=== PATIENT | female | born 1960 | race Caucasian/White ===

== ENCOUNTER → 2017-11-30 | Outpatient (CLI) | payer OTHER ==
[~2017-11-30] MED LIST: AMLO10TA4 PO; CITA40TA12 PO; GLIM4TAB PO; LYR50 PO; METF1000 PO; OMEG-112 PO; SITA1TAB27 PO; ULORIC PO; VYT/1020 PO
[2017-11-30 12:29] LABS: HEMATOCRIT 43.7 % (37-47); HEMOGLOBIN 14.9 g/dL (12.0-16.0); MEAN CELL VOLUME 105.6 fL (80-100); MEAN CORPUSCULAR HGB CONC 34.1 g/dl (32-36); MEAN PLATELET VOLUME 9.8 fL (7.4-10.4); PLATELET COUNT 298 K/uL (130-400); RED CELL DISTRIBUTION WIDTH CV 13.1 % (11.5-14.5); RED CELL DISTRIBUTION WIDTH SD 50.7 fL (36.4-46.3); WHITE BLOOD COUNT 5.87 K/uL (4.8-10.8)
[2017-11-30 13:07] LABS: BLOOD UREA NITROGEN 7 mg/dl (7-18); CALCIUM 8.7 mg/dl (8.5-10.1); CARBON DIOXIDE 27 mmol/L (21-32); CREATININE 1.03 mg/dl (0.60-1.20); GLUCOSE 173 mg/dl (70-99); POTASSIUM 4.4 mmol/L (3.5-5.1); SODIUM 134 mmol/L (136-145)
[2017-11-30 13:22] LABS: CHOLESTEROL 211 mg/dl (0-200)
== END | disposition home or self-care (01) ==
LOC: C.LABPBG 10:38
PROVIDERS: ATTEND Physician Assistant
DX: E11.9 Type 2 diabetes mellitus without complications (principal); M10.9 Gout, unspecified; K21.9 Gastro-esophageal reflux disease without esophagitis

== ENCOUNTER → 2018-06-19 | Outpatient (CLI) | payer OTHER ==
[2018-06-19 13:00] LABS: HEMOGLOBIN A1C 6.7 % (4.5-5.6)
[2018-06-19 13:14] LABS: ALBUMIN 3.1 gm/dl (3.4-5.0); BLOOD UREA NITROGEN 16 mg/dl (7-18); CALCIUM 7.2 mg/dl (8.5-10.1); CARBON DIOXIDE 20 mmol/L (21-32); CREATININE 1.07 mg/dl (0.60-1.20); GLUCOSE 170 mg/dl (70-99); POTASSIUM 3.9 mmol/L (3.5-5.1); SODIUM 132 mmol/L (136-145); TOTAL PROTEIN 6.9 gm/dl (6.4-8.2)
[2018-06-19 13:15] LABS: ALKALINE PHOSPHATASE 127 U/L (45-117); AST/SGOT 152 U/L (15-37); CHOLESTEROL 224 mg/dl (0-200)
[2018-06-19 13:22] LABS: ALT/SGPT 91 U/L (12-78); URIC ACID 8.5 mg/dl (2.6-7.2)
== END | disposition home or self-care (01) ==
LOC: C.LABPBG 09:04
PROVIDERS: ATTEND Family Medicine
DX: E78.5 Hyperlipidemia, unspecified (principal); I10 Essential (primary) hypertension; F32.9 Major depressive disorder, single episode, unspecified; E11.9 Type 2 diabetes mellitus without complications; M10.9 Gout, unspecified

== ENCOUNTER 2021-01-04 11:49 | Inpatient (IN) ==
[2021-01-04] MEDS ORDERED: SODIUM CHLORIDE 0.9% 500 ML IV SCH (12:15)
--- NOTE | 2021-01-04 12:46 | Emergency Department Note ---
Impression & Plan Weakness, Hypotension, BUTCH (acute kidney injury), Hypomagnesemia, Hypoglycemia, Right rib fracture, Fall ED Provider Note NAME: HUNG SCANLON AGE: 60 SEX: F : 1960 ARRIVES VIA: Walk-In INFORMANT: [Patient] ED PROVIDER(S): [Asim Dee MD] CHIEF COMPLAINT: Dizziness and weakness. HISTORY OF PRESENT ILLNESS: The patient is a 60-year-old female presents to the ED with 2 to 3 days of dizziness and weakness. The patient states that 2 days ago, she could not get off of her recliner chair because of weakness. When she stood, she was very dizzy and actually fell, no loss of consciousness but she injured her right flank and thoracic back on a set of dog stairs. She has pain in this area since falling and the pain worsens with movement. Pain is moderate in severity. Patient states that she noted some shortness of breath and some cough and some occasional wheeze. She states that she has pain in the chest where she struck her back/ribs with coughing. Patient is concerned that her chemistries are off as she has felt similar with electrolyte imbalance in the past. She states that she is drinking water but her urine seemed orange. No urinary burning. No abdominal pain. There has been no exertional chest pain. Of note, the patient is not on blood thinners. No known Covid exposures. REVIEW OF SYSTEMS: See HPI for pertinent positives and negatives. A total of ten systems were reviewed and were otherwise negative. PMHx/PSHx: See Below SOCIAL HISTORY: See Below. PHYSICAL EXAM: GENERAL: Patient is in no acute distress. HEENT: No acute trauma, normocephalic atraumatic, mucous membranes moist, no nasal congestion, no scleral icterus. NECK: No stridor, no adenopathy, no meningismus, trachea is midline. LUNGS: Clear to auscultation bilaterally, no wheeze, no rhonchi, breath sounds equal. HEART: Without murmurs gallops or rubs, regular rate and rhythm. ABDOMEN: Soft, nontender, bowel sounds positive, no hernias, no peritonitis. EXTREMITIES: No cyanosis, mild bilateral pedal edema, full range of motion of all the joints without pain or difficulty, no signs for acute trauma. NEUROLOGIC: Oriented x 3, no acute motor or sensory deficits, no focal weakness. SKIN: No rash, no jaundice, no diaphoresis. DIFFERENTIAL DIAGNOSIS: Infection, dehydration, metabolic abnormality, hypo/hyperglycemia, COVID-19, electrolyte disturbance, anemia, hypoxia, cardiac sources, intracerebral event, toxicologic issues, stroke, TIA, as well as other pathologies. EMERGENCY DEPARTMENT COURSE/PROCEDURES: ECG: Indication was weakness. The ECG shows a normal sinus rhythm with a rate of 98. There is some baseline artifact seen. There is no ST elevation, no PVCs. The QTc is 482. Continuous Cardiac Monitoring: An order was placed for continuous cardiac monitoring. The monitor shows a rate of 101 with sinus tachycardia. Critical Care Note: I have personally spent 43 minutes of critical care time in the direct management of this patient. This includes bedside care, interpretation of diagnostic studies, and testing, discussion with consultants, patient, and family members, and other required patient management activities. This 43 minutes is in excess of all separately billable procedures. MEDICAL DECISION MAKING: There is a very mild leukocytosis which could be consistent with infection. There is no anemia. There is a normal platelet count. Potassium mildly low at 3.3, magnesium quite low at 1.2. Glucose was low in the 50s, a repeat BSG showed a value of 47. There was evidence for acute kidney injury with a creatinine of 3.73. No concerning liver enzyme elevation. The patient appeared to be in a euthyroid state. ECG showed a sinus rhythm, no acute ischemia. Cardiac enzyme testing x1 is not consistent with acute cardiac injury. Lactic acid level is not elevated making sepsis less likely. Covid testing is negative. Chest film does not show pneumonia or CHF. Chest and abdominal CT scans were performed. She has 3 rib fractures from her fall, no pneumothorax or pulmonary contusion. No abdominal traumatic injury found by CT scan. Urinalysis result is still pending. When the patient's blood sugar dropped, she was given oral juice as well as a meal. She did receive IV saline, 1.5 L thus far to help with the acute kidney injury and dehydration. She was given IV magnesium. Patient is borderline hypotensive. She presents with weakness. She did fall a few days ago from this weakness. She has suffered rib fractures. She is dehydrated, she has acute kidney injury, she is hypomagnesemic and hypoglycemic. She requires a hospital stay. I did speak with case management, the on-call hospitalist was consulted. The patient is aware of all her findings. Past Med/Surg History Medical History Acid reflux Alcoholic hepatitis Alcoholism ERIC positive Anxiety B12 deficiency C. difficile diarrhea COPD (chronic obstructive pulmonary disease) Depression Elevated ferritin Fatty liver Gout Hirsutism HLD (hyperlipidemia) -Pt reports she is on a statin, unable to confirm HTN (hypertension) Hold home amlodipine Start 25mg of metoprolol bid 5mg of Lopressor IV PRN Non-sustained ventricular tachycardia Peripheral neuropathy Tobacco use Type 2 diabetes mellitus Vitamin D deficiency Surgical History (Updated 06/26/19 @ 15:38 by Nel Pablo PA-C) History of ankle surgery History of blepharoplasty UPPER LID WITH EXCESSIVE SKIN ONSET: [id number] DESCRIPTION: B/l eyes History of laparoscopy History of umbilical hernia repair Family History (Updated 04/24/19 @ 08:31 by Jamal Byrnes) Mother , of myocardial infarction and complications of DM II Diabetes Myocardial infarction Father , motor vehicle accident MVA (motor vehicle accident) @ AGE 50 Grandmother (Maternal) Alzheimer disease Brother Diabetes Aunt Breast cancer maternal Uncle Myocardial infarction History of throat cancer Other No significant family history Denies family history of Colon cancer Ovarian cancer Prostate cancer Social History Smoking Status: Current every day smoker packs per day: 1; Hx Alcohol Use: Yes (last drink was monday morning) Alcohol type: hard liquor Alcohol Intake Frequency Comment: 2 large drinks per day Hx Substance Use: No Preferred Language: Occitan Communication Ability: Effective Visual Impairment: No Limitations Hearing Ability: Normal Milieu Therapist Required: No Beliefs That Will Affect Care: None marital status: Single Current Living Situation: Alone Current Living Situation Comment: with two dogs current occupational status: employed 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[employer]; 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 Feels Safe at Home: Yes Dental Care, Regularly: No Physical Activity Frequency: Does not Exercise Seatbelt Use: always Assistive Devices: Glasses Allergies Allergies Allergy/AdvReac Type Severity Reaction Status Date / Time No Known Drug Allergies Allergy Verified 01/04/21 14:13 Home Meds Home Medications Medication Instructions Recorded Confirmed metformin 1 tab PO BID 07/01/18 01/04/21 albuterol sulfate 2.5 mg INHALATION Q4H PRN ml 10/21/19 01/04/21 albuterol sulfate 90 mcg/actuation 1 - 2 puffs INHALATION DAILY PRN 10/21/19 01/04/21 aerosol inhaler gm capsaicin 0.025 % topical cream 1 appln TOPICAL DAILY gm 10/21/19 01/04/21 cholecalciferol (vitamin D3) 4,000 unit PO QAM 01/04/21 01/04/21 lisinopril 20 mg PO QAM 01/04/21 01/04/21 sertraline 100 mg PO QAM 01/04/21 01/04/21 Previous Rx's Medication Instructions Recorded gabapentin 300 mg capsule 900 mg PO HS #270 cap 06/01/20 magnesium oxide 400 mg PO BID #180 cap 08/28/20 amlodipine 5 mg tablet 5 mg PO QAM #90 tab 09/21/20 potassium chloride 20 mEq 20 meq PO TID 21 Days #63 tab 10/01/20 tablet,extended release(part/cryst) glimepiride 2 mg tablet 4 mg PO HS #180 tab 10/02/20 colchicine 0.6 mg capsule See Rx Instructions PO DAILY PRN 10/09/20 #3 cap Results & Data (ED) Vital Signs Vital Signs - 24 hr 01/04/21 11:51 01/04/21 12:52 01/04/21 14:11 Temperature 36.8 C Temperature Source Temporal Artery Scan Pulse Rate 85 Pulse Rate [Left Apical] 97 H 97 H Pulse Rhythm [Left Apical] Regular Regular Pulse Strength [Left Apical] Normal Normal Respiratory Rate 18 22 18 Respiratory Effort / Characteristics Non-Labored Spontaneous Non-Labored Spontaneous Non-Labored Spontaneous Respiratory Depth Normal Normal Normal Respiratory Pattern Regular Regular Blood Pressure 102/58 L Blood Pressure [Right Arm] 101/64 107/75 Blood Pressure Mean 72 Blood Pressure Mean [Right Arm] 76 85 Blood Pressure Position [Right Arm] Lying Lying Pulse Oximetry 99 98 95 Oxygen Delivery Method Room Air Room Air Room Air Sepsis Recent Fever Within 48 Hours No Sepsis New/Unexplained Change in Mental Status N/A Sepsis Action Taken by Nursing No Action Required 01/04/21 14:16 01/04/21 15:00 01/04/21 15:43 Temperature Temperature Source Pulse Rate 95 H Pulse Rate [Left Apical] 101 H 106 H Pulse Rhythm [Left Apical] Regular Regular Pulse Strength [Left Apical] Normal Normal Respiratory Rate 22 22 Respiratory Effort / Characteristics Non-Labored Non-Labored Spontaneous Respiratory Depth Normal Normal Respiratory Pattern Regular Regular Blood Pressure Blood Pressure [Right Arm] 91/61 L 112/64 Blood Pressure Mean Blood Pressure Mean [Right Arm] 71 80 Blood Pressure Position [Right Arm] Lying Lying Pulse Oximetry 95 98 99 Oxygen Delivery Method Room Air Room Air Room Air Sepsis Recent Fever Within 48 Hours Sepsis New/Unexplained Change in Mental Status Sepsis Action Taken by Nursing 01/04/21 16:04 Temperature Temperature Source Pulse Rate Pulse Rate [Left Apical] 96 H Pulse Rhythm [Left Apical] Regular Pulse Strength [Left Apical] Normal Respiratory Rate 18 Respiratory Effort / Characteristics Non-Labored Spontaneous Respiratory Depth Normal Respiratory Pattern Regular Blood Pressure Blood Pressure [Right Arm] 113/68 Blood Pressure Mean Blood Pressure Mean [Right Arm] 83 Blood Pressure Position [Right Arm] Lying Pulse Oximetry 98 Oxygen Delivery Method Room Air Sepsis Recent Fever Within 48 Hours Sepsis New/Unexplained Change in Mental Status Sepsis Action Taken by Intermediate Medications Current Medication List: was personally reviewed by me Laboratory Data Attestation: I reviewed the patient's lab results. Result diagrams: 01/04/21 13:41 01/04/21 13:41 Lab Results 01/04/21 01/04/21 01/04/21 Range/Units 13:02 13:02 13:41 WBC 10.90 H (4.8-10.8) K/uL RBC 3.48 L (4.2-5.4) M/uL Hgb 12.1 (12.0-16.0) g/dL Hct 37.0 (37-47) % MCV 106.3 H (80-100) fL MCH 34.8 H (25-34) pg MCHC 32.7 (32-36) g/dL RDW Std Deviation 59.5 H (36.4-46.3) fL RDW Coeff of Eduardo 15.4 H (11.5-14.5) % Plt Count 203 (130-400) K/uL MPV 9.8 (7.4-10.4) fL Immature Gran % (Auto) 0.5 % Neut % (Auto) 70.6 % Lymph % (Auto) 21.7 % [place] % (Auto) 6.5 % Eos % (Auto) 0.6 % Baso % (Auto) 0.1 % Neut # (Auto) 7.70 H (1.4-6.5) K/uL Lymph # (Auto) 2.37 (1.2-3.4) K/uL [place] # (Auto) 0.71 H (0.11-0.59) K/uL Eos # (Auto) 0.06 (0-0.5) K/uL Baso # (Auto) 0.01 (0-0.2) K/uL Immature Gran # (Auto) 0.05 H (0.00-0.02) K/uL Sodium (136-145) mmol/L Potassium (3.5-5.1) mmol/L Chloride (98-107) mmol/L Carbon Dioxide (21-32) mmol/L Anion Gap (3-11) BUN (7-18) mg/dl Creatinine (0.6-1.2) mg/dl Est Cr Clr Drug Dosing ml/min Est GFR ( Amer) Est GFR (Non-Af Amer) BUN/Creatinine Ratio (10-20) Glucose (70-99) mg/dl POC Glucose (70-99) mg/dl Lactate (0.4-2.0) mmol/L Calcium (8.5-10.1) mg/dl Magnesium (1.8-2.4) mg/dl Total Bilirubin (0.2-1) mg/dl AST (15-37) U/L ALT (12-78) U/L Alkaline Phosphatase (45-117) U/L Troponin I (0-0.045) ng/ml Total Protein (6.4-8.2) gm/dl Albumin (3.4-5.0) gm/dl Globulin (2.5-4.0) gm/dl Albumin/Globulin Ratio (0.9-2) TSH (0.300-4.500) uIu/ml COVID-19 Eval Order Covid19 [facility]Now [facility] SARS-CoV-2, RNA, NAAT NEGATIVE (NEGATIVE) 01/04/21 01/04/21 01/04/21 Range/Units 13:41 13:41 15:06 WBC (4.8-10.8) K/uL RBC (4.2-5.4) M/uL Hgb (12.0-16.0) g/dL Hct (37-47) % MCV (80-100) fL MCH (25-34) pg MCHC (32-36) g/dL RDW Std Deviation (36.4-46.3) fL RDW Coeff of Eduardo (11.5-14.5) % Plt Count (130-400) K/uL MPV (7.4-10.4) fL Immature Gran % (Auto) % Neut % (Auto) % Lymph % (Auto) % [place] % (Auto) % Eos % (Auto) % Baso % (Auto) % Neut # (Auto) (1.4-6.5) K/uL Lymph # (Auto) (1.2-3.4) K/uL [place] # (Auto) (0.11-0.59) K/uL Eos # (Auto) (0-0.5) K/uL Baso # (Auto) (0-0.2) K/uL Immature Gran # (Auto) (0.00-0.02) K/uL Sodium 140 (136-145) mmol/L Potassium 3.3 L (3.5-5.1) mmol/L Chloride 105 (98-107) mmol/L Carbon Dioxide 23 (21-32) mmol/L Anion Gap 12.0 H (3-11) BUN 50 H (7-18) mg/dl Creatinine 3.73 H (0.6-1.2) mg/dl Est Cr Clr Drug Dosing 20.8 ml/min Est GFR ( Amer) 14.5 Est GFR (Non-Af Amer) 12.5 BUN/Creatinine Ratio 13.4 (10-20) Glucose 55 L (70-99) mg/dl POC Glucose 41 L* (70-99) mg/dl Lactate 1.2 (0.4-2.0) mmol/L Calcium 7.8 L (8.5-10.1) mg/dl Magnesium 1.2 L (1.8-2.4) mg/dl Total Bilirubin 0.7 (0.2-1) mg/dl AST 33 (15-37) U/L ALT 27 (12-78) U/L Alkaline Phosphatase 113 (45-117) U/L Troponin I < 0.015 (0-0.045) ng/ml Total Protein 7.7 (6.4-8.2) gm/dl Albumin 3.0 L (3.4-5.0) gm/dl Globulin 4.7 H (2.5-4.0) gm/dl Albumin/Globulin Ratio 0.6 L (0.9-2) TSH 0.682 (0.300-4.500) uIu/ml COVID-19 Eval Order SARS-CoV-2, RNA, NAAT (NEGATIVE) 01/04/21 01/04/21 01/04/21 Range/Units 15:31 16:01 16:23 WBC (4.8-10.8) K/uL RBC (4.2-5.4) M/uL Hgb (12.0-16.0) g/dL Hct (37-47) % MCV (80-100) fL MCH (25-34) pg MCHC (32-36) g/dL RDW Std Deviation (36.4-46.3) fL RDW Coeff of Eduardo (11.5-14.5) % Plt Count (130-400) K/uL MPV (7.4-10.4) fL Immature Gran % (Auto) % Neut % (Auto) % Lymph % (Auto) % [place] % (Auto) % Eos % (Auto) % Baso % (Auto) % Neut # (Auto) (1.4-6.5) K/uL Lymph # (Auto) (1.2-3.4) K/uL [place] # (Auto) (0.11-0.59) K/uL Eos # (Auto) (0-0.5) K/uL Baso # (Auto) (0-0.2) K/uL Immature Gran # (Auto) (0.00-0.02) K/uL Sodium (136-145) mmol/L Potassium (3.5-5.1) mmol/L Chloride (98-107) mmol/L Carbon Dioxide (21-32) mmol/L Anion Gap (3-11) BUN (7-18) mg/dl Creatinine (0.6-1.2) mg/dl Est Cr Clr Drug Dosing ml/min Est GFR ( Amer) Est GFR (Non-Af Amer) BUN/Creatinine Ratio (10-20) Glucose (70-99) mg/dl POC Glucose 47 L* 52 L* 84 (70-99) mg/dl Lactate (0.4-2.0) mmol/L Calcium (8.5-10.1) mg/dl Magnesium (1.8-2.4) mg/dl Total Bilirubin (0.2-1) mg/dl AST (15-37) U/L ALT (12-78) U/L Alkaline Phosphatase (45-117) U/L Troponin I (0-0.045) ng/ml Total Protein (6.4-8.2) gm/dl Albumin (3.4-5.0) gm/dl Globulin (2.5-4.0) gm/dl Albumin/Globulin Ratio (0.9-2) TSH (0.300-4.500) uIu/ml COVID-19 Eval Order SARS-CoV-2, RNA, NAAT (NEGATIVE) Administered Medications Discontinued Medications Sodium Chloride (Nss) 500 mls @ 999 mls/hr IV .Q31M GRAYSON Stop: 01/04/21 12:45 Last Infusion: 01/04/21 15:15 Dose: 0 mls/hr Documented by: [id number] Admin: 01/04/21 14:11 Dose: 999 mls/hr Documented by: [id number] Sodium Chloride (Nss 1000ml) 500 mls @ 999 mls/hr IV .Q31M ONE Stop: 01/04/21 15:03 Last Infusion: 01/04/21 16:19 Dose: 0 mls/hr Documented by: [id number] Admin: 01/04/21 15:09 Dose: 999 mls/hr Documented by: [id number] Magnesium Sulfate/Dextrose (Magnesium Sulfate / D5w) 1 gm in 100 mls @ 100 mls/hr IV Q1H GRAYSON Stop: 01/04/21 16:33 Last Admin: 01/04/21 15:40 Dose: 100 mls/hr Documented by: [id number] Infusion: 01/04/21 15:40 Dose: 100 mls/hr Documented by: [id number] Admin: 01/04/21 15:09 Dose: 100 mls/hr Documented by: [id number] Imaging Data Radiologist's Impression: XR chest 1V portable CLINICAL HISTORY: weakness TRAUMA COMPARISON STUDY: 07/01/2018 FINDINGS: Heart is mildly enlarged. There is no failure. There is no focal pulmonary consolidation. There are no pleural effusions. There is a 5 mm opacity at the left lung base, possibly atelectatic. This can be evaluated with the patient's chest CT which is pending IMPRESSION: 1. Mild cardiomegaly 2. No evidence of pneumothorax 3. No evidence of focal pulmonary consolidation 4. 5 mm nodular the left lung base versus focal atelectasis CT SCAN OF THE CHEST, ABDOMEN, AND PELVIS WITHOUT IV CONTRAST CLINICAL HISTORY: Trauma. Right-sided chest injury. COMPARISON STUDY: Chest x-ray dated 01/04/2021. MRCP dated 07/07/2018. TECHNIQUE: Unenhanced CT scan of the chest, abdomen, and pelvis was performed from the thoracic inlet to the proximal femora. Images are reviewed in the axial, sagittal, and coronal planes. IV contrast was not administered due to poor renal function. Note that the examination is suboptimal without IV contrast. A dose lowering technique was utilized adhering to the principles of ALARA. CT DOSE: 2442.75 mGy.cm FINDINGS: CHEST: Thyroid: Imaged portions of the thyroid gland are normal in size and attenuation. Thoracic aorta: There is mild atherosclerotic calcification of the thoracic aorta, which is normal in caliber and demonstrates bovine variant arch anatomy. Heart: The heart is top normal in size and without pericardial effusion. The coronary arteries are densely calcified. Lungs and pleural spaces: There is no airspace consolidation or pleural effusion. No pneumothorax is identified. Dependent atelectasis is seen at the lung bases. The trachea and central airways are clear. Mediastinum: There is no mediastinal hematoma or lymphadenopathy. Angelina: Not well assessed without IV contrast. Axillae: There is no axillary lymphadenopathy. Bony thorax: The skeletal structures are osteopenic. There is a minimally displaced right posterior 11th rib fracture. There are nondisplaced right anterior 5th and 6th rib fractures. The remainder of the bony thorax appears intact. No lytic or blastic lesions are identified. ABDOMEN AND PELVIS: Liver: The unenhanced liver is enlarged, measuring 23.8 cm in length. The liver demonstrates diffusely diminished attenuation consistent with hepatic steatosis. There is no intra- or extrahepatic biliary ductal dilatation. Gallbladder: Unremarkable. Spleen: Normal in size and attenuation. Pancreas: Unremarkable. Adrenal glands: Unremarkable. Kidneys: The unenhanced kidneys demonstrate cortical atrophy and are without hydronephrosis. No renal calculi are identified. There is no evidence of contour deforming mass lesion. Abdominal vasculature: The abdominal aorta is normal in course and caliber noting moderate atherosclerotic calcification. Stomach and bowel: A small hiatal hernia is noted. There is no bowel obstruction. The appendix is well-visualized and normal. Peritoneum: There is no intraperitoneal free air or abdominal ascites. There is evidence of previous ventral hernia repair. Lymphadenopathy: None. Pelvic viscera: The bladder, uterus, and adnexa are normal as visualized. Skeletal structures: The skeletal structures are osteopenic. The lumbosacral spine, bony pelvis, and proximal femora appear intact. There is mild to moderate lumbosacral spondylosis. Degenerative change is also seen in the hips. No lytic or blastic lesions are seen. IMPRESSION: 1. Right-sided rib fractures as above. 2. There is no airspace consolidation, pleural effusion, or pneumothorax. 3. There is no evidence of solid organ injury in the abdomen or pelvis on this unenhanced examination. 4. Hepatomegaly and hepatic steatosis. 5. Additional findings as above. Discharge Plan Visit Data Chief Complaint: Swelling/Edema to Extremity Stated Complaint: SOB FEET SWELLING CANT STAND UP BY SELF ED Provider: Asim Dee Discharge Problem: Weakness, Hypotension, BUTCH (acute kidney injury), Hypomagnesemia, Hypoglycemia, Right rib fracture, Fall Patient Disposition: Admitted As Inpatient Condition: Fair Forms Stand Alone Forms: [facility] Prescriptions Prescriptions: No Action magnesium oxide 400 mg magnesium capsule 400 mg PO BID Qty: 180 RF: 1 amlodipine 5 mg tablet 5 mg PO QAM Qty: 90 RF: 1 potassium chloride 20 mEq tablet,ER particles/crystals 20 meq PO TID 21 Days Qty: 63 RF: 0 glimepiride 2 mg tablet 4 mg PO HS Qty: 180 RF: 1 colchicine 0.6 mg capsule See Rx Instructions PO DAILY PRN (Reason: Gout) Qty: 3 RF: 1 gabapentin 300 mg capsule 900 mg PO HS Qty: 270 RF: 1 albuterol sulfate 2.5 mg /3 mL (0.083 %) solution for nebulization 2.5 mg inhalation Q4H PRN (Reason: mild COPD) RF: 0 albuterol sulfate 90 mcg/actuation HFA aerosol inhaler 1 - 2 puffs inhalation DAILY PRN (Reason: Shortness Of Breath) RF: 0 capsaicin 0.025 % cream 1 appln topical DAILY RF: 0 metformin 500 mg tablet extended release 24 hr 1 tab PO BID RF: 0 lisinopril 20 mg tablet 20 mg PO QAM RF: 0 sertraline 100 mg tablet 100 mg PO QAM RF: 0 cholecalciferol (vitamin D3) 100 mcg (4,000 unit) tablet 4,000 unit PO QAM RF: 0 Referrals Referrals: Gay Sanchez DO [Primary Care Provider] - Discharge Problem: Hypotension Qualifiers: Hypotension type: unspecified hypotension type Qualified Code(s): I95.9 - Hypotension, unspecified Right rib fracture Qualifiers: Encounter type: initial encounter Rib fracture type: multiple ribs Fracture type: closed Qualified Code(s): S22.41XA - Multiple fractures of ribs, right side, initial encounter for closed fracture Fall Qualifiers: Encounter type: initial encounter Qualified Code(s): W19.XXXA - Unspecified fall, initial encounter
--- NOTE | 2021-01-04 12:48 | XRay Report ---
XR chest 1V portable CLINICAL HISTORY: weakness TRAUMA COMPARISON STUDY: 07/01/2018 FINDINGS: Heart is mildly enlarged. There is no failure. There is no focal pulmonary consolidation. T here are no pleural effusions. There is a 5 mm opacity at the left lung base, possibly atelectatic. T his can be evaluated with the patient's chest CT which is pending IMPRESSION: 1. Mild cardiomegaly 2. No evidence of pneumothorax 3. No evidence of focal pulmonary consolidation 4. 5 mm nodular the left lung base versus focal atelectasis ACT 112: Negative or not required by law. Electronically signed by: Aram Crowley M.D. 01/04/2021 12:47 PM
--- NOTE | 2021-01-04 13:28 | Electrocardiogram Report ---
Test Reason : Blood Pressure : / mmHG Vent. Rate : 098 BPM Atrial Rate : 098 BPM P-R Int : 128 ms QRS Dur : 090 ms QT Int : 360 ms P-R-T Axes : 066 024 048 degrees QTc Int : 460 ms Poor data quality, interpretation may be adversely affected Normal sinus rhythm Borderline Nonspecific ST and T wave abnormality Inferior leads Borderline ECG When compared with ECG of 20-AUG-2018 22:00, Premature ventricular complexes are no longer Present Nonspecific T wave abnormality, improved in Lateral leads Confirmed by Sergio Rubi ([id number]) on 01/04/2021 1:28:14 PM Referred By: Confirmed By:Sergio Rubi
[2021-01-04 13:54] LABS: Basophils # (auto) 0.01 K/uL (0-0.2); Basophils % (auto) 0.1 %; Eosinophils # (auto) 0.06 K/uL (0-0.5); Eosinophils % (auto) 0.6 %; Hemoglobin 12.1 g/dL (12.0-16.0); Immature Granulocytes # (auto) 0.05 K/uL (0.00-0.02); Immature Granulocytes % (auto) 0.5 %; Lymphocytes # (auto) 2.37 K/uL (1.2-3.4); Lymphocytes % (auto) 21.7 %; Mean Corpuscular Hemoglobin 34.8 pg (25-34); Mean Corpuscular Hgb Conc 32.7 g/dL (32-36); Mean Corpuscular Volume 106.3 fL (80-100); Mean Platelet Volume 9.8 fL (7.4-10.4); Monocytes # (auto) 0.71 K/uL (0.11-0.59); Monocytes % (auto) 6.5 %; Neutrophils % (auto) 70.6 %; Platelet Count 203 K/uL (130-400); RDW Coefficient of Variation 15.4 % (11.5-14.5); RDW Standard Deviation 59.5 fL (36.4-46.3); Red Blood Count 3.48 M/uL (4.2-5.4)
[2021-01-04 14:25] LABS: Alanine Aminotransferase 27 U/L (12-78); Albumin Globulin Ratio 0.6 (0.9-2); Alkaline Phosphatase 113 U/L (45-117); Aspartate Aminotransferase 33 U/L (15-37); BUN Creatinine Ratio 13.4 (10-20); Bilirubin,Total 0.7 mg/dl (0.2-1); Blood Urea Nitrogen 50 mg/dl (7-18); Calcium 7.8 mg/dl (8.5-10.1); Carbon Dioxide 23 mmol/L (21-32); Chloride 105 mmol/L (98-107); Creatinine Clr Calc Pharmacy 20.8 ml/min; Est GFR (African American) 14.5; Est GFR (Non-African American) 12.5; Globulin 4.7 gm/dl (2.5-4.0); Glucose 55 mg/dl (70-99); Magnesium 1.2 mg/dl (1.8-2.4); Potassium 3.3 mmol/L (3.5-5.1); Sodium 140 mmol/L (136-145); Thyroid Stimulating Hormone 0.682 uIu/ml (0.300-4.500); Total Protein 7.7 gm/dl (6.4-8.2); Troponin I < 0.015 ng/ml (0-0.045)
[2021-01-04] MEDS ORDERED: SODIUM CHLORIDE 0.9% 1000ML 500 ML IV ONE ×2 (14:33→15:23)
[2021-01-04] MEDS: MAGNESIUM SULFATE / D5W 1 GM/100 ML BAG IV SCH ×2 (15:09→15:40)
--- NOTE | 2021-01-04 15:13 | CT Scan Report ---
CT SCAN OF THE CHEST, ABDOMEN, AND PELVIS WITHOUT IV CONTRAST CLINICAL HISTORY: Trauma. Right-sided chest injury. COMPARISON STUDY: Chest x-ray dated 01/04/2021. MRCP dated 07/07/2018. TECHNIQUE: Unenhanced CT scan of the chest, abdomen, and pelvis was performed from the thoracic inlet to the proximal femora. Images are reviewed in the axial, sagittal, and coronal planes. IV contrast was not administered due to poor renal function. Note that the examination is suboptimal without IV c ontrast. A dose lowering technique was utilized adhering to the principles of ALARA. CT DOSE: 2442.75 mGy.cm FINDINGS: CHEST: Thyroid: Imaged portions of the thyroid gland are normal in size and attenuation. Thoracic aorta: There is mild atherosclerotic calcification of the thoracic aorta, which is normal in caliber and demonstrates bovine variant arch anatomy. Heart: The heart is top normal in size and without pericardial effusion. The coronary arteries are de nsely calcified. Lungs and pleural spaces: There is no airspace consolidation or pleural effusion. No pneumothorax is identified. Dependent atelectasis is seen at the lung bases. The trachea and central airways are reji r. Mediastinum: There is no mediastinal hematoma or lymphadenopathy. Angelina: Not well assessed without IV contrast. Axillae: There is no axillary lymphadenopathy. Bony thorax: The skeletal structures are osteopenic. There is a minimally displaced right posterior 1 1th rib fracture. There are nondisplaced right anterior 5th and 6th rib fractures. The remainder of t he bony thorax appears intact. No lytic or blastic lesions are identified. ABDOMEN AND PELVIS: Liver: The unenhanced liver is enlarged, measuring 23.8 cm in length. The liver demonstrates diffusel y diminished attenuation consistent with hepatic steatosis. There is no intra- or extrahepatic biliar y ductal dilatation. Gallbladder: Unremarkable. Spleen: Normal in size and attenuation. Pancreas: Unremarkable. Adrenal glands: Unremarkable. Kidneys: The unenhanced kidneys demonstrate cortical atrophy and are without hydronephrosis. No renal calculi are identified. There is no evidence of contour deforming mass lesion. Abdominal vasculature: The abdominal aorta is normal in course and caliber noting moderate atheroscle rotic calcification. Stomach and bowel: A small hiatal hernia is noted. There is no bowel obstruction. The appendix is we ll-visualized and normal. Peritoneum: There is no intraperitoneal free air or abdominal ascites. There is evidence of previous ventral hernia repair. Lymphadenopathy: None. Pelvic viscera: The bladder, uterus, and adnexa are normal as visualized. Skeletal structures: The skeletal structures are osteopenic. The lumbosacral spine, bony pelvis, and proximal femora appear intact. There is mild to moderate lumbosacral spondylosis. Degenerative change is also seen in the hips. No lytic or blastic lesions are seen. IMPRESSION: 1. Right-sided rib fractures as above. 2. There is no airspace consolidation, pleural effusion, or pneumothorax. 3. There is no evidence of solid organ injury in the abdomen or pelvis on this unenhanced examination . 4. Hepatomegaly and hepatic steatosis. 5. Additional findings as above. ACT 112: Negative or not required by law. Electronically signed by: Asim Bertrand M.D. 01/04/2021 3:12 PM
--- NOTE | 2021-01-04 15:59 | History & Physical Report ---
Date of Service January 04, 2021 Assessment & Plan (1) BUTCH (acute kidney injury): Presented with creatinine up to 3.7, elevated BUN to 50, likely secondary to dehydration and poor p.o. intake in the setting of taking continued lisinopril, metformin. She is a heavy alcohol abuser which is also likely contributing Fortunately, potassium levels actually slightly low and there is no acidosis. She does have low blood pressure and seems volume down despite her mild lower extremity edema. -Admit to medical floor with telemetry -Start normal saline at 100 mL's per hour -Follow serial BMP -Follow urine output-she has not been able to give a urine sample yet but when she does, would check FeNa There is no evidence of obstruction on CT abdomen/pelvis -Consult nephrology-there is been question in the past of if she had a Gitleman syndrome but her appointments with nephrology have been canceled for some reason -Hold home lisinopril, Metformin, glimepiride, potassium chloride, and gabapentin (2) Weakness: With fall and unsteadiness possibly due to acute kidney injury, hypomagnesemia, hypotension, and hypoglycemia Treat all metabolic disturbances -PT/OT consults will be needed (3) Hypotension: As noted above Improved now with IV fluids Hold home amlodipine, lisinopril Continue IV fluids (4) Hypomagnesemia: Magnesium is 1.2 upon admission, it has been low in the past and there is suspected renal magnesium wasting She does have 1 loose bowel movement per day but this does not seem enough to cause significant hypomagnesemia Consult nephrology -Continue home magnesium oxide -She was given 1 g of IV magnesium sulfate in the ER, but will order 2 more grams to be given Follow magnesium levels in the morning (5) Hypoglycemia: Persistent hypoglycemia upon admission Likely secondary to glimepiride use in the setting of acute kidney injury Continue to allow her to replace glucose orally, but will also start D5 normal saline after given first dose of thiamine and her banana bag Follow Accu-Cheks before meals and at bedtime as well as at 2 in the morning- discussed with nurse on the floor (6) Right rib fracture: Fifth and sixth anterior ribs nondisplaced, 11th posterior rib mildly displaced-no evidence of pneumothorax With bruising on the right trunk secondary to such Start lidocaine patch, Tylenol as needed Incentive spirometry every hour while awake (7) Fall: As above, likely secondary to hypotension, hypoglycemia, weakness from acute kidney injury PT/OT consults (8) Alcoholism: Has been an alcoholic for 40 years as per patient and her sister confirms this at the bedside She has attended alcohol rehab in the past Currently, she only admits to one large glass of michelle per day, but her sister disputes this outside of the room stating that patient drinks way more than this on a daily basis. Watch for alcohol withdrawal with AWSS Ativan as needed Give banana bag x1 now Start thiamine 100 mg IV every morning and folic acid 1 mg IV daily (9) Leg swelling: Ongoing for 4-5 months but worse in the last week likely due to acute kidney injury Could be secondary to dependent edema from central obesity or venous reflux as well No calf tenderness or suspicion for DVT -Check echocardiogram as could have alcoholic cardiomyopathy (10) Type 2 diabetes mellitus: With hyperglycemia here as above Holding home metformin and glimepiride Accu-Cheks and NovoLog supplemental insulin as needed Check hemoglobin A1c (11) Peripheral neuropathy: Holding home gabapentin due to weakness, renal failure (12) Tobacco use: Smokes 1 pack/day-declines nicotine patch Encourage cessation-she is considering this (13) Depression: Continue home sertraline (14) B12 deficiency: MCV is elevated which is likely due to liver disease and alcohol use Check B12 in the morning (15) Acid reflux: Not currently on medications for this and no current complaints (16) COPD (chronic obstructive pulmonary disease): With mild expiratory wheezes on examination Albuterol as needed Encourage smoking cessation (17) HLD (hyperlipidemia): Not currently on medication for this (18) HTN (hypertension): With hypotension as above Holding home amlodipine and lisinopril (19) Fatty liver: Secondary to alcohol Encouraged alcohol cessation, weight loss (20) Vitamin D deficiency: Continue home vitamin D supplementation (21) Hypokalemia: Has chronic hypokalemia and is on potassium chloride 3 times daily at home Potassium here mildly low at 3.3 but with acute kidney injury-we will use caution with potassium replacement Replace with 20 mEq potassium chloride p.o. x1 now, follow daily BMP, magnesium levels Hold home 3 times daily replacement for now (22) DVT prophylaxis: Heparin SQ, PHUONG witt Disposition-admit to medical floor with telemetry Full code Patient designates her sister and brother as her decision makers. She reports that she would not want long-term life support if "I were a vegetable." History of Present Illness Chief Complaint: Fall, rib pain, weakness Primary Care Provider: Gay Sanchez DO This patient is a 60-year-old female with a history of alcohol dependence, DM 2, COPD and current smoker, depression, neuropathy, hypokalemia, hypomagnesemia who presents to the ER with 2 to 3 days of persistent lightheadedness and generalized weakness. A few days ago, she had great difficulty getting off of her recliner chair and then stood and had dizziness and fell, landed on her right side on some steps and has had pain in the right flank area ever since. Since then, she has not really been drinking or eating much and has had worsening weakness. She reports her urine output has gone down significantly in her urine appeared orange in color. She thinks overall she started feeling poorly at least a week ago. She is continue to take all of her usual medications at home. She is also noted worsening swelling in the legs in the last week but overall legs have been swollen and red since July 2020. She denies any fevers or chills, no chest pain or shortness of breath. She has had some headaches last couple of weeks. She denies any nausea or vomiting. She has had 1 loose stool daily for the last week. She reports that she has cut way down on her alcohol intake but cannot give me an exact a.m. when she last drank. She thinks it was "sometime last week," however her sister spoke to the nurse outside the room and said that her sister drinks excessively on a daily basis. The patient admits to drinking a large glass full of michelle on a daily basis that is mixed with soda. The patient denies any withdrawal symptoms except from a hospitalization a couple of years ago. In the ER, she was found to have an acute kidney injury with creatinine of 3.7 and was hypotensive, hypoglycemic, hypokalemic, and hypomagnesemic. Troponin was negative. She was given juice to drink and her blood sugar finally came up to 84. She was also given IV fluids and her blood pressure improved. She was given IV magnesium. A CT of the chest/abdomen/pelvis revealed right sided anterior fifth and sixth rib fractures as well as a minimally displaced right posterior 11th rib fracture, hepatomegaly and hepatic steatosis, but was otherwise negative for acute issues. A Covid-19 test was negative She will be admitted for acute kidney injury and multiple metabolic and electrolyte disturbances, as well as falls, lightheadedness, and hypotension. Allergies Allergy/AdvReac Type Severity Reaction Status Date / Time No Known Drug Allergies Allergy Verified 01/04/21 14:13 Home Medications Medication Instructions Recorded Confirmed Type metformin 1 tab PO BID 07/01/18 01/04/21 History albuterol sulfate 2.5 mg INHALATION Q4H PRN ml 10/21/19 01/04/21 History albuterol sulfate 90 mcg/actuation 1 - 2 puffs INHALATION DAILY PRN 10/21/19 01/04/21 History aerosol inhaler gm capsaicin 0.025 % topical cream 1 appln TOPICAL DAILY gm 10/21/19 01/04/21 History gabapentin 300 mg capsule 900 mg PO HS #270 cap 06/01/20 01/04/21 Rx magnesium oxide 400 mg PO BID #180 cap 08/28/20 01/04/21 Rx amlodipine 5 mg tablet 5 mg PO QAM #90 tab 09/21/20 01/04/21 Rx potassium chloride 20 mEq 20 meq PO TID 21 Days #63 tab 10/01/20 01/04/21 Rx tablet,extended release(part/cryst) glimepiride 2 mg tablet 4 mg PO HS #180 tab 10/02/20 01/04/21 Rx colchicine 0.6 mg capsule See Rx Instructions PO DAILY PRN 10/09/20 01/04/21 Rx #3 cap cholecalciferol (vitamin D3) 4,000 unit PO QAM 01/04/21 01/04/21 History lisinopril 20 mg PO QAM 01/04/21 01/04/21 History sertraline 100 mg PO QAM 01/04/21 01/04/21 History Past Med/Surg History Medical History Acid reflux Alcoholic hepatitis Alcoholism ERIC positive Anxiety B12 deficiency C. difficile diarrhea COPD (chronic obstructive pulmonary disease) Depression Elevated ferritin Fatty liver Gout Hirsutism HLD (hyperlipidemia) -Pt reports she is on a statin, unable to confirm HTN (hypertension) Hold home amlodipine Start 25mg of metoprolol bid 5mg of Lopressor IV PRN Non-sustained ventricular tachycardia Peripheral neuropathy Tobacco use Type 2 diabetes mellitus Vitamin D deficiency Surgical History History of ankle surgery History of blepharoplasty UPPER LID WITH EXCESSIVE SKIN ONSET: [id number] DESCRIPTION: B/l eyes History of bunionectomy History of laparoscopy History of umbilical hernia repair Family History Mother , of myocardial infarction and complications of DM II Diabetes Myocardial infarction Father , motor vehicle accident MVA (motor vehicle accident) @ AGE 50 Grandmother (Maternal) Alzheimer disease Brother Diabetes Aunt Breast cancer maternal Uncle Myocardial infarction History of throat cancer Other No significant family history Denies family history of Colon cancer Ovarian cancer Prostate cancer Social History Smoking Status: Current every day smoker packs per day: 1; Hx Alcohol Use: Yes (last drink was monday morning) Alcohol type: hard liquor Alcohol Intake Frequency Comment: 2 large drinks per day Hx Substance Use: No Preferred Language: Setswana Communication Ability: Effective Visual Impairment: No Limitations Hearing Ability: Normal Warehouse Man Required: No Beliefs That Will Affect Care: None marital status: Single Current Living Situation: Alone Current Living Situation Comment: with two dogs current occupational status: employed 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[employer]; 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 Feels Safe at Home: Yes Dental Care, Regularly: No Physical Activity Frequency: Does not Exercise Seatbelt Use: always Assistive Devices: Glasses Review of Systems Review of Systems: All systems reviewed & are unremarkable except as noted in HPI & below Leg swelling Right sided rib pain Toenails thickened and long-requesting podiatry consultation Physical Exam Constitutional: WD/WN, vitals as above Eyes: PERRL, conjunctivae normal, anicteric sclerae ENMT: external ear and nose normal, oropharynx normal Neck: trachea midline, no thyromegaly Respiratory: normal respiratory effort; no labored breathing Auscultation: + wheezes (Faint expiratory wheezes bilaterally); no rales and no rhonchi Cardiovascular: Rate/Rhythm: regular rate and regular rhythm Heart Sounds: no murmur Extremities: + edema (1+ nonpitting edema feet and distal legs bilat) Chest (Breasts): Chest: normal inspection of chest Gastrointestinal (Abdomen): normal bowel sounds, soft, nontender, no hepatosplenomegaly Musculoskeletal: Extremities: no cyanosis and no clubbing Skin: + erythema (mild chronic venous stasis and a few small scratches legs bilat) Neurologic: moves all extremities and awake; no focal motor deficits Psychiatric: A+Ox3, euthymic affect Results & Data Results & Data ([facility]) Vital Signs (Past 12 Hours) Vital Signs Temp Pulse Pulse Resp BP BP Pulse Ox 01/04/21 15:43 106 H 22 112/64 99 01/04/21 15:00 101 H 22 91/61 L 98 01/04/21 14:16 95 H 95 01/04/21 14:11 97 H 18 107/75 95 01/04/21 12:52 97 H 22 101/64 98 01/04/21 11:51 36.8 C 85 18 102/58 L 99 Laboratory Results 01/04/21 01/04/21 01/04/21 Range/Units 16:01 15:31 15:06 WBC (4.8-10.8) K/uL RBC (4.2-5.4) M/uL Hgb (12.0-16.0) g/dL Hct (37-47) % MCV (80-100) fL MCH (25-34) pg MCHC (32-36) g/dL RDW Std Deviation (36.4-46.3) fL RDW Coeff of Eduardo (11.5-14.5) % Plt Count (130-400) K/uL MPV (7.4-10.4) fL Immature Gran % (Auto) % Neut % (Auto) % Lymph % (Auto) % [place] % (Auto) % Eos % (Auto) % Baso % (Auto) % Neut # (Auto) (1.4-6.5) K/uL Lymph # (Auto) (1.2-3.4) K/uL [place] # (Auto) (0.11-0.59) K/uL Eos # (Auto) (0-0.5) K/uL Baso # (Auto) (0-0.2) K/uL Immature Gran # (Auto) (0.00-0.02) K/uL Sodium (136-145) mmol/L Potassium (3.5-5.1) mmol/L Chloride (98-107) mmol/L Carbon Dioxide (21-32) mmol/L Anion Gap (3-11) BUN (7-18) mg/dl Creatinine (0.6-1.2) mg/dl Est Cr Clr Drug Dosing ml/min Est GFR ( Amer) Est GFR (Non-Af Amer) BUN/Creatinine Ratio (10-20) Glucose (70-99) mg/dl POC Glucose 52 L* 47 L* 41 L* (70-99) mg/dl Lactate (0.4-2.0) mmol/L Calcium (8.5-10.1) mg/dl Magnesium (1.8-2.4) mg/dl Total Bilirubin (0.2-1) mg/dl AST (15-37) U/L ALT (12-78) U/L Alkaline Phosphatase (45-117) U/L Troponin I (0-0.045) ng/ml Total Protein (6.4-8.2) gm/dl Albumin (3.4-5.0) gm/dl Globulin (2.5-4.0) gm/dl Albumin/Globulin Ratio (0.9-2) TSH (0.300-4.500) uIu/ml COVID-19 Eval Order SARS-CoV-2, RNA, NAAT (NEGATIVE) 01/04/21 01/04/21 01/04/21 Range/Units 13:41 13:41 13:41 WBC 10.90 H (4.8-10.8) K/uL RBC 3.48 L (4.2-5.4) M/uL Hgb 12.1 (12.0-16.0) g/dL Hct 37.0 (37-47) % MCV 106.3 H (80-100) fL MCH 34.8 H (25-34) pg MCHC 32.7 (32-36) g/dL RDW Std Deviation 59.5 H (36.4-46.3) fL RDW Coeff of Eduardo 15.4 H (11.5-14.5) % Plt Count 203 (130-400) K/uL MPV 9.8 (7.4-10.4) fL Immature Gran % (Auto) 0.5 % Neut % (Auto) 70.6 % Lymph % (Auto) 21.7 % [place] % (Auto) 6.5 % Eos % (Auto) 0.6 % Baso % (Auto) 0.1 % Neut # (Auto) 7.70 H (1.4-6.5) K/uL Lymph # (Auto) 2.37 (1.2-3.4) K/uL [place] # (Auto) 0.71 H (0.11-0.59) K/uL Eos # (Auto) 0.06 (0-0.5) K/uL Baso # (Auto) 0.01 (0-0.2) K/uL Immature Gran # (Auto) 0.05 H (0.00-0.02) K/uL Sodium 140 (136-145) mmol/L Potassium 3.3 L (3.5-5.1) mmol/L Chloride 105 (98-107) mmol/L Carbon Dioxide 23 (21-32) mmol/L Anion Gap 12.0 H (3-11) BUN 50 H (7-18) mg/dl Creatinine 3.73 H (0.6-1.2) mg/dl Est Cr Clr Drug Dosing 20.8 ml/min Est GFR ( Amer) 14.5 Est GFR (Non-Af Amer) 12.5 BUN/Creatinine Ratio 13.4 (10-20) Glucose 55 L (70-99) mg/dl POC Glucose (70-99) mg/dl Lactate 1.2 (0.4-2.0) mmol/L Calcium 7.8 L (8.5-10.1) mg/dl Magnesium 1.2 L (1.8-2.4) mg/dl Total Bilirubin 0.7 (0.2-1) mg/dl AST 33 (15-37) U/L ALT 27 (12-78) U/L Alkaline Phosphatase 113 (45-117) U/L Troponin I < 0.015 (0-0.045) ng/ml Total Protein 7.7 (6.4-8.2) gm/dl Albumin 3.0 L (3.4-5.0) gm/dl Globulin 4.7 H (2.5-4.0) gm/dl Albumin/Globulin Ratio 0.6 L (0.9-2) TSH 0.682 (0.300-4.500) uIu/ml COVID-19 Eval Order SARS-CoV-2, RNA, NAAT (NEGATIVE) 01/04/21 01/04/21 Range/Units 13:02 13:02 WBC (4.8-10.8) K/uL RBC (4.2-5.4) M/uL Hgb (12.0-16.0) g/dL Hct (37-47) % MCV (80-100) fL MCH (25-34) pg MCHC (32-36) g/dL RDW Std Deviation (36.4-46.3) fL RDW Coeff of Eduardo (11.5-14.5) % Plt Count (130-400) K/uL MPV (7.4-10.4) fL Immature Gran % (Auto) % Neut % (Auto) % Lymph % (Auto) % [place] % (Auto) % Eos % (Auto) % Baso % (Auto) % Neut # (Auto) (1.4-6.5) K/uL Lymph # (Auto) (1.2-3.4) K/uL [place] # (Auto) (0.11-0.59) K/uL Eos # (Auto) (0-0.5) K/uL Baso # (Auto) (0-0.2) K/uL Immature Gran # (Auto) (0.00-0.02) K/uL Sodium (136-145) mmol/L Potassium (3.5-5.1) mmol/L Chloride (98-107) mmol/L Carbon Dioxide (21-32) mmol/L Anion Gap (3-11) BUN (7-18) mg/dl Creatinine (0.6-1.2) mg/dl Est Cr Clr Drug Dosing ml/min Est GFR ( Amer) Est GFR (Non-Af Amer) BUN/Creatinine Ratio (10-20) Glucose (70-99) mg/dl POC Glucose (70-99) mg/dl Lactate (0.4-2.0) mmol/L Calcium (8.5-10.1) mg/dl Magnesium (1.8-2.4) mg/dl Total Bilirubin (0.2-1) mg/dl AST (15-37) U/L ALT (12-78) U/L Alkaline Phosphatase (45-117) U/L Troponin I (0-0.045) ng/ml Total Protein (6.4-8.2) gm/dl Albumin (3.4-5.0) gm/dl Globulin (2.5-4.0) gm/dl Albumin/Globulin Ratio (0.9-2) TSH (0.300-4.500) uIu/ml COVID-19 Eval Order Covid19 [facility] SARS-CoV-2, RNA, NAAT NEGATIVE (NEGATIVE) Diagnostic Findings CT SCAN OF THE CHEST, ABDOMEN, AND PELVIS WITHOUT IV CONTRAST CLINICAL HISTORY: Trauma. Right-sided chest injury. COMPARISON STUDY: Chest x-ray dated 01/04/2021. MRCP dated 07/07/2018. TECHNIQUE: Unenhanced CT scan of the chest, abdomen, and pelvis was performed from the thoracic inlet to the proximal femora. Images are reviewed in the axial, sagittal, and coronal planes. IV contrast was not administered due to poor renal function. Note that the examination is suboptimal without IV contrast. A dose lowering technique was utilized adhering to the principles of ALARA. CT DOSE: 2442.75 mGy.cm FINDINGS: CHEST: Thyroid: Imaged portions of the thyroid gland are normal in size and attenuation. Thoracic aorta: There is mild atherosclerotic calcification of the thoracic aorta, which is normal in caliber and demonstrates bovine variant arch anatomy. Heart: The heart is top normal in size and without pericardial effusion. The coronary arteries are densely calcified. Lungs and pleural spaces: There is no airspace consolidation or pleural effusion. No pneumothorax is identified. Dependent atelectasis is seen at the lung bases. The trachea and central airways are clear. Mediastinum: There is no mediastinal hematoma or lymphadenopathy. Angelina: Not well assessed without IV contrast. Axillae: There is no axillary lymphadenopathy. Bony thorax: The skeletal structures are osteopenic. There is a minimally displaced right posterior 11th rib fracture. There are nondisplaced right anterior 5th and 6th rib fractures. The remainder of the bony thorax appears intact. No lytic or blastic lesions are identified. ABDOMEN AND PELVIS: Liver: The unenhanced liver is enlarged, measuring 23.8 cm in length. The liver demonstrates diffusely diminished attenuation consistent with hepatic steatosis. There is no intra- or extrahepatic biliary ductal dilatation. Gallbladder: Unremarkable. Spleen: Normal in size and attenuation. Pancreas: Unremarkable. Adrenal glands: Unremarkable. Kidneys: The unenhanced kidneys demonstrate cortical atrophy and are without hydronephrosis. No renal calculi are identified. There is no evidence of contour deforming mass lesion. Abdominal vasculature: The abdominal aorta is normal in course and caliber noting moderate atherosclerotic calcification. Stomach and bowel: A small hiatal hernia is noted. There is no bowel obstruction. The appendix is well-visualized and normal. Peritoneum: There is no intraperitoneal free air or abdominal ascites. There is evidence of previous ventral hernia repair. Lymphadenopathy: None. Pelvic viscera: The bladder, uterus, and adnexa are normal as visualized. Skeletal structures: The skeletal structures are osteopenic. The lumbosacral spine, bony pelvis, and proximal femora appear intact. There is mild to moderate lumbosacral spondylosis. Degenerative change is also seen in the hips. No lytic or blastic lesions are seen. IMPRESSION: 1. Right-sided rib fractures as above. 2. There is no airspace consolidation, pleural effusion, or pneumothorax. 3. There is no evidence of solid organ injury in the abdomen or pelvis on this unenhanced examination. 4. Hepatomegaly and hepatic steatosis. 5. Additional findings as above. ECG Additional Comments: ECG on 01/04/2021 at 1245 with normal sinus rhythm, rate 98, nonspecific ST and T wave abnormality inferior leads Code Status & VTE Plan Code Status Full code VTE Prophylaxis Plan VTE Prophylaxis will be ordered: Yes PG Care Time/CCT Total # of Minutes Spent Total Time Spent with Patient: Total time spent is greater than 50% in coordination of care (as documented) at patient's floor/unit and/or counseling patient: Coding Level of Care Code 55588 Initial Inpt Care Lvl 3 Diagnoses BUTCH (acute kidney injury) N17.9 Weakness R53.1 Hypotension I95.9 Hypotension type: unspecified hypotension type Hypomagnesemia E83.42 Hypoglycemia E16.2 Right rib fracture S22.41XA Encounter type: initial encounter Fracture type: closed Rib fracture type: multiple ribs Fall W19.XXXA Encounter type: initial encounter Alcoholism F10.20 Leg swelling M79.89 Type 2 diabetes mellitus E11.9 Peripheral neuropathy G62.9 Tobacco use Z72.0 Depression F32.9 B12 deficiency E53.8 Acid reflux K21.9 COPD (chronic obstructive pulmonary disease) J44.9 HLD (hyperlipidemia) E78.5 HTN (hypertension) I10 Fatty liver K76.0 Vitamin D deficiency E55.9 Hypokalemia E87.6 DVT prophylaxis Z29.9 (1) Right rib fracture Encounter type: initial encounter Fracture type: closed Rib fracture type: multiple ribs Qualified Code(s): S22.41XA - Multiple fractures of ribs, right side, initial encounter for closed fracture (2) Fall Encounter type: initial encounter Qualified Code(s): W19.XXXA - Unspecified fall, initial encounter (3) Hypotension Hypotension type: unspecified hypotension type Qualified Code(s): I95.9 - Hypotension, unspecified
[2021-01-04] MEDS ORDERED: POTASSIUM CHLORIDE CRTAB 20 MEQ TABCR PO STA (17:11)
[2021-01-04] MEDS ORDERED: MULTI-VITAMIN INFUSION 10 ML, THIAMINE HCL 100 MG, FOLIC ACID 1 MG in SODIUM CHLORIDE 0... IV ONE (17:11)
[2021-01-04] MEDS ORDERED: MAGNESIUM SULFATE / D5W 1 GM/100 ML BAG IV STA (17:11)
[2021-01-04] MEDS ORDERED: SODIUM CHLORIDE 0.9% 1000ML 1,000 ML IV SCH (17:11)
[2021-01-04] MEDS ORDERED: LIDOCAINE 5% 1 PATCH TD SCH (18:31)
[2021-01-04] MEDS ORDERED: GLUCOSE 10 TABS/TUBE PO PRN (18:31)
[2021-01-04] MEDS ORDERED: GLUCAGON FOR INJ 1 MG VIAL SQ PRN (18:31)
[2021-01-04] MEDS ORDERED: LORazepam 1 MG TAB PO PRN (18:31)
[2021-01-04] MEDS ORDERED: ALBUTEROL 0.083% NEBU SOLN 3 ML VIAL INH PRN (18:31)
[2021-01-04] MEDS ORDERED: CARBOHYDRATES FOR HYPOGLYCEMIA PO PRN (18:31)
[2021-01-04] MEDS: LIDOCAINE 5% 1 PATCH TD SCH (19:19)
[2021-01-04] MEDS ORDERED: MICONAZOLE NITRATE POWDER 43 GM EXT PRN (19:35)
[2021-01-04] MEDS: MAGNESIUM OXIDE 400 MG TAB PO SCH (20:18)
[2021-01-04] MEDS: THIAMINE HCL 100 MG in SYRINGE 9 ML IV SCH (20:18)
[2021-01-04] MEDS: HEPARIN SOD 5,000 UNIT/0.5 ML VIAL SQ SCH (20:18)
[2021-01-04] MEDS: FOLIC ACID 1 MG in SYRINGE 9.8 ML IV SCH (20:18)
[2021-01-04] MEDS: INSULIN ASPART 100 UNITS/ML 3 ML PEN SC SCH (21:10)
[2021-01-04] MEDS: GLUCOSE 40% GEL 15 GM TUBE PO PRN ×2 (21:16→21:46)
[2021-01-04] MEDS: D5W AND NSS 1,000 ML IV SCH (21:48)
[2021-01-04] MEDS: DEXTROSE 50% 50 ML SYRINGE IV PRN (22:14)
[2021-01-05] MEDS: DEXTROSE 50% 50 ML SYRINGE IV PRN ×2 (01:37→05:01)
[2021-01-05 02:14] LABS: Appearance Urine Cloudy (Clear); Bacteria Urine Automated 4+ (Negative); Bilirubin Urine Negative (Negative); Blood Urine Negative (Negative); Color Urine Yellow; Glucose Urine UA Negative (Negative); Ketones Urine Negative (Negative); Leukocyte Esterase Urine 2+ (Negative); Nitrite Urine Negative (Negative); Protein Urine Negative (Negative); Specific Gravity Urine 1.011 (1.000-1.030); Urobilinogen Urine Negative (Negative); WBC Urine Automated >30 /hpf (0-5); pH Urine 5.5 (4.5-7.5)
[2021-01-05 02:42] LABS: RBC Urine Automated 0-4 /hpf (0-4)
[2021-01-05 03:51] LABS: Creatinine Urine Random 52.3 mg/dl
[2021-01-05] MEDS ORDERED: DEXTROSE 50% 50 ML SYRINGE IV ONE (05:09)
[2021-01-05] MEDS: ACETAMINOPHEN 325 MG TAB PO PRN (05:27)
[2021-01-05 07:05] LABS: Basophils # (auto) 0.01 K/uL (0-0.2); Basophils % (auto) 0.2 %; Eosinophils # (auto) 0.11 K/uL (0-0.5); Eosinophils % (auto) 1.7 %; Hematocrit (blood only) 33.7 % (37-47); Hemoglobin 11.1 g/dL (12.0-16.0); Immature Granulocytes # (auto) 0.02 K/uL (0.00-0.02); Immature Granulocytes % (auto) 0.3 %; Lymphocytes % (auto) 25.4 %; Mean Corpuscular Hemoglobin 34.9 pg (25-34); Mean Corpuscular Hgb Conc 32.9 g/dL (32-36); Mean Platelet Volume 9.6 fL (7.4-10.4); Monocytes # (auto) 0.54 K/uL (0.11-0.59); Monocytes % (auto) 8.6 %; Neutrophils # (auto) 4.01 K/uL (1.4-6.5); Neutrophils % (auto) 63.8 %; Platelet Count 175 K/uL (130-400); RDW Coefficient of Variation 15.2 % (11.5-14.5); RDW Standard Deviation 59.2 fL (36.4-46.3); Red Blood Count 3.18 M/uL (4.2-5.4); White Blood Count 6.29 K/uL (4.8-10.8)
[2021-01-05] MEDS: D5W AND NSS 1,000 ML IV SCH ×3 (07:37→22:01)
[2021-01-05 07:59] LABS: Estimated Average Glucose 140 mg/dl; Hemoglobin A1C 6.5 % (4.5-5.6)
[2021-01-05 08:03] LABS: BUN Creatinine Ratio 19.6 (10-20); Calcium 7.1 mg/dl (8.5-10.1); Creatinine Clr Calc Pharmacy 43.7 ml/min; Est GFR (African American) 35.6; Est GFR (Non-African American) 30.7; Magnesium 1.9 mg/dl (1.8-2.4); Phosphorus 3.3 mg/dl (2.5-4.9); Potassium 3.5 mmol/L (3.5-5.1)
[2021-01-05 08:42] LABS: Folate (Folic Acid) > 20.00 ng/ml (>5.38); Vitamin B12 613 pg/ml (193-986)
--- NOTE | 2021-01-05 08:45 | Hospitalist Progress Note ---
Date of Service January 05, 2021 Assessment & Plan (1) BUTCH (acute kidney injury): Presented with creatinine up to 3.7, elevated BUN to 50, likely secondary to dehydration and poor p.o. intake in the setting of taking continued lisinopril, metformin. pt complains of weakness and lives alone so was not taking po well or eating with exception of alcohol -Follow urine output-she has not been able to give a urine sample yet but when she does, There is no evidence of bowel or urinary obstruction on CT abdomen/pelvis -Consult nephrology-there is been question in the past of if she had a Gitleman syndrome (Gitelman syndrome is a kidney disorder that causes an imbalance of charged atoms (ions) in the body, including ions of potassium, magnesium, and calcium) -Hold home lisinopril, Metformin, glimepiride, potassium chloride, and gabapentin (2) Weakness: With fall and unsteadiness possibly due to acute kidney injury, hypomagnesemia, hypotension, and hypoglycemia replete electrolytes -PT/OT consults will be needed (3) Hypotension: As noted above Improved now with IV fluids Hold home antihypertensive medications, amlodipine, lisinopril Continue IV fluids (4) Hypomagnesemia: Magnesium is 1.2 upon admission, it has been low in the past and there is suspected renal magnesium wasting She does have 1 loose bowel movement per day but takes po magnesium, this does not seem enough to cause electrolyte disturbances alone -Continue home magnesium oxide -She was given 3 g of IV magnesium sulfate on admission magnesium normal but low normal 1.9 (5) Hypoglycemia: Persistent hypoglycemia upon admission Likely secondary to glimepiride use in the setting of acute kidney injury Continue to allow her to replace glucose orally (6) Right rib fracture: Fifth and sixth anterior ribs nondisplaced, 11th posterior rib mildly displaced-no evidence of pneumothorax With bruising on the right trunk secondary to such Start lidocaine patch, Tylenol as needed Incentive spirometry every hour while awake (7) Fall: As above, likely secondary to hypotension, hypoglycemia, weakness from acute kidney injury PT/OT consults (8) Alcoholism: Has been an alcoholic for 40 years as per patient and her sister confirms this at the bedside She has attended alcohol rehab in the past Currently, she only admits to one large glass of michelle per day, but her sister disputes this outside of the room stating that patient drinks way more than this on a daily basis. Watch for alcohol withdrawal with AWSS Ativan as needed Give banana bag x1 now Start thiamine 100 mg IV every morning and folic acid 1 mg IV daily (9) Leg swelling: Ongoing for 4-5 months but worse in the last week likely due to acute kidney injury Could be secondary to dependent edema from central obesity (bmi 40)or venous reflux as well No calf tenderness or suspicion for DVT echocardiogram with normal systolic function, maybe elevated right heart pressures from obesity hypoventilation? (10) Type 2 diabetes mellitus: With hyperglycemia here as above Holding home metformin and glimepiride Accu-Cheks and NovoLog supplemental insulin as needed Check hemoglobin A1c (11) Peripheral neuropathy: Holding home gabapentin due to weakness, renal failure (12) Tobacco use: Smokes 1 pack/day-declines nicotine patch Encourage cessation-she is considering this (13) Depression: Continue home sertraline (14) B12 deficiency: MCV is elevated which is likely due to liver disease and alcohol use b12 deficiency ruled out (15) Acid reflux: Not currently on medications for this and no current complaints (16) COPD (chronic obstructive pulmonary disease): With mild expiratory wheezes on examination Albuterol as needed Encourage smoking cessation (17) HLD (hyperlipidemia): Not currently on medication for this (18) Fatty liver: Secondary to alcohol Encouraged alcohol cessation, weight loss (19) Vitamin D deficiency: Continue home vitamin D supplementation (20) Hypokalemia: Has chronic hypokalemia and is on potassium chloride 3 times daily at home Potassium here mildly low at 3.3 but with acute kidney injury-we will use caution with potassium (21) DVT prophylaxis: Heparin SQ, PHUONG hose Disposition-admit to medical floor with telemetry Full code Patient designates her sister and brother as her decision makers. She reports that she would not want long-term life support if "I were a vegetable." (22) Abnormal urinalysis: Admission and Anticipated Discharge Date Admission Date: January 04, 2021 Subjective pt did have some minor rib pain with movement but mostly was c/o buttock pain from laying in bed and also being unable to ambulate much at home spending much of her time in a recliner. She has been having increased wick and some pa lpitations with exertion also. currently at rest only c/o buttock pain Review of Systems Review of Systems: Mild distress and fatigue no headache, blurry or double vision no speech or swallowing issues no chest pain, or pressure exertional shortness of breath, cough or wheezes no abdominal pain, nausea or vomiting, diarrhea or constipation no dysuria, hematuria or frequency no focal joint pain or swelling c/o buttock pain but no back pain, CVA tenderness or radicular pain has marked intertrigo and onchomycosis no focal signs of weakness or numbness or altered sensation no complaints of anxiety or depression. Physical Exam Physical Exam: The patient appeared well nourished and normally developed. she is morbidly obese with BMI of 40 Vital signs as documented. Head exam is normocephalic atraumatic no scleral icterus Neck is without JVD, thyromegaly, or carotid bruits. Lungs are clear to auscultation, no focal loss of breath sounds chest wall tenderness cw rib fractures Cardiac exam, Rhythm is regular.. No murmurs, rubs or gallops. Abdominal exam reveals normal bowel sounds, soft non tender, no masses Intertrigo in body folds including buttock fold maybe source of pain Extremities are 1+ edematous and both pedal pulses are present Neurologic exam is alert and oriented, no focal loss of strength or sensation Skin is with intertrigo Psychologically is without concerns for anxiety or depression, on guard for alcohol withdrawal Results & Data Results & Data ([facility]) Vital Signs (Past 12 Hours) Vital Signs Temp Pulse Pulse Resp BP BP Pulse Ox 01/05/21 07:57 98.8 F 93 H 20 92/50 L 92 01/05/21 04:00 98.4 F 105 H 18 136/71 92 01/05/21 00:54 101 H 01/04/21 23:00 98.8 F 98 H 18 99/61 L 95 PG Care Time/CCT Total # of Minutes Spent Total Time Spent with Patient: Total time spent is greater than 50% in coordination of care (as documented) at patient's floor/unit and/or counseling patient: Coding Level of Care Code 17619 Subseq Hosp Care Lvl 3 Diagnoses BUTCH (acute kidney injury) N17.9 Weakness R53.1 Hypotension I95.9 Hypotension type: unspecified hypotension type Hypomagnesemia E83.42 Hypoglycemia E16.2 Right rib fracture S22.41XA Encounter type: initial encounter Fracture type: closed Rib fracture type: multiple ribs Fall W19.XXXA Encounter type: initial encounter Alcoholism F10.20 Leg swelling M79.89 Type 2 diabetes mellitus E11.9 Peripheral neuropathy G62.9 Tobacco use Z72.0 Depression F32.9 B12 deficiency E53.8 Acid reflux K21.9 COPD (chronic obstructive pulmonary disease) J44.9 HLD (hyperlipidemia) E78.5 Fatty liver K76.0 Vitamin D deficiency E55.9 Hypokalemia E87.6 DVT prophylaxis Z29.9 Abnormal urinalysis R82.90 (1) Right rib fracture Encounter type: initial encounter Fracture type: closed Rib fracture type: multiple ribs Qualified Code(s): S22.41XA - Multiple fractures of ribs, right side, initial encounter for closed fracture (2) Hypotension Hypotension type: unspecified hypotension type Qualified Code(s): I95.9 - Hypotension, unspecified (3) Fall Encounter type: initial encounter Qualified Code(s): W19.XXXA - Unspecified fall, initial encounter
[2021-01-05] MEDS: CHOLECALCIFEROL 1,000 UNITS 25 MCG TAB PO SCH (08:55)
[2021-01-05] MEDS: MAGNESIUM OXIDE 400 MG TAB PO SCH ×2 (08:55→20:53)
[2021-01-05] MEDS: SERTRALINE HCL 100 MG TABLET PO SCH (08:55)
[2021-01-05] MEDS: THIAMINE HCL 100 MG in SYRINGE 9 ML IV SCH (08:56)
[2021-01-05] MEDS: FOLIC ACID 1 MG in SYRINGE 9.8 ML IV SCH (08:56)
[2021-01-05] MEDS ORDERED: CAPSAICIN CR 0.075% 60 GM TUBE EXT PRN (09:00)
[2021-01-05] MEDS: INSULIN ASPART 100 UNITS/ML 3 ML PEN SC SCH ×4 (09:20→20:54)
[2021-01-05] MEDS: HEPARIN SOD 5,000 UNIT/0.5 ML VIAL SQ SCH ×2 (09:22→20:52)
--- NOTE | 2021-01-05 12:21 | XCELERA ---
[id number]}___[id number]
--- NOTE | 2021-01-05 12:56 | Nephrology Consultation ---
Date of Consultation January 05, 2021 Assessment & Plan (1) BUTCH (acute kidney injury): Nonoliguric. Clinically consistent with dehydration. Improving with IV saline. Will continue saline at 125 mL/hr. Document I's and O's. Repeat metabolic profile this afternoon. Medications are currently appropriately dosed for kidney function. Lisinopril has been held. (2) Hypotension: Antihypertensives held. Blood pressure improving. IV saline being pr ovided. (3) Hypomagnesemia: Improved with replacement. We will repeat this afternoon. (4) Hypoglycemia: Glimepiride held. IV dextrose infusing. Blood sugar improving. (5) Alcoholism: Has been an alcoholic for 40 years as per patient and her sister confirms this at the bedside She has attended alcohol rehab in the past Currently, she only admits to one large glass of michelle per day, but her sister disputes this outside of the room stating that patient drinks way more than this on a daily basis. Watch for alcohol withdrawal with AWSS Ativan as needed Give banana bag x1 now Start thiamine 100 mg IV every morning and folic acid 1 mg IV daily (6) Hypokalemia: Repeat this afternoon. Appropriate magnesium potassium supplementation being provided. Will monitor. Difficult to assess for underlying general apathy in setting of BUTCH. Clinical presentation difficult to interpret. Patient was not significantly alkalotic at this time. Presentation would suggest possible diuretic use. But the patient denies this. History of Present Illness Reason for Consultation: BUTCH, electrolyte abnormalities Requesting Physician: Jorje Parra MD Attending Physician: Jorje Parra MD History of Present Illness Mrs. Evelin Arthur is a 60-year-old female with diabetes mellitus, hypertension, gout, and a history of alcohol abuse. She suffered an episode of acute alcoholic hepatitis in September 2020 for which she was admitted to [facility]. Evelin notes that she has significantly cut back on her alcohol consumption since this time. She drinks socially. Her last drink was 1 week ago. Diabetes has been treated with glimepiride and metformin. A1c significantly improved from 11.5% to 6.5%. Hypertension diagnosed 10 years ago. BP has been well controlled with lisinopril and amlodipine. Amlodipine was recently weaned from 10 mg daily to 5 mg daily to lower extremity edema. Lisinopril 20 mg daily as an added. She has been tolerating this combination well. No recent gout flares. Recent medical history includes hypokalemia and hypomagnesemia for which Evelin was scheduled for nephrology consultation in the past. Unfortunately, she missed her scheduled clinic visits. She relates that her was concern for underlying channelopathy. There is no family history in this regard. Electrolyte replacement has been provided with potassium chloride 20 mEq TID and magnesium oxide 400 mg BID. Evelin presented to [facility] yesterday after sustaining a fall with 3 rib injury at home. She states for the past 3 days she has been significantly lightheaded. She describes orthostatic presyncope. She denies any syncope. She denies any chest pain or palpitations. She does not have any shortness of breath. Her urine output had been decreased. The urine she was making was concentrated appeared orange in color. Oral intake has been decreased. Evelin states she has been spending the past 3 days sitting in a chair difficulty moving. Her appetite has been poor. Improvement has been noted already with IV fluids. On evaluation in emergency department she was found to have a elevated serum creatinine of 3.7 mg/dL. Baseline creatinine is normal. Is hypokalemic and hy pomagnesemic. Replacement has been provided. IV saline with dextrose is infusing at 125 mL/hr. Urine microscopy notable for hyaline casts and white blood cells. She denies any diuretic use. She states that she has been taking medications as prescribed at home. Allergies Allergy/AdvReac Type Severity Reaction Status Date / Time No Known Drug Allergies Allergy Verified 01/04/21 14:13 Home Medications Medication Instructions Recorded Confirmed Type metformin 1 tab PO BID 07/01/18 01/04/21 History albuterol sulfate 2.5 mg INHALATION Q4H PRN ml 10/21/19 01/04/21 History albuterol sulfate 90 mcg/actuation 1 - 2 puffs INHALATION DAILY PRN 10/21/19 01/04/21 History aerosol inhaler gm capsaicin 0.025 % topical cream 1 appln TOPICAL DAILY gm 10/21/19 01/04/21 History gabapentin 300 mg capsule 900 mg PO HS #270 cap 06/01/20 01/04/21 Rx magnesium oxide 400 mg PO BID #180 cap 08/28/20 01/04/21 Rx amlodipine 5 mg tablet 5 mg PO QAM #90 tab 09/21/20 01/04/21 Rx potassium chloride 20 mEq 20 meq PO TID 21 Days #63 tab 10/01/20 01/04/21 Rx tablet,extended release(part/cryst) glimepiride 2 mg tablet 4 mg PO HS #180 tab 10/02/20 01/04/21 Rx colchicine 0.6 mg capsule See Rx Instructions PO DAILY PRN 10/09/20 01/04/21 Rx #3 cap cholecalciferol (vitamin D3) 4,000 unit PO QAM 01/04/21 01/04/21 History lisinopril 20 mg PO QAM 01/04/21 01/04/21 History sertraline 100 mg PO QAM 01/04/21 01/04/21 History Patient History Medical History Acid reflux Alcoholic hepatitis Alcoholism ERIC positive Anxiety B12 deficiency C. difficile diarrhea COPD (chronic obstructive pulmonary disease) Depression Elevated ferritin Fatty liver Gout Hirsutism HLD (hyperlipidemia) -Pt reports she is on a statin, unable to confirm HTN (hypertension) Hold home amlodipine Start 25mg of metoprolol bid 5mg of Lopressor IV PRN Non-sustained ventricular tachycardia Peripheral neuropathy Tobacco use Type 2 diabetes mellitus Vitamin D deficiency Surgical History History of ankle surgery History of blepharoplasty UPPER LID WITH EXCESSIVE SKIN ONSET: [id number] DESCRIPTION: B/l eyes History of bunionectomy History of laparoscopy History of umbilical hernia repair Family History Mother , of myocardial infarction and complications of DM II Diabetes Myocardial infarction Father , motor vehicle accident MVA (motor vehicle accident) @ AGE 50 Grandmother (Maternal) Alzheimer disease Brother Diabetes Aunt Breast cancer maternal Uncle Myocardial infarction History of throat cancer Other No significant family history Denies family history of Colon cancer Ovarian cancer Prostate cancer Social History Smoking Status: Current every day smoker packs per day: 1; Cigarettes Per Day: 3/4 PPD; Hx Alcohol Use: Yes Alcohol type: hard liquor Alcohol Intake Frequency Comment: 2 large drinks per day Hx Substance Use: No Preferred Language: Turkmen Communication Ability: Effective Visual Impairment: No Limitations Hearing Ability: Normal Gluer And Wedger Required: No Beliefs That Will Affect Care: None marital status: Single Current Living Situation: Alone Current Living Situation Comment: with two dogs current occupational status: employed 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[employer]; 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 Other Information That Helps Us Care for You: No Feels Safe at Home: Yes Safety Concerns: Feels Safe At This Time Dental Care, Regularly: No Physical Activity Frequency: Does not Exercise Seatbelt Use: always Assistive Devices: Denture - Upper and Denture - Lower Assistive Devices Comment: states uses reading glasses - not here with patient Review of Systems Review of Systems: All systems reviewed & are unremarkable except as noted in HPI & below Constitutional: no weight loss, no weight gain and no problem reported Eyes: no problem reported Ear, Nose, Mouth, Throat: no problem reported Respiratory: no problem reported Cardiovascular: no problem reported Gastrointestinal: no problem reported Musculoskeletal: no problem reported Integumentary: no problem reported Neurologic: no problem reported Psychiatric: no problem reported Endocrine: no problem reported Hematologic / Lymphatic: no problem reported Physical Exam Constitutional: well developed; no acute distress Eyes: no scleral abnormality and no corneal abnormality ENMT: Mouth: no oral mucosal abnormality and oral mucous membranes not dry Neck: normal visual inspection and trachea midline Respiratory: normal respiratory effort Auscultation: lungs clear to aus cultation bilaterally Cardiovascular: Rate/Rhythm: regular rate Heart Sounds: normal S1 and normal S2 Extremities: no edema Musculoskeletal: Extremities: no cyanosis and no clubbing Skin: normal turgor; no lesions Neurologic: Motor/Sensory: no tremor and no asterixis Psychiatric: Orientation: alert and oriented x 3 Results & Data ([facility]) Vital Signs (Past 12 Hours) Vital Signs Temp Pulse Pulse Resp BP BP Pulse Ox 01/05/21 11:38 36.8 C 107 H 20 121/76 93 01/05/21 07:57 37.1 C 93 H 20 92/50 L 92 01/05/21 04:00 36.9 C 105 H 18 136/71 92 01/05/21 00:54 101 H Laboratory Results Laboratory Results - last 24 hr 01/04/21 01/04/21 01/04/21 13:02 13:02 13:41 WBC 10.90 H RBC 3.48 L Hgb 12.1 Hct 37.0 MCV 106.3 H MCH 34.8 H MCHC 32.7 RDW Std Deviation 59.5 H RDW Coeff of Eduardo 15.4 H Plt Count 203 MPV 9.8 Immature Gran % (Auto) 0.5 Neut % (Auto) 70.6 Lymph % (Auto) 21.7 [place] % (Auto) 6.5 Eos % (Auto) 0.6 Baso % (Auto) 0.1 Neut # (Auto) 7.70 H Lymph # (Auto) 2.37 [place] # (Auto) 0.71 H Eos # (Auto) 0.06 Baso # (Auto) 0.01 Immature Gran # (Auto) 0.05 H Sodium Potassium Chloride Carbon Dioxide Anion Gap BUN Creatinine Est Cr Clr Drug Dosing Est GFR ( Amer) Est GFR (Non-Af Amer) BUN/Creatinine Ratio Glucose POC Glucose Estimat Average Glucose Hemoglobin A1c Lactate Calcium Phosphorus Magnesium Total Bilirubin AST ALT Alkaline Phosphatase Troponin I Total Protein Albumin Globulin Albumin/Globulin Ratio Vitamin B12 Folate TSH Urine Color Urine Appearance Urine pH Ur Specific [place] Urine Protein Urine Glucose (UA) Urine Ketones Urine Blood Urine Nitrite Urine Bilirubin Urine Urobilinogen Ur Leukocyte Esterase Urine WBC (Auto) Urine RBC (Auto) U Hyaline Cast (Auto) U Epithel Cells (Auto) Urine Bacteria (Auto) Urine Yeast Ur Random Creatinine Ur Random Sodium COVID-19 Eval Order Covid19 [facility]Now [facility] SARS-CoV-2, RNA, NAAT NEGATIVE 01/04/21 01/04/21 01/04/21 13:41 13:41 15:06 WBC RBC Hgb Hct MCV MCH MCHC RDW Std Deviation RDW Coeff of Eduardo Plt Count MPV Immature Gran % (Auto) Neut % (Auto) Lymph % (Auto) [place] % (Auto) Eos % (Auto) Baso % (Auto) Neut # (Auto) Lymph # (Auto) [place] # (Auto) Eos # (Auto) Baso # (Auto) Immature Gran # (Auto) Sodium 140 Potassium 3.3 L Chloride 105 Carbon Dioxide 23 Anion Gap 12.0 H BUN 50 H Creatinine 3.73 H Est Cr Clr Drug Dosing 20.8 Est GFR ( Amer) 14.5 Est GFR (Non-Af Amer) 12.5 BUN/Creatinine Ratio 13.4 Glucose 55 L POC Glucose 41 L* Estimat Average Glucose Hemoglobin A1c Lactate 1.2 Calcium 7.8 L Phosphorus Magnesium 1.2 L Total Bilirubin 0.7 AST 33 ALT 27 Alkaline Phosphatase 113 Troponin I < 0.015 Total Protein 7.7 Albumin 3.0 L Globulin 4.7 H Albumin/Globulin Ratio 0.6 L Vitamin B12 Folate TSH 0.682 Urine Color Urine Appearance Urine pH Ur Specific [place] Urine Protein Urine Glucose (UA) Urine Ketones Urine Blood Urine Nitrite Urine Bilirubin Urine Urobilinogen Ur Leukocyte Esterase Urine WBC (Auto) Urine RBC (Auto) U Hyaline Cast (Auto) U Epithel Cells (Auto) Urine Bacteria (Auto) Urine Yeast Ur Random Creatinine Ur Random Sodium COVID-19 Eval Order SARS-CoV-2, RNA, NAAT 01/04/21 01/04/21 01/04/21 15:31 16:01 16:23 WBC RBC Hgb Hct MCV MCH MCHC RDW Std Deviation RDW Coeff of Eduardo Plt Count MPV Immature Gran % (Auto) Neut % (Auto) Lymph % (Auto) [place] % (Auto) Eos % (Auto) Baso % (Auto) Neut # (Auto) Lymph # (Auto) [place] # (Auto) Eos # (Auto) Baso # (Auto) Immature Gran # (Auto) Sodium Potassium Chloride Carbon Dioxide Anion Gap BUN Creatinine Est Cr Clr Drug Dosing Est GFR ( Amer) Est GFR (Non-Af Amer) BUN/Creatinine Ratio Glucose POC Glucose 47 L* 52 L* 84 Estimat Average Glucose Hemoglobin A1c Lactate Calcium Phosphorus Magnesium Total Bilirubin AST ALT Alkaline Phosphatase Troponin I Total Protein Albumin Globulin Albumin/Globulin Ratio Vitamin B12 Folate TSH Urine Color Urine Appearance Urine pH Ur Specific [place] Urine Protein Urine Glucose (UA) Urine Ketones Urine Blood Urine Nitrite Urine Bilirubin Urine Urobilinogen Ur Leukocyte Esterase Urine WBC (Auto) Urine RBC (Auto) U Hyaline Cast (Auto) U Epithel Cells (Auto) Urine Bacteria (Auto) Urine Yeast Ur Random Creatinine Ur Random Sodium COVID-19 Eval Order SARS-CoV-2, RNA, NAAT 01/04/21 01/04/21 01/04/21 18:51 18:53 20:50 WBC RBC Hgb Hct MCV MCH MCHC RDW Std Deviation RDW Coeff of Eduardo Plt Count MPV Immature Gran % (Auto) Neut % (Auto) Lymph % (Auto) [place] % (Auto) Eos % (Auto) Baso % (Auto) Neut # (Auto) Lymph # (Auto) [place] # (Auto) Eos # (Auto) Baso # (Auto) Immature Gran # (Auto) Sodium Potassium Chloride Carbon Dioxide Anion Gap BUN Creatinine Est Cr Clr Drug Dosing Est GFR ( Amer) Est GFR (Non-Af Amer) BUN/Creatinine Ratio Glucose POC Glucose 64 L* 71 57 L* Estimat Average Glucose Hemoglobin A1c Lactate Calcium Phosphorus Magnesium Total Bilirubin AST ALT Alkaline Phosphatase Troponin I Total Protein Albumin Globulin Albumin/Globulin Ratio Vitamin B12 Folate TSH Urine Color Urine Appearance Urine pH Ur Specific [place] Urine Protein Urine Glucose (UA) Urine Ketones Urine Blood Urine Nitrite Urine Bilirubin Urine Urobilinogen Ur Leukocyte Esterase Urine WBC (Auto) Urine RBC (Auto) U Hyaline Cast (Auto) U Epithel Cells (Auto) Urine Bacteria (Auto) Urine Yeast Ur Random Creatinine Ur Random Sodium COVID-19 Eval Order SARS-CoV-2, RNA, NAAT 01/04/21 01/04/21 01/04/21 20:51 21:14 21:16 WBC RBC Hgb Hct MCV MCH MCHC RDW Std Deviation RDW Coeff of Eduardo Plt Count MPV Immature Gran % (Auto) Neut % (Auto) Lymph % (Auto) [place] % (Auto) Eos % (Auto) Baso % (Auto) Neut # (Auto) Lymph # (Auto) [place] # (Auto) Eos # (Auto) Baso # (Auto) Immature Gran # (Auto) Sodium Potassium Chloride Carbon Dioxide Anion Gap BUN Creatinine Est Cr Clr Drug Dosing Est GFR ( Amer) Est GFR (Non-Af Amer) BUN/Creatinine Ratio Glucose POC Glucose 61 L* 50 L* 53 L* Estimat Average Glucose Hemoglobin A1c Lactate Calcium Phosphorus Magnesium Total Bilirubin AST ALT Alkaline Phosphatase Troponin I Total Protein Albumin Globulin Albumin/Globulin Ratio Vitamin B12 Folate TSH Urine Color Urine Appearance Urine pH Ur Specific [place] Urine Protein Urine Glucose (UA) Urine Ketones Urine Blood Urine Nitrite Urine Bilirubin Urine Urobilinogen Ur Leukocyte Esterase Urine WBC (Auto) Urine RBC (Auto) U Hyaline Cast (Auto) U Epithel Cells (Auto) Urine Bacteria (Auto) Urine Yeast Ur Random Creatinine Ur Random Sodium COVID-19 Eval Order SARS-CoV-2, RNA, NAAT 01/04/21 01/04/21 01/04/21 21:41 22:08 22:10 WBC RBC Hgb Hct MCV MCH MCHC RDW Std Deviation RDW Coeff of Eduardo Plt Count MPV Immature Gran % (Auto) Neut % (Auto) Lymph % (Auto) [place] % (Auto) Eos % (Auto) Baso % (Auto) Neut # (Auto) Lymph # (Auto) [place] # (Auto) Eos # (Auto) Baso # (Auto) Immature Gran # (Auto) Sodium Potassium Chloride Carbon Dioxide Anion Gap BUN Creatinine Est Cr Clr Drug Dosing Est GFR ( Amer) Est GFR (Non-Af Amer) BUN/Creatinine Ratio Glucose POC Glucose 61 L* 65 L* 69 L* Estimat Average Glucose Hemoglobin A1c Lactate Calcium Phosphorus Magnesium Total Bilirubin AST ALT Alkaline Phosphatase Troponin I Total Protein Albumin Globulin Albumin/Globulin Ratio Vitamin B12 Folate TSH Urine Color Urine Appearance Urine pH Ur Specific [place] Urine Protein Urine Glucose (UA) Urine Ketones Urine Blood Urine Nitrite Urine Bilirubin Urine Urobilinogen Ur Leukocyte Esterase Urine WBC (Auto) Urine RBC (Auto) U Hyaline Cast (Auto) U Epithel Cells (Auto) Urine Bacteria (Auto) Urine Yeast Ur Random Creatinine Ur Random Sodium COVID-19 Eval Order SARS-CoV-2, RNA, NAAT 01/04/21 01/05/21 01/05/21 22:34 01:35 01:36 WBC RBC Hgb Hct MCV MCH MCHC RDW Std Deviation RDW Coeff of Eduardo Plt Count MPV Immature Gran % (Auto) Neut % (Auto) Lymph % (Auto) [place] % (Auto) Eos % (Auto) Baso % (Auto) Neut # (Auto) Lymph # (Auto) [place] # (Auto) Eos # (Auto) Baso # (Auto) Immature Gran # (Auto) Sodium Potassium Chloride Carbon Dioxide Anion Gap BUN Creatinine Est Cr Clr Drug Dosing Est GFR ( Amer) Est GFR (Non-Af Amer) BUN/Creatinine Ratio Glucose POC Glucose 116 H 53 L* 56 L* Estimat Average Glucose Hemoglobin A1c Lactate Calcium Phosphorus Magnesium Total Bilirubin AST ALT Alkaline Phosphatase Troponin I Total Protein Albumin Globulin Albumin/Globulin Ratio Vitamin B12 Folate TSH Urine Color Urine Appearance Urine pH Ur Specific [place] Urine Protein Urine Glucose (UA) Urine Ketones Urine Blood Urine Nitrite Urine Bilirubin Urine Urobilinogen Ur Leukocyte Esterase Urine WBC (Auto) Urine RBC (Auto) U Hyaline Cast (Auto) U Epithel Cells (Auto) Urine Bacteria (Auto) Urine Yeast Ur Random Creatinine Ur Random Sodium COVID-19 Eval Order SARS-CoV-2, RNA, NAAT 01/05/21 01/05/21 01/05/21 01:40 01:40 01:54 WBC RBC Hgb Hct MCV MCH MCHC RDW Std Deviation RDW Coeff of Eduardo Plt Count MPV Immature Gran % (Auto) Neut % (Auto) Lymph % (Auto) [place] % (Auto) Eos % (Auto) Baso % (Auto) Neut # (Auto) Lymph # (Auto) [place] # (Auto) Eos # (Auto) Baso # (Auto) Immature Gran # (Auto) Sodium Potassium Chloride Carbon Dioxide Anion Gap BUN Creatinine Est Cr Clr Drug Dosing Est GFR ( Amer) Est GFR (Non-Af Amer) BUN/Creatinine Ratio Glucose POC Glucose 72 Estimat Average Glucose Hemoglobin A1c Lactate Calcium Phosphorus Magnesium Total Bilirubin AST ALT Alkaline Phosphatase Troponin I Total Protein Albumin Globulin Albumin/Globulin Ratio Vitamin B12 Folate TSH Urine Color Yellow Urine Appearance Cloudy A Urine pH 5.5 Ur Specific [place] 1.011 Urine Protein Negative Urine Glucose (UA) Negative Urine Ketones Negative Urine Blood Negative Urine Nitrite Negative Urine Bilirubin Negative Urine Urobilinogen Negative Ur Leukocyte Esterase 2+ H Urine WBC (Auto) >30 H Urine RBC (Auto) 0-4 U Hyaline Cast (Auto) 1-5 U Epithel Cells (Auto) 10-20 H Urine Bacteria (Auto) 4+ H Urine Yeast Not Reportable Ur Random Creatinine 52.3 Ur Random Sodium 83 COVID-19 Eval Order SARS-CoV-2, RNA, NAAT 01/05/21 01/05/21 01/05/21 04:49 04:51 05:21 WBC RBC Hgb Hct MCV MCH MCHC RDW Std Deviation RDW Coeff of Eduardo Plt Count MPV Immature Gran % (Auto) Neut % (Auto) Lymph % (Auto) [place] % (Auto) Eos % (Auto) Baso % (Auto) Neut # (Auto) Lymph # (Auto) [place] # (Auto) Eos # (Auto) Baso # (Auto) Immature Gran # (Auto) Sodium Potassium Chloride Carbon Dioxide Anion Gap BUN Creatinine Est Cr Clr Drug Dosing Est GFR ( Amer) Est GFR (Non-Af Amer) BUN/Creatinine Ratio Glucose POC Glucose 49 L* 46 L* 72 Estimat Average Glucose Hemoglobin A1c Lactate Calcium Phosphorus Magnesium Total Bilirubin AST ALT Alkaline Phosphatase Troponin I Total Protein Albumin Globulin Albumin/Globulin Ratio Vitamin B12 Folate TSH Urine Color Urine Appearance Urine pH Ur Specific [place] Urine Protein Urine Glucose (UA) Urine Ketones Urine Blood Urine Nitrite Urine Bilirubin Urine Urobilinogen Ur Leukocyte Esterase Urine WBC (Auto) Urine RBC (Auto) U Hyaline Cast (Auto) U Epithel Cells (Auto) Urine Bacteria (Auto) Urine Yeast Ur Random Creatinine Ur Random Sodium COVID-19 Eval Order SARS-CoV-2, RNA, NAAT 01/05/21 01/05/21 01/05/21 05:37 06:43 06:43 WBC 6.29 RBC 3.18 L Hgb 11.1 L Hct 33.7 L MCV 106.0 H MCH 34.9 H MCHC 32.9 RDW Std Deviation 59.2 H RDW Coeff of Eduardo 15.2 H Plt Count 175 MPV 9.6 Immature Gran % (Auto) 0.3 Neut % (Auto) 63.8 Lymph % (Auto) 25.4 [place] % (Auto) 8.6 Eos % (Auto) 1.7 Baso % (Auto) 0.2 Neut # (Auto) 4.01 Lymph # (Auto) 1.60 [place] # (Auto) 0.54 Eos # (Auto) 0.11 Baso # (Auto) 0.01 Immature Gran # (Auto) 0.02 Sodium 144 Potassium 3.5 Chloride 113 H Carbon Dioxide 22 Anion Gap 8.0 BUN 35 H Creatinine 1.78 H D Est Cr Clr Drug Dosing 43.7 Est GFR ( Amer) 35.6 Est GFR (Non-Af Amer) 30.7 BUN/Creatinine Ratio 19.6 Glucose 90 POC Glucose 103 H Estimat Average Glucose Hemoglobin A1c Lactate Calcium 7.1 L Phosphorus 3.3 Magnesium 1.9 Total Bilirubin AST ALT Alkaline Phosphatase Troponin I Total Protein Albumin Globulin Albumin/Globulin Ratio Vitamin B12 Folate TSH Urine Color Urine Appearance Urine pH Ur Specific [place] Urine Protein Urine Glucose (UA) Urine Ketones Urine Blood Urine Nitrite Urine Bilirubin Urine Urobilinogen Ur Leukocyte Esterase Urine WBC (Auto) Urine RBC (Auto) U Hyaline Cast (Auto) U Epithel Cells (Auto) Urine Bacteria (Auto) Urine Yeast Ur Random Creatinine Ur Random Sodium COVID-19 Eval Order SARS-CoV-2, RNA, NAAT 01/05/21 01/05/21 01/05/21 06:43 06:43 07:42 WBC RBC Hgb Hct MCV MCH MCHC RDW Std Deviation RDW Coeff of Eduardo Plt Count MPV Immature Gran % (Auto) Neut % (Auto) Lymph % (Auto) [place] % (Auto) Eos % (Auto) Baso % (Auto) Neut # (Auto) Lymph # (Auto) [place] # (Auto) Eos # (Auto) Baso # (Auto) Immature Gran # (Auto) Sodium Potassium Chloride Carbon Dioxide Anion Gap BUN Creatinine Est Cr Clr Drug Dosing Est GFR ( Amer) Est GFR (Non-Af Amer) BUN/Creatinine Ratio Glucose POC Glucose 87 Estimat Average Glucose 140 Hemoglobin A1c 6.5 H Lactate Calcium Phosphorus Magnesium Total Bilirubin AST ALT Alkaline Phosphatase Troponin I Total Protein Albumin Globulin Albumin/Globulin Ratio Vitamin B12 613 Folate > 20.00 TSH Urine Color Urine Appearance Urine pH Ur Specific [place] Urine Protein Urine Glucose (UA) Urine Ketones Urine Blood Urine Nitrite Urine Bilirubin Urine Urobilinogen Ur Leukocyte Esterase Urine WBC (Auto) Urine RBC (Auto) U Hyaline Cast (Auto) U Epithel Cells (Auto) Urine Bacteria (Auto) Urine Yeast Ur Random Creatinine Ur Random Sodium COVID-19 Eval Order SARS-CoV-2, RNA, NAAT 01/05/21 11:28 WBC RBC Hgb Hct MCV MCH MCHC RDW Std Deviation RDW Coeff of Eduardo Plt Count MPV Immature Gran % (Auto) Neut % (Auto) Lymph % (Auto) [place] % (Auto) Eos % (Auto) Baso % (Auto) Neut # (Auto) Lymph # (Auto) [place] # (Auto) Eos # (Auto) Baso # (Auto) Immature Gran # (Auto) Sodium Potassium Chloride Carbon Dioxide Anion Gap BUN Creatinine Est Cr Clr Drug Dosing Est GFR ( Amer) Est GFR (Non-Af Amer) BUN/Creatinine Ratio Glucose POC Glucose 72 Estimat Average Glucose Hemoglobin A1c Lactate Calcium Phosphorus Magnesium Total Bilirubin AST ALT Alkaline Phosphatase Troponin I Total Protein Albumin Globulin Albumin/Globulin Ratio Vitamin B12 Folate TSH Urine Color Urine Appearance Urine pH Ur Specific [place] Urine Protein Urine Glucose (UA) Urine Ketones Urine Blood Urine Nitrite Urine Bilirubin Urine Urobilinogen Ur Leukocyte Esterase Urine WBC (Auto) Urine RBC (Auto) U Hyaline Cast (Auto) U Epithel Cells (Auto) Urine Bacteria (Auto) Urine Yeast Ur Random Creatinine Ur Random Sodium COVID-19 Eval Order SARS-CoV-2, RNA, NAAT PG Care Time/CCT Total # of Minutes Spent Total Time Spent with Patient: Total time spent is greater than 50% in coordination of care (as documented) at patient's floor/unit and/or counseling patient: Coding Level of Care Code 47577 Inpt Consult Level 4 Diagnoses BUTCH (acute kidney injury) N17.9 Hypotension I95.9 Hypotension type: unspecified hypotension type Hypomagnesemia E83.42 Hypoglycemia E16.2 Alcoholism F10.20 Hypokalemia E87.6 (1) Hypotension Hypotension type: unspecified hypotension type Qualified Code(s): I95.9 - Hypotension, unspecified
[2021-01-05 15:54] LABS: Albumin Level 2.3 gm/dl (3.4-5.0); BUN Creatinine Ratio 20.6 (10-20); Calcium 7.5 mg/dl (8.5-10.1); Creatinine Clr Calc Pharmacy 58.5 ml/min; Est GFR (African American) 50.6; Est GFR (Non-African American) 43.6; Magnesium 1.7 mg/dl (1.8-2.4); Potassium 3.8 mmol/L (3.5-5.1)
[2021-01-05 15:55] LABS: Phosphorus 2.9 mg/dl (2.5-4.9)
--- NOTE | 2021-01-05 18:57 | Podiatry Consultation ---
Date of Consultation January 05, 2021 Assessment & Plan (1) Type 2 diabetes mellitus with diabetic polyneuropathy: Reviewed diet, medication, and exercise for blood glucose control. Present on Admission?: Yes (2) Neuropathic pain: Patient will utilize lidocaine / Prilocaine topical for strike through pain. Patient may benefit from increase in gabapentin dosage if this fails to reduce symptoms. Present on Admission?: Yes (3) Dermatophytosis of nail: Reviewed mycotic nail history with Patient. Discussed use of topical a ntifungal as well as oral Lamisil. She is encouraged to make appointment with outpatient dermatology or outpatient community plate stacker for Diabetic foot care. Unfortunately I do not provide these inpatient services. Thank you for allowing me to participate in the care of Evelin. I will continue to follow to determine if Emla cream is effective and will provide change in Neurontin dosage if needed. History of Present Illness Reason for Consultation: Foot Pain Requesting Physician: Dr. Soriano Attending Physician: Jorje Parra MD History of Present Illness Patient is a Type II Diabetic, 60-year-old female seen at bedside resting comfortably in no acute distress. Patient has a history of alcohol dependence, DM 2, COPD and current smoker, depression, neuropathy, hypokalemia, hypomagnesemia. She presented to the [facility] ED after 2 to 3 days of persistent lightheadedness and generalized weakness and was admitted to floor for observation 1 day earlier. Patient is complaining for bilateral lower extremity redness and swelling. She reports numbness, tingling, and burning in feet that is not relieved by current Gabapentin prescription 300mg PO tid. Allergies Allergy/AdvReac Type Severity Reaction Status Date / Time No Known Drug Allergies Allergy Verified 01/04/21 14:13 Home Medications Medication Instructions Recorded Confirmed Type metformin 1 tab PO BID 07/01/18 01/04/21 History albuterol sulfate 2.5 mg INHALATION Q4H PRN ml 10/21/19 01/04/21 History albuterol sulfate 90 mcg/actuation 1 - 2 puffs INHALATION DAILY PRN 10/21/19 01/04/21 History aerosol inhaler gm capsaicin 0.025 % topical cream 1 appln TOPICAL DAILY gm 10/21/19 01/04/21 History gabapentin 300 mg capsule 900 mg PO HS #270 cap 06/01/20 01/04/21 Rx magnesium oxide 400 mg PO BID #180 cap 08/28/20 01/04/21 Rx amlodipine 5 mg tablet 5 mg PO QAM #90 tab 09/21/20 01/04/21 Rx potassium chloride 20 mEq 20 meq PO TID 21 Days #63 tab 10/01/20 01/04/21 Rx tablet,extended release(part/cryst) glimepiride 2 mg tablet 4 mg PO HS #180 tab 10/02/20 01/04/21 Rx colchicine 0.6 mg capsule See Rx Instructions PO DAILY PRN 10/09/20 01/04/21 Rx #3 cap cholecalciferol (vitamin D3) 4,000 unit PO QAM 01/04/21 01/04/21 History lisinopril 20 mg PO QAM 01/04/21 01/04/21 History sertraline 100 mg PO QAM 01/04/21 01/04/21 History Patient History Medical History Acid reflux Alcoholic hepatitis Alcoholism ERIC positive Anxiety B12 deficiency C. difficile diarrhea COPD (chronic obstructive pulmonary disease) Depression Elevated ferritin Fatty liver Gout Hirsutism HLD (hyperlipidemia) -Pt reports she is on a statin, unable to confirm HTN (hypertension) Hold home amlodipine Start 25mg of metoprolol bid 5mg of Lopressor IV PRN Non-sustained ventricular tachycardia Peripheral neuropathy Tobacco use Type 2 diabetes mellitus Vitamin D deficiency Surgical History History of ankle surgery History of blepharoplasty UPPER LID WITH EXCESSIVE SKIN ONSET: [id number] DESCRIPTION: B/l eyes History of bunionectomy History of laparoscopy History of umbilical hernia repair Family History Mother , of myocardial infarction and complications of DM II Diabetes Myocardial infarction Father , motor vehicle accident MVA (motor vehicle accident) @ AGE 50 Grandmother (Maternal) Alzheimer disease Brother Diabetes Aunt Breast cancer maternal Uncle Myocardial infarction History of throat cancer Other No significant family history Denies family history of Colon cancer Ovarian cancer Prostate cancer Social History Smoking Status: Current every day smoker packs per day: 1; Cigarettes Per Day: 3/4 PPD; Hx Alcohol Use: Yes Alcohol type: hard liquor Alcohol Intake Frequency Comment: 2 large drinks per day Hx Substance Use: No Preferred Language: Greenlandic Communication Ability: Effective Visual Impairment: No Limitations Hearing Ability: Normal Drafter Apprentice Required: No Beliefs That Will Affect Care: None marital status: Single Current Living Situation: Alone Current Living Situation Comment: with two dogs current occupational status: employed 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[employer]; 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 Other Information That Helps Us Care for You: No Feels Safe at Home: Yes Safety Concerns: Feels Safe At This Time Dental Care, Regularly: No Physical Activity Frequency: Does not Exercise Seatbelt Use: always Assistive Devices: None Assistive Devices Comment: states uses reading glasses - not here with patient Review of Systems Review of Systems: All systems reviewed & are unremarkable except as noted in HPI & below Constitutional: as per Subjective / HPI Eyes: as per Subjective / HPI Ear, Nose, Mouth, Throat: as per Subjective / HPI Respiratory: as per Subjective / HPI Cardiovascular: as per Subjective / HPI Gastrointestinal: as per Subjective / HPI Musculoskeletal: as per Subjective / HPI Integumentary: as per Subjective / HPI Neurologic: as per Subjective / HPI Psychiatric: as per Subjective / HPI Endocrine: as per Subjective / HPI Allergy / Immunological: as per Subjective / HPI Physical Exam Physical Exam: Musculoskeletal: Manual muscle test elicits 5 out of 5. Digital contractures 2 through 5 adductovarus fifth toes. No pain on palpation Positive Silfverskiold test bilateral. Vascular: Dorsalis pedis and posterior tibial pulses decreased bilateral. Capillary refill time within normal limits. Absence leg and pedal hair. Bilateral edema. Proximal distal cooling within normal limits. Neurologic: Vibratory sensation absent bilateral to lower extremities. Denair Diana 5.07 monofilament elicits 0 out of 10. Integument: Atrophic changes noted legs and feet secondary diabetes. Skin is thin, shiny, dry, flaky. Nails are discolored, thickened, elongated, dystrophic, hypertrophic. Constitutional: well developed and well nourished Eyes: PERRL, conjunctivae normal, anicteric sclerae ENMT: external ear and nose normal, oropharynx normal Neck: trachea midline, no thyromegaly Respiratory: normal respiratory effort Cardiovascular: Rate/Rhythm: regular rate and regular rhythm Chest (Breasts): Chest: normal inspection of chest Gastrointestinal (Abdomen): normal bowel sounds, soft, nontender, no hepatosplenomegaly Musculoskeletal: Head/Neck/Chest: + head abnormal to inspection, normocephalic and head atraumatic Skin: no rashes, warm and dry Neurologic: normal touch/pain/proprioception Psychiatric: Orientation: alert, oriented x 3 and cooperative Lymphatic: + lymphedema Results & Data ([facility]) Vital Signs (Past 12 Hours) Vital Signs Temp Pulse Pulse Resp BP BP Pulse Ox 01/05/21 15:32 37.1 C 90 20 131/65 96 01/05/21 13:37 94 H 01/05/21 11:38 36.8 C 107 H 20 121/76 93 01/05/21 07:57 37.1 C 93 H 20 92/50 L 92
[2021-01-05] MEDS: NYSTATIN/TRIAMCIN CR 15 GM TUBE EXT SCH (20:50)
[2021-01-05] MEDS: LIDOCAINE/PRILOCAINE 2.5% EA CRM EXT SCH (20:50)
[2021-01-05] MEDS: LIDOCAINE 5% 1 PATCH TD SCH (20:51)
[2021-01-05] MEDS ORDERED: NYSTATIN/TRIAMCIN OINT 15 GM TUBE EXT SCH (21:00)
[2021-01-06] MEDS: D5W AND NSS 1,000 ML IV SCH (05:51)
[2021-01-06] MEDS: NYSTATIN/TRIAMCIN CR 15 GM TUBE EXT SCH ×2 (07:43→21:02)
[2021-01-06] MEDS: FOLIC ACID 1 MG in SYRINGE 9.8 ML IV SCH (07:43)
[2021-01-06] MEDS: CHOLECALCIFEROL 1,000 UNITS 25 MCG TAB PO SCH (07:44)
[2021-01-06] MEDS: LIDOCAINE/PRILOCAINE 2.5% EA CRM EXT SCH (07:44)
[2021-01-06] MEDS: MAGNESIUM OXIDE 400 MG TAB PO SCH (07:44)
[2021-01-06] MEDS: HEPARIN SOD 5,000 UNIT/0.5 ML VIAL SQ SCH ×2 (07:44→21:03)
[2021-01-06] MEDS: SERTRALINE HCL 100 MG TABLET PO SCH (07:44)
[2021-01-06] MEDS: THIAMINE HCL 100 MG in SYRINGE 9 ML IV SCH (07:45)
[2021-01-06] MEDS: INSULIN ASPART 100 UNITS/ML 3 ML PEN SC SCH ×4 (08:12→21:01)
[2021-01-06 09:31] LABS: Albumin Level 2.6 gm/dl (3.4-5.0); BUN Creatinine Ratio 14.3 (10-20); Calcium 7.7 mg/dl (8.5-10.1); Creatinine Clr Calc Pharmacy 72.2 ml/min; Est GFR (African American) 64.3; Est GFR (Non-African American) 55.5; Magnesium 1.5 mg/dl (1.8-2.4); Phosphorus 2.8 mg/dl (2.5-4.9); Potassium 3.4 mmol/L (3.5-5.1)
--- NOTE | 2021-01-06 09:59 | Nephrology Progress Note ---
Date of Service January 06, 2021 Assessment & Plan (1) BUTCH (acute kidney injury): Nonoliguric. Clinically consistent with dehydration. Improved. Volume status acceptable. Will hold additional IVF. Document I's and O's. Repeat metabolic profile tomorrow AM. Medications are currently appropriately dosed for kidney function. Lisinopril has been held. (2) Hypotension: Antihypertensives held. Blood pressure slightly elevated but acceptable. Lisinopril will be restarted now. (3) Hypomagnesemia: Additional 3 gm Mg SO4 IV to be given today. PO Mg held due to loose stool. Recheck in the AM. (4) Hypokalemia: Additional 20 mEq IV KCl ordered. KCL 20 mEq PO BID then to be started. Recheck metabolic profile + Mg in the AM. Admission and Anticipated Discharge Date Admission Date: January 04, 2021 Subjective No acute events overnight. Evelin is very uncomfortable and frustrated by pain on her bottom. She told me that her rectum is excoriated from diarrhea at home. She denies any diarrhea since admission. Appetite is good. She states that sitting in a chair or laying supine are difficult due to skin breakdown. Review of Systems Review of Systems: All systems reviewed & are unremarkable except as noted in HPI & below Physical Exam Constitutional: well developed; no acute distress Eyes: no scleral abnormality and no corneal abnormality ENMT: Mouth: no oral mucosal abnormality and oral mucous membranes not dry Neck: normal visual inspection and trachea midline Respiratory: normal respiratory effort Auscultation: lungs clear to auscultation bilaterally Cardiovascular: Rate/Rhythm: regular rate Heart Sounds: normal S1 and normal S2 Extremities: no edema Musculoskeletal: Extremities: no cyanosis and no clubbing Skin: normal turgor; no lesions Neurologic: Motor/Sensory: no tremor and no asterixis Psychiatric: Orientation: alert and oriented x 3 Results & Data ([facility]) Vital Signs (Past 12 Hours) Vital Signs Temp Pulse Pulse Resp BP BP Pulse Ox 01/06/21 08:00 79 01/06/21 07:59 37.1 C 88 22 165/71 H 95 01/06/21 03:36 37 C 93 H 18 146/82 H 95 01/06/21 01:48 91 H 01/05/21 23:46 37.0 C 88 16 156/76 H 01/05/21 22:10 37.2 C 97 H 20 171/74 H 97 Laboratory Results Laboratory Results - last 24 hr 01/05/21 01/05/21 01/05/21 11:28 15:24 16:42 Sodium 145 Potassium 3.8 Chloride 115 H Carbon Dioxide 22 Anion Gap 7.0 BUN 27 H Creatinine 1.33 H D Est Cr Clr Drug Dosing 58.5 Est GFR ( Amer) 50.6 Est GFR (Non-Af Amer) 43.6 BUN/Creatinine Ratio 20.6 H Glucose 152 H POC Glucose 72 187 H Calcium 7.5 L Phosphorus 2.9 Magnesium 1.7 L Albumin 2.3 L 01/05/21 01/06/21 01/06/21 20:21 07:21 08:31 Sodium 144 Potassium 3.4 L Chloride 113 H Carbon Dioxide 24 Anion Gap 7.0 BUN 16 Creatinine 1.09 Est Cr Clr Drug Dosing 72.2 Est GFR ( Amer) 64.3 Est GFR (Non-Af Amer) 55.5 BUN/Creatinine Ratio 14.3 Glucose 208 H POC Glucose 181 H 179 H Calcium 7.7 L Phosphorus 2.8 Magnesium 1.5 L Albumin 2.6 L PG Care Time/CCT Total # of Minutes Spent Total Time Spent with Patient: Total time spent is greater than 50% in coordination of care (as documented) at patient's floor/unit and/or counseling patient: Coding Level of Care Code 15173 Subseq Hosp Care Lvl 3 Diagnoses BUTCH (acute kidney injury) N17.9 Hypotension I95.9 Hypotension type: unspecified hypotension type Hypomagnesemia E83.42 Hypokalemia E87.6 (1) Hypotension Hypotension type: unspecified hypotension type Qualified Code(s): I95.9 - Hypotension, unspecified
[2021-01-06] MEDS: MAGNESIUM SULFATE / D5W 1 GM/100 ML BAG IV SCH ×3 (10:05→14:03)
[2021-01-06] MEDS: POTASSIUM CHLORIDE / WTR 10 MEQ/100 ML PLCT IV SCH ×2 (10:05→11:04)
[2021-01-06] MEDS ORDERED: cefTRIAXone SODIUM 1,000 MG in DEXTROSE 5% 50 ML IV SCH (11:00)
[2021-01-06] MEDS: lisinopril 20 MG TAB PO SCH (11:11)
[2021-01-06] MEDS: cefTRIAXone SODIUM 2,000 MG in DEXTROSE 5% 50 ML IV SCH (11:11)
--- NOTE | 2021-01-06 17:58 | Hospitalist Progress Note ---
Date of Service January 06, 2021 Assessment & Plan (1) BUTCH (acute kidney injury): Presented with creatinine, likely secondary to dehydration and poor p.o. intake in the setting of taking continued lisinopril, metformin. pt complains of weakness and lives alone so was not taking po well or eating with exception of alcohol likely with metabolic encephalopathy present prior to admission causing decreased performance at home Ceftriaxone begun for treating urinary tract infection gram-negative bacilli There is no evidence of bowel or urinary obstruction on CT abdomen/pelvis -Consult nephrology-there is been question in the past of if she had a Gitleman syndrome (Gitelman syndrome is a kidney disorder that causes an imbalance of charged atoms (ions) in the body, including ions of potassium, magnesium, and calcium) -Hold home lisinopril, Metformin, glimepiride, potassium chloride, and gabapentin (2) Abnormal urinalysis: Patient has gram-negative's identified in her urine greater to 100,000 could have created metabolic encephalopathy which created weakness and difficulty moving about which led to her dehydration and acute kidney injury and eventually coming in the hospital (3) Weakness: With fall and unsteadiness possibly due to acute kidney injury, hypomagnesemia, hypotension, and hypoglycemia replete electrolytes -PT/OT consults will be needed (4) Hypomagnesemia: Magnesium is 1.2 upon admission, it has been low in the past and there is suspected renal magnesium wasting She does have 1 loose bowel movement per day but takes po magnesium, this does not seem enough to cause electrolyte disturbances alone -Continue home magnesium oxide -She was given 3 g of IV magnesium sulfate on admission magnesium normal but low normal 1.9 (5) Hypoglycemia: Persistent hypoglycemia upon admission Likely secondary to glimepiride use in the setting of acute kidney injury Continue to allow her to replace glucose orally (6) Right rib fracture: Fifth and sixth anterior ribs nondisplaced, 11th posterior rib mildly displaced-no evidence of pneumothorax With bruising on the right trunk secondary to such Pain controlled with lidocaine patch, Tylenol as needed Incentive spirometry every hour while awake (7) Alcoholism: Has been an alcoholic for 40 years as per patient and her sister confirms this at the bedside She has attended alcohol rehab in the past Currently, she only admits to one large glass of michelle per day, but her sister disputes this outside of the room stating that patient drinks way more than this on a daily basis. Watch for alcohol withdrawal with AWSS Ativan as needed Give banana bag x1 now Start thiamine 100 mg IV every morning and folic acid 1 mg IV daily (8) Leg swelling: Resolved echocardiogram with normal systolic function, maybe elevated right heart pressures from obesity hypoventilation? (9) Type 2 diabetes mellitus: With hyperglycemia here as above Holding home metformin and glimepiride Accu-Cheks and NovoLog supplemental insulin as needed hemoglobin A1c 6.5 (10) Peripheral neuropathy: Holding home gabapentin due to weakness, renal failure (11) Tobacco use: Smokes 1 pack/day-declines nicotine patch Encourage cessation-she is considering this (12) Depression: Continue home sertraline (13) COPD (chronic obstructive pulmonary disease): With mild expiratory wheezes on examination Albuterol as needed Encourage smoking cessation (14) Fatty liver: Secondary to alcohol Encouraged alcohol cessation, weight loss (15) Vitamin D deficiency: Continue home vitamin D supplementation (16) DVT prophylaxis: Heparin SQ, PHUONG hose Disposition-admit to medical floor with telemetry Full code Patient designates her sister and brother as her decision makers. She reports that she would not want long-term life support if "I were a vegetable." (17) B12 deficiency: MCV is elevated which is likely due to liver disease and alcohol use b12 deficiency ruled out Admission and Anticipated Discharge Date Admission Date: January 04, 2021 Subjective Patient seems to be in much better spirits today she had some discourse about not wanting to put cream on her intertrigo I convince her to do this spoke to her sister she does have a confirmed gram-negative urinary tract infection which could be the origin of her weakness and created some of the problems that have led her to come in the hospital. Review of Systems Review of Systems: Mild distress and fatigue no headache, blurry or double vision no speech or swallowing issues no chest pain, or pressure exertional shortness of breath, cough or wheezes no abdominal pain, nausea or vomiting, diarrhea or constipation no dysuria, hematuria or frequency no focal joint pain or swelling Continues with c/o buttock pain but no back pain, CVA tenderness or radicular pain has marked intertrigo and onchomycosis marked pain in her buttocks no focal signs of weakness or numbness or altered sensation no complaints of anxiety or depression. Physical Exam Physical Exam: The patient appeared well nourished and normally developed. she is morbidly obese with BMI of 40 Vital signs as documented. Head exam is normocephalic atraumatic no scleral icterus Neck is without JVD, thyromegaly, or carotid bruits. Lungs are clear to auscultation, no focal loss of breath sounds chest wall tenderness cw rib fractures Cardiac exam, Rhythm is regular.. No murmurs, rubs or gallops. Abdominal exam reveals normal bowel sounds, soft non tender, no masses Intertrigo in body folds including buttock fold maybe source of pain Extremities are 1+ edematous and both pedal pulses are present Neurologic exam is alert and oriented, no focal loss of strength or sensation Skin is with intertrigo I examined her buttocks on both cheeks there is beginnings of some stage II skin breakdown her body folds are worse on the left with possibly some concurrent cellulitis Psychologically is without concerns for anxiety or depression, on guard for alcohol withdrawal Results & Data Results & Data ([facility]) Vital Signs (Past 12 Hours) Vital Signs Temp Pulse Pulse Resp BP BP Pulse Ox 01/06/21 17:30 86 01/06/21 15:25 97.5 F L 61 22 177/81 H 91 01/06/21 11:51 98.1 F 105 H 22 175/81 H 168/84 H 95 01/06/21 08:00 79 01/06/21 07:59 98.8 F 88 22 165/71 H 95 PG Care Time/CCT Total # of Minutes Spent Total Time Spent with Patient: Total time spent is greater than 50% in coordination of care (as documented) at patient's floor/unit and/or counseling patient: Coding Level of Care Code 53489 Subseq Hosp Care Lvl 3 Diagnoses BUTCH (acute kidney injury) N17.9 Abnormal urinalysis R82.90 Weakness R53.1 Hypomagnesemia E83.42 Hypoglycemia E16.2 Right rib fracture S22.41XA Encounter type: initial encounter Fracture type: closed Rib fracture type: multiple ribs Alcoholism F10.20 Leg swelling M79.89 Type 2 diabetes mellitus E11.9 Peripheral neuropathy G62.9 Tobacco use Z72.0 Depression F32.9 COPD (chronic obstructive pulmonary disease) J44.9 Fatty liver K76.0 Vitamin D deficiency E55.9 DVT prophylaxis Z29.9 B12 deficiency E53.8 (1) Right rib fracture Encounter type: initial encounter Fracture type: closed Rib fracture type: multiple ribs Qualified Code(s): S22.41XA - Multiple fractures of ribs, right side, initial encounter for closed fracture
[2021-01-06] MEDS: LIDOCAINE 5% 1 PATCH TD SCH (21:00)
[2021-01-06] MEDS: POTASSIUM CHLORIDE CRTAB 20 MEQ TABCR PO SCH (21:03)
--- NOTE | 2021-01-07 07:22 | Hospitalist Progress Note ---
Date of Service January 07, 2021 Assessment & Plan (1) BUTCH (acute kidney injury): Presented with creatinine, likely secondary to dehydration and poor p.o. intake in the setting of taking continued lisinopril, metformin. pt complains of weakness and lives alone so was not taking po well or eating with exception of alcohol likely with metabolic encephalopathy present prior to admission causing decreased performance at home Ceftriaxone begun for treating urinary tract infection gram-negative bacilli There is no evidence of bowel or urinary obstruction on CT abdomen/pelvis -Consult nephrology-there is been question in the past of if she had a Gitleman syndrome (Gitelman syndrome is a kidney disorder that causes an imbalance of charged atoms (ions) in the body, including ions of potassium, magnesium, and calcium) restarted lisinopril and amlodipine, , Metformin, glimepiride, potassium chloride, and gabapentin (2) Abnormal urinalysis: Patient has klebsiella uti poa could have created metabolic encephalopathy which created weakness and difficulty moving about which led to her dehydration and acute kidney injury and eventually coming in the hospital (3) Weakness: With fall and unsteadiness possibly due to acute kidney injury, hypomagnesemia, hypotension, and hypoglycemia replete electrolytes -PT/OT consults will be needed (4) Hypomagnesemia: Magnesium is 1.2 upon admission, it has been low in the past and there is suspected renal magnesium wasting She does have 1 loose bowel movement per day but takes po magnesium, this does not seem enough to cause electrolyte disturbances alone -Continue home magnesium oxide -She was given 3 g of IV magnesium sulfate on admission magnesium normal but low normal 1.9 (5) Hypoglycemia: Persistent hypoglycemia upon admission Likely secondary to glimepiride use in the setting of acute kidney injury Continue to allow her to replace glucose orally (6) Right rib fracture: Fifth and sixth anterior ribs nondisplaced, 11th posterior rib mildly displaced-no evidence of pneumothorax With bruising on the right trunk secondary to such Pain controlled with lidocaine patch, Tylenol as needed Incentive spirometry every hour while awake (7) Alcoholism: Has been an alcoholic for 40 years as per patient and her sister confirms this at the bedside She has attended alcohol rehab in the past pt has not exhibited any signs of withdrawal and will have awss score removed Start thiamine 100 mg IV every morning and folic acid 1 mg IV daily (8) Leg swelling: Resolved echocardiogram with normal systolic function, maybe elevated right heart pressures from obesity hypoventilation? (9) Type 2 diabetes mellitus: With hyperglycemia here as above Holding home metformin and glimepiride Accu-Cheks and NovoLog supplemental insulin as needed hemoglobin A1c 6.5 (10) Peripheral neuropathy: restarted neurontin (11) Tobacco use: Smokes 1 pack/day-declines nicotine patch Encourage cessation-she is considering this (12) Depression: Continue home sertraline (13) COPD (chronic obstructive pulmonary disease): With mild expiratory wheezes on examination Albuterol as needed Encourage smoking cessation (14) Fatty liver: Secondary to alcohol Encouraged alcohol cessation, weight loss (15) Vitamin D deficiency: Continue home vitamin D supplementation (16) DVT prophylaxis: Heparin SQ, PHUONG hose Disposition-admit to medical floor with telemetry Full code Patient designates her sister and brother as her decision makers. She reports that she would not want long-term life support if "I were a vegetable." (17) B12 deficiency: MCV is elevated which is likely due to liver disease and alcohol use b12 deficiency ruled out Admission and Anticipated Discharge Date Admission Date: January 04, 2021 Subjective Patient seems to be in much better spirits again today she does have a confirmed klebsiella urinary tract infection which could be the origin of her weakness and created some of the problems that have led her to come in the hospital. her skin is irritated and there maybe a secondary infection Review of Systems Review of Systems: Mild distress and fatigue no headache, blurry or double vision no speech or swallowing issues no chest pain, or pressure exertional shortness of breath, cough or wheezes no abdominal pain, nausea or vomiting, diarrhea or constipation no dysuria, hematuria or frequency no focal joint pain or swelling Continues with c/o buttock pain but no back pain, CVA tenderness or radicular pain has marked intertrigo and onchomycosis marked pain in her buttocks no focal signs of weakness or numbness or altered sensation no complaints of anxiety or depression. Physical Exam Physical Exam: The patient appeared well nourished and normally developed. she is morbidly obese with BMI of 40 Vital signs as documented. Head exam is normocephalic atraumatic no scleral icterus Neck is without JVD, thyromegaly, or carotid bruits. Lungs are clear to auscultation, no focal loss of breath sounds chest wall tenderness cw rib fractures Cardiac exam, Rhythm is regular.. No murmurs, rubs or gallops. Abdominal exam reveals normal bowel sounds, soft non tender, no masses Intertrigo in body folds including buttock fold maybe source of pain Extremities are 1+ edematous and both pedal pulses are present Neurologic exam is alert and oriented, no focal loss of strength or sensation Skin is with intertrigo I examined her buttocks on both cheeks there is beginnings of some stage II skin breakdown her body folds are worse on the left with possibly some concurrent cellulitis Psychologically is without concerns for anxiety or depression, on guard for alcohol withdrawal Results & Data Results & Data ([facility]) Vital Signs (Past 12 Hours) Vital Signs Temp Pulse Pulse Resp BP BP Pulse Ox 01/07/21 07:20 98.8 F 86 16 168/84 H 97 01/07/21 07:07 78 01/07/21 03:35 97.9 F 89 18 133/75 94 01/07/21 03:04 89 01/06/21 23:14 98.4 F 95 H 18 128/68 97 PG Care Time/CCT Total # of Minutes Spent Total Time Spent with Patient: Total time spent is greater than 50% in coordination of care (as documented) at patient's floor/unit and/or counseling patient: Coding Level of Care Code 46710 Subseq Hosp Care Lvl 2 Diagnoses BUTCH (acute kidney injury) N17.9 Abnormal urinalysis R82.90 Weakness R53.1 Hypomagnesemia E83.42 Hypoglycemia E16.2 Right rib fracture S22.41XA Encounter type: initial encounter Fracture type: closed Rib fracture type: multiple ribs Alcoholism F10.20 Leg swelling M79.89 Type 2 diabetes mellitus E11.9 Peripheral neuropathy G62.9 Tobacco use Z72.0 Depression F32.9 COPD (chronic obstructive pulmonary disease) J44.9 Fatty liver K76.0 Vitamin D deficiency E55.9 DVT prophylaxis Z29.9 B12 deficiency E53.8 (1) Right rib fracture Encounter type: initial encounter Fracture type: closed Rib fracture type: multiple ribs Qualified Code(s): S22.41XA - Multiple fractures of ribs, right side, initial encounter for closed fracture
[2021-01-07 08:17] LABS: Albumin Level 2.8 gm/dl (3.4-5.0); Calcium 8.8 mg/dl (8.5-10.1); Est GFR (Non-African American) 64.7; Magnesium 1.6 mg/dl (1.8-2.4); Phosphorus 3.3 mg/dl (2.5-4.9); Potassium 3.8 mmol/L (3.5-5.1)
[2021-01-07] MEDS: THIAMINE HCL 100 MG in SYRINGE 9 ML IV SCH (08:34)
[2021-01-07] MEDS: LIDOCAINE/PRILOCAINE 2.5% EA CRM EXT SCH (08:35)
[2021-01-07] MEDS: POTASSIUM CHLORIDE CRTAB 20 MEQ TABCR PO SCH ×2 (08:35→20:25)
[2021-01-07] MEDS: FOLIC ACID 1 MG in SYRINGE 9.8 ML IV SCH (08:35)
[2021-01-07] MEDS: CHOLECALCIFEROL 1,000 UNITS 25 MCG TAB PO SCH (08:35)
[2021-01-07] MEDS: SERTRALINE HCL 100 MG TABLET PO SCH (08:36)
[2021-01-07] MEDS: NYSTATIN/TRIAMCIN CR 15 GM TUBE EXT SCH ×2 (08:36→20:27)
[2021-01-07] MEDS: lisinopril 20 MG TAB PO SCH (08:36)
[2021-01-07] MEDS: HEPARIN SOD 5,000 UNIT/0.5 ML VIAL SQ SCH ×2 (08:36→20:23)
[2021-01-07] MEDS: INSULIN ASPART 100 UNITS/ML 3 ML PEN SC SCH ×4 (08:38→20:27)
--- NOTE | 2021-01-07 09:41 | Nephrology Progress Note ---
Date of Service January 07, 2021 Assessment & Plan (1) BUTCH (acute kidney injury): Due to dehydration of unclear etiology (reported diarrhea at home prior to admission but unclear why). Volume status acceptable. Oral intake acceptable. Lisinopril was restarted yesterday. (2) Hypotension: Due to dehydration improved with IVF. BP now elevated and antihypertensives are being restarted. Lisinopril 20 mg daily restarted yesterday. Amlodipine to be restarted as needed. (3) Hypomagnesemia: Additional MgSO4 4 gm IV to be given today. PO Mg held due to loose stool. Recheck in the AM. Potential contributing causes including alcohol and medications (such as metformin) were reviewed with Evelin today. Importance of appropriate dietary intake discussed. Outpatient follow up to be arranged for continued monitoring post discharge. Once serum levels have been repleted, additional evaluation for potential renal wasting can be completed. Low degree of suspicion for underlying tubular defect based on history and review of the medical record dating back to 2013. Predominate concerns with these electrolytes seem to correspond more with ETOH intake and possible GI loss or poor PO intake/dehydration. (4) Hypokalemia: Improved. Remains on KCL 20 mEq PO BID. Close outpatient followup in the nephrology clinic to be arranged post discharge. Certainly, magnesium deficiency was contributing to hypokalemia. Admission and Anticipated Discharge Date Admission Date: January 04, 2021 Subjective No acute events overnight. Becka feels much better today. Pain controlled. No diarrhea. Appetite good. Review of Systems Review of Systems: All systems reviewed & are unremarkable except as noted in HPI & below Physical Exam Constitutional: well developed; no acute distress Eyes: no scleral abnormality and no corneal abnormality ENMT: Mouth: no oral mucosal abnormality and oral mucous membranes not dry Neck: normal visual inspection and trachea midline Respiratory: normal respiratory effort Auscultation: lungs clear to auscultation bilaterally Cardiovascular: Rate/Rhythm: regular rate Heart Sounds: normal S1 and normal S2 Extremities: no edema Musculoskeletal: Extremities: no cyanosis and no clubbing Skin: normal turgor; no lesions Neurologic: Motor/Sensory: no tremor and no asterixis Psychiatric: Orientation: alert and oriented x 3 Results & Data ([facility]) Vital Signs (Past 12 Hours) Vital Signs Temp Pulse Pulse Resp BP BP Pulse Ox 01/07/21 07:20 37.1 C 86 16 168/84 H 97 03/11/21 07:07 78 01/07/21 03:35 36.6 C 89 18 133/75 94 01/07/21 03:04 89 01/06/21 23:14 36.9 C 95 H 18 128/68 97 Laboratory Results Laboratory Results - last 24 hr 01/06/21 01/06/21 01/06/21 11:22 16:54 20:13 Sodium Potassium Chloride Carbon Dioxide Anion Gap BUN Creatinine Est Cr Clr Drug Dosing Est GFR ( Amer) Est GFR (Non-Af Amer) BUN/Creatinine Ratio Glucose POC Glucose 212 H 164 H 225 H Calcium Phosphorus Magnesium Albumin 01/07/21 01/07/21 07:18 07:29 Sodium 142 Potassium 3.8 Chloride 108 H Carbon Dioxide 27 Anion Gap 7.0 BUN 13 Creatinine 0.96 Est Cr Clr Drug Dosing 82.0 Est GFR ( Amer) 75.0 Est GFR (Non-Af Amer) 64.7 BUN/Creatinine Ratio 13.0 Glucose 162 H POC Glucose 161 H Calcium 8.8 Phosphorus 3.3 Magnesium 1.6 L Albumin 2.8 L PG Care Time/CCT Total # of Minutes Spent Total Time Spent with Patient: Total time spent is greater than 50% in coordination of care (as documented) at patient's floor/unit and/or counseling patient: Coding Level of Care Code 99885 Subseq Hosp Care Lvl 3 Diagnoses BUTCH (acute kidney injury) N17.9 Hypotension I95.9 Hypotension type: unspecified hypotension type Hypomagnesemia E83.42 Hypokalemia E87.6 (1) Hypotension Hypotension type: unspecified hypotension type Qualified Code(s): I95.9 - Hypotension, unspecified
[2021-01-07] MEDS: MAGNESIUM SULFATE / D5W 1 GM/100 ML BAG IV SCH ×4 (10:23→14:00)
[2021-01-07] MEDS: cefTRIAXone SODIUM 2,000 MG in DEXTROSE 5% 50 ML IV SCH (11:09)
[2021-01-07] MEDS ORDERED: lisinopril 10 MG TAB PO ONE (16:45)
[2021-01-07] MEDS ORDERED: hydrALAZINE HCL 20 MG/ML VIAL IV PRN (16:47)
[2021-01-07] MEDS ORDERED: amLODIPine BESYLATE 5 MG TAB PO ONE (16:47)
[2021-01-07] MEDS: LIDOCAINE 5% 1 PATCH TD SCH (20:26)
[2021-01-08] MEDS: POTASSIUM CHLORIDE CRTAB 20 MEQ TABCR PO SCH (08:02)
[2021-01-08] MEDS: lisinopril 20 MG TAB PO SCH (08:03)
[2021-01-08] MEDS: CHOLECALCIFEROL 1,000 UNITS 25 MCG TAB PO SCH (08:03)
[2021-01-08] MEDS: SERTRALINE HCL 100 MG TABLET PO SCH (08:04)
[2021-01-08] MEDS: THIAMINE HCL 100 MG in SYRINGE 9 ML IV SCH (08:05)
[2021-01-08] MEDS: FOLIC ACID 1 MG in SYRINGE 9.8 ML IV SCH (08:05)
[2021-01-08] MEDS: INSULIN ASPART 100 UNITS/ML 3 ML PEN SC SCH ×2 (08:05→12:38)
[2021-01-08] MEDS: HEPARIN SOD 5,000 UNIT/0.5 ML VIAL SQ SCH (08:07)
[2021-01-08] MEDS ORDERED: amLODIPine BESYLATE 5 MG TAB PO SCH (09:00)
[2021-01-08 09:10] LABS: Albumin Level 2.9 gm/dl (3.4-5.0); Calcium 9.4 mg/dl (8.5-10.1); Creatinine Clr Calc Pharmacy 74.7 ml/min; Est GFR (African American) 67.3; Est GFR (Non-African American) 58.1; Magnesium 1.8 mg/dl (1.8-2.4)
--- NOTE | 2021-01-08 10:41 | Nephrology Progress Note ---
Date of Service January 08, 2021 Assessment & Plan (1) BUTCH (acute kidney injury): Prerenal due to dehydration. Resolved. Adequate oral intake. No GI concerns at this time. (2) Hypomagnesemia: Improvement with replacement. Restart oral therapy today. Will try Magnesium chloride 65 mg twice daily. Will obtain urine FeMg today. Outpatient follow up to be arranged for additional evaluation. (3) Hypokalemia: Continue KCL 20 mEq PO BID. Close outpatient followup in the nephrology clinic to be arranged post discharge. Certainly, magnesium deficiency was contributing to hypokalemia. (4) Hypertension: Home Rx amlodipine and lisinopril restarted. Volume status acceptable. Admission and Anticipated Discharge Date Admission Date: January 04, 2021 Subjective No acute events overnight. No complaints this AM. Overall, Evelin is doing well. She was reluctant to restart oral Mg replacement due to loose stool. Agreeable to try MgCl Review of Systems Review of Systems: All systems reviewed & are unremarkable except as noted in HPI & below Physical Exam Constitutional: well developed; no acute distress Eyes: no scleral abnormality and no corneal abnormality ENMT: Mouth: no oral mucosal abnormality and oral mucous membranes not dry Neck: normal visual inspection and trachea midline Respiratory: normal respiratory effort Auscultation: lungs clear to auscultation bilaterally Cardiovascular: Rate/Rhythm: regular rate Heart Sounds: normal S1 and normal S2 Extremities: no edema Musculoskeletal: Extremities: no cyanosis and no clubbing Skin: normal turgor; no lesions Neurologic: Motor/Sensory: no tremor and no asterixis Psychiatric: Orientation: alert and oriented x 3 Results & Data ([place]) Vital Signs (Past 12 Hours) Vital Signs Temp Pulse Pulse Resp BP Pulse Ox 01/08/21 07:06 36.6 C 96 H 16 165/85 H 94 01/08/21 06:58 80 01/08/21 03:31 36.7 C 95 H 18 134/84 97 01/08/21 02:12 94 H 01/07/21 23:33 36.9 C 88 18 130/83 96 Laboratory Results Laboratory Results - last 24 hr 01/07/21 01/07/21 01/07/21 11:51 16:28 20:01 Sodium Potassium Chloride Carbon Dioxide Anion Gap BUN Creatinine Est Cr Clr Drug Dosing Est GFR ( Amer) Est GFR (Non-Af Amer) BUN/Creatinine Ratio Glucose POC Glucose 220 H 164 H 231 H Calcium Phosphorus Magnesium Albumin 01/08/21 01/08/21 07:29 08:22 Sodium 139 Potassium 4.0 Chloride 104 Carbon Dioxide 26 Anion Gap 9.0 BUN 12 Creatinine 1.05 Est Cr Clr Drug Dosing 74.7 Est GFR ( Amer) 67.3 Est GFR (Non-Af Amer) 58.1 BUN/Creatinine Ratio 11.0 Glucose 213 H POC Glucose 191 H Calcium 9.4 Phosphorus 4.0 Magnesium 1.8 Albumin 2.9 L PG Care Time/CCT Total # of Minutes Spent Total Time Spent with Patient: Total time spent is greater than 50% in coordination of care (as documented) at patient's floor/unit and/or counseling patient: Coding Level of Care Code 55363 Subseq Hosp Care Lvl 3 Diagnoses BUTCH (acute kidney injury) N17.9 Hypomagnesemia E83.42 Hypokalemia E87.6 Hypertension I10
[2021-01-08] MEDS ORDERED: MAGNESIUM CHLORIDE 64MG DELAYED REL TAB PO SCH (10:45)
[2021-01-08] MEDS: cefTRIAXone SODIUM 2,000 MG in DEXTROSE 5% 50 ML IV SCH (10:56)
[2021-01-08] MEDS: LIDOCAINE/PRILOCAINE 2.5% EA CRM EXT SCH (10:57)
[2021-01-08] MEDS: NYSTATIN/TRIAMCIN CR 15 GM TUBE EXT SCH (10:57)
[2021-01-08 11:31] LABS: Creatinine Urine Random 69.4 mg/dl
[2021-01-08] MEDS: ACETAMINOPHEN 325 MG TAB PO PRN (12:40)
--- NOTE | 2021-01-15 12:22 | Discharge Summary ---
Date of Service January 08, 2021 Admission HPI Per Admitting Provider This patient is a 60-year-old female with a history of alcohol dependence, DM 2, COPD and current smoker, depression, neuropathy, hypokalemia, hypomagnesemia who presents to the ER with 2 to 3 days of persistent lightheadedness and generalized weakness. A few days ago, she had great difficulty getting off of her recliner chair and then stood and had dizziness and fell, landed on her right side on some steps and has had pain in the right flank area ever since. Since then, she has not really been drinking or eating much and has had worsening weakness. She reports her urine output has gone down significantly in her urine appeared orange in color. She thinks overall she started feeling poorly at least a week ago. She is continue to take all of her usual medications at home. She is also noted worsening swelling in the legs in the last week but overall legs have been swollen and red since July 2020. She denies any fevers or chills, no chest pain or shortness of breath. She has had some headaches last couple of weeks. She denies any nausea or vomiting. She has had 1 loose stool daily for the last week. She reports that she has cut way down on her alcohol intake but cannot give me an exact a.m. when she last drank. She thinks it was "sometime last week," however her sister spoke to the nurse outside the room and said that her sister drinks excessively on a daily basis. The patient admits to drinking a large glass full of michelle on a daily basis that is mixed with soda. The patient denies any withdrawal symptoms except from a hospitalization a couple of years ago. In the ER, she was found to have an acute kidney injury with creatinine of 3.7 and was hypotensive, hypoglycemic, hypokalemic, and hypomagnesemic. Troponin was negative. She was given juice to drink and her blood sugar finally came up to 84. She was also given IV fluids and her blood pressure improved. She was given IV magnesium. A CT of the chest/abdomen/pelvis revealed right sided anterior fifth and sixth rib fractures as well as a minimally displaced right posterior 11th rib fracture, hepatomegaly and hepatic steatosis, but was otherwise negative for acute issues. A Covid-19 test was negative She will be admitted for acute kidney injury and multiple metabolic and electrolyte disturbances, as well as falls, lightheadedness, and hypotension. Principal Diagnosis metabolic encephalopathy form urinary tract infection skin irritation decubitus ulcer from decreased mobility mineral deficiencieshypomagnesemia acute kidney injury Discharge Exam Pt was een on day of discharge, no complaints of rib pain and some pain with skin irritation to buttock Discharge Data Allergies Allergy/AdvReac Type Severity Reaction Status Date / Time No Known Drug Allergies Allergy Verified 01/04/21 14:13 Consultations 01/04/21 15:34 ED Decision to Admit Stat 01/04/21 18:31 Consult Case Management - Discharge Planning Routine Consult Nephrology Routine 01/04/21 23:44 Consult Podiatry Routine Ordered Studies 01/04/21 14:34 CT abd pelvis wo con Stat CT chest diagnostic wo con Stat Hospital Course (1) BUTHC (acute kidney injury): Presented with elevated creatinine, likely secondary to dehydration and poor p.o. intake in the setting of taking continued lisinopril, metformin. pt complains of weakness and lives alone so was not taking po well or eating with exception of alcohol likely with metabolic encephalopathy present prior to admission causing decreased performance at home Ceftriaxone begun for treating urinary tract infection gram-negative bacilli There is no evidence of bowel or urinary obstruction on CT abdomen/pelvis -Consult nephrology-there is been question in the past of if she had a Gitleman syndrome (Gitelman syndrome is a kidney disorder that causes an imbalance of charged atoms (ions) in the body, including ions of potassium, magnesium, and calcium) restarted lisinopril and amlodipine, , Metformin, glimepiride, potassium chloride, and gabapentin (2) Abnormal urinalysis: Patient has klebsiella uti poa could have created metabolic encephalopathy which created weakness and difficulty moving about which led to her dehydration and acute kidney injury and eventually coming in the hospital (3) Weakness: With fall and unsteadiness possibly due to acute kidney injury, hypomagnesemia, hypotension, and hypoglycemia repleted electrolytes (4) Hypomagnesemia: Magnesium is 1.2 upon admission, it has been low in the past and there is suspected renal magnesium wasting She does have 1 loose bowel movement per day but takes po magnesium, this does not seem enough to cause electrolyte disturbances alone -Continue home magnesium oxide (5) Hypoglycemia: resolved and will resume home glucose control (6) Right rib fracture: Fifth and sixth anterior ribs nondisplaced, 11th posterior rib mildly displaced-no evidence of pneumothorax With bruising on the right trunk secondary to such Pain controlled with Tylenol as needed not painful on admission (7) Alcoholism: Has been an alcoholic for 40 years as per patient and her sister confirms this at the bedside She has attended alcohol rehab in the past pt has not exhibited any signs of withdrawal and will have awss score removed recommended MVI (8) Leg swelling: Resolved echocardiogram with normal systolic function, maybe elevated right heart pressures from obesity hypoventilation? (9) Type 2 diabetes mellitus: With hyperglycemia here as above resume home metformin and glimepiride Accu-Cheks and NovoLog supplemental insulin as needed hemoglobin A1c 6.5 (10) Peripheral neuropathy: restarted neurontin (11) Tobacco use: Smokes 1 pack/day-declines nicotine patch Encourage cessation-she is considering this (12) Depression: Continue home sertraline (13) COPD (chronic obstructive pulmonary disease): With mild expiratory wheezes on examination Albuterol as needed Encourage smoking cessation (14) Fatty liver: Secondary to alcohol Encouraged alcohol cessation, weight loss (15) Vitamin D deficiency: Continue home vitamin D supplementation (16) B12 deficiency: MCV is elevated which is likely due to liver disease and alcohol use b12 deficiency ruled out Total Time Total Time Spent Total Time Spent (In Minutes): greater than 30 minutes were required to complete this process Discharge Plan Discharge Items Patient Disposition: Home - Home Health Services Reason For Visit: BUTCH, HYPOMAGNESIMIA Discharge Diagnosis: weakness form urinary tract infection skin irritation from decreased mobility mineral deficiencies Condition on Discharge: Fair Activity: Per Instructions section Activity Comment: gradually increase activity Non-emergency contact: Primary Care Provider Call non-emergency contact if: you have any medication questions, your symptoms worsen and your temperature is above 101 Follow-up/Referrals: Gay Sanchez, [Primary Care Provider] - 01/13/21 2:40 pm (Your appointment is with the doctor's physician assistant district attorney, Nel Pablo. If you need to change this appointment, please call [phone].) Diet: Carb Consistent or DM2 Addtl Attending Provider Instructions: please wash irriated skin daily with a gentle soap and water, dry completely and apply a diaper rash or similar cream such as desitin or bordeaux paste. please sit on protective cushion to avoid pressure on buttocks complete all of your antibiotics Pending Studies at Discharge: No Stand-Alone Forms: My [facility], Smoking Cessation Medications and DC Order Prescriptions: New amoxicillin-pot clavulanate [Augmentin] 875-125 mg tablet 1 tab PO BID Qty: 14 RF: 0 Diaper Rash 13 % cream 1 applic topical TID Qty: 113 RF: 3 Continued magnesium oxide 400 mg magnesium capsule 400 mg PO BID Qty: 180 RF: 1 amlodipine 5 mg tablet 5 mg PO QAM Qty: 90 RF: 1 potassium chloride 20 mEq tablet,ER particles/crystals 20 meq PO TID 21 Days Qty: 63 RF: 0 albuterol sulfate 2.5 mg /3 mL (0.083 %) solution for nebulization 2.5 mg inhalation Q4H PRN (Reason: mild COPD) RF: 0 metformin 500 mg tablet extended release 24 hr 1 tab PO BID RF: 0 lisinopril 20 mg tablet 20 mg PO QAM RF: 0 sertraline 100 mg tablet 100 mg PO QAM RF: 0 cholecalciferol (vitamin D3) 100 mcg (4,000 unit) tablet 4,000 unit PO QAM RF: 0 Discontinued colchicine 0.6 mg capsule See Rx Instructions PO DAILY PRN (Reason: Gout) Qty: 3 RF: 1 gabapentin 300 mg capsule 900 mg PO HS Qty: 270 RF: 1 albuterol sulfate 90 mcg/actuation HFA aerosol inhaler 1 - 2 puffs inhalation DAILY PRN (Reason: Shortness Of Breath) RF: 0 capsaicin 0.025 % cream 1 appln topical DAILY RF: 0 No Action glimepiride 2 mg tablet 4 mg PO HS Qty: 180 RF: 1 Discharge Orders: Discharge Order (Routine); Ordered 01/08/21 Ordered By: Jorje Knight/Other Patient Handouts: High Blood Sugar (Hyperglycemia), Managing Type 2 Diabetes, Managing Diabetes: The A1C Test Admission Data Admit Date/Time: 01/04/21 17:15 Attending Provider: Jorje Parra Admit Provider: Kary Soriano Primary Care Provider: Gay Sanchez Other Providers: Kary Soriano ; Clayton Anaya ; Anastacio Griffin ; [facility] Other Interventions: Discharge Summary Assessment (RN) Last Done: 01/08/21 14:16 Coding Level of Care Code D/C Day Management >30 mins Diagnoses BUTCH (acute kidney injury) N17.9 Abnormal urinalysis R82.90 Weakness R53.1 Hypomagnesemia E83.42 Hypoglycemia E16.2 Right rib fracture S22.41XA Encounter type: initial encounter Fracture type: closed Rib fracture type: multiple ribs Alcoholism F10.20 Leg swelling M79.89 Type 2 diabetes mellitus E11.9 Peripheral neuropathy G62.9 Tobacco use Z72.0 Depression F32.9 COPD (chronic obstructive pulmonary disease) J44.9 Fatty liver K76.0 Vitamin D deficiency E55.9 B12 deficiency E53.8
== END 2021-01-08 14:57 | disposition home health service (06) | DRG 682 ==
LOC: ED 11:49 → 2N 17:15 → SUATTDRO 17:15 → 2N 18:30

== ENCOUNTER 2021-01-22 16:06 | Inpatient (IN) ==
[2021-01-22] MEDS ORDERED: MULTI-VITAMIN INFUSION 10 ML, THIAMINE HCL 100 MG, FOLIC ACID 1 MG in SODIUM CHLORIDE 0... IV ONE (16:52)
[2021-01-22] MEDS ORDERED: MAGNESIUM SULFATE / D5W 1 GM/100 ML BAG IV STA (16:54)
[2021-01-22 17:25] LABS: Basophils # (auto) 0.01 K/uL (0-0.2); Basophils % (auto) 0.1 %; Eosinophils # (auto) 0.08 K/uL (0-0.5); Eosinophils % (auto) 1.2 %; Hematocrit (blood only) 35.6 % (37-47); Hemoglobin 11.6 g/dL (12.0-16.0); Immature Granulocytes # (auto) 0.02 K/uL (0.00-0.02); Immature Granulocytes % (auto) 0.3 %; Lymphocytes # (auto) 1.63 K/uL (1.2-3.4); Lymphocytes % (auto) 24.2 %; Mean Corpuscular Hemoglobin 34.6 pg (25-34); Mean Corpuscular Hgb Conc 32.6 g/dL (32-36); Mean Corpuscular Volume 106.3 fL (80-100); Mean Platelet Volume 9.5 fL (7.4-10.4); Monocytes # (auto) 0.56 K/uL (0.11-0.59); Monocytes % (auto) 8.3 %; Neutrophils # (auto) 4.44 K/uL (1.4-6.5); Neutrophils % (auto) 65.9 %; Platelet Count 203 K/uL (130-400); RDW Coefficient of Variation 14.8 % (11.5-14.5); RDW Standard Deviation 58.1 fL (36.4-46.3); Red Blood Count 3.35 M/uL (4.2-5.4); White Blood Count 6.74 K/uL (4.8-10.8)
[2021-01-22 17:38] LABS: INR 1.1 (0.9-1.1); Partial Thromboplastin Time 25.9 Seconds (21.0-31.0); Prothrombin Time 10.8 Seconds (9.0-12.0)
[2021-01-22 17:45] LABS: Alanine Aminotransferase 50 U/L (12-78); Albumin Level 2.8 gm/dl (3.4-5.0); Aspartate Aminotransferase 49 U/L (15-37); BUN Creatinine Ratio 10.8 (10-20); Blood Urea Nitrogen 12 mg/dl (7-18); Calcium 7.5 mg/dl (8.5-10.1); Carbon Dioxide 26 mmol/L (21-32); Chloride 109 mmol/L (98-107); Creatinine Clr Calc Pharmacy 73.2 ml/min; Est GFR (African American) 64.3; Est GFR (Non-African American) 55.5; Glucose 212 mg/dl (70-99); Lipase 167 U/L (73-393); Potassium 4.5 mmol/L (3.5-5.1); Sodium 140 mmol/L (136-145)
[2021-01-22 17:59] LABS: Albumin Globulin Ratio 0.7 (0.9-2); Alkaline Phosphatase 141 U/L (45-117); Bilirubin,Total 1.2 mg/dl (0.2-1); Globulin 4.3 gm/dl (2.5-4.0); Phosphorus 4.8 mg/dl (2.5-4.9); Total Protein 7.1 gm/dl (6.4-8.2); Troponin I < 0.015 ng/ml (0-0.045)
[2021-01-22] MEDS ORDERED: MAGNESIUM SULFATE 50% 4 GM in SODIUM CHLORIDE 0.9% 500 ML IV SCH (18:45)
[2021-01-22 18:56] LABS: Influenza A virus by PCR Negative (Neg); Influenza B virus by PCR Negative (Neg); RSV by PCR Negative (Neg); SARS CoV2 RNA(COVID-19) InHosp NEGATIVE (Negative)
[2021-01-22] MEDS ORDERED: LOPERAMIDE HCL 2 MG CAP PO STA (19:12)
--- NOTE | 2021-01-22 19:25 | History & Physical Report ---
Date of Service January 22, 2021 Assessment & Plan (1) Hypomagnesemia: Moderate asymptomatic hypomagnesemia - Repleted already with 1 GM of MaSO4 and 1 Banana Bag (3GM Mag) - Continue repletion with 4GM in 500 of 0.9% NSS over 4 hours--- this should get her to a therapeutic level and allow for some drift if diarrhea continues. - QTC not prolonged, no ectopy, reflexes normal - Likely related to GI losses from diarrhea- stool electrolytes sent - will hold oral mag oxide as this may cause diarrhea, consider magnesium chloride orally if available (2) Hypocalcemia: Likely related to poor oral intake with her Alcohol use - iCA pending- replete with Calcium gluconate as needed for Ica ~1.12 (3) Alcoholism: Unable to quantify amount per patient, she has "cut back" - AWWS coverage while in house- Ativan per score >6 - Thiamine orally and folate - No evidence of Wernicke, normal mentation - She reports she has never had a withdrawal episode - Her LFT's are much improved from prior checks (4) Type 2 diabetes mellitus: On Metformin and Glimepiride at home - Sustained release Metformin may be aggravating her diarrhea - Will place on subq insulin with goal <180 until electrolytes repleted - Might be worth changing agents (5) B12 deficiency: Chronically elevated MCV and RDW - Folate and B12 level in the morning - ETOH related likely - Slightly anemic (6) COPD (chronic obstructive pulmonary disease): No acute needs, continue albuterol - daily use but symptoms controlled (7) HTN (hypertension): Controlled - Continue amlodipine 5 - Continue Lisinopril (8) Leg swelling: Chronic- multifactorial to include poor physical activity, poor nutrition as evidence with her ALKpo4 and her low albumin - Venous Doppler negative - Grade I diastolic dysfunction - no acute intervention- address the above (9) Diarrhea: Patient states 3-4 loose watery bowel movements per day, yellow in color per report - Does not appear infectious, no abdominal pain, normal WBC - Stool culture sent, Cdiff pending, stool Lyte sent - Once sent can administer 2mg loperamide and repeat as necessary - Multifactorial ? IBS component and complicated with nutrition and alcohol use - Nutritional consult to assist if able to add supplementation to decrease (10) Right foot pain: Right foot is swollen and tender around ankle and midfoot- bruising to her 2-4 toes. Toes are without pain - She denies trauma or injury - will get arterial Doppler to assess flow although peripheral pulses are present and foot is warm - does not appear as microangiopathic in nature - MRI if pain persists to evaluate further for fracture, can be done as outpatient (11) Elevated alkaline phosphatase level: Chronically elevated- ETOH and poor nutrition likely the cause, markedly improved over the past 2 years (12) Excoriation of buttock: Has improved since last admission, red with 4x3 cm area of top layer skin eroded, with good base - Continue with butt paste; continue to liberally apply to buttocks and perineum - clean pat dry and reapply to have constant barrier to loose stools and incontinence History of Present Illness Chief Complaint: right foot pain Primary Care Provider: Gay Sanchez, DO 60 YOF with history of alcohol dependance, COPD still smokes, DMII, neuropathy, chronic hypokalemia and hypomagnesemia, depression, chronic elevation of her alkphos, AST is improved, and hypoablumin. She was recently discharged last week following a complicated UTI klebsiella pneumoniae and proteus with an BUTCH. Patient went to her PCP today for follow up post discharge and for complaint of right foot swelling and pain. She was sent here for laboratory work, rad iological films, and venous duplex. It was noted that her magnesium was 0.9 she was given 1GM magnesium and 1 banana bag. She continues to have chronic diarrhea at home as well as excoriation stage II on her buttocks, which is improved. She otherwise feels much better since her discharge. She continues to drink alcohol and unable to quantify and declines that she had any trauma or fall causing her injury to her foot. She will be brought in for replacement of her mag as well as try to control her diarrhea. Her venous ultrasound of the right lower extremity is normal and her films of he r foot and ankle show no fracture. Allergies Allergy/AdvReac Type Severity Reaction Status Date / Time No Known Drug Allergies Allergy Verified 01/22/21 11:34 Home Medications Medication Instructions Recorded Confirmed Type albuterol sulfate 2.5 mg INHALATION Q4H PRN ml 10/21/19 01/22/21 History magnesium oxide 400 mg PO BID #180 cap 08/28/20 01/22/21 Rx amlodipine 5 mg tablet 5 mg PO QAM #90 tab 09/21/20 01/22/21 Rx potassium chloride 20 mEq 20 meq PO TID 21 Days #63 tab 10/01/20 01/22/21 Rx tablet,extended release(part/cryst) cholecalciferol (vitamin D3) 4,000 unit PO QAM 01/04/21 01/22/21 History lisinopril 20 mg PO QAM 01/04/21 01/22/21 History sertraline 100 mg PO QAM 01/04/21 01/22/21 History zinc oxide [Diaper Rash] 1 applic TOPICAL TID #113 g 01/08/21 01/22/21 Rx glimepiride 2 mg tablet 4 mg PO HS #180 tab 01/13/21 01/22/21 Rx metformin 500 mg tablet,extended 1,000 mg PO BID tab 01/22/21 01/22/21 History release 24 hr Past Med/Surg History Medical History Alcoholic hepatitis Alcoholism ERIC positive Anxiety B12 deficiency C. difficile diarrhea COPD (chronic obstructive pulmonary disease) Depression Elevated ferritin Fatty liver Gout Hirsutism HTN (hypertension) Hold home amlodipine Start 25mg of metoprolol bid 5mg of Lopressor IV PRN Non-sustained ventricular tachycardia Peripheral neuropathy Tobacco use Type 2 diabetes mellitus Vitamin D deficiency Surgical History History of ankle surgery History of blepharoplasty UPPER LID WITH EXCESSIVE SKIN ONSET: [id number] DESCRIPTION: B/l eyes History of bunionectomy History of laparoscopy History of umbilical hernia repair Family History Mother , of myocardial infarction and complications of DM II Diabetes Myocardial infarction Father , motor vehicle accident MVA (motor vehicle accident) @ AGE 50 Grandmother (Maternal) Alzheimer disease Brother Diabetes Aunt Breast cancer maternal Uncle Myocardial infarction History of throat cancer Other No significant family history Denies family history of Colon cancer Ovarian cancer Prostate cancer Social History Smoking Status: Current every day smoker packs per day: 1; Cigarettes Per Day: 3/4 PPD; Hx Alcohol Use: Yes Alcohol type: hard liquor Alcohol Intake Frequency Comment: 2 large drinks per day Hx Substance Use: No Preferred Language: Greek Communication Ability: Effective Visual Impairment: No Limitations Hearing Ability: Normal Investigations Director Required: No Beliefs That Will Affect Care: None marital status: Single Current Living Situation: Alone Current Living Situation Comment: with two dogs current occupational status: employed 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[employer]; 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 Feels Safe at Home: Yes Dental Care, Regularly: No Physical Activity Frequency: Does not Exercise Seatbelt Use: always Assistive Devices: None Review of Systems Review of Systems: REVIEW OF SYSTEMS: Constitutional: No fever, sweats or chills Eyes: No diplopia, no worsening or blurred vision ENT: normal hearing, no trouble swallowing Respiratory: No cough, sputum, dyspnea at rest or on exertion Cardiovascular: No chest pain, tightness or palpitations Abdomen: (+) diarrhea; No pain, nausea, vomiting, or constipation Musculoskeletal: as per HPI right foot and ankle Neurologic: No weakness, numbness/tingling, or balance problems Psychiatric: No anxiety or depression Skin: Excoriation to her buttocks and perineum Physical Exam Physical Exam: PHYSICAL EXAM: General: awake, alert, no apparent distress Head: Normocephalic, atraumatic ENT: PERRL, EOMI, no pharyngeal exudate, mucous membranes moist Neuro: AAO x 3, speech clear and appropriate, strength intact bilaterally 5/5, sensation intact and equal all extremities and dermatomes, no pronator drift Chest: equal rise and fall of the chest, no accessory muscle use, no heaves or thrills, Clear to auscultation, on room air, Cardiac: Regular rate and rhythm, telemetry reviewed, skin warm dry, cap refill <3 seconds, peripheral pulses +2 no JVD, no murmur, no edema GI: NABS x 4 quadrants, soft, nontender to palpation, no rebound, guarding or tenderness : Spontaneously voiding, no pain, no CVA tenderness, urine orange Extremities: Normal inspection, no peripheral edema or erythema, calfs nontender to palpation Psych: Normal mood and affect Skin: no rash or erythema Results & Data Results & Data ([facility]) Vital Signs (Past 12 Hours) Vital Signs Temp Pulse Resp BP Pulse Ox 01/22/21 18:00 101 H 21 120/98 97 01/22/21 17:30 101 H 24 167/140 H 97 01/22/21 17:15 98 01/22/21 16:09 36.5 C 123 H 22 136/74 96 Laboratory Results Abnormal lab results 01/22/21 01/22/21 Range/Units 17:16 17:16 RBC 3.35 L (4.2-5.4) M/uL Hgb 11.6 L (12.0-16.0) g/dL Hct 35.6 L (37-47) % MCV 106.3 H (80-100) fL MCH 34.6 H (25-34) pg RDW Std Deviation 58.1 H (36.4-46.3) fL RDW Coeff of Eduardo 14.8 H (11.5-14.5) % Chloride 109 H (98-107) mmol/L Glucose 212 H (70-99) mg/dl Calcium 7.5 L (8.5-10.1) mg/dl Magnesium 1.0 L (1.8-2.4) mg/dl Total Bilirubin 1.2 H (0.2-1) mg/dl AST 49 H (15-37) U/L Alkaline Phosphatase 141 H (45-117) U/L Albumin 2.8 L (3.4-5.0) gm/dl Globulin 4.3 H (2.5-4.0) gm/dl Albumin/Globulin Ratio 0.7 L (0.9-2) Diagnostic Findings US venous doppler LE RT HISTORY: 60 years-old Female M79.671 - Pain in right foot acute pain of the right lower extremity COMPARISON: None TECHNIQUE: Multiple real-time sonographic images of the right lower extremity deep venous structures were obtained assessing grayscale appearance, color and spectral flow FINDINGS: Normal flow, compressibility, phasicity and augmentation of the right lower extremity deep venous structures. IMPRESSION: No sonographic evidence of deep venous thrombosis. XR foot RT min 3V routine CLINICAL HISTORY: M79.671 - Pain in right foot COMPARISON: Intraoperative study performed March 2012 DISCUSSION: No acute fractures are visualized. There are postsurgical changes of a first metatarsal phalangeal joint arthrodesis. There is a cannulated screw traversing the joint as well as a dorsal metallic plate with screws. There is prominent dorsal soft tissue edema. There are large Achilles insertional and plantar calcaneal spurs. IMPRESSION: 1. No acute fractures 2. Postsurgical changes of a first metatarsal phalangeal joint arthrodesis 3. Dorsal soft tissue edema 3. Calcaneal spurring Medications Administered Magnesium Sulfate 4 gm/ Sodium (Chloride) 508 mls @ 125 mls/hr IV .Q4H4M GRAYSON Stop: 02/21/21 18:44 Last Admin: 01/22/21 19:39 Dose: 125 mls/hr Documented by: [id number] Petrolatum (Butt Paste (Zinc Oxide 16%) 171 Appln/57 Gm Jar) 1 appln EXT PRN GRAYSON Stop: 02/21/21 17:14 Last Admin: 01/22/21 19:39 Dose: 1 appln Documented by: [id number] Discontinued Medications Multivitamins 10 ml/ Thiamine HCl 100 mg/ Folic Acid 1 mg/Sodium Chloride 1,011.2 mls @ 1,011.2 mls/hr IV .Q1H ONE Stop: 01/22/21 17:51 Last Infusion: 01/22/21 19:40 Dose: 0 mls/hr Documented by: [id number] Admin: 01/22/21 18:33 Dose: 1,011.2 mls/hr Documented by: [id number] Magnesium Sulfate/Dextrose (Magnesium Sulfate / D5w) 1 gm in 100 mls @ 100 mls/hr IV NOW STA Stop: 01/22/21 17:53 Last Infusion: 01/22/21 18:34 Dose: 0 mls/hr Documented by: [id number] Admin: 01/22/21 17:31 Dose: 100 mls/hr Documented by: [id number] Loperamide HCl (Loperamide Hcl 2 Mg Cap) 2 mg PO NOW STA Stop: 01/22/21 19:13 Last Admin: 01/22/21 19:42 Dose: 2 mg Documented by: [id number] Home Medications albuterol sulfate 2.5 mg INHALATION Q4H PRN ml 10/21/19 [History Confirmed 01/22/21] magnesium oxide 400 mg PO BID #180 cap 08/28/20 [Rx Confirmed 01/22/21] amlodipine 5 mg tablet 5 mg PO QAM #90 tab 09/21/20 [Rx Confirmed 01/22/21] potassium chloride 20 mEq tablet,extended release(part/cryst) 20 meq PO TID 21 Days #63 tab 12/03/20 [Rx Confirmed 01/22/21] cholecalciferol (vitamin D3) 4,000 unit PO QAM 01/04/21 [History Confirmed 01/22/21] lisinopril 20 mg PO QAM 01/04/21 [History Confirmed 01/22/21] sertraline 100 mg PO QAM 01/04/21 [History Confirmed 01/22/21] zinc oxide [Diaper Rash] 1 applic TOPICAL TID #113 g 01/08/21 [Rx Confirmed 01/22/21] glimepiride 2 mg tablet 4 mg PO HS #180 tab 01/13/21 [Rx Confirmed 01/22/21] metformin 500 mg tablet,extended release 24 hr 1,000 mg PO BID tab 01/22/21 [History Confirmed 01/22/21] Active Medications Magnesium Sulfate 4 gm/ Sodium (Chloride) 508 mls @ 125 mls/hr IV .Q4H4M GRAYSON Stop: 02/21/21 18:44 Last Admin: 01/22/21 19:39 Dose: 125 mls/hr Documented by: Petrolatum (Butt Paste (Zinc Oxide 16%) 171 Appln/57 Gm Jar) 1 appln EXT PRN GRAYSON Stop: 02/21/21 17:14 Last Admin: 01/22/21 19:39 Dose: 1 appln Documented by: ECG Additional Comments: Sinus tachycardia Otherwise normal ECG QT/QTc 382/500 ms Code Status & VTE Plan Code Status CODE: FULL VTE: SCD's/LOVENOX 40 qd Supervising Physician Co-Signing Physician Notes Patient was seen and examined independently I discussed the case with Collin MIMS I reviewed pertinent past medical social family history and also the plan of care and agree with the plan of care. Review up to the hospital due to persistent diarrhea and found to be hypomagnesemic. She also has some bilateral pedal edema and some ecchymotic toes of the right foot which she denies trauma. During her last hospital stay she is being treated for decubitus ulceration which is improved since her discharge. Initial evaluation of her toes did not show any initial fractures. There is some concern that the patient is an alcohol abuser and subsequently she cannot recall injury to her toes. However given the concern for possible arterial insufficiency arterial ultrasound is ordered venous ultrasound was negative on presentation. 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: without jail 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 B12 deficiency E53.8 COPD (chronic obstructive pulmonary disease) J43.9 COPD type: emphysema Emphysema type: unspecified HTN (hypertension) I10 Hypertension type: essential hypertension Leg swelling M79.89 Diarrhea R19.7 Diarrhea type: unspecified type Right foot pain M79.671 Elevated alkaline phosphatase level R74.8 Excoriation of buttock S30.810S Encounter type: sequela (1) Excoriation of buttock Encounter type: sequela Qualified Code(s): S30.810S - Abrasion of lower back and pelvis, sequela (2) Type 2 diabetes mellitus Diabetes mellitus complication status: with other specified complication Diabetes mellitus jail insulin use: without jail use Qualified Code(s): E11.69 - Type 2 diabetes mellitus with other specified complication (3) Diarrhea Diarrhea type: unspecified type Qualified Code(s): R19.7 - Diarrhea, unspecified (4) COPD (chronic obstructive pulmonary disease) COPD type: emphysema Emphysema type: unspecified Qualified Code(s): J43.9 - Emphysema, unspecified (5) HTN (hypertension) Hypertension type: essential hypertension Qualified Code(s): I10 - Essential (primary) hypertension
[2021-01-22] MEDS: BUTT PASTE (ZINC OXIDE 16%) 171 APPLN/57 GM JAR EXT SCH (19:39)
[2021-01-22 19:44] LABS: Appearance Urine Clear (Clear); Blood Urine Negative (Negative); Color Urine Orange; Glucose Urine UA Negative (Negative); Ketones Urine Trace (Negative); Leukocyte Esterase Urine Negative (Negative); Nitrite Urine Negative (Negative); Protein Urine Negative (Negative); Specific Gravity Urine 1.022 (1.000-1.030); Urobilinogen Urine Negative (Negative)
[2021-01-22 19:45] LABS: Bilirubin Urine 1+ (Negative)
[2021-01-22] MEDS ORDERED: CALCIUM GLUCONATE 10% 2,000 MG in SODIUM CHLORIDE 0.9% 50 ML IV ONE (21:04)
[2021-01-22] MEDS ORDERED: ALBUTEROL 0.083% NEBU SOLN 3 ML VIAL INH PRN (22:04)
[2021-01-22] MEDS ORDERED: ZINC OXIDE 13% TOP SCH (22:04)
[2021-01-22] MEDS ORDERED: LORazepam 1 MG TAB PO PRN (22:04)
[2021-01-22] MEDS ORDERED: ONDANSETRON INJ 2 MG/ML 2 ML VIAL IV PRN (22:04)
[2021-01-22] MEDS ORDERED: PHARMACY GLYCEMIC MGMT CONSULT PRN (22:19)
[2021-01-22] MEDS ORDERED: INSULIN GLARGINE SOLOSTAR 100 UNITS/ML 3 ML PEN SC ONE (23:00)
--- NOTE | 2021-01-22 23:43 | Emergency Department Note ---
History of Present Illness General Chief complaint: Abnormal Labs/Diagnostic Testing Stated complaint: ABNORMAL LABS Time Seen by Provider: 01/22/21 16:46 History of Present Illness Maximum Pain Intensity: 10 This is a medically complicated 60-year-old female with history of alcohol depen dence, COPD, diabetes, and recent admission to this facility for Klebsiella UTI. The patient followed up with her primary care physician today for hospital follow-up as well as to evaluate bruising of her right foot. She has been feeling well since her discharge from the hospital. The patient had outpatient x-ray and ultrasound ordered, both of which were performed at this facility today, and both are negative for acute process. Outpatient labs were also performed, and the patient had a magnesium of 0.8. The patient does have a history of hypomagnesemia in the past and states that she is taking a magnesium supplement daily. The patient has had multiple bouts of diarrhea on a daily basis with an old, but not recent, history of C. difficile. The patient states that she does have some shakiness and tremors but no other complaints. She rates her current discomfort a 10/10. Secondarily she does have an irritated area on her buttocks that she has been applying Butt paste to with good improvement. Home Medications Medication Instructions Recorded Confirmed Type albuterol sulfate 2.5 mg INHALATION Q4H PRN ml 10/21/19 01/22/21 History magnesium oxide 400 mg PO BID #180 cap 08/28/20 01/22/21 Rx amlodipine 5 mg tablet 5 mg PO QAM #90 tab 09/21/20 01/22/21 Rx potassium chloride 20 mEq 20 meq PO TID 21 Days #63 tab 10/01/20 01/22/21 Rx tablet,extended release(part/cryst) cholecalciferol (vitamin D3) 4,000 unit PO QAM 01/04/21 01/22/21 History lisinopril 20 mg PO QAM 01/04/21 01/22/21 History sertraline 100 mg PO QAM 01/04/21 01/22/21 History zinc oxide [Diaper Rash] 1 applic TOPICAL TID #113 g 01/08/21 01/22/21 Rx glimepiride 2 mg tablet 4 mg PO HS #180 tab 01/13/21 01/22/21 Rx metformin 500 mg tablet,extended 1,000 mg PO BID tab 01/22/21 01/22/21 History release 24 hr Allergies Allergy/AdvReac Type Severity Reaction Status Date / Time No Known Drug Allergies Allergy Verified 01/22/21 11:34 Past Med/Surg History Medical History Alcoholic hepatitis Alcoholism ERIC positive Anxiety B12 deficiency C. difficile diarrhea COPD (chronic obstructive pulmonary disease) Depression Elevated ferritin Fatty liver Gout Hirsutism HTN (hypertension) Hold home amlodipine Start 25mg of metoprolol bid 5mg of Lopressor IV PRN Non-sustained ventricular tachycardia Peripheral neuropathy Tobacco use Type 2 diabetes mellitus Vitamin D deficiency Surgical History History of ankle surgery History of blepharoplasty UPPER LID WITH EXCESSIVE SKIN ONSET: [id number] DESCRIPTION: B/l eyes History of bunionectomy History of laparoscopy History of umbilical hernia repair Family History Mother , of myocardial infarction and complications of DM II Diabetes Myocardial infarction Father , motor vehicle accident MVA (motor vehicle accident) @ AGE 50 Grandmother (Maternal) Alzheimer disease Brother Diabetes Aunt Breast cancer maternal Uncle Myocardial infarction History of throat cancer Other No significant family history Denies family history of Colon cancer Ovarian cancer Prostate cancer Social History Smoking Status: Current every day smoker packs per day: 1; Cigarettes Per Day: 1/2 pack; Second Hand Exposure: No; Do You Dip or Chew Tobacco: No; Tobacco Cessation Education Requested by Patient: No Hx Alcohol Use: No Hx Substance Use: No Preferred Language: Chinese Communication Ability: Effective Visual Impairment: No Limitations Hearing Ability: Normal Director Of Clinical Education Required: No Beliefs That Will Affect Care: None marital status: Single Current Living Situation: Alone Current Living Situation Comment: with two dogs current occupational status: employed 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[email or web address]; 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 Other Information That Helps Us Care for You: No Feels Safe at Home: Yes Dental Care, Regularly: No Physical Activity Frequency: Does not Exercise Seatbelt Use: always Assistive Devices: None Review of Systems A total of 10 systems reviewed and were otherwise negative Physical Exam Vital Signs Vital Signs - 24 hr 01/22/21 16:09 01/22/21 17:15 01/22/21 17:30 Temperature 36.5 C Temperature Source Temporal Artery Scan Pulse Rate 123 H 101 H Pulse Rate [Bilateral Apical] Pulse Rate from SpO2 Sensor 101 H Pulse Rhythm Regular Pulse Strength Normal Respiratory Rate 22 24 Respiratory Effort / Characteristics Non-Labored Spontaneous Respiratory Depth Normal Respiratory Pattern Regular Blood Pressure 136/74 167/140 H Blood Pressure [Right Arm] Blood Pressure Mean 94 149 Blood Pressure Mean [Right Arm] Blood Pressure Position Sitting Pulse Oximetry 96 98 97 Oxygen Delivery Method Room Air Room Air Sepsis Recent Fever Within 48 Hours No Sepsis New/Unexplained Change in Mental Status No Sepsis Action Taken by Nursing No Action Required 01/22/21 18:00 01/22/21 18:30 01/22/21 19:01 Temperature Temperature Source Pulse Rate 101 H 101 H 99 H Pulse Rate [Bilateral Apical] Pulse Rate from SpO2 Sensor 101 H 101 H 100 H Pulse Rhythm Pulse Strength Respiratory Rate 21 15 21 Respiratory Effort / Characteristics Respiratory Depth Respiratory Pattern Blood Pressure 120/98 143/71 H 156/84 H Blood Pressure [Right Arm] Blood Pressure Mean 105 95 108 Blood Pressure Mean [Right Arm] Blood Pressure Position Pulse Oximetry 97 97 98 Oxygen Delivery Method Sepsis Recent Fever Within 48 Hours Sepsis New/Unexplained Change in Mental Status Sepsis Action Taken by Nursing 01/22/21 19:12 01/22/21 19:18 Temperature Temperature Source Pulse Rate 110 H Pulse Rate [Bilateral Apical] 102 H Pulse Rate from SpO2 Sensor 110 H Pulse Rhythm Pulse Strength Respiratory Rate 25 H 20 Respiratory Effort / Characteristics Respiratory Depth Respiratory Pattern Blood Pressure 124/67 Blood Pressure [Right Arm] 124/67 Blood Pressure Mean 86 Blood Pressure Mean [Right Arm] 86 Blood Pressure Position Pulse Oximetry 100 99 Oxygen Delivery Method Sepsis Recent Fever Within 48 Hours Sepsis New/Unexplained Change in Mental Status Sepsis Action Taken by Nursing VITALS: Vitals are noted on the nurse's note and reviewed by myself. Vital signs stable. GENERAL: White female who is awake and answering questions appropriate. She is no acute distress. HEAD: Normocephalic atraumatic. NECK: Supple without nuchal rigidity. No lymphadenopathy. No thyromegaly. Ce rvical spine is nontender. HEART: Regular rate and rhythm without murmurs gallops or rubs. LUNGS: Clear to auscultation bilaterally without wheezes, rales or rhonchi. No retractions or accessory muscle use. ABDOMEN: Positive normal bowel sounds x 4. Soft, nontender, without masses or organomegaly. No guarding or rebound tenderness. MUSCULOSKELETAL: No muscle atrophy, erythema, or edema noted. Full range of motion in all extremities. NEURO: Patient was alert and oriented to person place and time. CN II through XII grossly intact. GCS 15 Course Administered Medications Petrolatum (Butt Paste (Zinc Oxide 16%) 171 Appln/57 Gm Jar) 1 appln EXT PRN GRAYSON Stop: 02/21/21 17:14 Last Admin: 01/22/21 19:39 Dose: 1 appln Documented by: [id number] Discontinued Medications Multivitamins 10 ml/ Thiamine HCl 100 mg/ Folic Acid 1 mg/Sodium Chloride 1,011.2 mls @ 1,011.2 mls/hr IV .Q1H ONE Stop: 01/22/21 17:51 Last Infusion: 01/22/21 19:40 Dose: 0 mls/hr Documented by: [id number] Admin: 01/22/21 18:33 Dose: 1,011.2 mls/hr Documented by: [id number] Magnesium Sulfate/Dextrose (Magnesium Sulfate / D5w) 1 gm in 100 mls @ 100 mls/hr IV NOW STA Stop: 01/22/21 17:53 Last Infusion: 01/22/21 18:34 Dose: 0 mls/hr Documented by: [id number] Admin: 01/22/21 17:31 Dose: 100 mls/hr Documented by: [id number] Magnesium Sulfate 4 gm/ Sodium (Chloride) 508 mls @ 125 mls/hr IV .Q4H4M GRAYSON Stop: 02/21/21 18:44 Last Admin: 01/22/21 19:39 Dose: 125 mls/hr Documented by: [id number] Loperamide HCl (Loperamide Hcl 2 Mg Cap) 2 mg PO NOW STA Stop: 01/22/21 19:13 Last Admin: 01/22/21 19:42 Dose: 2 mg Documented by: [id number] Medical Decision Making Differential Diagnosis Differential includes acute coronary syndrome, myocardial infarction, CVA, TIA, anemia, infection, pneumonia, UTI, pyelonephritis, poor nutrition, dehydration, electrolyte disturbance,hypoglycemia. Laboratory Data Result diagrams: 01/22/21 17:16 01/22/21 17:16 Lab Results 01/22/21 01/22/21 01/22/21 Range/Units 17:16 17:16 17:16 WBC 6.74 (4.8-10.8) K/uL RBC 3.35 L (4.2-5.4) M/uL Hgb 11.6 L (12.0-16.0) g/dL Hct 35.6 L (37-47) % MCV 106.3 H (80-100) fL MCH 34.6 H (25-34) pg MCHC 32.6 (32-36) g/dL RDW Std Deviation 58.1 H (36.4-46.3) fL RDW Coeff of Eduardo 14.8 H (11.5-14.5) % Plt Count 203 (130-400) K/uL MPV 9.5 (7.4-10.4) fL Immature Gran % (Auto) 0.3 % Neut % (Auto) 65.9 % Lymph % (Auto) 24.2 % Hamilton % (Auto) 8.3 % Eos % (Auto) 1.2 % Baso % (Auto) 0.1 % Neut # (Auto) 4.44 (1.4-6.5) K/uL Lymph # (Auto) 1.63 (1.2-3.4) K/uL Hamilton # (Auto) 0.56 (0.11-0.59) K/uL Eos # (Auto) 0.08 (0-0.5) K/uL Baso # (Auto) 0.01 (0-0.2) K/uL Immature Gran # (Auto) 0.02 (0.00-0.02) K/uL PT 10.8 (9.0-12.0) Seconds INR 1.1 (0.9-1.1) APTT 25.9 (21.0-31.0) Seconds PTT Ratio 1.0 Sodium 140 (136-145) mmol/L Potassium 4.5 (3.5-5.1) mmol/L Chloride 109 H (98-107) mmol/L Carbon Dioxide 26 (21-32) mmol/L Anion Gap 5.0 (3-11) BUN 12 (7-18) mg/dl Creatinine 1.09 (0.6-1.2) mg/dl Est Cr Clr Drug Dosing 73.2 ml/min Est GFR ( Amer) 64.3 Est GFR (Non-Af Amer) 55.5 BUN/Creatinine Ratio 10.8 (10-20) Glucose 212 H (70-99) mg/dl Calcium 7.5 L (8.5-10.1) mg/dl Phosphorus 4.8 (2.5-4.9) mg/dl Magnesium 1.0 L (1.8-2.4) mg/dl Total Bilirubin 1.2 H (0.2-1) mg/dl AST 49 H (15-37) U/L ALT 50 (12-78) U/L Alkaline Phosphatase 141 H (45-117) U/L Troponin I < 0.015 (0-0.045) ng/ml Total Protein 7.1 (6.4-8.2) gm/dl Albumin 2.8 L (3.4-5.0) gm/dl Globulin 4.3 H (2.5-4.0) gm/dl Albumin/Globulin Ratio 0.7 L (0.9-2) Lipase 167 (73-393) U/L TSH 1.630 (0.300-4.500) uIu/ml Ethyl Alcohol mg/dL (0-3) mg/dl COVID-19 Eval Order SARS-CoV-2 (PCR) (Negative) Influenza Type A (PCR) (Neg) Influenza Type B (PCR) (Neg) RSV (RT-PCR) (Neg) 01/22/21 01/22/21 01/22/21 Range/Units 17:16 18:00 18:00 WBC (4.8-10.8) K/uL RBC (4.2-5.4) M/uL Hgb (12.0-16.0) g/dL Hct (37-47) % MCV (80-100) fL MCH (25-34) pg MCHC (32-36) g/dL RDW Std Deviation (36.4-46.3) fL RDW Coeff of Eduardo (11.5-14.5) % Plt Count (130-400) K/uL MPV (7.4-10.4) fL Immature Gran % (Auto) % Neut % (Auto) % Lymph % (Auto) % Hamilton % (Auto) % Eos % (Auto) % Baso % (Auto) % Neut # (Auto) (1.4-6.5) K/uL Lymph # (Auto) (1.2-3.4) K/uL Hamilton # (Auto) (0.11-0.59) K/uL Eos # (Auto) (0-0.5) K/uL Baso # (Auto) (0-0.2) K/uL Immature Gran # (Auto) (0.00-0.02) K/uL PT (9.0-12.0) Seconds INR (0.9-1.1) APTT (21.0-31.0) Seconds PTT Ratio Sodium (136-145) mmol/L Potassium (3.5-5.1) mmol/L Chloride (98-107) mmol/L Carbon Dioxide (21-32) mmol/L Anion Gap (3-11) BUN (7-18) mg/dl Creatinine (0.6-1.2) mg/dl Est Cr Clr Drug Dosing ml/min Est GFR ( Amer) Est GFR (Non-Af Amer) BUN/Creatinine Ratio (10-20) Glucose (70-99) mg/dl Calcium (8.5-10.1) mg/dl Phosphorus (2.5-4.9) mg/dl Magnesium (1.8-2.4) mg/dl Total Bilirubin (0.2-1) mg/dl AST (15-37) U/L ALT (12-78) U/L Alkaline Phosphatase (45-117) U/L Troponin I (0-0.045) ng/ml Total Protein (6.4-8.2) gm/dl Albumin (3.4-5.0) gm/dl Globulin (2.5-4.0) gm/dl Albumin/Globulin Ratio (0.9-2) Lipase (73-393) U/L TSH (0.300-4.500) uIu/ml Ethyl Alcohol mg/dL < 3.0 (0-3) mg/dl COVID-19 Eval Order CovFluRsv at [facility] SARS-CoV-2 (PCR) NEGATIVE (Negative) Influenza Type A (PCR) Negative (Neg) Influenza Type B (PCR) Negative (Neg) RSV (RT-PCR) Negative (Neg) MDM Narrative Physical exam and history were performed. Nursing notes, EMR, and Medication List were personally reviewed. Patient appears to have a very low outpatient magnesium of 0.8. This was confirmed upon patient arrival to the department. IV access was established and labs were obtained. She was given 1 g magnesium IV as well as a banana bag. I did order her zinc oxide for her buttocks wound as well as stool studies. The patient's blood work is as above and was reviewed. She does not have a significantly elevated white blood cell count. She is mildly anemic at 11.6. INR is 1.1. Glucose is 212. Calcium is low at 7.5, as is her magnesium on repeat at 1.0. Urine was without gross evidence for UTI. She was not able to provide stool sample here in the ER. Alcohol is 0. Covid is negative. On reevaluation the patient does not appear toxic, but she certainly does not seem well for discharge. I did discuss the case with my attending physician as well as the on-call hospitalist team. Please see the hospitalist team dictation for further patient course, plan, and disposition. The chart was completed utilizing [employer] Speech Voice Recognition Software. Grammatical errors, random word insertions, pronoun errors, and incomplete sentences are an occasional consequence of this system due to software limitations, ambient noise, and hardware issues. Any formal questions or concerns about the content, text, or information contained within the body of this dictation should be directly addressed to the provider for clarification. . Impression & Plan Hypomagnesemia, Excoriation of buttock, Hypoglycemia, Alcoholism, Type 2 diabetes mellitus Discharge Plan Visit Data Chief Complaint: Abnormal Labs/Diagnostic Testing Stated Complaint: ABNORMAL LABS ED Provider: Jorje Bobby ED Midlevel Provider: Prateek Pérez Discharge Problem: Hypomagnesemia, Excoriation of buttock, Hypoglycemia, Alcoholism, Type 2 diabetes mellitus Patient Disposition: Admitted As Inpatient Discharge Instructions Interventions: ED Discharge Assessment Last Done: 01/22/21 21:07
[2021-01-23] MEDS: FOLIC ACID 1 MG in SYRINGE 9.8 ML IV SCH ×2 (00:13→09:13)
[2021-01-23] MEDS: INSULIN ASPART 100 UNITS/ML 3 ML PEN SC SCH ×6 (00:24→21:28)
[2021-01-23] MEDS: POTASSIUM CHLORIDE CRTAB 20 MEQ TABCR PO SCH ×4 (00:25→20:51)
[2021-01-23] MEDS: THIAMINE HCL 100 MG TAB PO SCH ×2 (00:25→09:14)
[2021-01-23] MEDS ORDERED: MELATONIN 3 MG TAB PO PRN (00:51)
[2021-01-23 01:26] LABS: Cdiff Antigen Positive; Cdiff Toxin A+B Negative Cdiff Toxin (Negative)
--- NOTE | 2021-01-23 07:23 | Ultrasound Report ---
US ankle/brachial index comp CLINICAL HISTORY: ecchymoses and swelling of right foot no trauma COMPARISON STUDY: None. FINDINGS: Normal bilateral ankle brachial indices measure between 1.0, 1.1. IMPRESSION: Normal bilateral ankle brachial indices measuring between 1.0 and 1.1. ACT 112: Negative or not required by law. Electronically signed by: Josh Emmanuel M.D. 01/23/2021 7:21 AM
[2021-01-23 09:08] LABS: Basophils # (auto) 0.01 K/uL (0-0.2); Basophils % (auto) 0.2 %; Eosinophils % (auto) 1.9 %; Hematocrit (blood only) 33.3 % (37-47); Hemoglobin 10.7 g/dL (12.0-16.0); Immature Granulocytes # (auto) 0.02 K/uL (0.00-0.02); Immature Granulocytes % (auto) 0.4 %; Lymphocytes # (auto) 1.73 K/uL (1.2-3.4); Lymphocytes % (auto) 32.1 %; Mean Corpuscular Hemoglobin 34.3 pg (25-34); Mean Corpuscular Hgb Conc 32.1 g/dL (32-36); Mean Corpuscular Volume 106.7 fL (80-100); Mean Platelet Volume 9.6 fL (7.4-10.4); Monocytes % (auto) 9.3 %; Neutrophils # (auto) 3.03 K/uL (1.4-6.5); Neutrophils % (auto) 56.1 %; Platelet Count 196 K/uL (130-400); RDW Coefficient of Variation 14.7 % (11.5-14.5); RDW Standard Deviation 57.3 fL (36.4-46.3); Red Blood Count 3.12 M/uL (4.2-5.4); White Blood Count 5.39 K/uL (4.8-10.8)
[2021-01-23] MEDS: SERTRALINE HCL 100 MG TABLET PO SCH (09:13)
[2021-01-23] MEDS: INSULIN GLARGINE SOLOSTAR 100 UNITS/ML 3 ML PEN SC SCH ×2 (09:14→21:27)
[2021-01-23] MEDS: amLODIPine BESYLATE 5 MG TAB PO SCH (09:17)
[2021-01-23] MEDS: lisinopril 20 MG TAB PO SCH (09:17)
[2021-01-23 09:29] LABS: Estimated Average Glucose 166 mg/dl; Hemoglobin A1C 7.4 % (4.5-5.6)
[2021-01-23 10:03] LABS: Albumin Level 2.4 gm/dl (3.4-5.0); BUN Creatinine Ratio 10.9 (10-20); Bilirubin Direct 0.3 mg/dl (0-0.2); Bilirubin,Total 1.1 mg/dl (0.2-1); Calcium 8.1 mg/dl (8.5-10.1); Creatinine Clr Calc Pharmacy 87.8 ml/min; Est GFR (African American) 81.1; Magnesium 1.6 mg/dl (1.8-2.4); Potassium 3.8 mmol/L (3.5-5.1); Total Protein 6.4 gm/dl (6.4-8.2)
--- NOTE | 2021-01-23 12:45 | Hospitalist Progress Note ---
Date of Service January 23, 2021 Assessment & Plan (1) Diarrhea: Patient states 3-4 loose watery bowel movements per day, yellow in color per report. - C. diff negative for toxin; positive for gene on 01/22. - Likely alcohol-related. It is already resolving per the patient. - Follow stool culture, stool lytes - Loperamide PRN (2) Right foot pain: Right foot is swollen and tender around ankle and midfoot- bruising to her 2-4 toes. Toes are without pain. Venous Dopplers negative. ABIs normal. Foot x- rays on 01/22 were negative for fracture. - She denies trauma or injury, but I think this is almost certainly an injury. - Supportive care - Adeel wrap, ICE, Tylenol PRN (3) Hypomagnesemia: Moderate asymptomatic hypomagnesemia from her diarrhea. QTC not prolonged, no ectopy, reflexes normal. - Replete with IV as needed (4) Hypocalcemia: Likely related to poor oral intake with her alcohol use. - Will replete as well. (5) Alcoholism: Unable to quantify amount per patient, she reported she has "cut back" to the admitting provider. To me, she will also not quantify amount. - AWWS coverage while in house- Ativan per score >6 - Thiamine orally and folate - No evidence of Wernicke, normal mentation - She reports she has never had a withdrawal episode (6) Type 2 diabetes mellitus: On metformin and glimepiride at home. A1c is 7.4% this admission. - Sustained release Metformin may be aggravating her diarrhea - Will place on subq insulin with goal <180 until electrolytes repleted - Might be worth changing agents on discharge. (7) Leg swelling: Chronic- multifactorial to include poor physical activity, poor nutrition as evidence with her ALKpo4 and her low albumin. - Venous Doppler negative - Grade I diastolic dysfunction - no acute intervention- address the above (8) B12 deficiency: Chronically elevated MCV and RDW. Folate was > 20.00 this admission (though after supplementation). B12 was >600 this month. - ETOH related (9) COPD (chronic obstructive pulmonary disease): No acute needs, continue albuterol. - daily use but symptoms controlled (10) HTN (hypertension): Controlled. - Continue amlodipine 5 - Continue Lisinopril (11) Elevated alkaline phosphatase level: Chronically elevated- ETOH and poor nutrition likely the cause, markedly improved over the past 2 years (12) Excoriation of buttock: Has improved since last admission, red with 4x3 cm area of top layer skin eroded, with good base - Continue with butt paste; continue to liberally apply to buttocks and perineum - clean pat dry and reapply to have constant barrier to loose stools and incontinence Admission and Anticipated Discharge Date Admission Date: January 22, 2021 Subjective No major diarrhea since admission per the patient. Right ankle is still painful. Reports no fevers/chills, chest pain, shortness of breath, abdominal pain, nausea, or vomiting. Physical Exam Constitutional: WD/WN, vitals as above + disheveled Eyes: EOM intact bilaterally; no conjunctival abnormality ENMT: external ear and nose normal, oropharynx normal Neck: trachea midline, no thyromegaly normal visual inspection Respiratory: normal respiratory effort, lungs clear to auscultation no respiratory distress Cardiovascular: RRR, no murmur, no edema Gastrointestinal (Abdomen): Inspection/Auscultation: abdomen normal to inspection; abdomen not distended Musculoskeletal: no cyanosis or clubbing, extremities motor strength 5/5 Ankle: + ecchymosis (And edema. Diffusely tender to palpation.) Skin: no rashes, warm and dry Neurologic: moves all extremities and awake Psychiatric: Orientation: alert, oriented to person and cooperative Results & Data Results & Data ([facility]) Vital Signs (Past 12 Hours) Vital Signs Temp Pulse Pulse Resp BP BP Pulse Ox 01/23/21 11:55 36.9 C 96 H 18 130/84 97 01/23/21 08:06 37.2 C 108 H 20 131/79 95 01/23/21 07:00 98 H 01/23/21 03:36 37.3 C 105 H 18 128/76 95 01/23/21 02:27 104 H PG Care Time/CCT Total # of Minutes Spent Total Time Spent with Patient: Total time spent is greater than 50% in coordination of care (as documented) at patient's floor/unit and/or counseling patient: Coding Level of Care Code 21883 Subseq Hosp Care Lvl 2 Diagnoses Diarrhea R19.7 Diarrhea type: unspecified type Right foot pain M79.671 Hypomagnesemia E83.42 Hypocalcemia E83.51 Alcoholism F10.20 Type 2 diabetes mellitus E11.9 Leg swelling M79.89 B12 deficiency E53.8 COPD (chronic obstructive pulmonary disease) J43.9 COPD type: emphysema Emphysema type: unspecified HTN (hypertension) I10 Hypertension type: essential hypertension Elevated alkaline phosphatase level R74.8 Excoriation of buttock S30.810A (1) COPD (chronic obstructive pulmonary disease) COPD type: emphysema Emphysema type: unspecified Qualified Code(s): J43.9 - Emphysema, unspecified (2) HTN (hypertension) Hypertension type: essential hypertension Qualified Code(s): I10 - Essential (primary) hypertension (3) Diarrhea Diarrhea type: unspecified type Qualified Code(s): R19.7 - Diarrhea, un specified
--- NOTE | 2021-01-23 13:17 | Electrocardiogram Report ---
Test Reason : Blood Pressure : / mmHG Vent. Rate : 103 BPM Atrial Rate : 103 BPM P-R Int : 120 ms QRS Dur : 084 ms QT Int : 382 ms P-R-T Axes : 070 053 050 degrees QTc Int : 500 ms Sinus tachycardia Otherwise normal ECG When compared with ECG of 04-JAN-2021 12:45, No significant change was found Confirmed by Mak Sparks ([id number]) on 01/23/2021 1:17:21 PM Referred By: Gay Sanchez Confirmed By:Mak Sparks
[2021-01-23] MEDS ORDERED: CALCIUM GLUCONATE 10% 2,000 MG in SODIUM CHLORIDE 0.9% 50 ML IV ONE (13:30)
--- NOTE | 2021-01-23 13:57 | Pharmacy Report ---
Pharmacy Glycemic Short Note 2 - Date of Service January 23, 2021 - Glycemic Short BSG Results (Last 24 hours): 01/22/21 01/22/21 01/23/21 17:16 22:51 00:02 Glucose 212 H POC Glucose 215 H 179 H 01/23/21 01/23/21 01/23/21 03:31 07:52 08:46 Glucose 194 H POC Glucose 126 H 177 H 01/23/21 11:24 Glucose POC Glucose 158 H OUTPATIENT ANTIDIABETIC REGIMEN: * Metformin 1,000mg PO BIDM * Glimepiride 4mg PO PM * A1c = 6.5% on 01/05/21 ASSESSMENT: * 60yo T2DM female with adequate outpatient control per recent A1c. Concern for A1c to be artificially low secondary to anemia and liver dysfunction - best way to gauge glycemic control is with POC BSG. * Pt is maintained on oral antidiabetic agents as an outpatient * Oral agents are not recommended for inpatient use d/t drug interactions, changing PO intake, and difficulty titrating for acute hyper/hypoglycemia. ADA recommends re-initiating outpatient oral agents 1-2 days prior to discharge if/when appropriate if they were held on admission. * Will hold oral agents for admission and utilize SQ basal bolus insulin regimen which is the recommended regimen for inpatient glycemic control. * Will initiate weight based insulin dosing for insulin osiris patient and titrate based on BSG trends. PLAN FOR INPATIENT GLYCEMIC CONTROL: * Hold outpatient oral diabetes medications * Basal insulin * Lantus 10 units SQ BID * Bolus insulin * NovoLog per scale ACHS or Q6hrs while NPO * Goal Range: Low 110 mg/dL - High 140 mg/dL * Correction Factor: 20 mg/dL/unit * Nutritional / Prandial insulin per carb ratio of 1 unit per 7 grams CHO consumed PLAN FOR DISCHARGE: * TBD
[2021-01-23] MEDS: MAGNESIUM SULFATE / D5W 1 GM/100 ML BAG IV SCH ×3 (14:45→19:11)
[2021-01-23] MEDS ORDERED: MICONAZOLE NITRATE POWDER 43 GM EXT PRN (15:49)
[2021-01-23] MEDS: BUTT PASTE (ZINC OXIDE 16%) 171 APPLN/57 GM JAR EXT SCH (17:16)
[2021-01-23] MEDS ORDERED: LOPERAMIDE HCL 2 MG CAP PO PRN (20:23)
[2021-01-23] MEDS: NYSTATIN POWDER 15GM BTL EXT SCH (21:26)
[2021-01-24 06:48] LABS: Eosinophils # (auto) 0.12 K/uL (0-0.5); Eosinophils % (auto) 2.4 %; Hematocrit (blood only) 34.7 % (37-47); Hemoglobin 11.4 g/dL (12.0-16.0); Immature Granulocytes # (auto) 0.02 K/uL (0.00-0.02); Immature Granulocytes % (auto) 0.4 %; Lymphocytes % (auto) 37.9 %; Mean Corpuscular Hemoglobin 34.7 pg (25-34); Mean Corpuscular Hgb Conc 32.9 g/dL (32-36); Mean Corpuscular Volume 105.5 fL (80-100); Mean Platelet Volume 9.5 fL (7.4-10.4); Monocytes # (auto) 0.45 K/uL (0.11-0.59); Neutrophils # (auto) 2.52 K/uL (1.4-6.5); Neutrophils % (auto) 50.3 %; Platelet Count 242 K/uL (130-400); RDW Coefficient of Variation 14.6 % (11.5-14.5); RDW Standard Deviation 56.2 fL (36.4-46.3); Red Blood Count 3.29 M/uL (4.2-5.4); White Blood Count 5.01 K/uL (4.8-10.8)
[2021-01-24 07:23] LABS: Albumin Globulin Ratio 0.6 (0.9-2); Albumin Level 2.5 gm/dl (3.4-5.0); BUN Creatinine Ratio 10.5 (10-20); Bilirubin Direct 0.3 mg/dl (0-0.2); Bilirubin,Total 0.8 mg/dl (0.2-1); Calcium 8.5 mg/dl (8.5-10.1); Creatinine Clr Calc Pharmacy 92.9 ml/min; Est GFR (African American) 86.9; Globulin 4.4 gm/dl (2.5-4.0); Magnesium 1.9 mg/dl (1.8-2.4); Phosphorus 4.7 mg/dl (2.5-4.9); Potassium 4.7 mmol/L (3.5-5.1); Total Protein 6.9 gm/dl (6.4-8.2)
[2021-01-24] MEDS: FOLIC ACID 1 MG in SYRINGE 9.8 ML IV SCH (08:17)
[2021-01-24] MEDS: SERTRALINE HCL 100 MG TABLET PO SCH (08:17)
[2021-01-24] MEDS: THIAMINE HCL 100 MG TAB PO SCH (08:17)
[2021-01-24] MEDS: POTASSIUM CHLORIDE CRTAB 20 MEQ TABCR PO SCH ×2 (08:17→12:11)
[2021-01-24] MEDS: lisinopril 20 MG TAB PO SCH (08:17)
[2021-01-24] MEDS: amLODIPine BESYLATE 5 MG TAB PO SCH (08:17)
[2021-01-24] MEDS: INSULIN GLARGINE SOLOSTAR 100 UNITS/ML 3 ML PEN SC SCH (08:18)
[2021-01-24] MEDS: INSULIN ASPART 100 UNITS/ML 3 ML PEN SC SCH ×2 (08:18→12:11)
[2021-01-24] MEDS: NYSTATIN POWDER 15GM BTL EXT SCH (08:18)
[2021-01-24] MEDS ORDERED: MAGNESIUM SULFATE / D5W 1 GM/100 ML BAG IV ONE (09:30)
[2021-01-24] MEDS ORDERED: MAGNESIUM OXIDE 400 MG TAB PO SCH (09:30)
--- NOTE | 2021-01-31 23:56 | Discharge Summary ---
Date of Service January 24, 2021 Admission HPI Per Admitting Provider 60 YOF with history of alcohol dependance, COPD still smokes, DMII, neuropathy, chronic hypokalemia and hypomagnesemia, depression, chronic elevation of her alkphos, AST is improved, and hypoablumin. She was recently discharged last week following a complicated UTI klebsiella pneumoniae and proteus with an BUTCH. Patient went to her PCP today for follow up post discharge and for complaint of right foot swelling and pain. She was sent here for laboratory work, radiological films, and venous duplex. It was noted that her magnesium was 0.9 she was given 1GM magnesium and 1 banana bag. She continues to have chronic diarrhea at home as well as excoriation stage II on her buttocks, which is improved. She otherwise feels much better since her discharge. She continues to drink alcohol and unable to quantify and declines that she had any trauma or fall causing her injury to her foot. She will be brought in for replacement of her mag as well as try to control her diarrhea. Her venous ultrasound of the right lower extremity is normal and her films of her foot and ankle show no fracture. Principal Diagnosis diarrhea Discharge Exam Constitutional: WD/WN, vitals as above + disheveled Eyes: EOM intact bilaterally; no conjunctival abnormality ENMT: external ear and nose normal, oropharynx normal Neck: trachea midline, no thyromegaly normal visual inspection Respiratory: normal respiratory effort, lungs clear to auscultation no respiratory distress Cardiovascular: RRR, no murmur, no edema Gastrointestinal (Abdomen): Inspection/Auscultation: abdomen normal to inspection; abdomen not distended Musculoskeletal: no cyanosis or clubbing, extremities motor strength 5/5 Skin: no rashes, warm and dry Neurologic: moves all extremities and awake Psychiatric: Orientation: alert, oriented to person and cooperative Discharge Data Allergies Allergy/AdvReac Type Severity Reaction Status Date / Time No Known Drug Allergies Allergy Verified 01/22/21 11:34 Consultations 01/22/21 18:36 ED Decision to Admit Stat 01/22/21 22:04 Consult Nutrition Routine Ordered Studies 01/23/21 00:00 US ankle/brachial index comp Urgent Hospital Course (1) Diarrhea: Patient states 3-4 loose watery bowel movements per day, yellow in color per report. - C. diff negative for toxin; positive for gene on 01/22. - Likely alcohol-related. It is already resolving per the patient. - Follow stool culture, stool lytes - Loperamide PRN Had extensive discussion with GI doctor (official consult was cancelled as patient was discharged), strong suspicion patient is drinking. This would explain the hypomagnesemia. The magnesium supplements will also continue to feed her diarrhea. Patient reports though that she is not drinking. Phosphatidylethanol (PEth) may be helpful in the outpatient setting to see if patient is drinking. (2) Right foot pain: Right foot is swollen and tender around ankle and midfoot- bruising to her 2-4 toes. Toes are without pain. Venous Dopplers negative. ABIs normal. Foot x- rays on 01/22 were negative for fracture. - She denies trauma or injury, but I think this is almost certainly an injury. - Supportive care - Adeel wrap, ICE, Tylenol PRN (3) Hypomagnesemia: Moderate asymptomatic hypomagnesemia from her diarrhea. QTC not prolonged, no ectopy, reflexes normal. - Replete with IV as needed (4) Hypocalcemia: Likely related to poor oral intake with her alcohol use. - Will replete as well. (5) Alcoholism: Unable to quantify amount per patient, she reported she has "cut back" to the admitting provider. To me, she will also not quantify amount. - AWWS coverage while in house- Ativan per score >6 - Thiamine orally and folate - No evidence of Wernicke, normal mentation - She reports she has never had a withdrawal episode (6) Type 2 diabetes mellitus: On metformin and glimepiride at home. A1c is 7.4% this admission. - Sustained release Metformin may be aggravating her diarrhea (7) Leg swelling: Chronic- multifactorial to include poor physical activity, poor nutrition as evidence with her ALKpo4 and her low albumin. - Venous Doppler negative - Grade I diastolic dysfunction - no acute intervention- address the above (8) B12 deficiency: Chronically elevated MCV and RDW. Folate was > 20.00 this admission (though after supplementation). B12 was >600 this month. - ETOH related (9) COPD (chronic obstructive pulmonary disease): No acute needs, continue albuterol. - daily use but symptoms controlled (10) HTN (hypertension): Controlled. - Continue amlodipine 5 - Continue Lisinopril (11) Elevated alkaline phosphatase level: Chronically elevated- ETOH and poor nutrition likely the cause, markedly improved over the past 2 years (12) Excoriation of buttock: Has improved since last admission, red with 4x3 cm area of top layer skin eroded, with good base - Continue with butt paste; continue to liberally apply to buttocks and perineum - clean pat dry and reapply to have constant barrier to loose stools and incontinence Total Time Total Time Spent Total Time Spent (In Minutes): 32 Total Time Includes: Examination of the Patient, Discharge Planning and Medication Reconciliation Discharge Plan Discharge Items Patient Disposition: Home - Home Health Services Reason For Visit: HYPOMAGMANESIA Discharge Diagnosis: hypomagnesemia Activity: Resume your previous activity Non-emergency contact: Primary Care Provider Call non-emergency contact if: you have any medication questions Follow-up/Referrals: Gay Sanchez DO [Primary Care Provider] - Diet: Carb Consistent or DM2 Addtl Attending Provider Instructions: You will benefit from a PCP followup. You will need to quit drinking alcohol as this is likely causing the majority of your symptoms. The alcohol cessation programs are helpful. If you continue to drink, your leg swelling will continue. If you continue to drink, your diarrhea will continue. We offered alcohol rehab and home health. Ordered loperamide for you: goal is 1-2 BM per day. Stop if getting constipated. will recommend MRI of foot bu you would like to defer this to your PCP. Pending Studies at Discharge: No Stand-Alone Forms: [facility], Smoking Cessation Medications and DC Order Prescriptions: New nystatin [Nystop] 100,000 unit/gram Powder 1 applic EXT BID Qty: 30 RF: 0 thiamine HCl (vitamin B1) [Vitamin B-1] 100 mg Tablet 100 mg PO QAM Qty: 30 RF: 0 Boudreauxs Butt Paste 16 % Ointment 1 applic EXT PRN Qty: 0 RF: 0 loperamide [Imodium A-D] 2 mg tablet 2 mg PO Q6H PRN (Reason: loose stool) Qty: 30 RF: 0 Continued amlodipine 5 mg tablet 5 mg PO QAM Qty: 90 RF: 1 potassium chloride 20 mEq tablet,ER particles/crystals 20 meq PO TID 21 Days Qty: 63 RF: 0 glimepiride 2 mg tablet 4 mg PO HS Qty: 180 RF: 1 albuterol sulfate 2.5 mg /3 mL (0.083 %) solution for nebulization 2.5 mg inhalation Q4H PRN (Reason: mild COPD) RF: 0 metformin 500 mg tablet extended release 24 hr 1,000 mg PO BID RF: 0 lisinopril 20 mg tablet 20 mg PO QAM RF: 0 sertraline 100 mg tablet 100 mg PO QAM RF: 0 cholecalciferol (vitamin D3) 100 mcg (4,000 unit) tablet 4,000 unit PO QAM RF: 0 Diaper Rash 13 % cream 1 applic topical TID Qty: 113 RF: 3 Changed magnesium oxide 400 mg magnesium capsule 400 mg PO DAILY Qty: 180 RF: 1 Discharge Orders: Discharge Order (Routine); Ordered 01/24/21 Ordered By: Juan Francisco Knight/Other Patient Handouts: Managing Type 2 Diabetes, Managing Diabetes: The A1C Test Admission Data Admit Date/Time: 01/22/21 19:28 Attending Provider: Juan Francisco Roa Admit Provider: Jorje Parra Primary Care Provider: Gay Sanchez Other Interventions: Discharge Summary Assessment (RN) Last Done: 01/24/21 15:24 Coding Level of Care Code D/C Day Management >30 mins Diagnoses Diarrhea R19.7 Diarrhea type: unspecified type Right foot pain M79.671 Hypomagnesemia E83.42 Hypocalcemia E83.51 Alcoholism F10.20 Type 2 diabetes mellitus E11.9 Leg swelling M79.89 B12 deficiency E53.8 COPD (chronic obstructive pulmonary disease) J43.9 COPD type: emphysema Emphysema type: unspecified HTN (hypertension) I10 Hypertension type: essential hypertension Elevated alkaline phosphatase level R74.8 Excoriation of buttock S30.810A Time Spent (min) 32
== END 2021-01-24 15:51 | disposition home health service (06) | DRG 392 ==
LOC: ED 16:06 → 2W 19:28 → SUATTDRO 19:28 → 2W 21:07

== ENCOUNTER 2021-07-20 13:59 | Inpatient (IN) ==
[2021-07-20] MEDS ORDERED: ONDANSETRON INJ 2 MG/ML 2 ML VIAL IV STA ×2 (15:19→18:44)
[2021-07-20] MEDS ORDERED: MoRPHine SULFATE 4 MG/ML 1 ML CARP\\VIAL IV PRN ×2 (15:19→18:44)
[2021-07-20] MEDS ORDERED: SODIUM CHLORIDE 0.9% 1000ML 1,000 ML IV SCH (15:30)
--- NOTE | 2021-07-20 16:02 | Emergency Department Note ---
Impression & Plan Rhabdomyolysis, Low back pain, Weakness, UTI (urinary tract infection) ED Provider Note NAME: HUNG SCANLON AGE: 60 SEX: F : 1960 ARRIVES VIA: Ambulance INFORMANT: Patient, ED PROVIDER(S): Mak Taylor DO CHIEF COMPLAINT: Weakness HPI: The patient is a 60-year-old female who presented to the emergency department for generalized weakness. The patient complains of upper as well as lower extremity weakness. She states that this is been ongoing for the last year. She was unable to be seen by her primary care physician. She has been calling her primary care physician multiple times but has not been seen. She has called the ambulance multiple times to go to her house to help her stand up. The patient denies having any chest pain. She denies having any nausea or vomiting. She denies having any abdominal pain. She does complain of worsening lower back pain which has been worsening over the course the last year. She states she has been using a cane and then a walker and now cannot ambulate at all without assistance. She was seen at [facility] this weekend and was told she had severe DJD. She denies having any bowel or bladder incontinence at this time. She denies having any saddle anesthesia. The patient states she has upper extremity weakness as well. ROS: See above HPI for pertinent positives & negatives. A total of 10 systems reviewed and were otherwise negative. PAST MEDICAL HISTORY: See Below PAST SURGICAL HISTORY: See Below FAMILY HISTORY: See Below SOCIAL HISTORY: See Below HOME MEDICATIONS: See Below ALLERGIES: See Below VITALS: See Below PHYSICAL EXAMINATION: GENERAL: The patient is awake and alert. The patient is somewhat anxious michelle earing. EYES: The conjunctivae are clear. The pupils are round and reactive. EARS, NOSE, MOUTH AND THROAT: The nose is without any evidence of any deformity. NECK: The neck is nontender and supple. RESPIRATORY: Normal respiratory effort is noted there is no evidence of wheezing rhonchi or rales CARDIOVASCULAR: Regular rate and rhythm noted there no murmurs rubs or gallops normal S1 normal S2. GASTROINTESTINAL: The abdomen is soft. Abdomen is nontender. BACK: There is significant lumbar tenderness to palpation. There is no step- off. Range of motion elicits pain. MUSCULOSKELETAL/EXTREMITIES: There is no evidence of gross deformity full range of motion is noted in the hips and shoulders. SKIN: There is no obvious evidence of any rash. There are no petechiae, pallor or cyanosis noted. NEUROLOGIC: Patient is awake alert and oriented x3 strength is symmetric patellar reflexes are absent bilaterally. Achilles tendon reflexes are absent bilaterally. Great toe raise is symmetric but diminished. MEDICAL DECISION MAKING: The patient is a 60-year-old female who presented to the emergency department for an evaluation of low back pain and generalized weakness. The patient was seen in an outside facility recently. She was diagnosed with severe DJD of the low back. She presents emergency department today because of weakness in her legs. The patient had diminished reflexes bilaterally. Initially I thought her condition could be secondary to a lumbar spine condition. MRI was obtained but did not show anything that would explain the patient's overall findings. I discussed the patient's laboratory and radiographic studies with her. She was found to have an elevated CPK. This could better explain the patient's weakness. She was treated with IV fluids and IV pain medication. She was also treated with IV antibiotics for presumed urinary tract infection. The [facility] hospitalist was notified about the patient. They will evaluate the patient in the emergency department for further management and disposition. Triage Nursing notes reviewed. Prior medical records reviewed Vital Signs: reviewed and remarkable for elevated blood pressure. Differential diagnosis: Musculoskeletal, disc herniation, fracture, metastatic disease, cord compression, discitis, sciatica, cauda equina, infection, aortic disease, renal colic, gastrointestinal, as well as other pathologies. ER treatment provided: See below Diagnostics interpreted by me: ECG: none Cardiac Monitoring: An order was placed for continuous cardiac monitoring. The monitor shows a rate of 98 bpm with sinus rhythm. Laboratory studies: As stated above and show below. Imaging studies: See below Consultation(s): Dr. Bear was notified about the patient. They will evaluate the patient in the emergency department. Past Med/Surg History Medical History Alcoholic hepatitis Alcoholism ERIC positive Anxiety B12 deficiency C. difficile diarrhea COPD (chronic obstructive pulmonary disease) Depression Elevated ferritin Fatty liver Gout Hirsutism HTN (hypertension) Non-sustained ventricular tachycardia Peripheral neuropathy Tobacco use Type 2 diabetes mellitus Type 2 diabetes mellitus with diabetic polyneuropathy Vitamin D deficiency Surgical History History of ankle surgery History of blepharoplasty UPPER LID WITH EXCESSIVE SKIN ONSET: [id number] DESCRIPTION: B/l eyes History of bunionectomy History of laparoscopy History of umbilical hernia repair Family History Mother , of myocardial infarction and complications of DM II Diabetes Myocardial infarction Father , motor vehicle accident MVA (motor vehicle accident) @ AGE 50 Grandmother (Maternal) Alzheimer disease Brother Diabetes Aunt Breast cancer maternal Uncle Myocardial infarction History of throat cancer Other No significant family history Denies family history of Colon cancer Ovarian cancer Prostate cancer Social History Smoking Status: Current every day smoker Tobacco Type: Cigarettes Age Started Using Tobacco: 16; packs per day: 0.5; Cigarettes Per Day: 1/2 pack; Second Hand Exposure: No; Hx Alcohol Use: No Hx Substance Use: No Preferred Language: Arabic Communication Ability: Effective Visual Impairment: No Limitations Hearing Ability: Normal Vehicle Assembly Inspector Required: No Beliefs That Will Affect Care: None marital status: Single Current Living Situation: Alone Current Living Situation Comment: with two dogs current occupational status: employed 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; 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 Feels Safe at Home: Yes Dental Care, Regularly: No Physical Activity Frequency: Does not Exercise Seatbelt Use: always Assistive Devices: Walker Allergies Allergies Allergy/AdvReac Type Severity Reaction Status Date / Time No Known Drug Allergies Allergy Unknown Verified 07/20/21 15:16 Home Meds Home Medications Medication Instructions Recorded Confirmed lisinopril 20 mg tablet 20 mg PO QAM 01/04/21 07/20/21 sertraline 100 mg tablet 100 mg PO QAM 01/04/21 07/20/21 metformin 500 mg tablet,extended 1,000 mg PO BID tab 01/22/21 07/20/21 release 24 hr ibuprofen 600 mg tablet 600 mg PO UD PRN 07/20/21 07/20/21 oxycodone-acetaminophen 5 mg-325 1 tab PO Q6 PRN 07/20/21 07/20/21 mg tablet potassium chloride 20 mEq 20 meq PO UD 07/20/21 07/20/21 tablet,extended release(part/cryst) Previous Rx's Medication Instructions Recorded amlodipine 5 mg tablet 5 mg PO QAM #90 tab 09/21/20 glimepiride 2 mg tablet 4 mg PO HS #180 tab 01/13/21 nystatin 100,000 unit/gram topical 1 applic EXT BID #30 g 01/24/21 powder (Nystop) thiamine HCl (vitamin B1) 100 mg 100 mg PO QAM #30 tab 01/24/21 tablet (Vitamin B-1) albuterol sulfate 2.5 mg INHALATION Q6H PRN #90 ml 03/09/21 magnesium oxide 800 mg PO TID #540 cap 03/09/21 nebulizers #1 ea 03/09/21 spironolactone 25 mg tablet 25 mg PO DAILY #90 tab 03/09/21 loperamide 2 mg tablet (Imodium 2 mg PO Q6H PRN #120 tab 03/15/21 A-D) albuterol sulfate 90 mcg/actuation See Rx Instructions INHALATION 07/06/21 aerosol inhaler (Ventolin HFA) .COMPLEX PRN #18 g cholecalciferol (vitamin D3) 100 4,000 unit PO QAM #30 tab 07/12/21 mcg (4,000 unit) tablet diclofenac sodium 1 % topical gel 2 g TOPICAL QID #100 g 07/12/21 (Voltaren Arthritis Pain) cholecalciferol (vitamin D3) 1,250 50,000 unit PO .weekly #8 cap 07/13/21 mcg (50,000 unit) capsule pregabalin 75 mg capsule 75 mg PO BID #60 cap 07/15/21 Results & Data (ED) Vital Signs Vital Signs - 24 hr 07/20/21 14:15 07/20/21 14:27 07/20/21 14:30 Temperature 36.3 C L Temperature Source Temporal Artery Scan Pulse Rate 95 H 92 H 87 Pulse Rate from SpO2 Sensor 91 H 89 Respiratory Rate 18 19 17 Respiratory Effort / Characteristics Non-Labored Respiratory Depth Normal Blood Pressure 114/81 157/80 H 148/93 H Blood Pressure Mean 92 105 111 Pulse Oximetry 96 99 97 Oxygen Delivery Method Room Air Sepsis Recent Fever Within 48 Hours No Sepsis New/Unexplained Change in Mental Status No Sepsis Action Taken by Nursing No Action Required 07/20/21 15:00 07/20/21 16:02 07/20/21 16:15 Temperature Temperature Source Pulse Rate 91 H 92 H 101 H Pulse Rate from SpO2 Sensor 91 H Respiratory Rate 18 17 15 Respiratory Effort / Characteristics Respiratory Depth Blood Pressure 164/92 H Blood Pressure Mean 116 Pulse Oximetry 94 Oxygen Delivery Method Sepsis Recent Fever Within 48 Hours Sepsis New/Unexplained Change in Mental Status Sepsis Action Taken by Nursing 07/20/21 16:20 07/20/21 16:30 07/20/21 17:01 Temperature Temperature Source Pulse Rate 105 H 89 93 H Pulse Rate from SpO2 Sensor 99 H 89 94 H Respiratory Rate 17 17 18 Respiratory Effort / Characteristics Respiratory Depth Blood Pressure 149/84 H 149/98 H Blood Pressure Mean 105 115 129 Pulse Oximetry 94 94 95 Oxygen Delivery Method Sepsis Recent Fever Within 48 Hours Sepsis New/Unexplained Change in Mental Status Sepsis Action Taken by Nursing 07/20/21 17:30 07/20/21 18:01 07/20/21 18:30 Temperature Temperature Source Pulse Rate 98 H 94 H 96 H Pulse Rate from SpO2 Sensor 96 H 95 H Respiratory Rate 19 16 19 Respiratory Effort / Characteristics Respiratory Depth Blood Pressure 150/81 H 127/110 H Blood Pressure Mean 104 106 115 Pulse Oximetry 94 98 Oxygen Delivery Method Sepsis Recent Fever Within 48 Hours Sepsis New/Unexplained Change in Mental Status Sepsis Action Taken by Nursing 07/20/21 19:32 07/20/21 19:40 07/20/21 19:50 Temperature Temperature Source Pulse Rate 99 H 94 H 98 H Pulse Rate from SpO2 Sensor Respiratory Rate 18 20 7 L Respiratory Effort / Characteristics Respiratory Depth Blood Pressure Blood Pressure Mean Pulse Oximetry Oxygen Delivery Method Sepsis Recent Fever Within 48 Hours Sepsis New/Unexplained Change in Mental Status Sepsis Action Taken by Detention Medications Current Medication List: was personally reviewed by me Laboratory Data Attestation: I reviewed the patient's lab results. Result diagrams: 07/20/21 16:02 07/20/21 16:02 Lab Results 07/20/21 07/20/21 07/20/21 Range/Units 16:02 16:02 16:02 WBC 8.09 (4.8-10.8) K/uL RBC 4.54 (4.2-5.4) M/uL Hgb 14.7 (12.0-16.0) g/dL Hct 47.2 H (37-47) % MCV 104.0 H (80-100) fL MCH 32.4 (25-34) pg MCHC 31.1 L (32-36) g/dL RDW Std Deviation 56.4 H (36.4-46.3) fL RDW Coeff of Eduardo 14.8 H (11.5-14.5) % Plt Count 252 (130-400) K/uL MPV 10.1 (7.4-10.4) fL Immature Gran % (Auto) 0.2 % Neut % (Auto) 68.6 % Lymph % (Auto) 21.8 % [place] % (Auto) 6.8 % Eos % (Auto) 2.5 % Baso % (Auto) 0.1 % Neut # (Auto) 5.55 (1.4-6.5) K/uL Lymph # (Auto) 1.76 (1.2-3.4) K/uL [place] # (Auto) 0.55 (0.11-0.59) K/uL Eos # (Auto) 0.20 (0-0.5) K/uL Baso # (Auto) 0.01 (0-0.2) K/uL Immature Gran # (Auto) 0.02 (0.00-0.02) K/uL PT 10.3 (9.0-12.0) Seconds INR 1.0 (0.9-1.1) APTT 25.4 (21.0-31.0) Seconds PTT Ratio 1.0 Sodium 138 (136-145) mmol/L Potassium 4.7 (3.5-5.1) mmol/L Chloride 103 (98-107) mmol/L Carbon Dioxide 26 (21-32) mmol/L Anion Gap 8.0 (3-11) BUN 16 (7-18) mg/dl Creatinine 0.92 (0.6-1.2) mg/dl Est Cr Clr Drug Dosing Not Reportable Est GFR ( Amer) 79.0 ml/min Est GFR (Non-Af Amer) 68.2 ml/min BUN/Creatinine Ratio 17.7 (10-20) Glucose 122 H (70-99) mg/dl Calcium 9.7 (8.5-10.1) mg/dl Magnesium 1.8 (1.8-2.4) mg/dl Total Bilirubin 0.6 (0.2-1) mg/dl AST 410 H (15-37) U/L ALT 162 H (12-78) U/L Alkaline Phosphatase 90 (45-117) U/L Total Creatine Kinase 5749 H (26-192) U/L Troponin I < 0.015 (0-0.045) ng/ml Total Protein 8.0 (6.4-8.2) gm/dl Albumin 3.2 L (3.4-5.0) gm/dl Globulin 4.8 H (2.5-4.0) gm/dl Albumin/Globulin Ratio 0.7 L (0.9-2) TSH 1.380 (0.300-4.500) uIu/ml Urine Color Urine Appearance (Clear) Urine pH (4.5-7.5) Ur Specific Sebastian (1.000-1.030) Urine Protein (Negative) Urine Glucose (UA) (Negative) Urine Ketones (Negative) Urine Blood (Negative) Urine Nitrite (Negative) Urine Bilirubin (Negative) Urine Urobilinogen (Negative) Ur Leukocyte Esterase (Negative) Urine WBC (Auto) (0-5) /hpf Urine RBC (Auto) (0-4) /hpf U Hyaline Cast (Auto) (0-5) /lpf U Epithel Cells (Auto) (0-5) /lpf Urine Bacteria (Auto) (Negative) Urine Opiates Screen (Neg) Ur Methadone, Qual (Neg) Urine Barbiturates (Neg) Ur Phencyclidine (PCP) (Neg) U Amphetamin/Meth Scrn (Neg) MDMA (Ecstasy) Screen (Neg) U Benzodiazepines Scrn (Neg) Ur Cocaine Metabolite (Neg) U Marijuana (THC) Screen (Neg) Ethyl Alcohol mg/dL (0-3) mg/dl COVID-19 Eval Order SARS-CoV-2 (PCR) (Negative) 07/20/21 07/20/21 07/20/21 Range/Units 19:39 19:40 19:40 WBC (4.8-10.8) K/uL RBC (4.2-5.4) M/uL Hgb (12.0-16.0) g/dL Hct (37-47) % MCV (80-100) fL MCH (25-34) pg MCHC (32-36) g/dL RDW Std Deviation (36.4-46.3) fL RDW Coeff of Eduardo (11.5-14.5) % Plt Count (130-400) K/uL MPV (7.4-10.4) fL Immature Gran % (Auto) % Neut % (Auto) % Lymph % (Auto) % [place] % (Auto) % Eos % (Auto) % Baso % (Auto) % Neut # (Auto) (1.4-6.5) K/uL Lymph # (Auto) (1.2-3.4) K/uL [place] # (Auto) (0.11-0.59) K/uL Eos # (Auto) (0-0.5) K/uL Baso # (Auto) (0-0.2) K/uL Immature Gran # (Auto) (0.00-0.02) K/uL PT (9.0-12.0) Seconds INR (0.9-1.1) APTT (21.0-31.0) Seconds PTT Ratio Sodium (136-145) mmol/L Potassium (3.5-5.1) mmol/L Chloride (98-107) mmol/L Carbon Dioxide (21-32) mmol/L Anion Gap (3-11) BUN (7-18) mg/dl Creatinine (0.6-1.2) mg/dl Est Cr Clr Drug Dosing Est GFR ( Amer) ml/min Est GFR (Non-Af Amer) ml/min BUN/Creatinine Ratio (10-20) Glucose (70-99) mg/dl Calcium (8.5-10.1) mg/dl Magnesium (1.8-2.4) mg/dl Total Bilirubin (0.2-1) mg/dl AST (15-37) U/L ALT (12-78) U/L Alkaline Phosphatase (45-117) U/L Total Creatine Kinase (26-192) U/L Troponin I (0-0.045) ng/ml Total Protein (6.4-8.2) gm/dl Albumin (3.4-5.0) gm/dl Globulin (2.5-4.0) gm/dl Albumin/Globulin Ratio (0.9-2) TSH (0.300-4.500) uIu/ml Urine Color Urine Appearance (Clear) Urine pH (4.5-7.5) Ur Specific Sebastian (1.000-1.030) Urine Protein (Negative) Urine Glucose (UA) (Negative) Urine Ketones (Negative) Urine Blood (Negative) Urine Nitrite (Negative) Urine Bilirubin (Negative) Urine Urobilinogen (Negative) Ur Leukocyte Esterase (Negative) Urine WBC (Auto) (0-5) /hpf Urine RBC (Auto) (0-4) /hpf U Hyaline Cast (Auto) (0-5) /lpf U Epithel Cells (Auto) (0-5) /lpf Urine Bacteria (Auto) (Negative) Urine Opiates Screen (Neg) Ur Methadone, Qual (Neg) Urine Barbiturates (Neg) Ur Phencyclidine (PCP) (Neg) U Amphetamin/Meth Scrn (Neg) MDMA (Ecstasy) Screen (Neg) U Benzodiazepines Scrn (Neg) Ur Cocaine Metabolite (Neg) U Marijuana (THC) Screen (Neg) Ethyl Alcohol mg/dL < 3.0 (0-3) mg/dl COVID-19 Eval Order Covid19 at [facility] SARS-CoV-2 (PCR) NEGATIVE (Negative) 07/20/21 07/20/21 Range/Units 19:50 19:50 WBC (4.8-10.8) K/uL RBC (4.2-5.4) M/uL Hgb (12.0-16.0) g/dL Hct (37-47) % MCV (80-100) fL MCH (25-34) pg MCHC (32-36) g/dL RDW Std Deviation (36.4-46.3) fL RDW Coeff of Eduardo (11.5-14.5) % Plt Count (130-400) K/uL MPV (7.4-10.4) fL Immature Gran % (Auto) % Neut % (Auto) % Lymph % (Auto) % [place] % (Auto) % Eos % (Auto) % Baso % (Auto) % Neut # (Auto) (1.4-6.5) K/uL Lymph # (Auto) (1.2-3.4) K/uL [place] # (Auto) (0.11-0.59) K/uL Eos # (Auto) (0-0.5) K/uL Baso # (Auto) (0-0.2) K/uL Immature Gran # (Auto) (0.00-0.02) K/uL PT (9.0-12.0) Seconds INR (0.9-1.1) APTT (21.0-31.0) Seconds PTT Ratio Sodium (136-145) mmol/L Potassium (3.5-5.1) mmol/L Chloride (98-107) mmol/L Carbon Dioxide (21-32) mmol/L Anion Gap (3-11) BUN (7-18) mg/dl Creatinine (0.6-1.2) mg/dl Est Cr Clr Drug Dosing Est GFR ( Amer) ml/min Est GFR (Non-Af Amer) ml/min BUN/Creatinine Ratio (10-20) Glucose (70-99) mg/dl Calcium (8.5-10.1) mg/dl Magnesium (1.8-2.4) mg/dl Total Bilirubin (0.2-1) mg/dl AST (15-37) U/L ALT (12-78) U/L Alkaline Phosphatase (45-117) U/L Total Creatine Kinase (26-192) U/L Troponin I (0-0.045) ng/ml Total Protein (6.4-8.2) gm/dl Albumin (3.4-5.0) gm/dl Globulin (2.5-4.0) gm/dl Albumin/Globulin Ratio (0.9-2) TSH (0.300-4.500) uIu/ml Urine Color Yellow Urine Appearance Clear (Clear) Urine pH 5.5 (4.5-7.5) Ur Specific Sebastian 1.012 (1.000-1.030) Urine Protein Trace H (Negative) Urine Glucose (UA) Negative (Negative) Urine Ketones Negative (Negative) Urine Blood 3+ H (Negative) Urine Nitrite Positive A (Negative) Urine Bilirubin Negative (Negative) Urine Urobilinogen Negative (Negative) Ur Leukocyte Esterase Trace H (Negative) Urine WBC (Auto) 10-30 H (0-5) /hpf Urine RBC (Auto) 0-4 (0-4) /hpf U Hyaline Cast (Auto) 0 (0-5) /lpf U Epithel Cells (Auto) >30 H (0-5) /lpf Urine Bacteria (Auto) 2+ H (Negative) Urine Opiates Screen Pos H (Neg) Ur Methadone, Qual Neg (Neg) Urine Barbiturates Neg (Neg) Ur Phencyclidine (PCP) Neg (Neg) U Amphetamin/Meth Scrn Neg (Neg) MDMA (Ecstasy) Screen Neg (Neg) U Benzodiazepines Scrn Neg (Neg) Ur Cocaine Metabolite Neg (Neg) U Marijuana (THC) Screen Neg (Neg) Ethyl Alcohol mg/dL (0-3) mg/dl COVID-19 Eval Order SARS-CoV-2 (PCR) (Negative) Administered Medications Fentanyl Citrate (Fentanyl Citrate 100 Mcg/2 Ml Vial) 50 mcg IV Q15M PRN PRN Reason: Pain Stop: 08/03/21 18:46 Last Admin: 07/20/21 22:13 Dose: 50 mcg Documented by: [id number] Admin: 07/20/21 19:00 Dose: 50 mcg Documented by: [id number] Discontinued Medications Sodium Chloride (Nss 1000ml) 1,000 mls @ 999 mls/hr IV .Q1H1M GRAYSON Stop: 07/20/21 16:30 Last Infusion: 07/20/21 17:17 Dose: 999 mls/hr Documented by: [id number] Admin: 07/20/21 16:16 Dose: 999 mls/hr Documented by: [id number] Sodium Chloride (Nss 1000ml) 1,000 mls @ 999 mls/hr IV .Q1H1M ONE Stop: 07/20/21 19:47 Last Infusion: 07/20/21 20:01 Dose: 999 mls/hr Documented by: [id number] Admin: 07/20/21 19:00 Dose: 999 mls/hr Documented by: [id number] Morphine Sulfate (Morphine Sulfate 4 Mg/Ml 1 Ml Carp\Vial) 4 mg IV Q30M PRN PRN Reason: Pain Stop: 08/03/21 15:18 Last Admin: 07/20/21 16:16 Dose: 4 mg Documented by: [id number] Ondansetron HCl (Ondansetron Inj 2 Mg/Ml 2 Ml Vial) 4 mg IV NOW STA Stop: 07/20/21 15:20 Last Admin: 07/20/21 16:16 Dose: 4 mg Documented by: [id number] Ondansetron HCl (Ondansetron Inj 2 Mg/Ml 2 Ml Vial) 4 mg IV NOW STA Stop: 07/20/21 18:45 Last Admin: 07/20/21 19:00 Dose: 4 mg Documented by: [id number] Imaging Data Radiologist's Impression: Chest X-Ray 07/20/21 15:19 XR chest 1V portable CLINICAL HISTORY: weakness COMPARISON STUDY: January 04, 2021 FINDINGS: No pneumothorax. No pleural effusion. No large infiltrates or consolidative lesions are seen. Mild reticular prominence of pulmonary interstitium is again seen within bilateral lower lungs, likely chronic and not significantly changed since prior. Cardiomediastinal silhouette is within normal limits in size. No significant pulmonary vascular congestion.. Osseous structures: unremarkable vertebral bodies are not well seen. IMPRESSION: 1. No acute pulmonary process. ACT 112: Negative or not required by law. The above report was generated using voice recognition software. It may contain grammatical, syntax or spelling errors. Electronically signed by: Michelle Luevano DO 07/20/2021 4:51 PM Patient: HUNG SCANLON (Female) : 62 Status: ER Date: 07/20/21 21:41 Room #: History: NO HX CANCER, NO PREV. SPINE SURG. DIFFICULTY AMBULATING X 6 MONTHS PROG. WORSE. NOW ISN'T ABLE TO AMBULATE AT ALL. NO KNOWN TRAUMA. Slices: 134 Priors: Tech: BeckerTrisha @ [phone] Exams: MRI L SPINE Contrast: Accession Numbers: [id number] Referring Physician: REFERRED SELF Preliminary Findings Only See Final Report For Complete Findings MRI L SPINE : Endplate osteophytes and facet arthropathy. Multilevel disc space narrowing. The conus is intact. Mild canal narrowing at L3-L4. Small disc bulge at this level. Mild canal narrowing at L4-L5. Small broad-based disc bulge at this level. Small disc bulge at L5-S1. No acute disc herniation. Soft tissue structures are int act. Impression: No acute findings. VINCE. Radiologist: Mitesh Tobin M.D. Study ready at 21:44 and initial results transmitted at 22:08 Patient: HUNG SCANLON (Female) : 62 Status: ER Date: 07/20/21 22:14 Room #: History: NO TRAUMA-NO HX CANCER-NO PREV. SPINE SURG. C/O SEVERE BACK PAIN WITH DIFFICULTY AMBULATING PROG. WORSE X 6 MONTHS. Slices: 140 Priors: Tech: Becker, Trisha @ [phone] Exams: MRI C SPINE Contrast: Accession Numbers: [id number] Referring Physician: REFERRED SELF Preliminary Findings Only See Final Report For Complete Findings MRI C SPINE : Straightening of the spine. Endplate osteophytes and facet arthropathy. Multilevel disc desiccation. C3-C4 central disc osteophyte. Slight deformity of the cord. Borderline cord narrowing. Mildly irregular disc osteophyte at C4-C5 with slight flattening of the anterior margin of the cord. Borderline canal narrowing. At C5-C6 right paracentral disc osteophyte resulting in mild canal narrowing and slight deformity of the cord. No cord edema. Soft tissue structures are intact. Impression: No acute findings. NABILD. Radiologist: Mitesh Tobin M.D. Study ready at 22:16 and initial results transmitted at 22:32 Discharge Plan Visit Data Chief Complaint: Leg Weakness, Bilateral Stated Complaint: WEAKNESS, UNABLE TO AMBULATE ED Provider: Mak Taylor Discharge Problem: Rhabdomyolysis, Low back pain, Weakness, UTI (urinary tract infection) Patient Disposition: Being Evaluated by Hospitalist Condition: Good Forms Stand Alone Forms: [facility] Prescriptions Prescriptions: No Action amlodipine 5 mg tablet 5 mg PO QAM Qty: 90 RF: 1 glimepiride 2 mg tablet 4 mg PO HS Qty: 180 RF: 1 magnesium oxide 400 mg magnesium capsule 800 mg PO TID Qty: 540 RF: 1 spironolactone 25 mg tablet 25 mg PO DAILY Qty: 90 RF: 1 loperamide [Imodium A-D] 2 mg tablet 2 mg PO Q6H PRN (Reason: loose stool) Qty: 120 RF: 1 albuterol sulfate [Ventolin HFA] 90 mcg/actuation HFA aerosol inhaler See Rx Instructions inhalation .COMPLEX PRN (Reason: shortness of breath or wheezing) Qty: 18 RF: 0 cholecalciferol (vitamin D3) 1,250 mcg (50,000 unit) capsule 50,000 unit PO .weekly Qty: 8 RF: 0 pregabalin 75 mg capsule 75 mg PO BID Qty: 60 RF: 0 cholecalciferol (vitamin D3) 100 mcg (4,000 unit) tablet 4,000 unit PO QAM Qty: 30 RF: 0 diclofenac sodium [Voltaren Arthritis Pain] 1 % gel 2 g topical QID Qty: 100 RF: 2 albuterol sulfate 2.5 mg /3 mL (0.083 %) solution for nebulization 2.5 mg inhalation Q6H PRN (Reason: shortness of breath or wheezing) Qty: 90 RF: 1 (DME) nebulizers Misc See Rx Instructions .ROUTE .MEDSUPPLY Qty: 1 RF: 0 metformin 500 mg tablet extended release 24 hr 1,000 mg PO BID RF: 0 nystatin [Nystop] 100,000 unit/gram Powder 1 applic EXT BID Qty: 30 RF: 0 thiamine HCl (vitamin B1) [Vitamin B-1] 100 mg Tablet 100 mg PO QAM Qty: 30 RF: 0 oxycodone-acetaminophen 5-325 mg tablet 1 tab PO Q6 PRN (Reason: Pain) RF: 0 ibuprofen 600 mg tablet 600 mg PO UD PRN (Reason: Pain) RF: 0 potassium chloride 20 mEq tablet,ER particles/crystals 20 meq PO UD RF: 0 lisinopril 20 mg tablet 20 mg PO QAM RF: 0 sertraline 100 mg tablet 100 mg PO QAM RF: 0 Referrals Referrals: Gay Sanchez DO [Primary Care Provider] - Discharge Problem: Rhabdomyolysis Qualifiers: Rhabdomyolysis type: non-traumatic Qualified Code(s): M62.82 - Rhabdomyolysis Low back pain Qualifiers: Chronicity: acute Back pain laterality: bilateral Sciatica presence: unspecified whether sciatica present Qualified Code(s): M54.5 - Low back pain UTI (urinary tract infection) Qualifiers: Urinary tract infection type: site unspecified Hematuria presence: without hematuria Qualified Code(s): N39.0 - Urinary tract infection, site not specified
[2021-07-20 16:13] LABS: Basophils # (auto) 0.01 K/uL (0-0.2); Basophils % (auto) 0.1 %; Eosinophils % (auto) 2.5 %; Hematocrit (blood only) 47.2 % (37-47); Hemoglobin 14.7 g/dL (12.0-16.0); Immature Granulocytes # (auto) 0.02 K/uL (0.00-0.02); Immature Granulocytes % (auto) 0.2 %; Lymphocytes # (auto) 1.76 K/uL (1.2-3.4); Lymphocytes % (auto) 21.8 %; Mean Corpuscular Hemoglobin 32.4 pg (25-34); Mean Corpuscular Hgb Conc 31.1 g/dL (32-36); Mean Platelet Volume 10.1 fL (7.4-10.4); Monocytes # (auto) 0.55 K/uL (0.11-0.59); Monocytes % (auto) 6.8 %; Neutrophils # (auto) 5.55 K/uL (1.4-6.5); Neutrophils % (auto) 68.6 %; Platelet Count 252 K/uL (130-400); RDW Coefficient of Variation 14.8 % (11.5-14.5); RDW Standard Deviation 56.4 fL (36.4-46.3); Red Blood Count 4.54 M/uL (4.2-5.4); White Blood Count 8.09 K/uL (4.8-10.8)
[2021-07-20 16:29] LABS: Alanine Aminotransferase 162 U/L (12-78); Albumin Level 3.2 gm/dl (3.4-5.0); Aspartate Aminotransferase 410 U/L (15-37); BUN Creatinine Ratio 17.7 (10-20); Blood Urea Nitrogen 16 mg/dl (7-18); Calcium 9.7 mg/dl (8.5-10.1); Carbon Dioxide 26 mmol/L (21-32); Chloride 103 mmol/L (98-107); Est GFR (Non-African American) 68.2 ml/min; Glucose 122 mg/dl (70-99); Magnesium 1.8 mg/dl (1.8-2.4); Partial Thromboplastin Time 25.4 Seconds (21.0-31.0); Potassium 4.7 mmol/L (3.5-5.1); Prothrombin Time 10.3 Seconds (9.0-12.0); Sodium 138 mmol/L (136-145)
[2021-07-20 16:43] LABS: Albumin Globulin Ratio 0.7 (0.9-2); Alkaline Phosphatase 90 U/L (45-117); Bilirubin,Total 0.6 mg/dl (0.2-1); Creatine Kinase 5749 U/L (26-192); Globulin 4.8 gm/dl (2.5-4.0); Troponin I < 0.015 ng/ml (0-0.045)
--- NOTE | 2021-07-20 16:52 | XRay Report ---
XR chest 1V portable CLINICAL HISTORY: weakness COMPARISON STUDY: January 04, 2021 FINDINGS: No pneumothorax. No pleural effusion. No large infiltrates or consolidative lesions are seen. Mild reticular prominence of pulmonary inters titium is again seen within bilateral lower lungs, likely chronic and not significantly changed since prior. Cardiomediastinal silhouette is within normal limits in size. No significant pulmonary vascular congestion.. Osseous structures: unremarkable vertebral bodies are not well seen. IMPRESSION: 1. No acute pulmonary process. ACT 112: Negative or not required by law. The above report was generated using voice recognition software. It may contain grammatical, syntax o r spelling errors. Electronically signed by: Michelle Luevano DO 07/20/2021 4:51 PM
--- NOTE | 2021-07-20 17:10 | Electrocardiogram Report ---
Test Reason : Blood Pressure : / mmHG Vent. Rate : 086 BPM Atrial Rate : 086 BPM P-R Int : 138 ms QRS Dur : 060 ms QT Int : 388 ms P-R-T Axes : 067 029 038 degrees QTc Int : 464 ms Poor data quality, interpretation may be adversely affected Normal sinus rhythm Low voltage QRS Borderline ECG When compared with ECG of 22-JAN-2021 17:30, No significant change Confirmed by Calvin Anderson ([id number]) on 07/20/2021 5:09:41 PM Referred By: Confirmed By:Calvin Anderson
[2021-07-20] MEDS ORDERED: SODIUM CHLORIDE 0.9% 1000ML 1,000 ML IV ONE (18:47)
[2021-07-20] MEDS: fentaNYL citrate 100 MCG/2 ML VIAL IV PRN ×2 (19:00→22:13)
[2021-07-20 20:03] LABS: Appearance Urine Clear (Clear); Bacteria Urine Automated 2+ (Negative); Bilirubin Urine Negative (Negative); Blood Urine 3+ (Negative); Cast Urine Automated 0 /lpf (0-5); Color Urine Yellow; Epithelial Cell Urine Auto >30 /lpf (0-5); Glucose Urine UA Negative (Negative); Ketones Urine Negative (Negative); Leukocyte Esterase Urine Trace (Negative); Nitrite Urine Positive (Negative); Protein Urine Trace (Negative); RBC Urine Automated 0-4 /hpf (0-4); Specific Gravity Urine 1.012 (1.000-1.030); Urobilinogen Urine Negative (Negative); pH Urine 5.5 (4.5-7.5)
[2021-07-20] MEDS ORDERED: cefTRIAXone SODIUM 1,000 MG/50 ML BAG IV STA (20:19)
[2021-07-20 20:22] LABS: Amphetamines+Metham, Urine Neg (Neg); Barbiturates, Urine Neg (Neg); Benzodiazepine, Urine Neg (Neg); Cocaine, Urine Neg (Neg); MDMA (Ecstacy), Urine Neg (Neg); Methadone, Urine Neg (Neg); Opiate, Urine Pos (Neg); Phencyclidine, Urine Neg (Neg)
[2021-07-20] MEDS ORDERED: cefTRIAXone SODIUM 1000MG/50ML D5W IV ONE (22:50)
--- NOTE | 2021-07-20 23:21 | History & Physical Report ---
Date of Service July 20, 2021 Assessment & Plan (1) Myopathy: Plan: 60 y/o F w/ chronic low back pain 2/2 DJD and complex PMHx who presents w/ weakness/pain of all 4 extremities, worse on lower. Her presentation is most consistent w/ myopathy and she has elevated CK of 5749. - considered recent fall/relative immobilization (most likely), alcoholic myopathy, medications. Electrolytes acceptable and TSH wnl. - NSS 200/hr, previous echo w/ normal EF - replete thiamine and folate - check B12 and folate levels - check LDH, aldolase, and urine myoglobin - avoid acetaminophen. SSI instead of metformin - defer autoimmune workup (has had ERIC pos in past) - pain control w/ PRN ibuprofen and PRN PO oxycodone 5mg q6h w/ caution against oversedation (lowish RR noted) - PT/OT (2) Weakness: Plan: Lower suspicion of true extremity weakness given exam. Generalized weakness; may also be 2/2 UTI. - UTI treatment as below (3) Transaminitis: Plan: AST elevated from 89->410 in 8 days. In past, has had diagnosis of etoh hepatitis. ddx ast: nafld, etoh, drugs, viral, autoimmune - follow CMP (4) UTI (urinary tract infection): Plan: Acute complicated UTI given possible contribution to generalized weakness - will treat w/ daily Rocephin given 2 wks of urinary symptoms - culture pending (5) Alcoholism: Plan: Denies use in 2 months. AST/ALT ratio noted as well as mild tremor on exam. Will not be ordering AWSS. (6) Low back pain: Plan: Chronic. Imaging consistent w/ multilevel DJD. Clinically, does not present w/ cord compression or saddle anesthesia. - pain control as above (7) Type 2 diabetes mellitus: Plan: Pharmacy consult placed. Held home PO meds especially w/ AST elevation. (8) COPD (chronic obstructive pulmonary disease): Plan: - albuterol PRN (9) HTN (hypertension): Plan: - continue home regimen (10) Anxiety: Plan: - continue home sertraline (11) Tobacco use: Plan: - will provide smoking cessation Plan: FEN/GI: DM2 diet. 200mL/hr NSS (4 bags ordered) ppx: SQ Lovenox code: full dispo: med/surg covid neg, not immunized History of Present Illness Chief Complaint: extremity weakness, myalgia Primary Care Provider: DO Evelin Rivera Jerson is a 60 y/o F w/ complex PMHx of anxiety/depression, COPD, gout, hirsutism, HTN, and DM2 w/ neuropathy who presents from home w/ 6 months of low back pain and bilat UE and LE pain and weakness, worsened x 2 wks. She was seen at [place] [facility] 3 days ago after a fall. Presents today for continued decreased mobility and inability to get up despite walker. She feels she has no strength in her legs. Her upper and lower extremity muscles hurt. Current pain level (s/p fentanyl): 2/10 w/o movement, severe exacerbation w/ movement/lifting legs. Her low back hurts w/ ambulation. No sciatica type pain and no groin numbness. Patient stopped taking home medications x 3 days because she had been unable to walk to the pharmacy. Patient denies etoh use in 2 months. She also presents w/ 2 weeks of dysuria, urgency, frequency, darker urine. ED course: fentanyl 50mcg x2. morphine 4mg x1. 1L NSS. AST 410s. CK 5749. MRIs of spine prelim neg for acute processes. Allergies Allergy/AdvReac Type Severity Reaction Status Date / Time morphine Allergy Hives Verified 07/21/21 03:51 Home Medications Medication Instructions Recorded Confirmed Type amlodipine 5 mg tablet 5 mg PO QAM #90 tab 09/21/20 07/20/21 Rx lisinopril 20 mg tablet 20 mg PO QAM 01/04/21 07/20/21 History sertraline 100 mg tablet 100 mg PO QAM 01/04/21 07/20/21 History glimepiride 2 mg tablet 4 mg PO HS #180 tab 01/13/21 07/20/21 Rx metformin 500 mg tablet,extended 1,000 mg PO BID tab 01/22/21 07/20/21 History release 24 hr nystatin 100,000 unit/gram topical 1 applic EXT BID #30 g 01/24/21 07/20/21 Rx powder (Nystop) thiamine HCl (vitamin B1) 100 mg 100 mg PO QAM #30 tab 01/24/21 07/20/21 Rx tablet (Vitamin B-1) albuterol sulfate 2.5 mg INHALATION Q6H PRN #90 ml 03/09/21 07/20/21 Rx magnesium oxide 800 mg PO TID #540 cap 03/09/21 07/20/21 Rx nebulizers #1 ea 03/09/21 07/20/21 Rx spironolactone 25 mg tablet 25 mg PO DAILY #90 tab 03/09/21 07/20/21 Rx loperamide 2 mg tablet (Imodium 2 mg PO Q6H PRN #120 tab 03/15/21 07/20/21 Rx A-D) albuterol sulfate 90 mcg/actuation See Rx Instructions INHALATION 07/06/21 07/20/21 Rx aerosol inhaler (Ventolin HFA) .COMPLEX PRN #18 g cholecalciferol (vitamin D3) 100 4,000 unit PO QAM #30 tab 07/12/21 07/20/21 Rx mcg (4,000 unit) tablet diclofenac sodium 1 % topical gel 2 g TOPICAL QID #100 g 07/12/21 07/20/21 Rx (Voltaren Arthritis Pain) cholecalciferol (vitamin D3) 1,250 50,000 unit PO .weekly #8 cap 07/13/21 07/20/21 Rx mcg (50,000 unit) capsule pregabalin 75 mg capsule 75 mg PO BID #60 cap 07/15/21 07/20/21 Rx ibuprofen 600 mg tablet 600 mg PO UD PRN 07/20/21 07/20/21 History oxycodone-acetaminophen 5 mg-325 1 tab PO Q6 PRN 07/20/21 07/20/21 History mg tablet potassium chloride 20 mEq 20 meq PO UD 07/20/21 07/20/21 History tablet,extended release(part/cryst) Past Med/Surg History Medical History Alcoholic hepatitis Alcoholism ERIC positive Anxiety B12 deficiency C. difficile diarrhea COPD (chronic obstructive pulmonary disease) Depression Elevated ferritin Fatty liver Gout Hirsutism HTN (hypertension) Non-sustained ventricular tachycardia Peripheral neuropathy Tobacco use Type 2 diabetes mellitus Type 2 diabetes mellitus with diabetic polyneuropathy Vitamin D deficiency Surgical History History of ankle surgery History of blepharoplasty UPPER LID WITH EXCESSIVE SKIN ONSET: [id number] DESCRIPTION: B/l eyes History of bunionectomy History of laparoscopy History of umbilical hernia repair Family History Mother , of myocardial infarction and complications of DM II Diabetes Myocardial infarction Father , motor vehicle accident MVA (motor vehicle accident) @ AGE 50 Grandmother (Maternal) Alzheimer disease Brother Diabetes Aunt Breast cancer maternal Uncle Myocardial infarction History of throat cancer Other No significant family history Denies family history of Colon cancer Ovarian cancer Prostate cancer Social History Smoking Status: Current every day smoker Tobacco Type: Cigarettes Age Started Using Tobacco: 16; packs per day: 0.5; Cigarettes Per Day: 1/2 pack; Second Hand Exposure: No; Hx Alcohol Use: Yes Alcohol type: hard liquor Alcohol Intake Frequency Comment: 2 large drinks per day Hx Substance Use: No Preferred Language: Lithuanian Communication Ability: Effective Visual Impairment: No Limitations Hearing Ability: Normal Farebox Repairer Required: No Beliefs That Will Affect Care: None marital status: Single Current Living Situation: Alone Current Living Situation Comment: with two dogs current occupational status: employed 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[employer]; 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 Other Information That Helps Us Care for You: No Feels Safe at Home: Yes Safety Concerns: Feels Safe At This Time Dental Care, Regularly: No Physical Activity Frequency: Does not Exercise Seatbelt Use: always Assistive Devices: Denture - Upper, Denture - Lower and Walker Immunizations: Denies covid immunization Review of Systems Review of Systems: Constitutional: Denies fever, chills Eyes: Denies new blurry vision ENT: Denies sore throat Cardiovascular: Denies chest pain Respiratory: Denies shortness of breath Gastrointestinal: Denies abdominal pain, nausea, vomiting, constipation, diarrhea Genitourinary: See HPI. + mild chronic urinary incontinence Musculoskeletal: +myalgia and weakness Neurological: Denies headache, focal weakness. Positional dizziness. Physical Exam Physical Exam: General: Grossly A&O. NAD. Cooperative. Obese habitus. HEENT: Atraumatic, normocephalic. EOMI. PERRL. Pulm: CTAB. -wheezes, -rales, -rhonchi. No respiratory distress. Cardiac: RRR, -mrg. Radial pulses intact and symmetrical. No LE edema. Abdominal: Nontender, nondistended, soft. Musculoskeletal: + mild ttp to palpation at shins. Unable to perform SLR limited by patient's discomfort at inguinal area. No radicular pain w/ legs raised to 10 degrees. Back: TTP at L CVA area. Neuro: 5+/5 strength of upper extremities and bilat ankles/feet. Unable to assess strength of hips and knees limited by patient's pain w/ motion. Gross sensation of lower extremity symmetric/intact. Mild tremors w/ hands stretched out. Results & Data Results & Data ([facility]) Vital Signs (Past 12 Hours) Vital Signs Temp Pulse Resp BP Pulse Ox 07/20/21 19:50 98 H 7 L 07/20/21 19:40 94 H 20 07/20/21 19:32 99 H 18 07/20/21 18:30 96 H 19 127/110 H 98 07/20/21 18:01 94 H 16 94 07/20/21 17:30 98 H 19 150/81 H 07/20/21 17:01 93 H 18 95 07/20/21 16:30 89 17 149/98 H 94 07/20/21 16:20 105 H 17 149/84 H 94 07/20/21 16:15 101 H 15 07/20/21 16:02 92 H 17 07/20/21 15:00 91 H 18 164/92 H 94 07/20/21 14:30 87 17 148/93 H 97 07/20/21 14:27 92 H 19 157/80 H 99 07/20/21 14:15 36.3 C L 95 H 18 114/81 96 Laboratory Results no leukocytosis. mcv 104. . not anemic. coags ok. bmp ok. a1c 5.8 07/12/21. ast newly 89->410 in 1 wk. ck 5479. tsh wnl. utox pending. etoh <3.0 07/20/21 16:02 07/20/21 16:02 Diagnostic Findings Chest X-Ray 07/20/21 15:19 XR chest 1V portable IMPRESSION: 1. No acute pulmonary process. MRI reads for C, T, and L spines pending. Prelim radiology reads below. Formal radiology reads pending. MRI L SPINE : Endplate osteophytes and facet arthropathy. Multilevel disc space narrowing. The conus is intact. Mild canal narrowing at L3-L4. Small disc bulge at this level. Mild canal narrowing at L4-L5. Small broad-based disc bulge at this level. Small disc bulge at L5-S1. No acute disc herniation. Soft tissue structures are intact. Impression: No acute findings. DJD. MRI C SPINE : Straightening of the spine. Endplate osteophytes and facet arthropathy. Multilevel disc desiccation. C3-C4 central disc osteophyte. Slight deformity of the cord. Borderline cord narrowing. Mildly irregular disc osteophyte at C4-C5 with slight flattening of the anterior margin of the cord. Borderline canal narrowing. At C5-C6 right paracentral disc osteophyte resulting in mild canal narrowing and slight deformity of the cord. No cord edema. Soft tissue structures are intact. Impression: No acute findings. DJD. ECG Additional Comments: ecg w/o acute ischemic changes Code Status & VTE Plan Code Status full code VTE Prophylaxis Plan VTE Prophylaxis will be ordered: Yes Supervising Physician Co-Signing Physician Notes Patient seen and examined, chart reviewed, case discussed with Dr. Christiansen and I agree with his assessment and plan as documented above. In brief, patient is a 60yo female presenting with back pain and bilateral LE weakness worse in the last 2 weeks. She has profound muscle weakness as well as tenderness to palpation. Exam - afebrile, HD stable, nontoxic in appearance Limited mobility of bilateral LE due to pain Pain with palpation of thigh muscles. Muscles are soft. Intact pulses and sensation No rash Assessment/Plan - Elevated CK, muscle weakness and tenderness with palpation. ?Myopathy. Patient endorses dark urine. 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 -Patient may need EMG and Muscle biopsy at some point Resident Activity Tracking Resident Involvement: Resident Care Provided Care Provided: Adult Hospital Medicine (1) UTI (urinary tract infection) Hematuria presence: without hematuria Urinary tract infection type: site unspecified Qualified Code(s): N39.0 - Urinary tract infection, site not specified (2) Low back pain Back pain laterality: bilateral Chronicity: acute Sciatica presence: unspecified whether sciatica present Qualified Code(s): M54.5 - Low back pain (3) COPD (chronic obstructive pulmonary disease) COPD type: emphysema Emphysema type: unspecified Qualified Code(s): J43.9 - Emphysema, unspecified (4) HTN (hypertension) Hypertension type: essential hypertension Qualified Code(s): I10 - Essential (primary) hypertension
[2021-07-21] MEDS ORDERED: IBUPROFEN 600 MG TAB PO PRN (02:31)
[2021-07-21] MEDS ORDERED: POTASSIUM CHLORIDE CRTAB 20 MEQ TABCR PO SCH (02:31)
[2021-07-21] MEDS ORDERED: PHARMACY GLYCEMIC MGMT CONSULT PRN (02:31)
[2021-07-21] MEDS ORDERED: ALBUTEROL HFA 8 GM INHALER INH PRN (02:31)
[2021-07-21] MEDS ORDERED: GLUCOSE 40% GEL 15 GM TUBE PO PRN (03:00)
[2021-07-21] MEDS ORDERED: CARBOHYDRATES FOR HYPOGLYCEMIA PO PRN (03:00)
[2021-07-21] MEDS ORDERED: GLUCOSE 10 TABS/TUBE PO PRN (03:00)
[2021-07-21] MEDS ORDERED: GLUCAGON FOR INJ 1 MG VIAL IM PRN (03:00)
[2021-07-21] MEDS ORDERED: DEXTROSE 50% 50 ML SYRINGE IV PRN (03:00)
[2021-07-21] MEDS: SODIUM CHLORIDE 0.9% 1000ML 1,000 ML IV SCH ×4 (03:49→19:17)
[2021-07-21] MEDS ORDERED: traMADol HCL 50 MG TABLET PO PRN (03:58)
[2021-07-21] MEDS ORDERED: oxyCODONE HCL IR 5 MG TAB (IMMEDIATE RELEASE) PO PRN (04:00)
[2021-07-21] MEDS: INSULIN ASPART 100 UNITS/ML 3 ML PEN SC SCH ×5 (04:26→22:38)
--- NOTE | 2021-07-21 07:26 | Magnetic Resonance Report ---
MR lumbar spine wo con CLINICAL HISTORY: weakness TECHNIQUE: Sagittal and axial T1, T2 and STIR images were obtained. COMPARISON STUDY: No previous studies for comparison. OBSERVATIONS: The vertebral bodies and posterior elements appear intact. There is no abnormal bony signal present t o suggest a marrow replacement process. Evaluation is slightly limited due to motion artifact mostly affected lateral T2 fat-suppressed seque nce. Vertebral body heights are maintained. Lumbar lordosis is preserved. Intervertebral disc spaces are narrowed with disc desiccation and posterior osteophytes mostly affect ing lower lumbar region. Focal area of high T1 and T2 signal within S3 is not well seen on T2 fat-suppressed sequence due to m otion artifact, could represent focal area of fat accumulation or hemangioma versus other etiology. L1-2: No disc protrusions or extrusions. No evidence of spinal canal or neural foraminal compromise. L2-3: No disc protrusions or extrusions. No evidence of spinal canal or neural foraminal compromise. L3-4: Intervertebral disc space narrowing and disc desiccation. Diffuse bulge of the disc is seen cau sing flattening of thecal sac. Hypertrophic changes of facet joints are demonstrated. Right neurofora samuel is mildly narrowed. Left neuroforamina is patent. L4-5: Intervertebral disc space is slightly narrowed. Posterior osteophytes are seen. Left paracentra l bulge of the disc is seen causing flattening of thecal sac. Hypertrophic changes of facet joints wi th fluid signal are demonstrated. Focal area of decreased T1 and T2 signal protrudes into the right n euroforamina might represent migrated extruded disc versus other etiology and causing severe neural f oraminal stenosis. Left neuroforamina is patent at this level. L5-S1: Intervertebral disc space is preserved. Minimal right paracentral bulge of the disc is seen ca using flattening of thecal sac. No significant central canal stenosis. Right neuroforamina is patent. Minimal narrowing of the left neuroforamina. The conus medullaris and cauda equina appear normal. IMPRESSION: 1. No acute fracture or dislocation. 2. 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 ACT 112: Negative or not required by law. The above report was generated using voice recognition software. It may contain grammatical, syntax o r spelling errors. Electronically signed by: Michelle Luevano DO 07/21/2021 7:24 AM
[2021-07-21 08:38] LABS: Basophils # (auto) 0.01 K/uL (0-0.2); Basophils % (auto) 0.2 %; Eosinophils # (auto) 0.22 K/uL (0-0.5); Eosinophils % (auto) 3.6 %; Hematocrit (blood only) 42.2 % (37-47); Hemoglobin 13.4 g/dL (12.0-16.0); Immature Granulocytes # (auto) 0.02 K/uL (0.00-0.02); Immature Granulocytes % (auto) 0.3 %; Lymphocytes # (auto) 1.73 K/uL (1.2-3.4); Lymphocytes % (auto) 28.7 %; Mean Corpuscular Hemoglobin 33.3 pg (25-34); Mean Corpuscular Hgb Conc 31.8 g/dL (32-36); Mean Corpuscular Volume 104.7 fL (80-100); Mean Platelet Volume 10.3 fL (7.4-10.4); Monocytes # (auto) 0.62 K/uL (0.11-0.59); Monocytes % (auto) 10.3 %; Neutrophils # (auto) 3.43 K/uL (1.4-6.5); Neutrophils % (auto) 56.9 %; Platelet Count 268 K/uL (130-400); RDW Coefficient of Variation 14.9 % (11.5-14.5); RDW Standard Deviation 57.8 fL (36.4-46.3); Red Blood Count 4.03 M/uL (4.2-5.4); White Blood Count 6.03 K/uL (4.8-10.8)
[2021-07-21 08:47] LABS: Albumin Globulin Ratio 0.7 (0.9-2); Albumin Level 2.5 gm/dl (3.4-5.0); Bilirubin,Total 0.4 mg/dl (0.2-1); Calcium 8.1 mg/dl (8.5-10.1); Creatinine Clr Calc Pharmacy 75.1 ml/min; Est GFR (African American) 69.7 ml/min; Est GFR (Non-African American) 60.2 ml/min; Globulin 3.7 gm/dl (2.5-4.0); Potassium 4.2 mmol/L (3.5-5.1); Total Protein 6.2 gm/dl (6.4-8.2)
--- NOTE | 2021-07-21 08:47 | Magnetic Resonance Report ---
MR OF THE CERVICAL SPINE WITHOUT IV CONTRAST INDICATION: MN ^weakness Comparison: None available at the time of this dictation. TECHNIQUE: MRI of the cervical spine is performed utilizing various T1 and T2 sequences in the axial and sagittal planes. IV contrast was not administered for this examination. FINDINGS: Cervical spine: Vertebral body height and alignment are maintained throughout the cervical spine. The atlantodental articulation appears maintained. No destructive bony lesion is seen. Intervertebral discs: Mild diffuse changes of disc desiccation noted. Spinal cord: The cervical spina l cord is normal in morphology and signal intensity. C2-C3: Unremarkable. C3-C4: Small posterior disc bulge with narrowing of the spinal canal which slightly deforms the spina l cord, although the canal remains patent. No neural foraminal stenosis.. C4-C5: Mild left facet arthropathy resulting in mild neuroforaminal stenosis. No spinal stenosis. C5-C6: Moderate broad-based posterior disc bulge which contacts cord resulting in moderate canal sten osis. Mild left facet arthropathy. C6-C7: Small posterior disc bulge without impingement on the spinal and neural foraminal stenosis. C7-T1: Unremarkable. Soft tissues: The paraspinous and prevertebral soft tissues are normal in appearance. Brain parenchyma: Partially imaged brain parenchyma at the skull base is within normal limits. IMPRESSION: Multifocal disc disease with spinal canal narrowing most severe at C3-C4 and C5-C6. Poste rior disc osteophytes contact the spinal cord, however the canal remains patent posteriorly and no co rd edema is seen. Mild left neural foraminal stenosis as above. ACT 112: Negative or not required by law. Electronically signed by: Jon Saleh M.D. 07/21/2021 8:46 AM
--- NOTE | 2021-07-21 09:04 | Magnetic Resonance Report ---
MRI OF THE THORACIC SPINE WITHOUT IV CONTRAST CLINICAL HISTORY: Generalized weakness. COMPARISON STUDY: Chest CT dated 01/04/21. TECHNIQUE: MRI of the thoracic spine is performed utilizing various T1 and T2-weighted sequences in t he axial and sagittal planes. IV contrast was not administered for this examination. The examination is compromised by motion artifact. FINDINGS: Vertebral body height and alignment are maintained throughout the thoracic spine. Normal ma rrow signal intensity is preserved at the visualized bony structures. Some anterior osteophytes are s een throughout. The spinous processes appear intact. No destructive bony lesion is seen. There is mil d degenerative disc desiccation. The disc spaces appear maintained. The thoracic spinal cord is emiliano l in morphology and signal intensity. The conus medullaris terminates at the level of L1. There is no evidence of disc herniation or central canal stenosis. No high-grade neural foraminal narrowing is s uggested throughout the thoracic spine. There is fatty atrophy of the paraspinous musculature. The pa raspinous soft tissues are otherwise normal as imaged. The lung parenchyma is grossly unremarkable bu t not well evaluated by MRI. IMPRESSION: 1. Motion compromised examination. 2. There is no disc herniation, central canal stenosis, or neural foraminal narrowing seen throughout the thoracic spine. 3. No destructive bony process is seen. Dictated: 07/21/2021 8:43 AM Transcribed: 07/21/2021 8:52 AM [place] [id number] CONOR_Leida Electronically signed by: Aism Bertrand M.D. 07/21/2021 9:03 AM
[2021-07-21] MEDS: traMADol HCL 50 MG TABLET PO PRN ×2 (09:35→22:57)
[2021-07-21] MEDS: ENOXAPARIN INJ 40 MG/0.4 ML SYR SQ SCH (09:40)
[2021-07-21] MEDS: SERTRALINE HCL 100 MG TABLET PO SCH (09:43)
[2021-07-21] MEDS: amLODIPine BESYLATE 5 MG TAB PO SCH (09:44)
[2021-07-21] MEDS: lisinopril 20 MG TAB PO SCH (09:45)
[2021-07-21] MEDS: SPIRONOLACTONE 25 MG TAB PO SCH (09:45)
[2021-07-21] MEDS: THIAMINE HCL 100 MG TAB PO SCH (09:46)
[2021-07-21] MEDS: NYSTATIN POWDER 15GM BTL EXT SCH ×2 (09:47→22:02)
[2021-07-21] MEDS: MAGNESIUM OXIDE 400 MG TAB PO SCH ×3 (09:47→22:01)
[2021-07-21] MEDS: LIDOCAINE 5% 1 PATCH TD SCH (09:57)
[2021-07-21 11:13] LABS: Lyme Ab IgG w/WB Rflx Negative (Negative)
[2021-07-21 11:14] LABS: Lyme Ab IgM w/WB Rflx Negative (Negative)
--- NOTE | 2021-07-21 19:14 | Ultrasound Report ---
US liver CLINICAL HISTORY: Transaminitis in alcoholic pt COMPARISON STUDY: CT of the abdomen and pelvis January 04, 2021. Right upper quadrant ultrasound Septem 2017. MRCP July 07, 2018. FINDINGS: The liver is echogenic. The liver is enlarged, measuring 23 cm in maximal dimension. There is no biliary ductal dilatation. The common bile duct measures 2 mm in caliber. There is minimal slud ge versus small stones within the gallbladder. There is no evidence for acute cholecystitis. No right hydronephrosis is present. Pancreas body is normal. Head and tail are slightly obscured by overlying bowel gas. IMPRESSION: 1. Hepatic steatosis and hepatomegaly. No hepatic lesions identified. 2. No biliary ductal dilatation. 3. Tiny stones versus small amount of sludge within the gallbladder. No evidence for acute cholecysti tis. ACT 112: Negative or not required by law. Electronically signed by: Eb Baer M.D. 07/21/2021 7:13 PM
[2021-07-21] MEDS: IBUPROFEN 200 MG TAB PO PRN (19:18)
--- NOTE | 2021-07-21 19:27 | Hospitalist Progress Note ---
Date of Service July 21, 2021 Assessment & Plan (1) Myopathy: Plan: 60 y/o F w/ chronic low back pain 2/2 DJD and complex PMHx who presents w/ weakness/pain of all 4 extremities, worse on lower. Her presentation is most consistent w/ myopathy and she has elevated CK of 5749. - considered recent fall/relative immobilization 3 days ago, alcoholic myopathy, medications. Electrolytes acceptable and TSH wnl. - NSS 200/hr in ER, previous echo w/ normal EF - repleted thiamine and folate - check B12 and folate levels - check LDH, aldolase, and urine myoglobin pending - avoid acetaminophen. SSI instead of metformin - investigate autoimmune workup, has had ERIC pos in past no f/u with rheumatology - pain control w/ PRN ibuprofen and PRN PO oxycodone 5mg q6h w/ caution against oversedation, tramadol held - PT/OT ordered -lyme negative -cont IVF (2) Weakness: Plan: Generalized weakness; may also be 2/2 UTI. - UTI treatment as below -PE demonstrates 5/5 strength UE, 3/5 in LE may be secondary to pain (3) Transaminitis: Plan: AST elevated from 89->410 in 8 days. In past, has had diagnosis of etoh hepatitis. ddx ast: nafld, etoh, drugs, viral, autoimmune - follow CMP (4) UTI (urinary tract infection): Plan: Acute complicated UTI given possible contribution to generalized weakness - will treat w/ daily Rocephin given 2 wks of urinary symptoms - culture demonstrates gram negative bacilli (5) Alcoholism: Plan: Denies use in 2 months. AST/ALT ratio noted as well as mild tremor on exam. Will not be ordering AWSS. (6) Low back pain: Plan: Chronic. Imaging consistent w/ multilevel DJD. Clinically, does not present w/ cord compression or saddle anesthesia. - pain control as above (7) Type 2 diabetes mellitus: Plan: Pharmacy consult placed. Held home PO meds especially w/ AST elevation. (8) COPD (chronic obstructive pulmonary disease): Plan: - albuterol PRN (9) HTN (hypertension): Plan: - continue home regimen (10) Anxiety: Plan: - continue home sertraline (11) Tobacco use: Plan: - will provide smoking cessation Plan: FEN/GI: DM2 diet. 200mL/hr NSS (4 bags ordered in ER) ppx: SQ Lovenox code: full dispo: med/surg covid neg, not immunized Admission and Anticipated Discharge Date Admission Date: July 21, 2021 Supervising Physician Co-Signing Physician Notes Resident Physician Supervision Note: I independently interviewed and examined the patient and verified the [place] history and physical, reviewed labs and image studies and agree with resident Dr. Alvarado findings and care plan. Subjective 60yo Female with PMH chronic low back pain, anxiety/depression, gout, COPD, hirsutism, alcohol use disorder here for 6 month back pain UE/LE weakness that worsened over the last 2 wks. She was seen in another hospital 3 days ago for a fall, called the ambulance herself. States she is able to walk at baseline, now can only move in wheelchair and has difficulty picking up cooking implements secondary to muscle soreness. States she had liver workup before but unsure surrounding cirumstances. Patient seen at bedside, she states she would like the muscle soreness to go away. Per patient's chart she has previously had alcoholic hepatits with steatohepatitis and ERIC 1:640, negative for autoimmune hepatitis. She has not drank alcohol in 2 months. Patient was recently in close contact with COVID positive family member, tested negative for COVID in hospital, formerly [facility] precautions in place. Review of Systems Review of Systems: Positive occasional urinary incontinence, chronic diarrhea/constiipation, muscle soreness, back pain Negative fever chills Negative headache dizziness Negative chest pain palpitations SOB Negative nausea vomiting Negative numbness tingling swelling Physical Exam Physical Exam: General: Well appearing, age appropriate Heart: RRR, +S1 S2, no murmurs/gallops/rubs Lungs: cta b/l, no wheezes/rales/rhonchi Abd: soft, dull ache in RUL and LLQ, ND, +BS Extremities: 5/5 strength b/l UE, 3/5 strength b/l LE with pain on passive movement, no swelling, no rashes Skin: erythematous moist rash in groin crease and under breasts. sensation intact throughout Results & Data Results & Data ([facility]) Vital Signs (Past 12 Hours) Vital Signs Temp Pulse Resp BP Pulse Ox 07/21/21 15:42 36.4 C L 71 20 102/60 96 07/21/21 09:35 96 H 108/70 07/21/21 07:28 36.9 C 96 H 18 98/62 L 93 Laboratory Results 07/21/21 07/21/21 07/21/21 Range/Units 12:22 08:50 07:36 WBC (4.8-10.8) K/uL RBC (4.2-5.4) M/uL Hgb (12.0-16.0) g/dL Hct (37-47) % MCV (80-100) fL MCH (25-34) pg MCHC (32-36) g/dL RDW Std Deviation (36.4-46.3) fL RDW Coeff of Eduardo (11.5-14.5) % Plt Count (130-400) K/uL MPV (7.4-10.4) fL Immature Gran % (Auto) % Neut % (Auto) % Lymph % (Auto) % [place] % (Auto) % Eos % (Auto) % Baso % (Auto) % Neut # (Auto) (1.4-6.5) K/uL Lymph # (Auto) (1.2-3.4) K/uL [place] # (Auto) (0.11-0.59) K/uL Eos # (Auto) (0-0.5) K/uL Baso # (Auto) (0-0.2) K/uL Immature Gran # (Auto) (0.00-0.02) K/uL Sodium (136-145) mmol/L Potassium (3.5-5.1) mmol/L Chloride (98-107) mmol/L Carbon Dioxide (21-32) mmol/L Anion Gap (3-11) BUN (7-18) mg/dl Creatinine (0.6-1.2) mg/dl Est Cr Clr Drug Dosing ml/min Est GFR ( Amer) ml/min Est GFR (Non-Af Amer) ml/min BUN/Creatinine Ratio (10-20) Glucose (70-99) mg/dl POC Glucose 148 H 145 H (70-99) mg/dl Calcium (8.5-10.1) mg/dl Total Bilirubin (0.2-1) mg/dl AST (15-37) U/L ALT (12-78) U/L Alkaline Phosphatase (45-117) U/L Lactate Dehydrogenase (84-246) U/L Total Creatine Kinase (26-192) U/L Total Protein (6.4-8.2) gm/dl Albumin (3.4-5.0) gm/dl Globulin (2.5-4.0) gm/dl Albumin/Globulin Ratio (0.9-2) Aldolase Urine Color Urine Appearance (Clear) Urine pH (4.5-7.5) Ur Specific [place] (1.000-1.030) Urine Protein (Negative) Urine Glucose (UA) (Negative) Urine Ketones (Negative) Urine Blood (Negative) Urine Nitrite (Negative) Urine Bilirubin (Negative) Urine Urobilinogen (Negative) Ur Leukocyte Esterase (Negative) Urine WBC (Auto) (0-5) /hpf Urine RBC (Auto) (0-4) /hpf U Hyaline Cast (Auto) (0-5) /lpf U Epithel Cells (Auto) (0-5) /lpf Urine Bacteria (Auto) (Negative) Urine Myoglobin Urine Opiates Screen (Neg) U Codeine Confrm GC/MS Ur Morphine (GC/MS) Ur Hydrocodone (GC/MS) Ur Norhydrocodone Ur Noroxycodone Urine Oxycodone (GC/MS) U Oxymorphone GC/MS Ur Methadone, Qual (Neg) Ur Hydromorphone (GC/MS) Urine Barbiturates (Neg) Ur Phencyclidine (PCP) (Neg) U Amphetamin/Meth Scrn (Neg) MDMA (Ecstasy) Screen (Neg) U Benzodiazepines Scrn (Neg) Ur Cocaine Metabolite (Neg) U Marijuana (THC) Screen (Neg) Drug Screen Comment Ethyl Alcohol mg/dL (0-3) mg/dl Anaplasma Smear A. phagocytophilum DNA Lyme Disease IgG Ab Negative (Negative) Lyme Disease IgM Ab Negative (Negative) COVID-19 Eval Order SARS-CoV-2 (PCR) (Negative) 07/21/21 07/21/21 07/21/21 Range/Units 07:29 07:29 07:29 WBC (4.8-10.8) K/uL RBC (4.2-5.4) M/uL Hgb (12.0-16.0) g/dL Hct (37-47) % MCV (80-100) fL MCH (25-34) pg MCHC (32-36) g/dL RDW Std Deviation (36.4-46.3) fL RDW Coeff of Eduardo (11.5-14.5) % Plt Count (130-400) K/uL MPV (7.4-10.4) fL Immature Gran % (Auto) % Neut % (Auto) % Lymph % (Auto) % [place] % (Auto) % Eos % (Auto) % Baso % (Auto) % Neut # (Auto) (1.4-6.5) K/uL Lymph # (Auto) (1.2-3.4) K/uL [place] # (Auto) (0.11-0.59) K/uL Eos # (Auto) (0-0.5) K/uL Baso # (Auto) (0-0.2) K/uL Immature Gran # (Auto) (0.00-0.02) K/uL Sodium (136-145) mmol/L Potassium (3.5-5.1) mmol/L Chloride (98-107) mmol/L Carbon Dioxide (21-32) mmol/L Anion Gap (3-11) BUN (7-18) mg/dl Creatinine (0.6-1.2) mg/dl Est Cr Clr Drug Dosing ml/min Est GFR ( Amer) ml/min Est GFR (Non-Af Amer) ml/min BUN/Creatinine Ratio (10-20) Glucose (70-99) mg/dl POC Glucose (70-99) mg/dl Calcium (8.5-10.1) mg/dl Total Bilirubin (0.2-1) mg/dl AST (15-37) U/L ALT (12-78) U/L Alkaline Phosphatase (45-117) U/L Lactate Dehydrogenase (84-246) U/L Total Creatine Kinase 4192 H (26-192) U/L Total Protein (6.4-8.2) gm/dl Albumin (3.4-5.0) gm/dl Globulin (2.5-4.0) gm/dl Albumin/Globulin Ratio (0.9-2) Aldolase Urine Color Urine Appearance (Clear) Urine pH (4.5-7.5) Ur Specific [place] (1.000-1.030) Urine Protein (Negative) Urine Glucose (UA) (Negative) Urine Ketones (Negative) Urine Blood (Negative) Urine Nitrite (Negative) Urine Bilirubin (Negative) Urine Urobilinogen (Negative) Ur Leukocyte Esterase (Negative) Urine WBC (Auto) (0-5) /hpf Urine RBC (Auto) (0-4) /hpf U Hyaline Cast (Auto) (0-5) /lpf U Epithel Cells (Auto) (0-5) /lpf Urine Bacteria (Auto) (Negative) Urine Myoglobin Urine Opiates Screen (Neg) U Codeine Confrm GC/MS Ur Morphine (GC/MS) Ur Hydrocodone (GC/MS) Ur Norhydrocodone Ur Noroxycodone Urine Oxycodone (GC/MS) U Oxymorphone GC/MS Ur Methadone, Qual (Neg) Ur Hydromorphone (GC/MS) Urine Barbiturates (Neg) Ur Phencyclidine (PCP) (Neg) U Amphetamin/Meth Scrn (Neg) MDMA (Ecstasy) Screen (Neg) U Benzodiazepines Scrn (Neg) Ur Cocaine Metabolite (Neg) U Marijuana (THC) Screen (Neg) Drug Screen Comment Ethyl Alcohol mg/dL (0-3) mg/dl Anaplasma Smear See Comment A. phagocytophilum DNA Pending Lyme Disease IgG Ab (Negative) Lyme Disease IgM Ab (Negative) COVID-19 Eval Order SARS-CoV-2 (PCR) (Negative) 07/21/21 07/21/21 07/21/21 Range/Units 07:29 07:29 07:29 WBC 6.03 (4.8-10.8) K/uL RBC 4.03 L (4.2-5.4) M/uL Hgb 13.4 (12.0-16.0) g/dL Hct 42.2 (37-47) % MCV 104.7 H (80-100) fL MCH 33.3 (25-34) pg MCHC 31.8 L (32-36) g/dL RDW Std Deviation 57.8 H (36.4-46.3) fL RDW Coeff of Eduardo 14.9 H (11.5-14.5) % Plt Count 268 (130-400) K/uL MPV 10.3 (7.4-10.4) fL Immature Gran % (Auto) 0.3 % Neut % (Auto) 56.9 % Lymph % (Auto) 28.7 % [place] % (Auto) 10.3 % Eos % (Auto) 3.6 % Baso % (Auto) 0.2 % Neut # (Auto) 3.43 (1.4-6.5) K/uL Lymph # (Auto) 1.73 (1.2-3.4) K/uL [place] # (Auto) 0.62 H (0.11-0.59) K/uL Eos # (Auto) 0.22 (0-0.5) K/uL Baso # (Auto) 0.01 (0-0.2) K/uL Immature Gran # (Auto) 0.02 (0.00-0.02) K/uL Sodium 140 (136-145) mmol/L Potassium 4.2 (3.5-5.1) mmol/L Chloride 109 H (98-107) mmol/L Carbon Dioxide 23 (21-32) mmol/L Anion Gap 9.0 (3-11) BUN 15 (7-18) mg/dl Creatinine 1.02 (0.6-1.2) mg/dl Est Cr Clr Drug Dosing 75.1 ml/min Est GFR ( Amer) 69.7 ml/min Est GFR (Non-Af Amer) 60.2 ml/min BUN/Creatinine Ratio 15.0 (10-20) Glucose 194 H (70-99) mg/dl POC Glucose (70-99) mg/dl Calcium 8.1 L D (8.5-10.1) mg/dl Total Bilirubin 0.4 (0.2-1) mg/dl AST 316 H (15-37) U/L ALT 133 H (12-78) U/L Alkaline Phosphatase 76 (45-117) U/L Lactate Dehydrogenase 290 H (84-246) U/L Total Creatine Kinase (26-192) U/L Total Protein 6.2 L D (6.4-8.2) gm/dl Albumin 2.5 L (3.4-5.0) gm/dl Globulin 3.7 (2.5-4.0) gm/dl Albumin/Globulin Ratio 0.7 L (0.9-2) Aldolase Urine Color Urine Appearance (Clear) Urine pH (4.5-7.5) Ur Specific [place] (1.000-1.030) Urine Protein (Negative) Urine Glucose (UA) (Negative) Urine Ketones (Negative) Urine Blood (Negative) Urine Nitrite (Negative) Urine Bilirubin (Negative) Urine Urobilinogen (Negative) Ur Leukocyte Esterase (Negative) Urine WBC (Auto) (0-5) /hpf Urine RBC (Auto) (0-4) /hpf U Hyaline Cast (Auto) (0-5) /lpf U Epithel Cells (Auto) (0-5) /lpf Urine Bacteria (Auto) (Negative) Urine Myoglobin Urine Opiates Screen (Neg) U Codeine Confrm GC/MS Ur Morphine (GC/MS) Ur Hydrocodone (GC/MS) Ur Norhydrocodone Ur Noroxycodone Urine Oxycodone (GC/MS) U Oxymorphone GC/MS Ur Methadone, Qual (Neg) Ur Hydromorphone (GC/MS) Urine Barbiturates (Neg) Ur Phencyclidine (PCP) (Neg) U Amphetamin/Meth Scrn (Neg) MDMA (Ecstasy) Screen (Neg) U Benzodiazepines Scrn (Neg) Ur Cocaine Metabolite (Neg) U Marijuana (THC) Screen (Neg) Drug Screen Comment Ethyl Alcohol mg/dL (0-3) mg/dl Anaplasma Smear A. phagocytophilum DNA Lyme Disease IgG Ab (Negative) Lyme Disease IgM Ab (Negative) COVID-19 Eval Order SARS-CoV-2 (PCR) (Negative) 07/21/21 07/21/21 07/20/21 Range/Units 07:29 03:44 19:50 WBC (4.8-10.8) K/uL RBC (4.2-5.4) M/uL Hgb (12.0-16.0) g/dL Hct (37-47) % MCV (80-100) fL MCH (25-34) pg MCHC (32-36) g/dL RDW Std Deviation (36.4-46.3) fL RDW Coeff of Eduardo (11.5-14.5) % Plt Count (130-400) K/uL MPV (7.4-10.4) fL Immature Gran % (Auto) % Neut % (Auto) % Lymph % (Auto) % [place] % (Auto) % Eos % (Auto) % Baso % (Auto) % Neut # (Auto) (1.4-6.5) K/uL Lymph # (Auto) (1.2-3.4) K/uL [place] # (Auto) (0.11-0.59) K/uL Eos # (Auto) (0-0.5) K/uL Baso # (Auto) (0-0.2) K/uL Immature Gran # (Auto) (0.00-0.02) K/uL Sodium (136-145) mmol/L Potassium (3.5-5.1) mmol/L Chloride (98-107) mmol/L Carbon Dioxide (21-32) mmol/L Anion Gap (3-11) BUN (7-18) mg/dl Creatinine (0.6-1.2) mg/dl Est Cr Clr Drug Dosing ml/min Est GFR ( Amer) ml/min Est GFR (Non-Af Amer) ml/min BUN/Creatinine Ratio (10-20) Glucose (70-99) mg/dl POC Glucose 144 H (70-99) mg/dl Calcium (8.5-10.1) mg/dl Total Bilirubin (0.2-1) mg/dl AST (15-37) U/L ALT (12-78) U/L Alkaline Phosphatase (45-117) U/L Lactate Dehydrogenase (84-246) U/L Total Creatine Kinase (26-192) U/L Total Protein (6.4-8.2) gm/dl Albumin (3.4-5.0) gm/dl Globulin (2.5-4.0) gm/dl Albumin/Globulin Ratio (0.9-2) Aldolase Pending Urine Color Urine Appearance (Clear) Urine pH (4.5-7.5) Ur Specific [place] (1.000-1.030) Urine Protein (Negative) Urine Glucose (UA) (Negative) Urine Ketones (Negative) Urine Blood (Negative) Urine Nitrite (Negative) Urine Bilirubin (Negative) Urine Urobilinogen (Negative) Ur Leukocyte Esterase (Negative) Urine WBC (Auto) (0-5) /hpf Urine RBC (Auto) (0-4) /hpf U Hyaline Cast (Auto) (0-5) /lpf U Epithel Cells (Auto) (0-5) /lpf Urine Bacteria (Auto) (Negative) Urine Myoglobin Pending Urine Opiates Screen (Neg) U Codeine Confrm GC/MS Ur Morphine (GC/MS) Ur Hydrocodone (GC/MS) Ur Norhydrocodone Ur Noroxycodone Urine Oxycodone (GC/MS) U Oxymorphone GC/MS Ur Methadone, Qual (Neg) Ur Hydromorphone (GC/MS) Urine Barbiturates (Neg) Ur Phencyclidine (PCP) (Neg) U Amphetamin/Meth Scrn (Neg) MDMA (Ecstasy) Screen (Neg) U Benzodiazepines Scrn (Neg) Ur Cocaine Metabolite (Neg) U Marijuana (THC) Screen (Neg) Drug Screen Comment Ethyl Alcohol mg/dL (0-3) mg/dl Anaplasma Smear A. phagocytophilum DNA Lyme Disease IgG Ab (Negative) Lyme Disease IgM Ab (Negative) COVID-19 Eval Order SARS-CoV-2 (PCR) (Negative) 07/20/21 07/20/21 07/20/21 Range/Units 19:50 19:50 19:50 WBC (4.8-10.8) K/uL RBC (4.2-5.4) M/uL Hgb (12.0-16.0) g/dL Hct (37-47) % MCV (80-100) fL MCH (25-34) pg MCHC (32-36) g/dL RDW Std Deviation (36.4-46.3) fL RDW Coeff of Eduardo (11.5-14.5) % Plt Count (130-400) K/uL MPV (7.4-10.4) fL Immature Gran % (Auto) % Neut % (Auto) % Lymph % (Auto) % [place] % (Auto) % Eos % (Auto) % Baso % (Auto) % Neut # (Auto) (1.4-6.5) K/uL Lymph # (Auto) (1.2-3.4) K/uL [place] # (Auto) (0.11-0.59) K/uL Eos # (Auto) (0-0.5) K/uL Baso # (Auto) (0-0.2) K/uL Immature Gran # (Auto) (0.00-0.02) K/uL Sodium (136-145) mmol/L Potassium (3.5-5.1) mmol/L Chloride (98-107) mmol/L Carbon Dioxide (21-32) mmol/L Anion Gap (3-11) BUN (7-18) mg/dl Creatinine (0.6-1.2) mg/dl Est Cr Clr Drug Dosing ml/min Est GFR ( Amer) ml/min Est GFR (Non-Af Amer) ml/min BUN/Creatinine Ratio (10-20) Glucose (70-99) mg/dl POC Glucose (70-99) mg/dl Calcium (8.5-10.1) mg/dl Total Bilirubin (0.2-1) mg/dl AST (15-37) U/L ALT (12-78) U/L Alkaline Phosphatase (45-117) U/L Lactate Dehydrogenase (84-246) U/L Total Creatine Kinase (26-192) U/L Total Protein (6.4-8.2) gm/dl Albumin (3.4-5.0) gm/dl Globulin (2.5-4.0) gm/dl Albumin/Globulin Ratio (0.9-2) Aldolase Urine Color Yellow Urine Appearance Clear (Clear) Urine pH 5.5 (4.5-7.5) Ur Specific [place] 1.012 (1.000-1.030) Urine Protein Trace H (Negative) Urine Glucose (UA) Negative (Negative) Urine Ketones Negative (Negative) Urine Blood 3+ H (Negative) Urine Nitrite Positive A (Negative) Urine Bilirubin Negative (Negative) Urine Urobilinogen Negative (Negative) Ur Leukocyte Esterase Trace H (Negative) Urine WBC (Auto) 10-30 H (0-5) /hpf Urine RBC (Auto) 0-4 (0-4) /hpf U Hyaline Cast (Auto) 0 (0-5) /lpf U Epithel Cells (Auto) >30 H (0-5) /lpf Urine Bacteria (Auto) 2+ H (Negative) Urine Myoglobin Urine Opiates Screen Pos H (Neg) U Codeine Confrm GC/MS Pending Ur Morphine (GC/MS) Pending Ur Hydrocodone (GC/MS) Pending Ur Norhydrocodone Pending Ur Noroxycodone Pending Urine Oxycodone (GC/MS) Pending U Oxymorphone GC/MS Pending Ur Methadone, Qual Neg (Neg) Ur Hydromorphone (GC/MS) Pending Urine Barbiturates Neg (Neg) Ur Phencyclidine (PCP) Neg (Neg) U Amphetamin/Meth Scrn Neg (Neg) MDMA (Ecstasy) Screen Neg (Neg) U Benzodiazepines Scrn Neg (Neg) Ur Cocaine Metabolite Neg (Neg) U Marijuana (THC) Screen Neg (Neg) Drug Screen Comment Pending Ethyl Alcohol mg/dL (0-3) mg/dl Anaplasma Smear A. phagocytophilum DNA Lyme Disease IgG Ab (Negative) Lyme Disease IgM Ab (Negative) COVID-19 Eval Order SARS-CoV-2 (PCR) (Negative) 07/20/21 07/20/21 07/20/21 Range/Units 19:40 19:40 19:39 WBC (4.8-10.8) K/uL RBC (4.2-5.4) M/uL Hgb (12.0-16.0) g/dL Hct (37-47) % MCV (80-100) fL MCH (25-34) pg MCHC (32-36) g/dL RDW Std Deviation (36.4-46.3) fL RDW Coeff of Eduardo (11.5-14.5) % Plt Count (130-400) K/uL MPV (7.4-10.4) fL Immature Gran % (Auto) % Neut % (Auto) % Lymph % (Auto) % [place] % (Auto) % Eos % (Auto) % Baso % (Auto) % Neut # (Auto) (1.4-6.5) K/uL Lymph # (Auto) (1.2-3.4) K/uL [place] # (Auto) (0.11-0.59) K/uL Eos # (Auto) (0-0.5) K/uL Baso # (Auto) (0-0.2) K/uL Immature Gran # (Auto) (0.00-0.02) K/uL Sodium (136-145) mmol/L Potassium (3.5-5.1) mmol/L Chloride (98-107) mmol/L Carbon Dioxide (21-32) mmol/L Anion Gap (3-11) BUN (7-18) mg/dl Creatinine (0.6-1.2) mg/dl Est Cr Clr Drug Dosing ml/min Est GFR ( Amer) ml/min Est GFR (Non-Af Amer) ml/min BUN/Creatinine Ratio (10-20) Glucose (70-99) mg/dl POC Glucose (70-99) mg/dl Calcium (8.5-10.1) mg/dl Total Bilirubin (0.2-1) mg/dl AST (15-37) U/L ALT (12-78) U/L Alkaline Phosphatase (45-117) U/L Lactate Dehydrogenase (84-246) U/L Total Creatine Kinase (26-192) U/L Total Protein (6.4-8.2) gm/dl Albumin (3.4-5.0) gm/dl Globulin (2.5-4.0) gm/dl Albumin/Globulin Ratio (0.9-2) Aldolase Urine Color Urine Appearance (Clear) Urine pH (4.5-7.5) Ur Specific [place] (1.000-1.030) Urine Protein (Negative) Urine Glucose (UA) (Negative) Urine Ketones (Negative) Urine Blood (Negative) Urine Nitrite (Negative) Urine Bilirubin (Negative) Urine Urobilinogen (Negative) Ur Leukocyte Esterase (Negative) Urine WBC (Auto) (0-5) /hpf Urine RBC (Auto) (0-4) /hpf U Hyaline Cast (Auto) (0-5) /lpf U Epithel Cells (Auto) (0-5) /lpf Urine Bacteria (Auto) (Negative) Urine Myoglobin Urine Opiates Screen (Neg) U Codeine Confrm GC/MS Ur Morphine (GC/MS) Ur Hydrocodone (GC/MS) Ur Norhydrocodone Ur Noroxycodone Urine Oxycodone (GC/MS) U Oxymorphone GC/MS Ur Methadone, Qual (Neg) Ur Hydromorphone (GC/MS) Urine Barbiturates (Neg) Ur Phencyclidine (PCP) (Neg) U Amphetamin/Meth Scrn (Neg) MDMA (Ecstasy) Screen (Neg) U Benzodiazepines Scrn (Neg) Ur Cocaine Metabolite (Neg) U Marijuana (THC) Screen (Neg) Drug Screen Comment Ethyl Alcohol mg/dL < 3.0 (0-3) mg/dl Anaplasma Smear A. phagocytophilum DNA Lyme Disease IgG Ab (Negative) Lyme Disease IgM Ab (Negative) COVID-19 Eval Order Covid19 at [facility] SARS-CoV-2 (PCR) NEGATIVE (Negative) Diagnostic Findings Impressions Cervical Spine MRI 07/20/21 15:19 MR OF THE CERVICAL SPINE WITHOUT IV CONTRAST INDICATION: MN ^^weakness Comparison: None available at the time of this dictation. TECHNIQUE: MRI of the cervical spine is performed utilizing various T1 and T2 sequences in the axial and sagittal planes. IV contrast was not administered for this examination. FINDINGS: Cervical spine: Vertebral body height and alignment are maintained throughout the cervical spine. The atlantodental articulation appears maintained. No destructive bony lesion is seen. Intervertebral discs: Mild diffuse changes of disc desiccation noted. Spinal cord: The cervical spinal cord is normal in morphology and signal intensity. C2-C3: Unremarkable. C3-C4: Small posterior disc bulge with narrowing of the spinal canal which slightly deforms the spinal cord, although the canal remains patent. No neural foraminal stenosis.. C4-C5: Mild left facet arthropathy resulting in mild neuroforaminal stenosis. No spinal stenosis. C5-C6: Moderate broad-based posterior disc bulge which contacts cord resulting in moderate canal stenosis. Mild left facet arthropathy. C6-C7: Small posterior disc bulge without impingement on the spinal and neural foraminal stenosis. C7-T1: Unremarkable. Soft tissues: The paraspinous and prevertebral soft tissues are normal in appearance. Brain parenchyma: Partially imaged brain parenchyma at the skull base is within normal limits. IMPRESSION: Multifocal disc disease with spinal canal narrowing most severe at C3-C4 and C5-C6. Posterior disc osteophytes contact the spinal cord, however the canal remains patent posteriorly and no cord edema is seen. Mild left neural foraminal stenosis as above. ACT 112: Negative or not required by law. Electronically signed by: Jon Saleh M.D. 07/21/2021 8:46 AM Chest X-Ray 07/20/21 15:19 XR chest 1V portable CLINICAL HISTORY: weakness COMPARISON STUDY: January 04, 2021 FINDINGS: No pneumothorax. No pleural effusion. No large infiltrates or consolidative lesions are seen. Mild reticular prominence of pulmonary interstitium is again seen within bilateral lower lungs, likely chronic and not significantly changed since prior. Cardiomediastinal silhouette is within normal limits in size. No significant pulmonary vascular congestion.. Osseous structures: unremarkable vertebral bodies are not well seen. IMPRESSION: 1. No acute pulmonary process. ACT 112: Negative or not required by law. The above report was generated using voice recognition software. It may contain grammatical, syntax or spelling errors. Electronically signed by: Michelle Luevano DO 07/20/2021 4:51 PM Lumbar Spine MRI 07/20/21 15:19 MR lumbar spine wo con CLINICAL HISTORY: weakness TECHNIQUE: Sagittal and axial T1, T2 and STIR images were obtained. COMPARISON STUDY: No previous studies for comparison. OBSERVATIONS: The vertebral bodies and posterior elements appear intact. There is no abnormal bony signal present to suggest a marrow replacement process. Evaluation is slightly limited due to motion artifact mostly affected lateral T2 fat-suppressed sequence. Vertebral body heights are maintained. Lumbar lordosis is preserved. Intervertebral disc spaces are narrowed with disc desiccation and posterior osteophytes mostly affecting lower lumbar region. Focal area of high T1 and T2 signal within S3 is not well seen on T2 fat- suppressed sequence due to motion artifact, could represent focal area of fat accumulation or hemangioma versus other etiology. L1-2: No disc protrusions or extrusions. No evidence of spinal canal or neural foraminal compromise. L2-3: No disc protrusions or extrusions. No evidence of spinal canal or neural foraminal compromise. L3-4: Intervertebral disc space narrowing and disc desiccation. Diffuse bulge of the disc is seen causing flattening of thecal sac. Hypertrophic changes of facet joints are demonstrated. Right neuroforamina is mildly narrowed. Left neuroforamina is patent. L4-5: Intervertebral disc space is slightly narrowed. Posterior osteophytes are seen. Left paracentral bulge of the disc is seen causing flattening of thecal sac. Hypertrophic changes of facet joints with fluid signal are demonstrated. Focal area of decreased T1 and T2 signal protrudes into the right neuroforamina might represent migrated extruded disc versus other etiology and causing severe neural foraminal stenosis. Left neuroforamina is patent at this level. L5-S1: Intervertebral disc space is preserved. Minimal right paracentral bulge of the disc is seen causing flattening of thecal sac. No significant central canal stenosis. Right neuroforamina is patent. Minimal narrowing of the left neuroforamina. The conus medullaris and cauda equina appear normal. IMPRESSION: 1. No acute fracture or dislocation. 2. 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 ACT 112: Negative or not required by law. The above report was generated using voice recognition software. It may contain grammatical, syntax or spelling errors. Electronically signed by: Michelle Luevano DO 07/21/2021 7:24 AM Thoracic Spine MRI 07/20/21 15:19 MRI OF THE THORACIC SPINE WITHOUT IV CONTRAST CLINICAL HISTORY: Generalized weakness. COMPARISON STUDY: Chest CT dated 01/04/21. TECHNIQUE: MRI of the thoracic spine is performed utilizing various T1 and T2- weighted sequences in the axial and sagittal planes. IV contrast was not adminis tered for this examination. The examination is compromised by motion artifact. FINDINGS: Vertebral body height and alignment are maintained throughout the thoracic spine. Normal marrow signal intensity is preserved at the visualized bony structures. Some anterior osteophytes are seen throughout. The spinous processes appear intact. No destructive bony lesion is seen. There is mild degenerative disc desiccation. The disc spaces appear maintained. The thoracic spinal cord is normal in morphology and signal intensity. The conus medullaris terminates at the level of L1. There is no evidence of disc herniation or central canal stenosis. No high-grade neural foraminal narrowing is suggested throughout the thoracic spine. There is fatty atrophy of the paraspinous musculature. The paraspinous soft tissues are otherwise normal as imaged. The lung parenchyma is grossly unremarkable but not well evaluated by MRI. IMPRESSION: 1. Motion compromised examination. 2. There is no disc herniation, central canal stenosis, or neural foraminal narrowing seen throughout the thoracic spine. 3. No destructive bony process is seen. Dictated: 07/21/2021 8:43 AM Transcribed: 07/21/2021 8:52 AM [place] [id number] CONOR_Leida Electronically signed by: Asim Bertrand M.D. 07/21/2021 9:03 AM Liver Ultrasound 07/21/21 10:46 US liver CLINICAL HISTORY: Transaminitis in alcoholic pt COMPARISON STUDY: CT of the abdomen and pelvis January 04, 2021. Right upper quadrant ultrasound July 06, 2018. MRCP July 07, 2018. FINDINGS: The liver is echogenic. The liver is enlarged, measuring 23 cm in maximal dimension. There is no biliary ductal dilatation. The common bile duct measures 2 mm in caliber. There is minimal sludge versus small stones within the gallbladder. There is no evidence for acute cholecystitis. No right hydronephrosis is present. Pancreas body is normal. Head and tail are slightly obscured by overlying bowel gas. IMPRESSION: 1. Hepatic steatosis and hepatomegaly. No hepatic lesions identified. 2. No biliary ductal dilatation. 3. Tiny stones versus small amount of sludge within the gallbladder. No evidence for acute cholecystitis. ACT 112: Negative or not required by law. Electronically signed by: Eb Baer M.D. 07/21/2021 7:13 PM Medications Administered Current Inpatient Medications Albuterol (Albuterol Hfa 8 Gm Inhaler) 1 puffs INH Q4H PRN PRN Reason: shortness of breath or wheezing Stop: 08/20/21 02:30 Amlodipine Besylate (Amlodipine Besylate 5 Mg Tab) 5 mg PO QAM [facility] Stop: 08/20/21 08:59 Last Admin: 07/21/21 09:44 Dose: 5 mg Documented by: Dextrose (Dextrose 50% 50 Ml Syringe) 25 - 50 ml IV UD PRN; Protocol PRN Reason: Hypoglycemia Protocol Stop: 08/20/21 02:59 Diclofenac Sodium (Diclofenac Sod 1% Gel 100 Gm Tube) 2 gm EXT QID PRN PRN Reason: Pain Stop: 08/20/21 02:30 Enoxaparin Sodium (Enoxaparin Inj 40 Mg/0.4 Ml Syr) 40 mg SQ QAM [facility] Stop: 08/20/21 08:59 Last Admin: 07/21/21 09:40 Dose: 40 mg Documented by: Glucagon (Glucagon For Inj 1 Mg Vial) 1 mg IM UD PRN; Protocol PRN Reason: Hypoglycemia Protocol Stop: 08/20/21 02:59 Glucose (Glucose 40% Gel 15 Gm Tube) 15 - 30 gm PO UD PRN; Protocol PRN Reason: Hypoglycemia Protocol Stop: 08/20/21 02:59 Glucose (Glucose 10 Tabs/Tube) 4 - 8 tabs PO UD PRN; Protocol PRN Reason: Hypoglycemia Protocol Stop: 08/20/21 02:59 Sodium Chloride (Nss 1000ml) 1,000 mls @ 200 mls/hr IV .Q5H [facility] Stop: 07/21/21 22:44 Last Admin: 07/21/21 19:17 Dose: 200 mls/hr Documented by: Ceftriaxone Sodium 2,000 mg/ (Dextrose) 70 mls @ 100 mls/hr IV Q24H [facility]; Protocol Stop: 07/31/21 22:59 Ibuprofen (Ibuprofen 200 Mg Tab) 400 mg PO TID PRN PRN Reason: Pain Stop: 08/20/21 02:30 Last Admin: 07/21/21 19:18 Dose: 400 mg Documented by: Insulin Aspart (Insulin Aspart 100 Units/Ml 3 Ml Pen) 0 units SC ACHS [facility] [place] Stop: 08/20/21 02:59 Last Admin: 07/21/21 19:16 Dose: Not Given Documented by: Lidocaine (Lidocaine 5% 1 Patch) 1 [facility] [place] [facility] Stop: 08/20/21 08:59 Last Admin: 07/21/21 09:57 Dose: 1 patch Documented by: Lisinopril (Lisinopril 20 Mg Tab) 20 mg PO QAM [facility] [place] Stop: 08/20/21 08:59 Last Admin: 07/21/21 09:45 Dose: 20 mg Documented by: Magnesium Oxide (Magnesium Oxide 400 Mg Tab) 800 mg PO TID [facility] [place] Stop: 08/20/21 08:59 Last Admin: 07/21/21 16:38 Dose: Not Given Documented by: Miscellaneous (Carbohydrates For Hypoglycemia ) 15 - 30 gm PO UD PRN PRN Reason: Hypoglycemia Treatment Stop: 08/20/21 02:59 Miscellaneous (Remove Lidoderm Patch) 1 ea N/A DAILY@2100 [facility] [place] Stop: 08/20/21 20:59 Nystatin (Nystatin Powder 15gm Btl) 1 appln EXT BID [facility] [place] Stop: 08/20/21 08:59 Last Admin: 07/21/21 09:47 Dose: 1 appln Documented by: Potassium Chloride (Potassium Chloride Crtab 20 Meq Tabcr) 20 meq PO UD [facility] [place] Stop: 08/20/21 02:30 Sertraline HCl (Sertraline Hcl 100 Mg Tablet) 100 mg PO QAM [facility] [place] Stop: 08/20/21 08:59 Last Admin: 07/21/21 09:43 Dose: 100 mg Documented by: Spironolactone (Spironolactone 25 Mg Tab) 25 mg PO DAILY [facility] [place] Stop: 08/20/21 08:59 Last Admin: 07/21/21 09:45 Dose: 25 mg Documented by: Thiamine HCl (Thiamine Hcl 100 Mg Tab) 100 mg PO QAM [facility] Stop: 08/20/21 08:59 Last Admin: 07/21/21 09:46 Dose: 100 mg Documented by: Tramadol HCl (Tramadol Hcl 50 Mg Tablet) 25 mg PO Q6H PRN PRN Reason: Severe Pain Stop: 08/20/21 09:29 Last Admin: 07/21/21 09:35 Dose: 25 mg Documented by: Resident Activity Tracking Resident Involvement: Resident Care Provided Care Provided: Adult Hospital Medicine (1) UTI (urinary tract infection) Hematuria presence: without hematuria Urinary tract infection type: site unspecified Qualified Code(s): N39.0 - Urinary tract infection, site not specified (2) Low back pain Back pain laterality: bilateral Chronicity: acute Sciatica presence: unspecified whether sciatica present Qualified Code(s): M54.5 - Low back pain (3) COPD (chronic obstructive pulmonary disease) COPD type: emphysema Emphysema type: unspecified Qualified Code(s): J43.9 - Emphysema, unspecified (4) HTN (hypertension) Hypertension type: essential hypertension Qualified Code(s): I10 - Essential (primary) hypertension
--- NOTE | 2021-07-21 19:44 | Billing Data ---
Date of Service July 21, 2021 Coding Level of Care Code 29452 Initial Inpt Care Lvl 3
[2021-07-21] MEDS: MELATONIN 3 MG TAB PO PRN (22:13)
[2021-07-21] MEDS: DICLOFENAC SOD 1% GEL 100 GM TUBE EXT PRN (22:58)
[2021-07-21] MEDS ORDERED: cefTRIAXone SODIUM 2,000 MG in DEXTROSE 5% 50 ML IV SCH (23:00)
[2021-07-22 08:44] LABS: Hematocrit (blood only) 44.3 % (37-47); Hemoglobin 13.7 g/dL (12.0-16.0); Mean Corpuscular Hemoglobin 32.7 pg (25-34); Mean Corpuscular Hgb Conc 30.9 g/dL (32-36); Mean Corpuscular Volume 105.7 fL (80-100); Mean Platelet Volume 10.3 fL (7.4-10.4); Platelet Count 249 K/uL (130-400); RDW Coefficient of Variation 14.5 % (11.5-14.5); RDW Standard Deviation 56.7 fL (36.4-46.3); Red Blood Count 4.19 M/uL (4.2-5.4); White Blood Count 4.98 K/uL (4.8-10.8)
[2021-07-22] MEDS: SERTRALINE HCL 100 MG TABLET PO SCH (09:05)
[2021-07-22] MEDS: MAGNESIUM OXIDE 400 MG TAB PO SCH ×3 (09:05→21:58)
[2021-07-22] MEDS: THIAMINE HCL 100 MG TAB PO SCH (09:05)
[2021-07-22] MEDS: amLODIPine BESYLATE 5 MG TAB PO SCH (09:05)
[2021-07-22] MEDS: PREGABALIN 75 MG CAP PO SCH ×2 (09:05→21:59)
[2021-07-22] MEDS: FOLIC ACID 400 MCG TAB PO SCH (09:05)
[2021-07-22] MEDS: lisinopril 20 MG TAB PO SCH (09:05)
[2021-07-22] MEDS: ENOXAPARIN INJ 40 MG/0.4 ML SYR SQ SCH (09:06)
[2021-07-22] MEDS: LIDOCAINE 5% 1 PATCH TD SCH (09:07)
[2021-07-22] MEDS: CYANOCOBALAMIN (VITAMIN B-12) 100 MCG TABLET PO SCH (09:07)
[2021-07-22] MEDS: DICLOFENAC SOD 1% GEL 100 GM TUBE EXT PRN (09:08)
[2021-07-22 09:18] LABS: BUN Creatinine Ratio 13.3 (10-20); Calcium 8.8 mg/dl (8.5-10.1); Creatinine Clr Calc Pharmacy 100.8 ml/min; Est GFR (African American) 99.5 ml/min; Est GFR (Non-African American) 85.9 ml/min; Potassium 4.5 mmol/L (3.5-5.1)
[2021-07-22] MEDS: SPIRONOLACTONE 25 MG TAB PO SCH (09:23)
[2021-07-22] MEDS: INSULIN ASPART 100 UNITS/ML 3 ML PEN SC SCH ×4 (09:26→21:05)
[2021-07-22] MEDS: traMADol HCL 50 MG TABLET PO PRN ×2 (09:45→21:58)
[2021-07-22 10:09] LABS: Folate (Folic Acid) 16.8 ng/ml (>5.38)
[2021-07-22 11:09] LABS: Albumin Level 2.8 gm/dl (3.4-5.0); Bilirubin Direct 0.1 mg/dl (0-0.2); Bilirubin,Total 0.4 mg/dl (0.2-1); Total Protein 7.1 gm/dl (6.4-8.2)
[2021-07-22] MEDS: POLYETHYLENE (MIRALAX) 17 GM PACK PO SCH (11:19)
[2021-07-22] MEDS: NYSTATIN OINT 15 GM TUBE EXT SCH ×2 (11:19→21:14)
[2021-07-22] MEDS: tiZANidine HCL 4 MG TABLET PO PRN (12:25)
[2021-07-22] MEDS: cephALEXin 500 MG CAP PO SCH ×2 (12:25→21:58)
--- NOTE | 2021-07-22 16:40 | Hospitalist Progress Note ---
Date of Service July 22, 2021 Assessment & Plan (1) Myopathy: Plan: 60 y/o F w/ chronic low back pain 2/2 DJD and complex PMHx who presents w/ weakness/pain of all 4 extremities, worse on lower. Her presentation is most consistent w/ myopathy and she has elevated CK of 5749. Leg weakness with pain - considered recent fall/relative immobilization 3 days ago, alcoholic myopathy, medications. Electrolytes acceptable and TSH wnl. - NSS 200/hr in ER, stopped 07/21, previous echo w/ normal EF - B12 and folate levels normal - LDH, aldolase, and urine myoglobin pending - SSI instead of metformin - h/o ERIC pos in past - done for liver pathology. had no f/u with rheumatology. will follow. - pain control w/ PRN ibuprofen and PRN PO oxycodone 5mg q6h w/ caution against oversedation, tramadol held - PT/OT ordered, recomment inpt rehab -lyme negative -likely etiology lumbar radiculopathy. see below. (2) Weakness: Plan: Generalized weakness; may also be 2/2 UTI. - UTI treatment as below -PE demonstrates 5/5 strength UE, 3/5 in LE may be secondary to pain 07/21 -pain reduced 07/22 increased range of motion UE, increased mobility LE able to sit up and walk with assistance to comode -consulted pain management -consulted ortho for back pain (3) Transaminitis: Plan: AST elevated from 89->410 in 8 days. --> 192 downtrending In past, has had diagnosis of etoh hepatitis. ddx ast: nafld, etoh, drugs, viral, autoimmune - follow CMP (4) UTI (urinary tract infection): Plan: Acute complicated UTI given possible contribution to generalized weakness - will treat w/ daily Rocephin given 2 wks of urinary symptoms, dc'd 07/22 started cephalexin - culture demonstrates ecoli (5) Alcoholism: Plan: Denies use in 2 months. AST/ALT ratio noted as well as mild tremor on exam. Will not be ordering AWSS. (6) Low back pain: Plan: Chronic. Imaging consistent w/ multilevel DJD. Clinically, does not present w/ cord compression or saddle anesthesia. - pain control as above -consult ortho for back pain (7) Type 2 diabetes mellitus: Plan: Pharmacy consult placed. Held home PO meds especially w/ AST elevation. (8) COPD (chronic obstructive pulmonary disease): Plan: - albuterol PRN (9) HTN (hypertension): Plan: - continue home regimen (10) Anxiety: Plan: - continue home sertraline (11) Tobacco use: Plan: - will provide smoking cessation Plan: FEN/GI: DM2 diet. 200mL/hr NSS (4 bags ordered in ER) ppx: SQ Lovenox code: full dispo: med/surg covid neg, not immunized Admission and Anticipated Discharge Date Admission Date: July 21, 2021 Supervising Physician Co-Signing Physician Notes Resident Physician Supervision Note: I independently interviewed and examined the patient and verified the [place] history and physical, reviewed labs and image studies and agree with resident Dr. Alvarado findings and care plan. Subjective 60yo Female with PMH chronic low back pain, anxiety/depression, gout, COPD, hirsutism, alcohol use disorder here for 6 month back pain UE/LE weakness that worsened over the last 2 wks. Patient seen at bedside, states she feels better compared to yesterday. Patient states she can move her hands above her head now, and straighten her legs without pain, the pain is now mainly in her hip. Patient states she was also able to sit upright on her own. She states she would like to sit up in a chair. She would also like muscle relaxant for her back, states she has been laying around for too long. Per patient she normally sits at home all day in chair. Denies history blood transfusion or IV drug use. She has previously had low B12/folate in the past, was placed on supplements, last checked last week was normal. Review of Systems Review of Systems: Positive back pain, hip discomfort Negative fever chills Negative headache dizziness Negative chest pain palpitations SOB Negative nausea vomitting diarrhea constipation Negative numbness tingling rash swelling Physical Exam Physical Exam: General: Well appearing, age appropriate Heart: RRR, +S1 S2, no murmurs/gallops/rubs Lungs: cta b/l, no wheezes/rales/rhonchi Abd: soft, dull ache in RUL and LLQ, ND, +BS Extremities: 5/5 strength b/l UE, 3/5 strength b/l LE no pain on passive movement of knee, no swelling, no rashes patient able to extend arms above her head (yesterday was up to shoulder), able to straighten out leg without wincing Skin: erythematous moist rash in groin crease and under breasts. sensation intact throughout Results & Data Results & Data ([facility]) Vital Signs (Past 12 Hours) Vital Signs Temp Pulse Resp BP Pulse Ox 07/21/21 23:06 36.5 C 85 18 123/79 95 Laboratory Results 07/22/21 07/22/21 07/22/21 Range/Units 12:08 10:26 10:26 WBC (4.8-10.8) K/uL RBC (4.2-5.4) M/uL Hgb (12.0-16.0) g/dL Hct (37-47) % MCV (80-100) fL MCH (25-34) pg MCHC (32-36) g/dL RDW Std Deviation (36.4-46.3) fL RDW Coeff of Eduardo (11.5-14.5) % Plt Count (130-400) K/uL MPV (7.4-10.4) fL Sodium (136-145) mmol/L Potassium (3.5-5.1) mmol/L Chloride (98-107) mmol/L Carbon Dioxide (21-32) mmol/L Anion Gap (3-11) BUN (7-18) mg/dl Creatinine (0.6-1.2) mg/dl Est Cr Clr Drug Dosing ml/min Est GFR ( Amer) ml/min Est GFR (Non-Af Amer) ml/min BUN/Creatinine Ratio (10-20) Glucose (70-99) mg/dl POC Glucose 137 H (70-99) mg/dl Calcium (8.5-10.1) mg/dl Total Bilirubin 0.4 (0.2-1) mg/dl Direct Bilirubin 0.1 (0-0.2) mg/dl AST 192 H (15-37) U/L ALT 130 H (12-78) U/L Alkaline Phosphatase 83 (45-117) U/L Total Creatine Kinase (26-192) U/L Total Protein 7.1 (6.4-8.2) gm/dl Albumin 2.8 L (3.4-5.0) gm/dl Vitamin B12 (193-986) pg/ml Folate (>5.38) ng/ml Acetaminophen < 2 L (10-30) ug/ml 07/22/21 07/22/21 07/22/21 Range/Units 08:27 07:44 07:38 WBC (4.8-10.8) K/uL RBC (4.2-5.4) M/uL Hgb (12.0-16.0) g/dL Hct (37-47) % MCV (80-100) fL MCH (25-34) pg MCHC (32-36) g/dL RDW Std Deviation (36.4-46.3) fL RDW Coeff of Eduardo (11.5-14.5) % Plt Count (130-400) K/uL MPV (7.4-10.4) fL Sodium 143 (136-145) mmol/L Potassium 4.5 (3.5-5.1) mmol/L Chloride 112 H (98-107) mmol/L Carbon Dioxide 23 (21-32) mmol/L Anion Gap 8.0 (3-11) BUN 10 D (7-18) mg/dl Creatinine 0.76 (0.6-1.2) mg/dl Est Cr Clr Drug Dosing 100.8 ml/min Est GFR ( Amer) 99.5 ml/min Est GFR (Non-Af Amer) 85.9 ml/min BUN/Creatinine Ratio 13.3 (10-20) Glucose 156 H (70-99) mg/dl POC Glucose 139 H (70-99) mg/dl Calcium 8.8 (8.5-10.1) mg/dl Total Bilirubin (0.2-1) mg/dl Direct Bilirubin (0-0.2) mg/dl AST (15-37) U/L ALT (12-78) U/L Alkaline Phosphatase (45-117) U/L Total Creatine Kinase (26-192) U/L Total Protein (6.4-8.2) gm/dl Albumin (3.4-5.0) gm/dl Vitamin B12 482 (193-986) pg/ml Folate 16.80 (>5.38) ng/ml Acetaminophen (10-30) ug/ml 09/23/21 09/22/21 09/22/21 Range/Units 07:38 20:54 07:29 WBC 4.98 (4.8-10.8) K/uL RBC 4.19 L (4.2-5.4) M/uL Hgb 13.7 (12.0-16.0) g/dL Hct 44.3 (37-47) % MCV 105.7 H (80-100) fL MCH 32.7 (25-34) pg MCHC 30.9 L (32-36) g/dL RDW Std Deviation 56.7 H (36.4-46.3) fL RDW Coeff of Eduardo 14.5 (11.5-14.5) % Plt Count 249 (130-400) K/uL MPV 10.3 (7.4-10.4) fL Sodium (136-145) mmol/L Potassium (3.5-5.1) mmol/L Chloride (98-107) mmol/L Carbon Dioxide (21-32) mmol/L Anion Gap (3-11) BUN (7-18) mg/dl Creatinine (0.6-1.2) mg/dl Est Cr Clr Drug Dosing ml/min Est GFR ( Amer) ml/min Est GFR (Non-Af Amer) ml/min BUN/Creatinine Ratio (10-20) Glucose (70-99) mg/dl POC Glucose 141 H (70-99) mg/dl Calcium (8.5-10.1) mg/dl Total Bilirubin (0.2-1) mg/dl Direct Bilirubin (0-0.2) mg/dl AST (15-37) U/L ALT (12-78) U/L Alkaline Phosphatase (45-117) U/L Total Creatine Kinase 4192 H (26-192) U/L Total Protein (6.4-8.2) gm/dl Albumin (3.4-5.0) gm/dl Vitamin B12 (193-986) pg/ml Folate (>5.38) ng/ml Acetaminophen (10-30) ug/ml Diagnostic Findings Impressions Cervical Spine MRI 07/20/21 15:19 MR OF THE CERVICAL SPINE WITHOUT IV CONTRAST INDICATION: MN ^^weakness Comparison: None available at the time of this dictation. TECHNIQUE: MRI of the cervical spine is performed utilizing various T1 and T2 sequences in the axial and sagittal planes. IV contrast was not administered for this examination. FINDINGS: Cervical spine: Vertebral body height and alignment are maintained throughout the cervical spine. The atlantodental articulation appears maintained. No destructive bony lesion is seen. Intervertebral discs: Mild diffuse changes of disc desiccation noted. Spinal cord: The cervical spinal cord is normal in morphology and signal intensity. C2-C3: Unremarkable. C3-C4: Small posterior disc bulge with narrowing of the spinal canal which slightly deforms the spinal cord, although the canal remains patent. No neural foraminal stenosis.. C4-C5: Mild left facet arthropathy resulting in mild neuroforaminal stenosis. No spinal stenosis. C5-C6: Moderate broad-based posterior disc bulge which contacts cord resulting in moderate canal stenosis. Mild left facet arthropathy. C6-C7: Small posterior disc bulge without impingement on the spinal and neural foraminal stenosis. C7-T1: Unremarkable. Soft tissues: The paraspinous and prevertebral soft tissues are normal in appearance. Brain parenchyma: Partially imaged brain parenchyma at the skull base is within normal limits. IMPRESSION: Multifocal disc disease with spinal canal narrowing most severe at C3-C4 and C5-C6. Posterior disc osteophytes contact the spinal cord, however the canal remains patent posteriorly and no cord edema is seen. Mild left neural foraminal stenosis as above. ACT 112: Negative or not required by law. Electronically signed by: Jon Saleh M.D. 07/21/2021 8:46 AM Chest X-Ray 07/20/21 15:19 XR chest 1V portable CLINICAL HISTORY: weakness COMPARISON STUDY: January 04, 2021 FINDINGS: No pneumothorax. No pleural effusion. No large infiltrates or consolidative lesions are seen. Mild reticular prominence of pulmonary interstitium is again seen within bilateral lower lungs, likely chronic and not significantly changed since prior. Cardiomediastinal silhouette is within normal limits in size. No significant pulmonary vascular congestion.. Osseous structures: unremarkable vertebral bodies are not well seen. IMPRESSION: 1. No acute pulmonary process. ACT 112: Negative or not required by law. The above report was generated using voice recognition software. It may contain grammatical, syntax or spelling errors. Electronically signed by: Michelle Luevano DO 07/20/2021 4:51 PM Lumbar Spine MRI 07/20/21 15:19 MR lumbar spine wo con CLINICAL HISTORY: weakness TECHNIQUE: Sagittal and axial T1, T2 and STIR images were obtained. COMPARISON STUDY: No previous studies for comparison. OBSERVATIONS: The vertebral bodies and posterior elements appear intact. There is no abnormal bony signal present to suggest a marrow replacement process. Evaluation is slightly limited due to motion artifact mostly affected lateral T2 fat-suppressed sequence. Vertebral body heights are maintained. Lumbar lordosis is preserved. Intervertebral disc spaces are narrowed with disc desiccation and posterior osteophytes mostly affecting lower lumbar region. Focal area of high T1 and T2 signal within S3 is not well seen on T2 fat- suppressed sequence due to motion artifact, could represent focal area of fat accumulation or hemangioma versus other etiology. L1-2: No disc protrusions or extrusions. No evidence of spinal canal or neural foraminal compromise. L2-3: No disc protrusions or extrusions. No evidence of spinal canal or neural foraminal compromise. L3-4: Intervertebral disc space narrowing and disc desiccation. Diffuse bulge of the disc is seen causing flattening of thecal sac. Hypertrophic changes of facet joints are demonstrated. Right neuroforamina is mildly narrowed. Left neuroforamina is patent. L4-5: Intervertebral disc space is slightly narrowed. Posterior osteophytes are seen. Left paracentral bulge of the disc is seen causing flattening of thecal sac. Hypertrophic changes of facet joints with fluid signal are demonstrated. Focal area of decreased T1 and T2 signal protrudes into the right neuroforamina might represent migrated extruded disc versus other etiology and causing severe neural foraminal stenosis. Left neuroforamina is patent at this level. L5-S1: Intervertebral disc space is preserved. Minimal right paracentral bulge of the disc is seen causing flattening of thecal sac. No significant central canal stenosis. Right neuroforamina is patent. Minimal narrowing of the left neuroforamina. The conus medullaris and cauda equina appear normal. IMPRESSION: 1. No acute fracture or dislocation. 2. 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 ACT 112: Negative or not required by law. The above report was generated using voice recognition software. It may contain grammatical, syntax or spelling errors. Electronically signed by: Michelle Luevano DO 07/21/2021 7:24 AM Thoracic Spine MRI 07/20/21 15:19 MRI OF THE THORACIC SPINE WITHOUT IV CONTRAST CLINICAL HISTORY: Generalized weakness. COMPARISON STUDY: Chest CT dated 01/04/21. TECHNIQUE: MRI of the thoracic spine is performed utilizing various T1 and T2- weighted sequences in the axial and sagittal planes. IV contrast was not administered for this examination. The examination is compromised by motion artifact. FINDINGS: Vertebral body height and alignment are maintained throughout the thoracic spine. Normal marrow signal intensity is preserved at the visualized bony structures. Some anterior osteophytes are seen throughout. The spinous processes appear intact. No destructive bony lesion is seen. There is mild degenerative disc desiccation. The disc spaces appear maintained. The thoracic spinal cord is normal in morphology and signal intensity. The conus medullaris terminates at the level of L1. There is no evidence of disc herniation or central canal stenosis. No high-grade neural foraminal narrowing is suggested throughout the thoracic spine. There is fatty atrophy of the paraspinous musculature. The paraspinous soft tissues are otherwise normal as imaged. The lung parenchyma is grossly unremarkable but not well evaluated by MRI. IMPRESSION: 1. Motion compromised examination. 2. There is no disc herniation, central canal stenosis, or neural foraminal narr owing seen throughout the thoracic spine. 3. No destructive bony process is seen. Dictated: 07/21/2021 8:43 AM Transcribed: 07/21/2021 8:52 AM [place] [id number] CONOR_Leida Electronically signed by: Asim Bertrand M.D. 07/21/2021 9:03 AM Liver Ultrasound 07/21/21 10:46 US liver CLINICAL HISTORY: Transaminitis in alcoholic pt COMPARISON STUDY: CT of the abdomen and pelvis January 04, 2021. Right upper quadrant ultrasound July 06, 2018. MRCP July 07, 2018. FINDINGS: The liver is echogenic. The liver is enlarged, measuring 23 cm in maximal dimension. There is no biliary ductal dilatation. The common bile duct measures 2 mm in caliber. There is minimal sludge versus small stones within the gallbladder. There is no evidence for acute cholecystitis. No right hydronephrosis is present. Pancreas body is normal. Head and tail are slightly obscured by overlying bowel gas. IMPRESSION: 1. Hepatic steatosis and hepatomegaly. No hepatic lesions identified. 2. No biliary ductal dilatation. 3. Tiny stones versus small amount of sludge within the gallbladder. No evidence for acute cholecystitis. ACT 112: Negative or not required by law. Electronically signed by: Eb Baer M.D. 07/21/2021 7:13 PM Medications Administered Current Inpatient Medications Albuterol (Albuterol Hfa 8 Gm Inhaler) 1 puffs INH Q4H PRN PRN Reason: shortness of breath or wheezing Stop: 08/20/21 02:30 Amlodipine Besylate (Amlodipine Besylate 5 Mg Tab) [facility] [place] Stop: 08/20/21 08:59 Last Admin: 07/22/21 09:05 Dose: 5 mg Documented by: Cephalexin HCl (Cephalexin 500 Mg Cap) 500 mg PO BID [facility]; Protocol Stop: 07/27/21 11:44 Last Admin: 07/22/21 12:25 Dose: 500 mg Documented by: Cyanocobalamin (Cyanocobalamin (Vitamin B-12) 100 Mcg Tablet) 100 mcg PO [facility] Stop: 08/21/21 08:59 Last Admin: 07/22/21 09:07 Dose: 100 mcg Documented by: Dextrose (Dextrose 50% 50 Ml Syringe) 25 - 50 ml IV UD PRN; Protocol PRN Reason: Hypoglycemia Protocol Stop: 08/20/21 02:59 Diclofenac Sodium (Diclofenac Sod 1% Gel 100 Gm Tube) 2 gm EXT QID PRN PRN Reason: Pain Stop: 08/20/21 02:30 Last Admin: 07/22/21 09:08 Dose: 2 gm Documented by: Enoxaparin Sodium (Enoxaparin Inj 40 Mg/0.4 Ml Syr) 40 mg SQ [facility] Stop: 08/20/21 08:59 Last Admin: 07/22/21 09:06 Dose: 40 mg Documented by: Folic Acid (Folic Acid 400 Mcg Tab) 400 mcg PO [facility] Stop: 08/21/21 08:59 Last Admin: 07/22/21 09:05 Dose: 400 mcg Documented by: Glucagon (Glucagon For Inj 1 Mg Vial) 1 mg IM UD PRN; Protocol PRN Reason: Hypoglycemia Protocol Stop: 08/20/21 02:59 Glucose (Glucose 40% Gel 15 Gm Tube) 15 - 30 gm PO UD PRN; Protocol PRN Reason: Hypoglycemia Protocol Stop: 08/20/21 02:59 Glucose (Glucose 10 Tabs/Tube) 4 - 8 tabs PO UD PRN; Protocol PRN Reason: Hypoglycemia Protocol Stop: 08/20/21 02:59 Ibuprofen (Ibuprofen 200 Mg Tab) 400 mg PO TID PRN PRN Reason: Pain Stop: 08/20/21 02:30 Last Admin: 07/21/21 19:18 Dose: 400 mg Documented by: Insulin Aspart (Insulin Aspart 100 Units/Ml 3 Ml Pen) 0 units SC ACHS [facility] Stop: 08/20/21 02:59 Last Admin: 07/22/21 13:59 Dose: 9 units Documented by: Lidocaine (Lidocaine 5% 1 Patch) 1 patch TD QAM [facility] Stop: 08/20/21 08:59 Last Admin: 07/22/21 09:07 Dose: Not Given Documented by: Lisinopril (Lisinopril 20 Mg Tab) 20 mg PO QAM [facility] Stop: 08/20/21 08:59 Last Admin: 07/22/21 09:05 Dose: 20 mg Documented by: Magnesium Oxide (Magnesium Oxide 400 Mg Tab) 800 mg PO TID [facility] Stop: 08/20/21 08:59 Last Admin: 07/22/21 13:57 Dose: 800 mg Documented by: Melatonin (Melatonin 3 Mg Tab) 6 mg PO HS PRN PRN Reason: Sleep Stop: 08/20/21 20:29 Last Admin: 07/21/21 22:13 Dose: 6 mg Documented by: Miscellaneous (Carbohydrates For Hypoglycemia ) 15 - 30 gm PO UD PRN PRN Reason: Hypoglycemia Treatment Stop: 08/20/21 02:59 Miscellaneous (Remove Lidoderm Patch) 1 ea N/A DAILY@2100 [facility] Stop: 08/20/21 20:59 Last Admin: 07/21/21 22:03 Dose: 1 ea Documented by: Nystatin (Nystatin Oint 15 Gm Tube) 1 appln EXT BID [facility] Stop: 08/21/21 08:59 Last Admin: 07/22/21 11:19 Dose: 1 appln Documented by: Polyethylene Glycol (Polyethylene (Miralax) 17 Gm Pack) 17 gm PO DAILY [facility] Stop: 08/21/21 10:59 Last Admin: 07/22/21 11:19 Dose: Not Given Documented by: Potassium Chloride (Potassium Chloride Crtab 20 Meq Tabcr) 20 meq PO UD [facility] Stop: 08/20/21 02:30 Pregabalin (Pregabalin 75 Mg Cap) 75 mg PO BID [facility] Stop: 08/21/21 08:59 Last Admin: 07/22/21 09:05 Dose: 75 mg Documented by: Sertraline HCl (Sertraline Hcl 100 Mg Tablet) 100 mg PO [facility] Stop: 08/20/21 08:59 Last Admin: 07/22/21 09:05 Dose: 100 mg Documented by: Spironolactone (Spironolactone 25 Mg Tab) 25 mg PO DAILY [facility] Stop: 08/20/21 08:59 Last Admin: 07/22/21 09:23 Dose: 25 mg Documented by: Thiamine HCl (Thiamine Hcl 100 Mg Tab) 100 mg PO QAM [facility] Stop: 08/20/21 08:59 Last Admin: 07/22/21 09:05 Dose: 100 mg Documented by: Tizanidine HCl (Tizanidine Hcl 4 Mg Tablet) 2 mg PO DAILY PRN PRN Reason: muscle spasm Stop: 08/21/21 11:24 Last Admin: 07/22/21 12:25 Dose: 2 mg Documented by: Tramadol HCl (Tramadol Hcl 50 Mg Tablet) 25 mg PO Q6H PRN PRN Reason: Severe Pain Stop: 08/20/21 09:29 Last Admin: 07/22/21 09:45 Dose: 25 mg Documented by: Resident Activity Tracking Resident Involvement: Resident Care Provided Care Provided: Adult Hospital Medicine (1) UTI (urinary tract infection) Hematuria presence: without hematuria Urinary tract infection type: site unspecified Qualified Code(s): N39.0 - Urinary tract infection, site not specified (2) Low back pain Back pain laterality: bilateral Chronicity: acute Sciatica presence: unspecified whether sciatica present Qualified Code(s): M54.5 - Low back pain (3) COPD (chronic obstructive pulmonary disease) COPD type: emphysema Emphysema type: unspecified Qualified Code(s): J43.9 - Emphysema, unspecified (4) HTN (hypertension) Hypertension type: essential hypertension Qualified Code(s): I10 - Essential (primary) hypertension
[2021-07-23 05:58] LABS: Codeine Urine NEGATIVE ng/mL (<50); Hydrocodone Urine NEGATIVE ng/mL (<50); Hydromor Urine NEGATIVE ng/mL (<50); Morphine Urine 2400 ng/mL (<50); Norhydrocodone Conf Ur NEGATIVE ng/mL (<50); Noroxycodone Urine 489 ng/mL (<50); Oxycodone Urine 115 ng/mL (<50); Oxymorph Urine 196 ng/mL (<50)
[2021-07-23 07:36] LABS: Hematocrit (blood only) 43.4 % (37-47); Hemoglobin 13.9 g/dL (12.0-16.0); Mean Corpuscular Hemoglobin 32.6 pg (25-34); Mean Corpuscular Volume 101.6 fL (80-100); Mean Platelet Volume 9.7 fL (7.4-10.4); Platelet Count 264 K/uL (130-400); RDW Coefficient of Variation 14.5 % (11.5-14.5); RDW Standard Deviation 53.6 fL (36.4-46.3); Red Blood Count 4.27 M/uL (4.2-5.4)
[2021-07-23 08:06] LABS: Albumin Level 2.8 gm/dl (3.4-5.0); BUN Creatinine Ratio 15.3 (10-20); Calcium 9.5 mg/dl (8.5-10.1); Creatinine Clr Calc Pharmacy 83.3 ml/min; Est GFR (Non-African American) 68.2 ml/min; Potassium 4.1 mmol/L (3.5-5.1)
[2021-07-23 08:09] LABS: Albumin Globulin Ratio 0.6 (0.9-2); Bilirubin,Total 0.3 mg/dl (0.2-1); Globulin 4.4 gm/dl (2.5-4.0); Total Protein 7.2 gm/dl (6.4-8.2)
--- NOTE | 2021-07-23 09:13 | Pain Management Consultation ---
Date of Consultation July 23, 2021 Assessment & Plan (1) Rhabdomyolysis: Rhabdomyolysis type: non-traumatic Qualified Code(s): M62.82 - Rhabdomyolysis (2) Low back pain: Back pain laterality: bilateral Chronicity: acute Sciatica presence: unspecified whether sciatica present Qualified Code(s): M54.5 - Low back pain (3) Weakness: (4) UTI (urinary tract infection): Hematuria presence: without hematuria Urinary tract infection type: site unspecified Qualified Code(s): N39.0 - Urinary tract infection, site not specified 1. Continue Tramadol 25mg x 6 hours. I did explain to the patient that I do not think pain medication is going to make any substantial difference to her pain. She did not find Percocet helpful last week. 2. I did increase the Tizanidine to 4mg daily. 3. Recommend PT/OT and discharge to rehab facility. 4. She denies any radicular symptoms and the weakness is diffuse, likely due to rhabdomyolysis. Epidural injection would not be efficacious. Could possibly consider lumbar facet vs medial branch blocks on an outpatient basis but her strength and walking distance would have to improve so that she would be able to get onto the procedure table. Thank you for the consultation. Please call with any questions or concerns. History of Present Illness Attending Physician: Tracee Devi MD History of Present Illness This is a 60 year old female that has been admitted for generalized weakness. She reportedly has had 7 falls over the past 4 months. The ambulance has been c alled multiple times to help get her up. Has been evaluated by [facility] and diagnosed with DDD and discharged to home with Percocet. Over the past several months she has went from using a cane to having difficulty with a walker. She is looking into getting a wheelchair to use around her house. She does report low back pain that is aggravated with standing and walking. Sitting and laying supine provides moderate pain relief. She denies any radicular symptoms. No bowel/bladder incontinence, saddle anesthesia, foot drop. The weakness in her arms has been improving as she is now able to lift her arms up above her head which she was not able to do several days ago. She is receiving Lidocaine patch, Tramadol 25mg x 6 hours and Tizanidine 2mg daily. There is progress being made to transfer to a rehab facility. Pain Assessment Full Body Front + Back: 1. Allergies Allergy/AdvReac Type Severity Reaction Status Date / Time morphine Allergy Hives Verified 07/21/21 03:51 Home Medications Medication Instructions Recorded Confirmed Type amlodipine 5 mg tablet 5 mg PO QAM #90 tab 09/21/20 07/20/21 Rx lisinopril 20 mg tablet 20 mg PO QAM 01/04/21 07/20/21 History sertraline 100 mg tablet 100 mg PO QAM 01/04/21 07/20/21 History glimepiride 2 mg tablet 4 mg PO HS #180 tab 01/13/21 07/20/21 Rx metformin 500 mg tablet,extended 1,000 mg PO BID tab 01/22/21 07/20/21 History release 24 hr nystatin 100,000 unit/gram topical 1 applic EXT BID #30 g 01/24/21 07/20/21 Rx powder (Nystop) thiamine HCl (vitamin B1) 100 mg 100 mg PO QAM #30 tab 01/24/21 07/20/21 Rx tablet (Vitamin B-1) albuterol sulfate 2.5 mg INHALATION Q6H PRN #90 ml 03/09/21 07/20/21 Rx magnesium oxide 800 mg PO TID #540 cap 03/09/21 07/20/21 Rx nebulizers #1 ea 03/09/21 07/20/21 Rx spironolactone 25 mg tablet 25 mg PO DAILY #90 tab 03/09/21 07/20/21 Rx loperamide 2 mg tablet (Imodium 2 mg PO Q6H PRN #120 tab 03/15/21 07/20/21 Rx A-D) albuterol sulfate 90 mcg/actuation See Rx Instructions INHALATION 07/06/21 07/20/21 Rx aerosol inhaler (Ventolin HFA) .COMPLEX PRN #18 g cholecalciferol (vitamin D3) 100 4,000 unit PO QAM #30 tab 07/12/21 07/20/21 Rx mcg (4,000 unit) tablet diclofenac sodium 1 % topical gel 2 g TOPICAL QID #100 g 07/12/21 07/20/21 Rx (Voltaren Arthritis Pain) cholecalciferol (vitamin D3) 1,250 50,000 unit PO .weekly #8 cap 07/13/21 07/20/21 Rx mcg (50,000 unit) capsule pregabalin 75 mg capsule 75 mg PO BID #60 cap 07/15/21 07/20/21 Rx ibuprofen 600 mg tablet 600 mg PO UD PRN 07/20/21 07/20/21 History oxycodone-acetaminophen 5 mg-325 1 tab PO Q6 PRN 07/20/21 07/20/21 History mg tablet potassium chloride 20 mEq 20 meq PO UD 07/20/21 07/20/21 History tablet,extended release(part/cryst) Pain History Previous Imaging and Results Labs: Total Creatine Kinase: 4192 Imaging: MR OF THE CERVICAL SPINE WITHOUT IV CONTRAST INDICATION: MN ^weakness Comparison: None available at the time of this dictation. TECHNIQUE: MRI of the cervical spine is performed utilizing various T1 and T2 sequences in the axial and sagittal planes. IV contrast was not administered for this examination. FINDINGS: Cervical spine: Vertebral body height and alignment are maintained throughout the cervical spine. The atlantodental articulation appears maintained. No d estructive bony lesion is seen. Intervertebral discs: Mild diffuse changes of disc desiccation noted. Spinal cord: The cervical spinal cord is normal in morphology and signal intensity. C2-C3: Unremarkable. C3-C4: Small posterior disc bulge with narrowing of the spinal canal which slightly deforms the spinal cord, although the canal remains patent. No neural foraminal stenosis.. C4-C5: Mild left facet arthropathy resulting in mild neuroforaminal stenosis. No spinal stenosis. C5-C6: Moderate broad-based posterior disc bulge which contacts cord resulting in moderate canal stenosis. Mild left facet arthropathy. C6-C7: Small posterior disc bulge without impingement on the spinal and neural foraminal stenosis. C7-T1: Unremarkable. Soft tissues: The paraspinous and prevertebral soft tissues are normal in appearance. Brain parenchyma: Partially imaged brain parenchyma at the skull base is within normal limits. IMPRESSION: Multifocal disc disease with spinal canal narrowing most severe at C3-C4 and C5-C6. Posterior disc osteophytes contact the spinal cord, however the canal remains patent posteriorly and no cord edema is seen. Mild left neural foraminal stenosis as above. ACT 112: Negative or not required by law. Electronically signed by: Jon Saleh M.D. 07/21/2021 8:46 AM MRI OF THE THORACIC SPINE WITHOUT IV CONTRAST CLINICAL HISTORY: Generalized weakness. COMPARISON STUDY: Chest CT dated 01/04/21. TECHNIQUE: MRI of the thoracic spine is performed utilizing various T1 and T2- weighted sequences in the axial and sagittal planes. IV contrast was not administered for this examination. The examination is compromised by motion artifact. FINDINGS: Vertebral body height and alignment are maintained throughout the thoracic spine. Normal marrow signal intensity is preserved at the visualized bony structures. Some anterior osteophytes are seen throughout. The spinous processes appear intact. No destructive bony lesion is seen. There is mild degenerative disc desiccation. The disc spaces appear maintained. The thoracic spinal cord is normal in morphology and signal intensity. The conus medullaris terminates at the level of L1. There is no evidence of disc herniation or central canal stenosis. No high-grade neural foraminal narrowing is suggested throughout the thoracic spine. There is fatty atrophy of the paraspinous musculature. The paraspinous soft tissues are otherwise normal as imaged. The lung parenchyma is grossly unremarkable but not well evaluated by MRI. IMPRESSION: 1. Motion compromised examination. 2. There is no disc herniation, central canal stenosis, or neural foraminal narrowing seen throughout the thoracic spine. 3. No destructive bony process is seen. Dictated: 07/21/2021 8:43 AM Transcribed: 07/21/2021 8:52 AM [place] [id number] CONOR_Leida Electronically signed by: Asim Bertrand M.D. 07/21/2021 9:03 AM MR lumbar spine wo con CLINICAL HISTORY: weakness TECHNIQUE: Sagittal and axial T1, T2 and STIR images were obtained. COMPARISON STUDY: No previous studies for comparison. OBSERVATIONS: The vertebral bodies and posterior elements appear intact. There is no abnormal bony signal present to suggest a marrow replacement process. Evaluation is slightly limited due to motion artifact mostly affected lateral T2 fat-suppressed sequence. Vertebral body heights are maintained. Lumbar lordosis is preserved. Intervertebral disc spaces are narrowed with disc desiccation and posterior osteophytes mostly affecting lower lumbar region. Focal area of high T1 and T2 signal within S3 is not well seen on T2 fat- suppressed sequence due to motion artifact, could represent focal area of fat accumulation or hemangioma versus other etiology. L1-2: No disc protrusions or extrusions. No evidence of spinal canal or neural foraminal compromise. L2-3: No disc protrusions or extrusions. No evidence of spinal canal or neural foraminal compromise. L3-4: Intervertebral disc space narrowing and disc desiccation. Diffuse bulge of the disc is seen causing flattening of thecal sac. Hypertrophic changes of facet joints are demonstrated. Right neuroforamina is mildly narrowed. Left neuroforamina is patent. L4-5: Intervertebral disc space is slightly narrowed. Posterior osteophytes are seen. Left paracentral bulge of the disc is seen causing flattening of thecal sac. Hypertrophic changes of facet joints with fluid signal are demonstrated. Focal area of decreased T1 and T2 signal protrudes into the right neuroforamina might represent migrated extruded disc versus other etiology and causing severe neural foraminal stenosis. Left neuroforamina is patent at this level. L5-S1: Intervertebral disc space is preserved. Minimal right paracentral bulge of the disc is seen causing flattening of thecal sac. No significant central canal stenosis. Right neuroforamina is patent. Minimal narrowing of the left neuroforamina. The conus medullaris and cauda equina appear normal. IMPRESSION: 1. No acute fracture or dislocation. 2. 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 ACT 112: Negative or not required by law. The above report was generated using voice recognition software. It may contain grammatical, syntax or spelling errors. Electronically signed by: Michelle Luevano DO 07/21/2021 7:24 AM Patient History Medical History Alcoholic hepatitis Alcoholism ERIC positive Anxiety B12 deficiency C. difficile diarrhea COPD (chronic obstructive pulmonary disease) Depression Elevated ferritin Fatty liver Gout Hirsutism HTN (hypertension) Non-sustained ventricular tachycardia Peripheral neuropathy Tobacco use Type 2 diabetes mellitus Type 2 diabetes mellitus with diabetic polyneuropathy Vitamin D deficiency Surgical History History of ankle surgery History of blepharoplasty UPPER LID WITH EXCESSIVE SKIN ONSET: [id number] DESCRIPTION: B/l eyes History of bunionectomy History of laparoscopy History of umbilical hernia repair Family History Mother , of myocardial infarction and complications of DM II Diabetes Myocardial infarction Father , motor vehicle accident MVA (motor vehicle accident) @ AGE 50 Grandmother (Maternal) Alzheimer disease Brother Diabetes Aunt Breast cancer maternal Uncle Myocardial infarction History of throat cancer Other No significant family history Denies family history of Colon cancer Ovarian cancer Prostate cancer Social History Smoking Status: Current every day smoker Tobacco Type: Cigarettes Age Started Using Tobacco: 16; packs per day: 0.5; Cigarettes Per Day: 1/2 pack; Second Hand Exposure: No; Hx Alcohol Use: Yes Alcohol type: hard liquor Alcohol Intake Frequency Comment: 2 large drinks per day Hx Substance Use: No Preferred Language: Danish Communication Ability: Effective Visual Impairment: No Limitations Hearing Ability: Normal Mushroom Packer Required: No Beliefs That Will Affect Care: None marital status: Single Current Living Situation: Alone Current Living Situation Comment: with two dogs current occupational status: employed 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 Appearing older than her stated age. HEAD/FACE: Normocephalic and atraumatic. EYES: No drainage or conjunctival injection. NECK: Full ROM without apparent pain. No swelling or masses noted. RESPIRATORY: Patient with unlabored breathing. No signs of respiratory distress. CHEST/AXILLA: Chest movement symmetrical. No deformities noted. BACK: Moves without difficulty. Moderate tenderness along the L5-S1 facet joints. No SI joint tenderness. Mild muscle spasm of the lower paravertebral musculature. SKIN: [place], warm and dry. No rash noted. MS/EXTREMITY: 5/5 strength of upper extremities. 3/5 hip flexion otherwise 4/5 strength of lower extremities. NEURO: Alert and appears oriented. Speech is fluent. Cranial Nerves are grossly intact. PSYCH: Alert, pleasant, affect is calm
[2021-07-23] MEDS: INSULIN ASPART 100 UNITS/ML 3 ML PEN SC SCH ×4 (09:34→21:29)
[2021-07-23] MEDS: POLYETHYLENE (MIRALAX) 17 GM PACK PO SCH (09:37)
[2021-07-23] MEDS: lisinopril 20 MG TAB PO SCH (09:37)
[2021-07-23] MEDS: THIAMINE HCL 100 MG TAB PO SCH (09:37)
[2021-07-23] MEDS: SERTRALINE HCL 100 MG TABLET PO SCH (09:38)
[2021-07-23] MEDS: MAGNESIUM OXIDE 400 MG TAB PO SCH ×3 (09:38→21:40)
[2021-07-23] MEDS: tiZANidine HCL 4 MG TABLET PO PRN ×2 (09:39→15:47)
[2021-07-23] MEDS: LIDOCAINE 5% 1 PATCH TD SCH (09:40)
[2021-07-23] MEDS: amLODIPine BESYLATE 5 MG TAB PO SCH (09:40)
[2021-07-23] MEDS: SPIRONOLACTONE 25 MG TAB PO SCH (09:41)
[2021-07-23] MEDS: PREGABALIN 75 MG CAP PO SCH ×2 (09:41→21:39)
[2021-07-23] MEDS: cephALEXin 500 MG CAP PO SCH ×2 (09:41→21:38)
[2021-07-23] MEDS: ENOXAPARIN INJ 40 MG/0.4 ML SYR SQ SCH (09:42)
[2021-07-23] MEDS: CYANOCOBALAMIN (VITAMIN B-12) 100 MCG TABLET PO SCH (09:42)
[2021-07-23] MEDS: FOLIC ACID 400 MCG TAB PO SCH (09:43)
[2021-07-23] MEDS: NYSTATIN OINT 15 GM TUBE EXT SCH ×2 (09:44→21:43)
[2021-07-23] MEDS: traMADol HCL 50 MG TABLET PO PRN ×3 (09:45→23:15)
--- NOTE | 2021-07-23 13:09 | Hospitalist Progress Note ---
Date of Service July 23, 2021 Assessment & Plan (1) Myopathy: Plan: 60 y/o F w/ chronic low back pain 2/2 DJD and complex PMHx who presents w/ weakness/pain of all 4 extremities, worse on lower. Her presentation is most consistent w/ myopathy and she has elevated CK of 5749. Leg weakness with pain - considered recent fall/relative immobilization 3 days ago, alcoholic myopathy, medications. Electrolytes acceptable and TSH wnl. - NSS 200/hr in ER, stopped 07/21, previous echo w/ normal EF - B12 and folate levels normal - LDH, aldolase, and urine myoglobin pending - h/o ERIC pos in past - done for liver pathology. had no f/u with rheumatology. will follow. -lyme negative -likely etiology lumbar radiculopathy. see below. -ortho consulted - no surgical intervention indicated. -pain management recommends increasing tizanidine to 4mg - pain control w/ PRN ibuprofen and PRN PO oxycodone 5mg q6h w/ caution against oversedation, tramadol held - PT/OT ordered, recommend inpt rehab (2) Weakness: Plan: Generalized weakness; may also be 2/2 UTI. - UTI treatment as below -PE demonstrates 5/5 strength UE, 3/5 in LE may be secondary to pain 07/21 -pain reduced 07/22 increased range of motion UE, increased mobility LE able to sit up and walk with assistance to comode -07/23 PE only hip weakness remains, pain on active movement (3) Transaminitis: Plan: AST elevated from 89->410 in 8 days. --> 192 downtrending In past, has had diagnosis of etoh hepatitis. likely contributing to persistent elevation. Follow CMP (4) UTI (urinary tract infection): Plan: Acute complicated UTI given possible contribution to generalized weakness - will treat w/ daily Rocephin given 2 wks of urinary symptoms, dc'd 07/22 started cephalexin - culture demonstrates ecoli (5) Alcoholism: Plan: Denies use in 2 months. AST/ALT ratio noted as well as mild tremor on exam. Will not be ordering AWSS. (6) Low back pain: Plan: Chronic. Imaging consistent w/ multilevel DJD. Clinically, does not present w/ cord compression or saddle anesthesia. - pain control as above -ortho consulted nothing to intervene (7) Type 2 diabetes mellitus: Plan: Pharmacy consult placed. Held home PO meds especially w/ AST elevation. (8) COPD (chronic obstructive pulmonary disease): Plan: - albuterol PRN (9) HTN (hypertension): Plan: - continue home regimen (10) Anxiety: Plan: - continue home sertraline (11) Tobacco use: Plan: - will provide smoking cessation Plan: FEN/GI: DM2 diet ppx: SQ Lovenox code: full dispo: med/surg covid neg, not immunized Admission and Anticipated Discharge Date Admission Date: July 21, 2021 Supervising Physician Co-Signing Physician Notes Resident Physician Supervision Note: I independently interviewed and examined the patient and verified the [place] history and physical, reviewed labs and image studies and agree with resident Dr. Alvarado findings and care plan. Subjective 60yo Female with PMH chronic low back pain, anxiety/depression, gout, COPD, hirsutism, alcohol use disorder here for 6 month back pain UE/LE weakness that worsened over the last 2 wks. Patient seen at bedside, says her arms are fine only complains of pain on outside of hip joint during active movement, still says she has trouble walking, no longer complains of muscle soreness. She wants to know how her CK is trending. She has been seen by pain management but is anxious to see ortho. She states she now has a chandler in. Review of Systems Review of Systems: Negative fever chills Negative headache dizziness Negative chest pain palpitations SOB Negative nausea vomitting diarrhea constipation Negative numbness tingling swelling Physical Exam Physical Exam: General: Well appearing, age appropriate Heart: RRR, +S1 S2, no murmurs/gallops/rubs Lungs: cta b/l, no wheezes/rales/rhonchi Abd: soft, NT/ND, +BS, rash erythema in groin crease and under breast Extremities: pain on active hip flexion, no pain on passive hip flexion, n opain palpation at hip joint, full ROM UE, 4/5 strenght b/l LE excluding hip. no swelling Results & Data Results & Data ([facility]) Vital Signs (Past 12 Hours) Vital Signs Temp Pulse Resp BP Pulse Ox 07/23/21 08:26 37.1 C 85 16 142/90 H 92 Laboratory Results 07/23/21 07/23/21 07/23/21 Range/Units 16:34 14:20 13:12 WBC (4.8-10.8) K/uL RBC (4.2-5.4) M/uL Hgb (12.0-16.0) g/dL Hct (37-47) % MCV (80-100) fL MCH (25-34) pg MCHC (32-36) g/dL RDW Std Deviation (36.4-46.3) fL RDW Coeff of Eduardo (11.5-14.5) % Plt Count (130-400) K/uL MPV (7.4-10.4) fL Sodium (136-145) mmol/L Potassium (3.5-5.1) mmol/L Chloride (98-107) mmol/L Carbon Dioxide (21-32) mmol/L Anion Gap (3-11) BUN (7-18) mg/dl Creatinine (0.6-1.2) mg/dl Est Cr Clr Drug Dosing ml/min Est GFR ( Amer) ml/min Est GFR (Non-Af Amer) ml/min BUN/Creatinine Ratio (10-20) Glucose (70-99) mg/dl POC Glucose 162 H (70-99) mg/dl Calcium (8.5-10.1) mg/dl Total Bilirubin (0.2-1) mg/dl AST (15-37) U/L ALT (12-78) U/L Alkaline Phosphatase (45-117) U/L Total Creatine Kinase 685 H (26-192) U/L Total Protein (6.4-8.2) gm/dl Albumin (3.4-5.0) gm/dl Globulin (2.5-4.0) gm/dl Albumin/Globulin Ratio (0.9-2) Specimen Hemolysis U Codeine Confrm GC/MS (<50) ng/mL Ur Morphine (GC/MS) (<50) ng/mL Ur Hydrocodone (GC/MS) (<50) ng/mL Ur Norhydrocodone (<50) ng/mL Ur Noroxycodone (<50) ng/mL Urine Oxycodone (GC/MS) (<50) ng/mL U Oxymorphone GC/MS (<50) ng/mL Ur Hydromorphone (GC/MS) (<50) ng/mL Drug Screen Comment 07/23/21 07/23/21 07/23/21 Range/Units 11:36 08:02 07:08 WBC (4.8-10.8) K/uL RBC (4.2-5.4) M/uL Hgb (12.0-16.0) g/dL Hct (37-47) % MCV (80-100) fL MCH (25-34) pg MCHC (32-36) g/dL RDW Std Deviation (36.4-46.3) fL RDW Coeff of Eduardo (11.5-14.5) % Plt Count (130-400) K/uL MPV (7.4-10.4) fL Sodium 139 (136-145) mmol/L Potassium 4.1 (3.5-5.1) mmol/L Chloride 108 H (98-107) mmol/L Carbon Dioxide 23 (21-32) mmol/L Anion Gap 8.0 (3-11) BUN 14 (7-18) mg/dl Creatinine 0.92 (0.6-1.2) mg/dl Est Cr Clr Drug Dosing 83.3 ml/min Est GFR ( Amer) 79.0 ml/min Est GFR (Non-Af Amer) 68.2 ml/min BUN/Creatinine Ratio 15.3 (10-20) Glucose 142 H (70-99) mg/dl POC Glucose 127 H 153 H (70-99) mg/dl Calcium 9.5 (8.5-10.1) mg/dl Total Bilirubin 0.3 (0.2-1) mg/dl AST 122 H (15-37) U/L ALT 107 H (12-78) U/L Alkaline Phosphatase 83 (45-117) U/L Total Creatine Kinase (26-192) U/L Total Protein 7.2 (6.4-8.2) gm/dl Albumin 2.8 L (3.4-5.0) gm/dl Globulin 4.4 H (2.5-4.0) gm/dl Albumin/Globulin Ratio 0.6 L (0.9-2) Specimen Hemolysis U Codeine Confrm GC/MS (<50) ng/mL Ur Morphine (GC/MS) (<50) ng/mL Ur Hydrocodone (GC/MS) (<50) ng/mL Ur Norhydrocodone (<50) ng/mL Ur Noroxycodone (<50) ng/mL Urine Oxycodone (GC/MS) (<50) ng/mL U Oxymorphone GC/MS (<50) ng/mL Ur Hydromorphone (GC/MS) (<50) ng/mL Drug Screen Comment 07/23/21 07/22/21 07/20/21 Range/Units 07:08 20:35 19:50 WBC 5.30 (4.8-10.8) K/uL RBC 4.27 (4.2-5.4) M/uL Hgb 13.9 (12.0-16.0) g/dL Hct 43.4 (37-47) % MCV 101.6 H (80-100) fL MCH 32.6 (25-34) pg MCHC 32.0 (32-36) g/dL RDW Std Deviation 53.6 H (36.4-46.3) fL RDW Coeff of Eduardo 14.5 (11.5-14.5) % Plt Count 264 (130-400) K/uL MPV 9.7 (7.4-10.4) fL Sodium (136-145) mmol/L Potassium (3.5-5.1) mmol/L Chloride (98-107) mmol/L Carbon Dioxide (21-32) mmol/L Anion Gap (3-11) BUN (7-18) mg/dl Creatinine (0.6-1.2) mg/dl Est Cr Clr Drug Dosing ml/min Est GFR ( Amer) ml/min Est GFR (Non-Af Amer) ml/min BUN/Creatinine Ratio (10-20) Glucose (70-99) mg/dl POC Glucose 143 H (70-99) mg/dl Calcium (8.5-10.1) mg/dl Total Bilirubin (0.2-1) mg/dl AST (15-37) U/L ALT (12-78) U/L Alkaline Phosphatase (45-117) U/L Total Creatine Kinase (26-192) U/L Total Protein (6.4-8.2) gm/dl Albumin (3.4-5.0) gm/dl Globulin (2.5-4.0) gm/dl Albumin/Globulin Ratio (0.9-2) Specimen Hemolysis U Codeine Confrm GC/MS NEGATIVE (<50) ng/mL Ur Morphine (GC/MS) 2400 H (<50) ng/mL Ur Hydrocodone (GC/MS) NEGATIVE (<50) ng/mL Ur Norhydrocodone NEGATIVE (<50) ng/mL Ur Noroxycodone 489 H (<50) ng/mL Urine Oxycodone (GC/MS) 115 H (<50) ng/mL U Oxymorphone GC/MS 196 H (<50) ng/mL Ur Hydromorphone (GC/MS) NEGATIVE (<50) ng/mL Drug Screen Comment SEE NOTE Medications Administered Current Inpatient Medications Albuterol (Albuterol Hfa 8 Gm Inhaler) 1 puffs INH Q4H PRN PRN Reason: shortness of breath or wheezing Stop: 08/20/21 02:30 Amlodipine Besylate (Amlodipine Besylate 5 Mg Tab) [facility] Stop: 08/20/21 08:59 Last Admin: 07/23/21 09:40 Dose: 5 mg Documented by: Cephalexin HCl (Cephalexin 500 Mg Cap) 500 mg PO BID [facility]; Protocol Stop: 07/27/21 11:44 Last Admin: 07/23/21 09:41 Dose: 500 mg Documented by: Cyanocobalamin (Cyanocobalamin (Vitamin B-12) 100 Mcg Tablet) 100 [facility] [place] Stop: 08/21/21 08:59 Last Admin: 07/23/21 09:42 Dose: 100 mcg Documented by: Dextrose (Dextrose 50% 50 Ml Syringe) 25 - 50 ml IV UD PRN; Protocol PRN Reason: Hypoglycemia Protocol Stop: 08/20/21 02:59 Diclofenac Sodium (Diclofenac Sod 1% Gel 100 Gm Tube) 2 gm EXT QID PRN PRN Reason: Pain Stop: 08/20/21 02:30 Last Admin: 07/22/21 09:08 Dose: 2 gm Documented by: Enoxaparin Sodium (Enoxaparin Inj 40 Mg/0.4 Ml Syr) 40 mg SQ QAM [facility] Stop: 08/20/21 08:59 Last Admin: 07/23/21 09:42 Dose: 40 mg Documented by: Folic Acid (Folic Acid 400 Mcg Tab) 400 mcg PO QAM [facility] Stop: 08/21/21 08:59 Last Admin: 07/23/21 09:43 Dose: 400 mcg Documented by: Glucagon (Glucagon For Inj 1 Mg Vial) 1 mg IM UD PRN; Protocol PRN Reason: Hypoglycemia Protocol Stop: 08/20/21 02:59 Glucose (Glucose 40% Gel 15 Gm Tube) 15 - 30 gm PO UD PRN; Protocol PRN Reason: Hypoglycemia Protocol Stop: 08/20/21 02:59 Glucose (Glucose 10 Tabs/Tube) 4 - 8 tabs PO UD PRN; Protocol PRN Reason: Hypoglycemia Protocol Stop: 08/20/21 02:59 Ibuprofen (Ibuprofen 200 Mg Tab) 400 mg PO TID PRN PRN Reason: Pain Stop: 08/20/21 02:30 Last Admin: 07/21/21 19:18 Dose: 400 mg Documented by: Insulin Aspart (Insulin Aspart 100 Units/Ml 3 Ml Pen) 0 units SC ACHS [facility] Stop: 08/20/21 02:59 Last Admin: 07/23/21 18:09 Dose: 9 units Documented by: Lidocaine (Lidocaine 5% 1 Patch) [facility] [place] Stop: 08/20/21 08:59 Last Admin: 07/23/21 09:40 Dose: Not Given Documented by: Lisinopril (Lisinopril 20 Mg Tab) 20 mg PO QAM [facility] Stop: 08/20/21 08:59 Last Admin: 07/23/21 09:37 Dose: 20 mg Documented by: Magnesium Oxide (Magnesium Oxide 400 Mg Tab) 800 mg PO TID [facility] Stop: 08/20/21 08:59 Last Admin: 07/23/21 13:46 Dose: Not Given Documented by: Melatonin (Melatonin 3 Mg Tab) 6 mg PO HS PRN PRN Reason: Sleep Stop: 08/20/21 20:29 Last Admin: 07/21/21 22:13 Dose: 6 mg Documented by: Miscellaneous (Carbohydrates For Hypoglycemia ) 15 - 30 gm PO UD PRN PRN Reason: Hypoglycemia Treatment Stop: 08/20/21 02:59 Miscellaneous (Remove Lidoderm Patch) 1 ea N/A DAILY@2100 [facility] Stop: 08/20/21 20:59 Last Admin: 07/22/21 21:14 Dose: Not Given Documented by: Nystatin (Nystatin Oint 15 Gm Tube) 1 appln EXT BID [facility] Stop: 08/21/21 08:59 Last Admin: 07/23/21 09:44 Dose: 1 appln Documented by: Polyethylene Glycol (Polyethylene (Miralax) 17 Gm Pack) 17 gm PO DAILY [facility] Stop: 08/21/21 10:59 Last Admin: 07/23/21 09:37 Dose: Not Given Documented by: Potassium Chloride (Potassium Chloride Crtab 20 Meq Tabcr) 20 meq PO UD [facility] Stop: 08/20/21 02:30 Pregabalin (Pregabalin 75 Mg Cap) 75 mg PO BID [facility] Stop: 08/21/21 08:59 Last Admin: 07/23/21 09:41 Dose: 75 mg Documented by: Sertraline HCl (Sertraline Hcl 100 Mg Tablet) 100 mg PO QAM [facility] Stop: 08/20/21 08:59 Last Admin: 07/23/21 09:38 Dose: 100 mg Documented by: Spironolactone (Spironolactone 25 Mg Tab) 25 mg PO DAILY [facility] Stop: 08/20/21 08:59 Last Admin: 07/23/21 09:41 Dose: 25 mg Documented by: Thiamine HCl (Thiamine Hcl 100 Mg Tab) 100 mg PO QAM [facility] Stop: 08/20/21 08:59 Last Admin: 07/23/21 09:37 Dose: 100 mg Documented by: Tizanidine HCl (Tizanidine Hcl 4 Mg Tablet) 4 mg PO DAILY PRN PRN Reason: muscle spasm Stop: 08/21/21 11:24 Last Admin: 07/23/21 15:47 Dose: 4 mg Documented by: Tramadol HCl (Tramadol Hcl 50 Mg Tablet) 25 mg PO Q6H PRN PRN Reason: Severe Pain Stop: 08/20/21 09:29 Last Admin: 07/23/21 16:31 Dose: 25 mg Documented by: Resident Activity Tracking Resident Involvement: Resident Care Provided Care Provided: Adult Hospital Medicine (1) UTI (urinary tract infection) Hematuria presence: without hematuria Urinary tract infection type: site unspecified Qualified Code(s): N39.0 - Urinary tract infection, site not specified (2) Low back pain Back pain laterality: bilateral Chronicity: acute Sciatica presence: unspecified whether sciatica present Qualified Code(s): M54.5 - Low back pain (3) COPD (chronic obstructive pulmonary disease) COPD type: emphysema Emphysema type: unspecified Qualified Code(s): J43.9 - Emphysema, unspecified (4) HTN (hypertension) Hypertension type: essential hypertension Qualified Code(s): I10 - Essential (primary) hypertension
[2021-07-23 15:17] LABS: Creatine Kinase 685 U/L (26-192)
[2021-07-23] MEDS: IBUPROFEN 200 MG TAB PO PRN (21:49)
[2021-07-24] MEDS: traMADol HCL 50 MG TABLET PO PRN ×3 (05:26→18:35)
[2021-07-24] MEDS: ENOXAPARIN INJ 40 MG/0.4 ML SYR SQ SCH (08:43)
[2021-07-24] MEDS: tiZANidine HCL 4 MG TABLET PO PRN (08:44)
[2021-07-24] MEDS: amLODIPine BESYLATE 5 MG TAB PO SCH (08:44)
[2021-07-24] MEDS: FOLIC ACID 400 MCG TAB PO SCH (08:44)
[2021-07-24] MEDS: lisinopril 20 MG TAB PO SCH (08:44)
[2021-07-24] MEDS: cephALEXin 500 MG CAP PO SCH ×2 (08:44→21:27)
[2021-07-24] MEDS: SPIRONOLACTONE 25 MG TAB PO SCH (08:44)
[2021-07-24] MEDS: POLYETHYLENE (MIRALAX) 17 GM PACK PO SCH (08:45)
[2021-07-24] MEDS: CYANOCOBALAMIN (VITAMIN B-12) 100 MCG TABLET PO SCH (08:45)
[2021-07-24] MEDS: THIAMINE HCL 100 MG TAB PO SCH (08:45)
[2021-07-24] MEDS: SERTRALINE HCL 100 MG TABLET PO SCH (08:45)
[2021-07-24] MEDS: NYSTATIN OINT 15 GM TUBE EXT SCH ×2 (08:45→21:28)
[2021-07-24] MEDS: MAGNESIUM OXIDE 400 MG TAB PO SCH ×3 (08:45→21:28)
[2021-07-24] MEDS: LIDOCAINE 5% 1 PATCH TD SCH (08:45)
[2021-07-24] MEDS: PREGABALIN 75 MG CAP PO SCH ×2 (09:34→21:28)
[2021-07-24] MEDS: INSULIN ASPART 100 UNITS/ML 3 ML PEN SC SCH ×4 (09:53→23:00)
[2021-07-24 09:59] LABS: Hematocrit (blood only) 42.4 % (37-47); Hemoglobin 13.6 g/dL (12.0-16.0); Mean Corpuscular Hemoglobin 32.4 pg (25-34); Mean Corpuscular Hgb Conc 32.1 g/dL (32-36); Mean Platelet Volume 9.7 fL (7.4-10.4); Platelet Count 274 K/uL (130-400); RDW Coefficient of Variation 14.5 % (11.5-14.5); RDW Standard Deviation 53.4 fL (36.4-46.3); White Blood Count 7.24 K/uL (4.8-10.8)
[2021-07-24 10:35] LABS: BUN Creatinine Ratio 21.1 (10-20); Calcium 9.1 mg/dl (8.5-10.1); Creatinine Clr Calc Pharmacy 79.9 ml/min; Est GFR (Non-African American) 65.6 ml/min; Potassium 4.4 mmol/L (3.5-5.1)
[2021-07-24 11:32] LABS: Magnesium 1.6 mg/dl (1.8-2.4)
[2021-07-24] MEDS ORDERED: ACETAMINOPHEN 500 MG TAB PO PRN (11:42)
[2021-07-24] MEDS: DICLOFENAC SOD 1% GEL 100 GM TUBE EXT PRN ×2 (12:53→18:37)
--- NOTE | 2021-07-24 14:13 | Hospitalist Progress Note ---
Date of Service July 24, 2021 Assessment & Plan (1) Myopathy: Plan: (1) Myopathy: 60 y/o F w/ chronic low back pain 2/2 DJD and complex PMHx who presents w/ weakness/pain of all 4 extremities, worse on lower. Her presentation is most consistent w/ myopathy and she has elevated CK of 5749. Leg weakness with pain - considered recent fall/relative immobilization 3 days ago, alcoholic myopathy, medications. Electrolytes acceptable and TSH wnl. - NSS 200/hr in ER, stopped 07/21, previous echo w/ normal EF - B12 and folate levels normal - LDH, aldolase, and urine myoglobin pending - h/o ERIC pos in past - done for liver pathology. had no f/u with rheumatology. will follow. -lyme negative -likely etiology lumbar radiculopathy. see below. -ortho consulted - no surgical intervention indicated. -pain management recommends increasing tizanidine to 4mg - pain control w/ PRN ibuprofen, tylenol and PRN tramadol - PT/OT ordered, recommend inpt rehab -per case management currently awaiting placement (3) Transaminitis: AST elevated from 89->410 in 8 days. --> 192 downtrending In past, has had diagnosis of etoh hepatitis. likely contributing to persistent elevation. Follow CMP (4) UTI (urinary tract infection): Acute complicated UTI given possible contribution to generalized weakness - will treat w/ daily Rocephin given 2 wks of urinary symptoms, dc'd 07/22 started cephalexin - culture demonstrates ecoli (5) Alcoholism: Denies use in 2 months. AST/ALT ratio noted as well as mild tremor on exam. Will not be ordering AWSS. (6) Low back pain: Chronic. Imaging consistent w/ multilevel DJD. Clinically, does not present w/ cord compression or saddle anesthesia. - pain control as above -ortho consulted nothing to intervene (7) Type 2 diabetes mellitus: Pharmacy consult placed. Held home PO meds especially w/ AST elevation. On Novolog (8) COPD (chronic obstructive pulmonary disease): - albuterol PRN (9) HTN (hypertension): - continue home regimen (10) Anxiety: - continue home sertraline (11) Tobacco use: - will provide smoking cessation FEN/GI: DM2 diet ppx: SQ Lovenox code: full dispo: med/surg covid neg, not immunized (2) Weakness: (3) Transaminitis: (4) UTI (urinary tract infection): (5) Alcoholism: (6) Low back pain: (7) Type 2 diabetes mellitus: (8) COPD (chronic obstructive pulmonary disease): (9) HTN (hypertension): (10) Anxiety: (11) Tobacco use: Admission and Anticipated Discharge Date Admission Date: July 21, 2021 Supervising Physician Co-Signing Physician Notes Resident Physician Supervision Note: I independently interviewed and examined the patient and verified the [place] history and physical, reviewed labs and image studies and agree with resident Dr. Alvarado findings and care plan. Subjective 60yo Female with PMH chronic low back pain, anxiety/depression, gout, COPD, hirsutism, alcohol use disorder here for 6 month back pain UE/LE weakness that worsened over the last 2 wks. Patient seen at bedside, states she is complying with physical therapy and doing exercises in bed, states she can get out of bed and walk onto scale unassisted with some difficulty. States she has muscle pain after exercise and would like an increase in pain medication for her pain, patient agreed to try tylenol for post exercise pain. Patient understands we are awaiting placement for physical therapy. Patient had questions about if ortho would do anything for her back or b/l ankle pain, was informed that there would be no surgical intervention while in the hospital, patient agreed to try voltaren gel for ankle pain, understands her ankle pain may be part arthritis and part deconditioning. Patient states the tizandine is working well, gabapentin has never worked for her. Patient would like to know if she needs home anticoagulation. Review of Systems Review of Systems: Positive back pain, b/l ankle pain Negative fever chills Negative headache dizziness Negative chest pain palpitations SOB Negative nausea vomitting diarrhea constipation Negative numbness tingling swelling Physical Exam Physical Exam: General: Well appearing, age appropriate Heart: RRR, +S1 S2, no murmurs/gallops/rubs Lungs: cta b/l, no wheezes/rales/rhonchi Abd: soft, NT/ND, +BS, rash erythema in groin crease and under breast Extremities: pain on active hip flexion, no pain on passive hip flexion, no pain palpation at hip joint, full ROM UE, 4/5 strenght b/l LE excluding hip. no swelling. Pain on active movement of ankles Musculoskeletal: -07/21 PE demonstrates 5/5 strength UE, 3/5 in LE may be secondary to pain -07/22 pain reduced, increased range of motion UE, increased mobility LE able to sit up and walk with assistance to comode -07/23 PE only hip weakness remains, pain on active movement -07/24 patient doing physical therapy exercises, can stand and walk few steps with some difficulty Results & Data Results & Data ([facility]) Vital Signs (Past 12 Hours) Vital Signs Temp Pulse Resp BP Pulse Ox 07/24/21 08:36 36.8 C 63 20 116/79 93 Laboratory Results 07/24/21 07/24/21 07/24/21 Range/Units 12:52 09:42 09:42 WBC 7.24 (4.8-10.8) K/uL RBC 4.20 (4.2-5.4) M/uL Hgb 13.6 (12.0-16.0) g/dL Hct 42.4 (37-47) % MCV 101.0 H (80-100) fL MCH 32.4 (25-34) pg MCHC 32.1 (32-36) g/dL RDW Std Deviation 53.4 H (36.4-46.3) fL RDW Coeff of Eduardo 14.5 (11.5-14.5) % Plt Count 274 (130-400) K/uL MPV 9.7 (7.4-10.4) fL Sodium 136 (136-145) mmol/L Potassium 4.4 (3.5-5.1) mmol/L Chloride 105 (98-107) mmol/L Carbon Dioxide 26 (21-32) mmol/L Anion Gap 5.0 (3-11) BUN 20 H (7-18) mg/dl Creatinine 0.95 (0.6-1.2) mg/dl Est Cr Clr Drug Dosing 79.9 ml/min Est GFR ( Amer) 76.0 ml/min Est GFR (Non-Af Amer) 65.6 ml/min BUN/Creatinine Ratio 21.1 H (10-20) Glucose 197 H (70-99) mg/dl POC Glucose 221 H (70-99) mg/dl Calcium 9.1 (8.5-10.1) mg/dl Magnesium 1.6 L (1.8-2.4) mg/dl Total Creatine Kinase (26-192) U/L Aldolase (< OR = 8.1) U/L Specimen Hemolysis Urine Myoglobin (<28) mcg/L 07/24/21 07/23/21 07/23/21 Range/Units 08:35 20:38 16:34 WBC (4.8-10.8) K/uL RBC (4.2-5.4) M/uL Hgb (12.0-16.0) g/dL Hct (37-47) % MCV (80-100) fL MCH (25-34) pg MCHC (32-36) g/dL RDW Std Deviation (36.4-46.3) fL RDW Coeff of Eduardo (11.5-14.5) % Plt Count (130-400) K/uL MPV (7.4-10.4) fL Sodium (136-145) mmol/L Potassium (3.5-5.1) mmol/L Chloride (98-107) mmol/L Carbon Dioxide (21-32) mmol/L Anion Gap (3-11) BUN (7-18) mg/dl Creatinine (0.6-1.2) mg/dl Est Cr Clr Drug Dosing ml/min Est GFR ( Amer) ml/min Est GFR (Non-Af Amer) ml/min BUN/Creatinine Ratio (10-20) Glucose (70-99) mg/dl POC Glucose 152 H 190 H 162 H (70-99) mg/dl Calcium (8.5-10.1) mg/dl Magnesium (1.8-2.4) mg/dl Total Creatine Kinase (26-192) U/L Aldolase (< OR = 8.1) U/L Specimen Hemolysis Urine Myoglobin (<28) mcg/L 07/23/21 07/21/21 07/20/21 Range/Units 14:20 07:29 19:50 WBC (4.8-10.8) K/uL RBC (4.2-5.4) M/uL Hgb (12.0-16.0) g/dL Hct (37-47) % MCV (80-100) fL MCH (25-34) pg MCHC (32-36) g/dL RDW Std Deviation (36.4-46.3) fL RDW Coeff of Eduardo (11.5-14.5) % Plt Count (130-400) K/uL MPV (7.4-10.4) fL Sodium (136-145) mmol/L Potassium (3.5-5.1) mmol/L Chloride (98-107) mmol/L Carbon Dioxide (21-32) mmol/L Anion Gap (3-11) BUN (7-18) mg/dl Creatinine (0.6-1.2) mg/dl Est Cr Clr Drug Dosing ml/min Est GFR ( Amer) ml/min Est GFR (Non-Af Amer) ml/min BUN/Creatinine Ratio (10-20) Glucose (70-99) mg/dl POC Glucose (70-99) mg/dl Calcium (8.5-10.1) mg/dl Magnesium (1.8-2.4) mg/dl Total Creatine Kinase 685 H (26-192) U/L Aldolase 47.6 H (< OR = 8.1) U/L Specimen Hemolysis Urine Myoglobin Cancelled 6660 H (<28) mcg/L Medications Administered Current Inpatient Medications Acetaminophen (Acetaminophen 500 Mg Tab) 500 mg PO BID PRN PRN Reason: pain Stop: 08/23/21 11:41 Albuterol (Albuterol Hfa 8 Gm Inhaler) 1 puffs INH Q4H PRN PRN Reason: shortness of breath or wheezing Stop: 08/20/21 02:30 Amlodipine Besylate (Amlodipine Besylate 5 Mg Tab) 5 mg PO QAM [facility] Stop: 08/20/21 08:59 Last Admin: 07/24/21 08:44 Dose: 5 mg Documented by: Cephalexin HCl (Cephalexin 500 Mg Cap) 500 mg PO BID [facility]; Protocol Stop: 07/27/21 11:44 Last Admin: 07/24/21 08:44 Dose: 500 mg Documented by: Cyanocobalamin (Cyanocobalamin (Vitamin B-12) 100 Mcg Tablet) 100 mcg PO QAM [facility] Stop: 08/21/21 08:59 Last Admin: 07/24/21 08:45 Dose: 100 mcg Documented by: Dextrose (Dextrose 50% 50 Ml Syringe) 25 - 50 ml IV UD PRN; Protocol PRN Reason: Hypoglycemia Protocol Stop: 08/20/21 02:59 Diclofenac Sodium (Diclofenac Sod 1% Gel 100 Gm Tube) 2 gm EXT QID PRN PRN Reason: Pain Stop: 08/20/21 02:30 Last Admin: 07/24/21 12:53 Dose: 2 gm Documented by: Enoxaparin Sodium (Enoxaparin Inj 40 Mg/0.4 Ml Syr) 40 mg SQ [facility] Stop: 08/20/21 08:59 Last Admin: 07/24/21 08:43 Dose: 40 mg Documented by: Folic Acid (Folic Acid 400 Mcg Tab) 400 mcg PO [facility] Stop: 08/21/21 08:59 Last Admin: 07/24/21 08:44 Dose: 400 mcg Documented by: Glucagon (Glucagon For Inj 1 Mg Vial) 1 mg IM UD PRN; Protocol PRN Reason: Hypoglycemia Protocol Stop: 08/20/21 02:59 Glucose (Glucose 40% Gel 15 Gm Tube) 15 - 30 gm PO UD PRN; Protocol PRN Reason: Hypoglycemia Protocol Stop: 08/20/21 02:59 Glucose (Glucose 10 Tabs/Tube) 4 - 8 tabs PO UD PRN; Protocol PRN Reason: Hypoglycemia Protocol Stop: 08/20/21 02:59 Ibuprofen (Ibuprofen 200 Mg Tab) 400 mg PO TID PRN PRN Reason: Pain Stop: 08/20/21 02:30 Last Admin: 07/23/21 21:49 Dose: 400 mg Documented by: Insulin Aspart (Insulin Aspart 100 Units/Ml 3 Ml Pen) 0 units SC [facility] Stop: 08/20/21 02:59 Last Admin: 07/24/21 09:53 Dose: 9 units Documented by: Lidocaine (Lidocaine 5% 1 Patch) 1 patch TD [facility] Stop: 08/20/21 08:59 Last Admin: 07/24/21 08:45 Dose: Not Given Documented by: Lisinopril (Lisinopril 20 Mg Tab) 20 mg PO [facility] Stop: 08/20/21 08:59 Last Admin: 07/24/21 08:44 Dose: 20 mg Documented by: Magnesium Oxide (Magnesium Oxide 400 Mg Tab) 800 mg PO TID [facility] Stop: 08/20/21 08:59 Last Admin: 07/24/21 12:47 Dose: 800 mg Documented by: Melatonin (Melatonin 3 Mg Tab) 6 mg PO HS PRN PRN Reason: Sleep Stop: 08/20/21 20:29 Last Admin: 07/21/21 22:13 Dose: 6 mg Documented by: Miscellaneous (Carbohydrates For Hypoglycemia ) 15 - 30 gm PO UD PRN PRN Reason: Hypoglycemia Treatment Stop: 08/20/21 02:59 Miscellaneous (Remove Lidoderm Patch) 1 ea N/A DAILY@2100 [facility] Stop: 08/20/21 20:59 Last Admin: 07/23/21 21:33 Dose: Not Given Documented by: Nystatin (Nystatin Oint 15 Gm Tube) 1 appln EXT BID [facility] Stop: 08/21/21 08:59 Last Admin: 07/24/21 08:45 Dose: Not Given Documented by: Polyethylene Glycol (Polyethylene (Miralax) 17 Gm Pack) 17 gm PO DAILY [facility] Stop: 08/21/21 10:59 Last Admin: 07/24/21 08:45 Dose: Not Given Documented by: Potassium Chloride (Potassium Chloride Crtab 20 Meq Tabcr) 20 meq PO UD [facility] Stop: 08/20/21 02:30 Pregabalin (Pregabalin 75 Mg Cap) 75 mg PO BID [facility] Stop: 08/21/21 08:59 Last Admin: 07/24/21 09:34 Dose: 75 mg Documented by: Sertraline HCl (Sertraline Hcl 100 Mg Tablet) 100 mg PO QAM [facility] Stop: 08/20/21 08:59 Last Admin: 07/24/21 08:45 Dose: 100 mg Documented by: Spironolactone (Spironolactone 25 Mg Tab) 25 mg PO DAILY [facility] Stop: 08/20/21 08:59 Last Admin: 07/24/21 08:44 Dose: 25 mg Documented by: Thiamine HCl (Thiamine Hcl 100 Mg Tab) 100 mg PO QAM [facility] Stop: 08/20/21 08:59 Last Admin: 07/24/21 08:45 Dose: 100 mg Documented by: Tizanidine HCl (Tizanidine Hcl 4 Mg Tablet) 4 mg PO DAILY PRN PRN Reason: muscle spasm Stop: 08/21/21 11:24 Last Admin: 07/24/21 08:44 Dose: 4 mg Documented by: Tramadol HCl (Tramadol Hcl 50 Mg Tablet) 25 mg PO Q6H PRN PRN Reason: Severe Pain Stop: 08/20/21 09:29 Last Admin: 07/24/21 12:47 Dose: 25 mg Documented by: Resident Activity Tracking Resident Involvement: Resident Care Provided Care Provided: Adult Hospital Medicine (1) UTI (urinary tract infection) Hematuria presence: without hematuria Urinary tract infection type: site unspecified Qualified Code(s): N39.0 - Urinary tract infection, site not specified (2) Low back pain Back pain laterality: bilateral Chronicity: acute Sciatica presence: unspecified whether sciatica present Qualified Code(s): M54.5 - Low back pain (3) COPD (chronic obstructive pulmonary disease) COPD type: emphysema Emphysema type: unspecified Qualified Code(s): J43.9 - Emphysema, unspecified (4) HTN (hypertension) Hypertension type: essential hypertension Qualified Code(s): I10 - Essential (primary) hypertension
[2021-07-25] MEDS: traMADol HCL 50 MG TABLET PO PRN ×4 (00:34→21:32)
[2021-07-25 08:17] LABS: Hematocrit (blood only) 42.9 % (37-47); Mean Corpuscular Hgb Conc 32.6 g/dL (32-36); Mean Corpuscular Volume 101.2 fL (80-100); Mean Platelet Volume 10.2 fL (7.4-10.4); Platelet Count 287 K/uL (130-400); RDW Coefficient of Variation 14.6 % (11.5-14.5); RDW Standard Deviation 54.6 fL (36.4-46.3); Red Blood Count 4.24 M/uL (4.2-5.4); White Blood Count 7.02 K/uL (4.8-10.8)
[2021-07-25] MEDS: tiZANidine HCL 4 MG TABLET PO PRN (08:48)
[2021-07-25] MEDS: FOLIC ACID 400 MCG TAB PO SCH (08:48)
[2021-07-25] MEDS: ENOXAPARIN INJ 40 MG/0.4 ML SYR SQ SCH (08:49)
[2021-07-25] MEDS: cephALEXin 500 MG CAP PO SCH (08:49)
[2021-07-25] MEDS: amLODIPine BESYLATE 5 MG TAB PO SCH (08:49)
[2021-07-25] MEDS: CYANOCOBALAMIN (VITAMIN B-12) 100 MCG TABLET PO SCH (08:49)
[2021-07-25] MEDS: MAGNESIUM OXIDE 400 MG TAB PO SCH ×3 (08:49→21:21)
[2021-07-25] MEDS: SERTRALINE HCL 100 MG TABLET PO SCH (08:49)
[2021-07-25] MEDS: lisinopril 20 MG TAB PO SCH (08:49)
[2021-07-25] MEDS: SPIRONOLACTONE 25 MG TAB PO SCH (08:49)
[2021-07-25] MEDS: THIAMINE HCL 100 MG TAB PO SCH (08:49)
[2021-07-25] MEDS: POLYETHYLENE (MIRALAX) 17 GM PACK PO SCH (08:50)
[2021-07-25] MEDS: LIDOCAINE 5% 1 PATCH TD SCH (08:50)
[2021-07-25] MEDS: NYSTATIN OINT 15 GM TUBE EXT SCH ×2 (08:50→21:23)
[2021-07-25 08:58] LABS: BUN Creatinine Ratio 24.9 (10-20); Creatinine Clr Calc Pharmacy 81.4 ml/min; Est GFR (Non-African American) 66.4 ml/min; Potassium 4.4 mmol/L (3.5-5.1)
[2021-07-25 09:00] LABS: Albumin Globulin Ratio 0.6 (0.9-2); Bilirubin,Total 0.4 mg/dl (0.2-1); Globulin 4.7 gm/dl (2.5-4.0); Total Protein 7.7 gm/dl (6.4-8.2)
[2021-07-25] MEDS: PREGABALIN 75 MG CAP PO SCH ×2 (09:11→21:21)
[2021-07-25] MEDS: INSULIN ASPART 100 UNITS/ML 3 ML PEN SC SCH ×4 (09:16→21:38)
--- NOTE | 2021-07-25 13:09 | Hospitalist Progress Note ---
Date of Service July 25, 2021 Assessment & Plan (1) Myopathy: Plan: (1) Myopathy: 60 y/o F w/ chronic low back pain 2/2 DJD and complex PMHx who presents w/ weakness/pain of all 4 extremities, worse on lower. Her presentation is most consistent w/ myopathy and she has elevated CK of 5749. Leg weakness with pain - considered recent fall/relative immobilization 3 days ago, alcoholic myopathy, medications. Electrolytes acceptable and TSH wnl. - NSS 200/hr in ER, stopped 07/21, previous echo w/ normal EF - B12 and folate levels normal - LDH, aldolase, and urine myoglobin pending - h/o ERIC pos in past - done for liver pathology. had no f/u with rheumatology. will follow. -lyme negative -likely etiology lumbar radiculopathy. see below. -ortho consulted - no surgical intervention indicated. -pain management - recommends increasing tizanidine to 4mg - pain control w/ PRN ibuprofen, tylenol and PRN tramadol - PT/OT ordered, recommend inpt rehab. Patient condition improving with exercise, myopathy resolved 07/23 -per case management currently awaiting placement, patient prefers [facility] (3) Transaminitis: AST elevated from 89->410 in 8 days. --> 53 downtrending In past, has had diagnosis of etoh hepatitis. likely contributing to persistent elevation. Follow CMP (4) UTI (urinary tract infection): Acute complicated UTI given possible contribution to generalized weakness - will treat w/ daily Rocephin given 2 wks of urinary symptoms, dc'd 07/22 s tarted cephalexin - d/eric 07/25 - culture demonstrates ecoli (5) Alcoholism: Denies use in 2 months. AST/ALT ratio noted as well as mild tremor on exam. Will not be ordering AWSS. (6) Low back pain: Chronic. Imaging consistent w/ multilevel DJD. Clinically, does not present w/ cord compression or saddle anesthesia. - pain control as above -ortho consulted nothing to intervene (7) Type 2 diabetes mellitus: Pharmacy consult placed. Held home PO meds especially w/ AST elevation. On Novolog (8) COPD (chronic obstructive pulmonary disease): - albuterol PRN (9) HTN (hypertension): - continue home regimen (10) Anxiety: - continue home sertraline (11) Tobacco use: - will provide smoking cessation FEN/GI: DM2 diet ppx: SQ Lovenox code: full PT/OT: following, recommend inpt rehab dispo: med/surg covid neg, not immunized (2) Weakness: (3) Transaminitis: (4) UTI (urinary tract infection): (5) Alcoholism: (6) Low back pain: (7) Type 2 diabetes mellitus: (8) COPD (chronic obstructive pulmonary disease): (9) HTN (hypertension): (10) Anxiety: (11) Tobacco use: Admission and Anticipated Discharge Date Admission Date: July 21, 2021 Supervising Physician Co-Signing Physician Notes Resident Physician Supervision Note: I independently interviewed and examined the patient and verified the [place] history and physical, reviewed labs and image studies and agree with resident Dr. Alvarado findings and care plan. Subjective 60yo Female with PMH chronic low back pain, anxiety/depression, gout, COPD, hirsutism, alcohol use disorder here for 6 month back pain UE/LE weakness that worsened over the last 2 wks. Patient seen at bedside, states she is still doing exercises in bed and using incentive spirometry, feels more confident walking around, would like catheter removed and try to use commode herself. Patient states the rash on her groin and under her breasts is much improved. Patient states she is currently trying to get a wheelchair at home due to her difficulty walking. Patient understands that her creatinine kinase is improving but would like to continue to monitor the trend downwards. Patient understands she does not need anticoagulation upon discharge due to sedentary lifestyle, and should continue to try to walk at home. Patient would also like to resume her vitamin D supplementation. Patient is eager to be off of isolation precaution tomorrow pending negative COVID test. Review of Systems Review of Systems: Positive back pain Negative fever chills Negative headache dizziness Negative chest pain palpitations SOB Negative nausea vomitting diarrhea constipation Negative numbness tingling swelling Physical Exam Physical Exam: General: Well appearing, age appropriate Heart: RRR, +S1 S2, no murmurs/gallops/rubs Lungs: cta b/l, no wheezes/rales/rhonchi Abd: soft, NT/ND, +BS, rash erythema resolved in groin crease and under breast Extremities: pain on active hip flexion, no pain on passive hip flexion, no pain palpation at hip joint, full ROM UE, 4/5 strenght b/l LE excluding hip. no swelling. Pain on active movement of ankles Musculoskeletal: -07/21 PE demonstrates 5/5 strength UE, 3/5 in LE may be secondary to pain -07/22 pain reduced, increased range of motion UE, increased mobility LE able to sit up and walk with assistance to comode -07/23 PE only hip weakness remains, pain on active movement -07/24 patient doing physical therapy exercises, can stand and walk few steps with some difficulty -07/25 patient doing physical therapy exercises and incentive spirometry, is comfortable walking to use commode Results & Data Results & Data ([facility]) Vital Signs (Past 12 Hours) Vital Signs Temp Pulse Resp BP Pulse Ox 07/25/21 08:43 36.9 C 74 18 128/83 94 07/25/21 06:28 36.8 C 76 18 121/80 92 Laboratory Results 07/25/21 07/25/21 07/25/21 Range/Units 12:55 08:41 07:36 WBC (4.8-10.8) K/uL RBC (4.2-5.4) M/uL Hgb (12.0-16.0) g/dL Hct (37-47) % MCV (80-100) fL MCH (25-34) pg MCHC (32-36) g/dL RDW Std Deviation (36.4-46.3) fL RDW Coeff of Eduardo (11.5-14.5) % Plt Count (130-400) K/uL MPV (7.4-10.4) fL Sodium 137 (136-145) mmol/L Potassium 4.4 (3.5-5.1) mmol/L Chloride 106 (98-107) mmol/L Carbon Dioxide 28 (21-32) mmol/L Anion Gap 3.0 (3-11) BUN 23 H (7-18) mg/dl Creatinine 0.94 (0.6-1.2) mg/dl Est Cr Clr Drug Dosing 81.4 ml/min Est GFR ( Amer) 77.0 ml/min Est GFR (Non-Af Amer) 66.4 ml/min BUN/Creatinine Ratio 24.9 H (10-20) Glucose 149 H (70-99) mg/dl POC Glucose 192 H 148 H (70-99) mg/dl Calcium 9.0 (8.5-10.1) mg/dl Total Bilirubin 0.4 (0.2-1) mg/dl AST 53 H (15-37) U/L ALT 71 (12-78) U/L Alkaline Phosphatase 91 (45-117) U/L Total Protein 7.7 (6.4-8.2) gm/dl Albumin 3.0 L (3.4-5.0) gm/dl Globulin 4.7 H (2.5-4.0) gm/dl Albumin/Globulin Ratio 0.6 L (0.9-2) 07/25/21 07/24/21 07/24/21 Range/Units 07:36 20:14 16:59 WBC 7.02 (4.8-10.8) K/uL RBC 4.24 (4.2-5.4) M/uL Hgb 14.0 (12.0-16.0) g/dL Hct 42.9 (37-47) % MCV 101.2 H (80-100) fL MCH 33.0 (25-34) pg MCHC 32.6 (32-36) g/dL RDW Std Deviation 54.6 H (36.4-46.3) fL RDW Coeff of Eduardo 14.6 H (11.5-14.5) % Plt Count 287 (130-400) K/uL MPV 10.2 (7.4-10.4) fL Sodium (136-145) mmol/L Potassium (3.5-5.1) mmol/L Chloride (98-107) mmol/L Carbon Dioxide (21-32) mmol/L Anion Gap (3-11) BUN (7-18) mg/dl Creatinine (0.6-1.2) mg/dl Est Cr Clr Drug Dosing ml/min Est GFR ( Amer) ml/min Est GFR (Non-Af Amer) ml/min BUN/Creatinine Ratio (10-20) Glucose (70-99) mg/dl POC Glucose 125 H 117 H (70-99) mg/dl Calcium (8.5-10.1) mg/dl Total Bilirubin (0.2-1) mg/dl AST (15-37) U/L ALT (12-78) U/L Alkaline Phosphatase (45-117) U/L Total Protein (6.4-8.2) gm/dl Albumin (3.4-5.0) gm/dl Globulin (2.5-4.0) gm/dl Albumin/Globulin Ratio (0.9-2) Medications Administered Current Inpatient Medications Acetaminophen (Acetaminophen 500 Mg Tab) 500 mg PO BID PRN PRN Reason: pain Stop: 08/23/21 11:41 Albuterol (Albuterol Hfa 8 Gm Inhaler) 1 puffs INH Q4H PRN PRN Reason: shortness of breath or wheezing Stop: 08/20/21 02:30 Amlodipine Besylate ([facility]odipine Besylate 5 Mg Tab) [facility]: 08/20/21 08:59 Last Admin: 07/25/21 08:49 Dose: 5 mg Documented by: Cephalexin HCl (Cephalexin 500 Mg Cap) 500 mg PO BID [facility]; Protocol Stop: 07/27/21 11:44 Last Admin: 07/25/21 08:49 Dose: 500 mg Documented by: Cyanocobalamin (Cyanocobalamin (Vitamin B-12) 100 Mcg Tablet) 100 mcg [facility] Stop: 08/21/21 08:59 Last Admin: 07/25/21 08:49 Dose: 100 mcg Documented by: Dextrose (Dextrose 50% 50 Ml Syringe) 25 - 50 ml IV UD PRN; Protocol PRN Reason: Hypoglycemia Protocol Stop: 08/20/21 02:59 Diclofenac Sodium (Diclofenac Sod 1% Gel 100 Gm Tube) 2 gm EXT QID PRN PRN Reason: Pain Stop: 08/20/21 02:30 Last Admin: 07/24/21 18:37 Dose: 2 gm Documented by: Enoxaparin Sodium (Enoxaparin Inj 40 Mg/0.4 Ml Syr) 40 mg SQ [facility] Stop: 08/20/21 08:59 Last Admin: 07/25/21 08:49 Dose: 40 mg Documented by: Folic Acid (Folic Acid 400 Mcg Tab) 400 mcg PO QAM [facility] Stop: 08/21/21 08:59 Last Admin: 07/25/21 08:48 Dose: 400 mcg Documented by: Glucagon (Glucagon For Inj 1 Mg Vial) 1 mg IM UD PRN; Protocol PRN Reason: Hypoglycemia Protocol Stop: 08/20/21 02:59 Glucose (Glucose 40% Gel 15 Gm Tube) 15 - 30 gm PO UD PRN; Protocol PRN Reason: Hypoglycemia Protocol Stop: 08/20/21 02:59 Glucose (Glucose 10 Tabs/Tube) 4 - 8 tabs PO UD PRN; Protocol PRN Reason: Hypoglycemia Protocol Stop: 08/20/21 02:59 Ibuprofen (Ibuprofen 200 Mg Tab) 400 mg PO TID PRN PRN Reason: Pain Stop: 08/20/21 02:30 Last Admin: 07/23/21 21:49 Dose: 400 mg Documented by: Insulin Aspart (Insulin Aspart 100 Units/Ml 3 Ml Pen) 0 units SC ACHS [facility] Stop: 08/20/21 02:59 Last Admin: 07/25/21 09:16 Dose: 12 units Documented by: Lidocaine (Lidocaine 5% 1 Patch) 1 patch TD QAM [facility] Stop: 08/20/21 08:59 Last Admin: 07/25/21 08:50 Dose: Not Given Documented by: Lisinopril (Lisinopril 20 Mg Tab) 20 mg PO QAM [facility] Stop: 08/20/21 08:59 Last Admin: 07/25/21 08:49 Dose: 20 mg Documented by: Magnesium Oxide (Magnesium Oxide 400 Mg Tab) 800 mg PO TID [facility] Stop: 08/20/21 08:59 Last Admin: 07/25/21 13:02 Dose: 800 mg Documented by: Melatonin (Melatonin 3 Mg Tab) 6 mg PO HS PRN PRN Reason: Sleep Stop: 08/20/21 20:29 Last Admin: 07/21/21 22:13 Dose: 6 mg Documented by: Miscellaneous (Carbohydrates For Hypoglycemia ) 15 - 30 gm PO UD PRN PRN Reason: Hypoglycemia Treatment Stop: 08/20/21 02:59 Miscellaneous (Remove Lidoderm Patch) 1 ea N/A DAILY@2100 [facility] Stop: 08/20/21 20:59 Last Admin: 07/24/21 21:28 Dose: Not Given Documented by: Nystatin (Nystatin Oint 15 Gm Tube) 1 appln EXT BID [facility] Stop: 08/21/21 08:59 Last Admin: 07/25/21 08:50 Dose: Not Given Documented by: Polyethylene Glycol (Polyethylene (Miralax) 17 Gm Pack) 17 gm PO DAILY [facility] Stop: 08/21/21 10:59 Last Admin: 07/25/21 08:50 Dose: Not Given Documented by: Potassium Chloride (Potassium Chloride Crtab 20 Meq Tabcr) 20 meq PO UD [facility] Stop: 08/20/21 02:30 Pregabalin (Pregabalin 75 Mg Cap) 75 mg PO BID [facility] Stop: 08/21/21 08:59 Last Admin: 07/25/21 09:11 Dose: 75 mg Documented by: Sertraline HCl (Sertraline Hcl 100 Mg Tablet) 100 [facility] Stop: 08/20/21 08:59 Last Admin: 07/25/21 08:49 Dose: 100 mg Documented by: Spironolactone (Spironolactone 25 Mg Tab) 25 mg PO DAILY [facility] Stop: 08/20/21 08:59 Last Admin: 07/25/21 08:49 Dose: 25 mg Documented by: Thiamine HCl (Thiamine Hcl 100 Mg Tab) 100 mg PO QAM [facility] Stop: 08/20/21 08:59 Last Admin: 07/25/21 08:49 Dose: 100 mg Documented by: Tizanidine HCl (Tizanidine Hcl 4 Mg Tablet) 4 mg PO DAILY PRN PRN Reason: muscle spasm Stop: 08/21/21 11:24 Last Admin: 07/25/21 08:48 Dose: 4 mg Documented by: Tramadol HCl (Tramadol Hcl 50 Mg Tablet) 25 mg PO Q6H PRN PRN Reason: Severe Pain Stop: 08/20/21 09:29 Last Admin: 07/25/21 08:49 Dose: 25 mg Documented by: Vitamin D (Cholecalciferol 400 Units 10 Mcg Tab) 400 units PO [facility] Stop: 08/25/21 08:59 Resident Activity Tracking Resident Involvement: Resident Care Provided Care Provided: Adult Hospital Medicine (1) UTI (urinary tract infection) Hematuria presence: without hematuria Urinary tract infection type: site unspecified Qualified Code(s): N39.0 - Urinary tract infection, site not specified (2) Low back pain Back pain laterality: bilateral Chronicity: acute Sciatica presence: unspecified whether sciatica present Qualified Code(s): M54.5 - Low back pain (3) COPD (chronic obstructive pulmonary disease) COPD type: emphysema Emphysema type: unspecified Qualified Code(s): J43.9 - Emphysema, unspecified (4) HTN (hypertension) Hypertension type: essential hypertension Qualified Code(s): I10 - Essential (primary) hypertension
[2021-07-26] MEDS: traMADol HCL 50 MG TABLET PO PRN ×3 (03:39→18:08)
[2021-07-26 09:19] LABS: Hematocrit (blood only) 44.5 % (37-47); Hemoglobin 13.9 g/dL (12.0-16.0); Mean Corpuscular Hemoglobin 32.5 pg (25-34); Mean Corpuscular Hgb Conc 31.2 g/dL (32-36); Mean Platelet Volume 9.9 fL (7.4-10.4); Platelet Count 329 K/uL (130-400); RDW Coefficient of Variation 14.6 % (11.5-14.5); RDW Standard Deviation 56.3 fL (36.4-46.3); Red Blood Count 4.28 M/uL (4.2-5.4)
[2021-07-26] MEDS: lisinopril 20 MG TAB PO SCH (09:28)
[2021-07-26] MEDS: THIAMINE HCL 100 MG TAB PO SCH (09:28)
[2021-07-26] MEDS: CHOLECALCIFEROL 400 UNITS 10 MCG TAB PO SCH (09:28)
[2021-07-26] MEDS: amLODIPine BESYLATE 5 MG TAB PO SCH (09:28)
[2021-07-26] MEDS: NYSTATIN OINT 15 GM TUBE EXT SCH ×2 (09:29→20:47)
[2021-07-26] MEDS: LIDOCAINE 5% 1 PATCH TD SCH (09:29)
[2021-07-26] MEDS: MAGNESIUM OXIDE 400 MG TAB PO SCH ×3 (09:29→20:47)
[2021-07-26] MEDS: FOLIC ACID 400 MCG TAB PO SCH (09:29)
[2021-07-26] MEDS: CYANOCOBALAMIN (VITAMIN B-12) 100 MCG TABLET PO SCH (09:29)
[2021-07-26] MEDS: INSULIN ASPART 100 UNITS/ML 3 ML PEN SC SCH ×4 (09:33→21:19)
[2021-07-26] MEDS: ENOXAPARIN INJ 40 MG/0.4 ML SYR SQ SCH (09:35)
[2021-07-26] MEDS: SERTRALINE HCL 100 MG TABLET PO SCH (09:36)
[2021-07-26] MEDS: POLYETHYLENE (MIRALAX) 17 GM PACK PO SCH (09:36)
[2021-07-26] MEDS: SPIRONOLACTONE 25 MG TAB PO SCH (09:36)
[2021-07-26] MEDS: PREGABALIN 75 MG CAP PO SCH ×2 (09:36→20:46)
[2021-07-26 09:45] LABS: Albumin Level 2.9 gm/dl (3.4-5.0); BUN Creatinine Ratio 25.1 (10-20); Calcium 9.1 mg/dl (8.5-10.1); Creatinine Clr Calc Pharmacy 80.5 ml/min; Est GFR (Non-African American) 65.6 ml/min; Potassium 4.8 mmol/L (3.5-5.1)
[2021-07-26 09:47] LABS: Albumin Globulin Ratio 0.6 (0.9-2); Bilirubin,Total 0.3 mg/dl (0.2-1); Globulin 4.8 gm/dl (2.5-4.0); Total Protein 7.7 gm/dl (6.4-8.2)
--- NOTE | 2021-07-26 14:18 | Hospitalist Progress Note ---
Date of Service July 26, 2021 Assessment & Plan (1) Myopathy: Plan: (1) Myopathy: 60 y/o F w/ chronic low back pain 2/2 DJD and complex PMHx who presents w/ weakness/pain of all 4 extremities, worse on lower. Her presentation is most consistent w/ myopathy and she has elevated CK of 5749. Leg weakness with pain - considered recent fall/relative immobilization 3 days ago, alcoholic myopathy, medications. Electrolytes acceptable and TSH wnl. - NSS 200/hr in ER, stopped 07/21, previous echo w/ normal EF - B12 and folate levels normal, lyme negative - LDH, aldolase, and urine myoglobin pending - h/o ERIC pos in past - done for liver pathology. had no f/u with rheumatology. will follow. -likely etiology lumbar radiculopathy. see below. -ortho consulted - no surgical intervention indicated. -pain management - recommends increasing tizanidine to 4mg - pain control w/ PRN ibuprofen, tylenol and PRN tramadol - PT/OT ordered, recommend inpt rehab. Patient condition improving with exercise, myopathy resolved 07/23 -per case management currently awaiting placement, patient prefers [facility] (3) Transaminitis: AST elevated from 89->410 in 8 days. --> 43 downtrending In past, has had diagnosis of etoh hepatitis likely contributing to persistent elevation. (4) UTI (urinary tract infection): Acute UTI given possible contribution to generalized weakness - started Rocephin in ED, dc'd 07/22 started cephalexin - d/eric 07/25 - culture demonstrates ecoli (5) Alcoholism: Denies use in 2 months. AST/ALT ratio noted as well as mild tremor on exam. Will not be ordering AWSS. (6) Low back pain: Chronic. Imaging consistent w/ multilevel DJD. Clinically, does not present w/ cord compression or saddle anesthesia. - pain control as above -ortho consulted nothing to intervene (7) Type 2 diabetes mellitus: Pharmacy consult placed. Held home PO meds especially w/ AST elevation. On Novolog (8) COPD (chronic obstructive pulmonary disease): - albuterol PRN (9) HTN (hypertension): - continue home regimen (10) Anxiety: - continue home sertraline (11) Tobacco use: - will provide smoking cessation FEN/GI: DM2 diet ppx: SQ Lovenox code: full PT/OT: following, recommend inpt rehab dispo: med/surg covid neg, not immunized (2) Weakness: (3) Transaminitis: (4) UTI (urinary tract infection): (5) Alcoholism: (6) Low back pain: (7) Type 2 diabetes mellitus: (8) COPD (chronic obstructive pulmonary disease): (9) HTN (hypertension): (10) Anxiety: (11) Tobacco use: Admission and Anticipated Discharge Date Admission Date: July 21, 2021 Supervising Physician Co-Signing Physician Notes I personally examined the patient and verified all [place] points of history and exam, discussed case, and agree with decision making with Dr Alvarado Feeling okay just weak. Very much wants to get to rehab. Ankles hurt. Does have knee arthritis that she knows of as well. Vitals noted, in general she is awake and alert pleasant no distress. HEENT normocephalic atraumatic mucous membranes are moist. Breathing unlabored no accessory muscle use good effort. Skin shows no rashes no pallor or icterus. Neuro without focal deficits. Generalized weaknesslikely multifactorial due to spinal stenosis, arthritis, overall weakness/deconditioning. Does appear to be stable for rehab now, hopefully will get insurance approval and bed availability in the near future so that we can help her progress. CPK elevation might have been mild rhabdomyolysis, but seems more consistent with just muscle effort, as well as falls present on admission. Stable for rehab once bed available. Otherwise as above. Subjective 60yo Female with PMH chronic low back pain, anxiety/depression, gout, COPD, hirsutism, alcohol use disorder here for 6 month back pain UE/LE weakness that worsened over the last 2 wks. Patient seen at bedside, comfortable, feels better than before, states she does not feel back pain with the heating pad. Patient still continuing PT/OT exercises and using incentive spirometry, says it decreases her cough. She states she is able to walk unassisted to chair and commode. Patient is eager to return home to her dogs, understands she needs to work hard in PT to have strength to go home. Patient is concerned for ankle arthritis. Patient was educated she likely does have ankle arthritis and that imaging will not change her course of treatment. Patient wanted to know how her creatinine kinase levels were doing, was informed they were back down to normal levels. Review of Systems Review of Systems: Negative fever chills Negative headache dizziness Negative chest pain palpitations SOB Negative nausea vomitting diarrhea constipation Negative numbness tingling swelling Physical Exam Physical Exam: General: Well appearing, age appropriate Heart: RRR, +S1 S2, no murmurs/gallops/rubs Lungs: cta b/l, no wheezes/rales/rhonchi Abd: soft, NT/ND, +BS, rash erythema resolved in groin crease and under breast Extremities: 5/5 strength LE, no pain on palpation. mild swelling and pain on active movement of ankles Musculoskeletal: -07/21 PE demonstrates 5/5 strength UE, 3/5 in LE may be secondary to pain -07/22 pain reduced, increased range of motion UE, increased mobility LE able to sit up and walk with assistance to comode -07/23 PE only hip weakness remains, pain on active movement -07/24 patient doing physical therapy exercises, can stand and walk few steps with some difficulty -07/25 patient doing physical therapy exercises and incentive spirometry, is comfortable walking to use commode -07/26 PE demonstrates 5/5 strength in LE, is comfortable walking unassisted to commode and chair Results & Data Results & Data ([facility]) Vital Signs (Past 12 Hours) Vital Signs Temp Pulse Resp BP Pulse Ox 07/26/21 08:15 36.5 C 75 16 115/74 95 Laboratory Results 07/26/21 07/26/21 07/26/21 Range/Units 17:25 12:19 08:47 WBC 6.70 (4.8-10.8) K/uL RBC 4.28 (4.2-5.4) M/uL Hgb 13.9 (12.0-16.0) g/dL Hct 44.5 (37-47) % MCV 104.0 H (80-100) fL MCH 32.5 (25-34) pg MCHC 31.2 L (32-36) g/dL RDW Std Deviation 56.3 H (36.4-46.3) fL RDW Coeff of Eduardo 14.6 H (11.5-14.5) % Plt Count 329 (130-400) K/uL MPV 9.9 (7.4-10.4) fL Sodium (136-145) mmol/L Potassium (3.5-5.1) mmol/L Chloride (98-107) mmol/L Carbon Dioxide (21-32) mmol/L Anion Gap (3-11) BUN (7-18) mg/dl Creatinine (0.6-1.2) mg/dl Est Cr Clr Drug Dosing ml/min Est GFR ( Amer) ml/min Est GFR (Non-Af Amer) ml/min BUN/Creatinine Ratio (10-20) Glucose (70-99) mg/dl POC Glucose 129 H 144 H (70-99) mg/dl Calcium (8.5-10.1) mg/dl Total Bilirubin (0.2-1) mg/dl AST (15-37) U/L ALT (12-78) U/L Alkaline Phosphatase (45-117) U/L Total Creatine Kinase (26-192) U/L Total Protein (6.4-8.2) gm/dl Albumin (3.4-5.0) gm/dl Globulin (2.5-4.0) gm/dl Albumin/Globulin Ratio (0.9-2) 07/26/21 07/26/21 07/25/21 Range/Units 08:47 08:14 20:36 WBC (4.8-10.8) K/uL RBC (4.2-5.4) M/uL Hgb (12.0-16.0) g/dL Hct (37-47) % MCV (80-100) fL MCH (25-34) pg MCHC (32-36) g/dL RDW Std Deviation (36.4-46.3) fL RDW Coeff of Eduardo (11.5-14.5) % Plt Count (130-400) K/uL MPV (7.4-10.4) fL Sodium 137 (136-145) mmol/L Potassium 4.8 (3.5-5.1) mmol/L Chloride 107 (98-107) mmol/L Carbon Dioxide 24 (21-32) mmol/L Anion Gap 6.0 (3-11) BUN 24 H (7-18) mg/dl Creatinine 0.95 (0.6-1.2) mg/dl Est Cr Clr Drug Dosing 80.5 ml/min Est GFR ( Amer) 76.0 ml/min Est GFR (Non-Af Amer) 65.6 ml/min BUN/Creatinine Ratio 25.1 H (10-20) Glucose 170 H (70-99) mg/dl POC Glucose 168 H 158 H (70-99) mg/dl Calcium 9.1 (8.5-10.1) mg/dl Total Bilirubin 0.3 (0.2-1) mg/dl AST 43 H (15-37) U/L ALT 60 (12-78) U/L Alkaline Phosphatase 106 (45-117) U/L Total Creatine Kinase 104 (26-192) U/L Total Protein 7.7 (6.4-8.2) gm/dl Albumin 2.9 L (3.4-5.0) gm/dl Globulin 4.8 H (2.5-4.0) gm/dl Albumin/Globulin Ratio 0.6 L (0.9-2) Medications Administered Current Inpatient Medications Acetaminophen (Acetaminophen 500 Mg Tab) 500 mg PO BID PRN PRN Reason: pain Stop: 08/23/21 11:41 Albuterol (Albuterol Hfa 8 Gm Inhaler) 1 puffs INH Q4H PRN PRN Reason: shortness of breath or wheezing Stop: 08/20/21 02:30 Amlodipine Besylate (Amlodipine Besylate 5 Mg Tab) [facility] [place] Stop: 08/20/21 08:59 Last Admin: 07/26/21 09:28 Dose: 5 mg Documented by: Cyanocobalamin (Cyanocobalamin (Vitamin B-12) 100 Mcg Tablet) 100 [facility]cg [facility] [place] Stop: 08/21/21 08:59 Last Admin: 07/26/21 09:29 Dose: 100 mcg Documented by: Dextrose (Dextrose 50% 50 Ml Syringe) 25 - 50 ml IV UD PRN; Protocol PRN Reason: Hypoglycemia Protocol Stop: 08/20/21 02:59 Diclofenac Sodium (Diclofenac Sod 1% Gel 100 Gm Tube) 2 gm EXT QID PRN PRN Reason: Pain Stop: 08/20/21 02:30 Last Admin: 07/24/21 18:37 Dose: 2 gm Documented by: Enoxaparin Sodium (Enoxaparin Inj 40 Mg/0.4 Ml Syr) 40 mg SQ QAM [facility] Stop: 08/20/21 08:59 Last Admin: 07/26/21 09:35 Dose: 40 mg Documented by: Folic Acid (Folic Acid 400 Mcg Tab) 400 mcg PO QAM [facility] Stop: 08/21/21 08:59 Last Admin: 07/26/21 09:29 Dose: 400 mcg Documented by: Glucagon (Glucagon For Inj 1 Mg Vial) 1 mg IM UD PRN; Protocol PRN Reason: Hypoglycemia Protocol Stop: 08/20/21 02:59 Glucose (Glucose 40% Gel 15 Gm Tube) 15 - 30 gm PO UD PRN; Protocol PRN Reason: Hypoglycemia Protocol Stop: 08/20/21 02:59 Glucose (Glucose 10 Tabs/Tube) 4 - 8 tabs PO UD PRN; Protocol PRN Reason: Hypoglycemia Protocol Stop: 08/20/21 02:59 Ibuprofen (Ibuprofen 200 Mg Tab) 400 mg PO TID PRN PRN Reason: Pain Stop: 08/20/21 02:30 Last Admin: 07/23/21 21:49 Dose: 400 mg Documented by: Insulin Aspart (Insulin Aspart 100 Units/Ml 3 Ml Pen) 0 units SC ACHS [facility] Stop: 08/20/21 02:59 Last Admin: 07/26/21 13:25 Dose: 6 units Documented by: Lidocaine (Lidocaine 5% 1 Patch) 1 patch TD [facility] [place] Stop: 08/20/21 08:59 Last Admin: 07/26/21 09:29 Dose: Not Given Documented by: Lisinopril (Lisinopril 20 Mg Tab) 20 mg PO QAM [facility] Stop: 08/20/21 08:59 Last Admin: 07/26/21 09:28 Dose: 20 mg Documented by: Magnesium Oxide (Magnesium Oxide 400 Mg Tab) 800 mg PO TID [facility] Stop: 08/20/21 08:59 Last Admin: 07/26/21 13:28 Dose: 800 mg Documented by: Melatonin (Melatonin 3 Mg Tab) 6 mg PO HS PRN PRN Reason: Sleep Stop: 08/20/21 20:29 Last Admin: 07/21/21 22:13 Dose: 6 mg Documented by: Miscellaneous (Carbohydrates For Hypoglycemia ) 15 - 30 gm PO UD PRN PRN Reason: Hypoglycemia Treatment Stop: 08/20/21 02:59 Miscellaneous (Remove Lidoderm Patch) 1 ea N/A DAILY@2100 [facility] Stop: 08/20/21 20:59 Last Admin: 07/25/21 21:21 Dose: Not Given Documented by: Nystatin (Nystatin Oint 15 Gm Tube) 1 appln EXT BID [facility] Stop: 08/21/21 08:59 Last Admin: 07/26/21 09:29 Dose: 1 appln Documented by: Polyethylene Glycol (Polyethylene (Miralax) 17 Gm Pack) 17 gm PO DAILY [facility] Stop: 08/21/21 10:59 Last Admin: 07/26/21 09:36 Dose: Not Given Documented by: Potassium Chloride (Potassium Chloride Crtab 20 Meq Tabcr) 20 meq PO UD [facility] Stop: 08/20/21 02:30 Pregabalin (Pregabalin 75 Mg Cap) 75 mg PO BID [facility] Stop: 08/21/21 08:59 Last Admin: 07/26/21 09:36 Dose: 75 mg Documented by: Sertraline HCl (Sertraline Hcl 100 Mg Tablet) [facility] [place] Stop: 08/20/21 08:59 Last Admin: 07/26/21 09:36 Dose: 100 mg Documented by: Spironolactone (Spironolactone 25 Mg Tab) 25 mg PO DAILY [facility] Stop: 08/20/21 08:59 Last Admin: 07/26/21 09:36 Dose: 25 mg Documented by: Thiamine HCl (Thiamine Hcl 100 Mg Tab) 100 mg PO QAM [facility] Stop: 08/20/21 08:59 Last Admin: 07/26/21 09:28 Dose: 100 mg Documented by: Tizanidine HCl (Tizanidine Hcl 4 Mg Tablet) 4 mg PO DAILY PRN PRN Reason: muscle spasm Stop: 08/21/21 11:24 Last Admin: 07/25/21 08:48 Dose: 4 mg Documented by: Tramadol HCl (Tramadol Hcl 50 Mg Tablet) 25 mg PO Q6H PRN PRN Reason: Severe Pain Stop: 08/20/21 09:29 Last Admin: 07/26/21 11:27 Dose: 25 mg Documented by: Vitamin D (Cholecalciferol 400 Units 10 Mcg Tab) 400 units PO QAM [facility] Stop: 08/25/21 08:59 Last Admin: 07/26/21 09:28 Dose: 400 units Documented by: Resident Activity Tracking Resident Involvement: Resident Care Provided Care Provided: Adult Hospital Medicine (1) UTI (urinary tract infection) Hematuria presence: without hematuria Urinary tract infection type: site unspecified Qualified Code(s): N39.0 - Urinary tract infection, site not specified (2) Low back pain Back pain laterality: bilateral Chronicity: acute Sciatica presence: unspecified whether sciatica present Qualified Code(s): M54.5 - Low back pain (3) COPD (chronic obstructive pulmonary disease) COPD type: emphysema Emphysema type: unspecified Qualified Code(s): J43.9 - Emphysema, unspecified (4) HTN (hypertension) Hypertension type: essential hypertension Qualified Code(s): I10 - Essential (primary) hypertension
[2021-07-26] MEDS ORDERED: ACETAMINOPHEN 325 MG TAB PO PRN (18:20)
--- NOTE | 2021-07-26 18:41 | Billing Data ---
Date of Service July 26, 2021 Coding Level of Care Code 09153 Subseq Hosp Care Lvl 2
[2021-07-26] MEDS: ACETAMINOPHEN 325 MG TAB PO SCH (20:46)
[2021-07-26] MEDS: DICLOFENAC SOD 1% GEL 100 GM TUBE EXT SCH (20:48)
[2021-07-27] MEDS: traMADol HCL 50 MG TABLET PO PRN ×4 (00:11→20:17)
[2021-07-27] MEDS: amLODIPine BESYLATE 5 MG TAB PO SCH (08:17)
[2021-07-27] MEDS: CHOLECALCIFEROL 400 UNITS 10 MCG TAB PO SCH (08:18)
[2021-07-27] MEDS: FOLIC ACID 400 MCG TAB PO SCH (08:19)
[2021-07-27] MEDS: CYANOCOBALAMIN (VITAMIN B-12) 100 MCG TABLET PO SCH (08:19)
[2021-07-27] MEDS: DICLOFENAC SOD 1% GEL 100 GM TUBE EXT SCH ×4 (08:20→20:19)
[2021-07-27] MEDS: ENOXAPARIN INJ 40 MG/0.4 ML SYR SQ SCH (08:21)
[2021-07-27] MEDS: LIDOCAINE 5% 1 PATCH TD SCH (08:22)
[2021-07-27] MEDS: lisinopril 20 MG TAB PO SCH (08:22)
[2021-07-27] MEDS: MAGNESIUM OXIDE 400 MG TAB PO SCH ×3 (08:22→20:20)
[2021-07-27] MEDS: NYSTATIN OINT 15 GM TUBE EXT SCH ×2 (08:24→20:22)
[2021-07-27] MEDS: POLYETHYLENE (MIRALAX) 17 GM PACK PO SCH (08:24)
[2021-07-27] MEDS: SERTRALINE HCL 100 MG TABLET PO SCH (08:28)
[2021-07-27] MEDS: SPIRONOLACTONE 25 MG TAB PO SCH (08:29)
[2021-07-27] MEDS: THIAMINE HCL 100 MG TAB PO SCH (08:29)
[2021-07-27 08:37] LABS: Albumin Level 2.8 gm/dl (3.4-5.0); BUN Creatinine Ratio 28.5 (10-20); Calcium 9.7 mg/dl (8.5-10.1); Creatinine Clr Calc Pharmacy 75.7 ml/min; Est GFR (African American) 70.6 ml/min; Est GFR (Non-African American) 60.9 ml/min; Potassium 4.9 mmol/L (3.5-5.1)
[2021-07-27 08:39] LABS: Albumin Globulin Ratio 0.6 (0.9-2); Bilirubin,Total 0.3 mg/dl (0.2-1); Globulin 4.9 gm/dl (2.5-4.0); Total Protein 7.7 gm/dl (6.4-8.2)
[2021-07-27] MEDS: ACETAMINOPHEN 325 MG TAB PO SCH ×3 (08:52→20:19)
[2021-07-27] MEDS: PREGABALIN 75 MG CAP PO SCH ×2 (08:54→20:36)
[2021-07-27] MEDS ORDERED: NYSTATIN POWDER 15GM BTL EXT PRN (08:55)
[2021-07-27] MEDS: INSULIN ASPART 100 UNITS/ML 3 ML PEN SC SCH ×4 (09:32→20:39)
--- NOTE | 2021-07-27 16:13 | Hospitalist Progress Note ---
Date of Service July 27, 2021 Assessment & Plan (1) Myopathy: Plan: (1) Myopathy: 60 y/o F w/ chronic low back pain 2/2 DJD and complex PMHx who presents w/ weakness/pain of all 4 extremities, worse on lower. Her presentation is most consistent w/ myopathy and she has elevated CK of 5749. Leg weakness with pain - considered recent fall/relative immobilization 3 days ago, alcoholic myopathy, medications. Electrolytes acceptable and TSH wnl. - NSS 200/hr in ER, stopped 07/21, previous echo w/ normal EF - B12 and folate levels normal, lyme negative - h/o ERIC pos in past - done for liver pathology. had no f/u with rheumatology. will follow. -likely etiology lumbar radiculopathy. see below. -ortho consulted - no surgical intervention indicated. -pain management - recommends increasing tizanidine to 4mg - pain control w/ TID tylenol and QID voltaren gel for back and ankle pain, PRN ibuprofen, tramadol - PT/OT ordered, recommend inpt rehab. Patient condition improving with exercise, myopathy resolved 07/23 -patient educated on rollator v. wheelchair, patient agreed rollator more appropriate to preserve her mobility, CM notified -per case management currently awaiting placement, patient prefers [facility] (3) Transaminitis: AST elevated from 89->410 in 8 days. --> 43 downtrending In past, has had diagnosis of etoh hepatitis likely contributing to persistent elevation. (4) UTI (urinary tract infection): Acute UTI given possible contribution to generalized weakness - started Rocephin in ED, dc'd 07/22 started cephalexin - d/eric 07/25 - culture demonstrates ecoli (5) Alcoholism: Denies use in 2 months. AST/ALT ratio noted as well as mild tremor on exam. Will not be ordering AWSS. (6) Low back pain: Chronic. Imaging consistent w/ multilevel DJD. Clinically, does not present w/ cord compression or saddle anesthesia. - pain control as above -ortho consulted nothing to intervene (7) Type 2 diabetes mellitus: Pharmacy consult placed. Held home PO meds especially w/ AST elevation. On Novolog (8) COPD (chronic obstructive pulmonary disease): - albuterol PRN (9) HTN (hypertension): - continue home regimen (10) Anxiety: - continue home sertraline (11) Tobacco use: - will provide smoking cessation FEN/GI: DM2 diet ppx: SQ Lovenox code: full PT/OT: following, recommend inpt rehab dispo: med/surg covid neg, not immunized (2) Weakness: (3) Transaminitis: (4) UTI (urinary tract infection): (5) Alcoholism: (6) Low back pain: (7) Type 2 diabetes mellitus: (8) COPD (chronic obstructive pulmonary disease): (9) HTN (hypertension): (10) Anxiety: (11) Tobacco use: Admission and Anticipated Discharge Date Admission Date: July 21, 2021 Supervising Physician Co-Signing Physician Notes I personally examined the patient and verified all [place] points of history and exam, discussed case, and agree with decision making with Dr Alvarado Mostly just frustrated that insurance has not given authorization yetespecially given that she called yesterday and was told herself that she would have coverage. Vitals noted, in general she is awake and alert pleasant no distress. HEENT normocephalic atraumatic mucous membranes are moist. Breathing unlabored no accessory muscle use good effort. Skin shows no rashes no pallor or icterus. Neuro without focal deficits. Generalized weaknesslikely multifactorial due to spinal stenosis, arthritis, overall weakness/deconditioning. Awaiting approval for rehab so that she can get strongeris clear she would benefit from this, and given that her insurance company told her that she would be approved, it is not clear why the delay in actually getting formal authorization. CPK elevation might have been mild rhabdomyolysis, but seems more consistent with just muscle effort, as well as falls present on admission. Stable for rehab once bed available. Otherwise as above. Subjective 60yo Female with PMH chronic low back pain, anxiety/depression, gout, COPD, hirsutism, alcohol use disorder here for 6 month back pain UE/LE weakness that worsened over the last 2 wks. Patient seen at bedside, comfortable, currently trying voltaren gel and TID tylenol for back and ankle pain, states she is doing daily PT exercises. Patient understands we are currently waiting for placement for rehab. 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 Review of Systems Review of Systems: Negative fever chills Negative headache dizziness Negative chest pain palpitations SOB Negative nausea vomitting diarrhea constipation Negative numbness tingling swelling Physical Exam Physical Exam: General: Well appearing, age appropriate Heart: RRR, +S1 S2, no murmurs/gallops/rubs Lungs: cta b/l, no wheezes/rales/rhonchi Abd: soft, NT/ND, +BS, rash erythema resolved in groin crease and under breast Extremities: 5/5 strength LE, no pain on palpation. mild swelling of ankles. Compression stockings and SCDs in place Musculoskeletal: -07/21 PE demonstrates 5/5 strength UE, 3/5 in LE may be secondary to pain -07/22 pain reduced, increased range of motion UE, increased mobility LE able to sit up and walk with assistance to comode -07/23 PE only hip weakness remains, pain on active movement -07/24 patient doing physical therapy exercises, can stand and walk few steps with some difficulty -07/25 patient doing physical therapy exercises and incentive spirometry, is co mfortable walking to use commode -07/26 PE demonstrates 5/5 strength in LE, is comfortable walking unassisted to commode and chair Results & Data Results & Data ([facility]) Vital Signs (Past 12 Hours) Vital Signs Temp Pulse Resp BP BP Pulse Ox 07/27/21 15:25 36.9 C 77 16 122/74 94 07/27/21 06:57 36.6 C 68 16 121/73 94 Laboratory Results 07/27/21 07/27/21 07/27/21 Range/Units 12:11 07:58 06:27 Sodium 135 L (136-145) mmol/L Potassium 4.9 (3.5-5.1) mmol/L Chloride 104 (98-107) mmol/L Carbon Dioxide 24 (21-32) mmol/L Anion Gap 6.0 (3-11) BUN 29 H (7-18) mg/dl Creatinine 1.01 (0.6-1.2) mg/dl Est Cr Clr Drug Dosing 75.7 ml/min Est GFR ( Amer) 70.6 ml/min Est GFR (Non-Af Amer) 60.9 ml/min BUN/Creatinine Ratio 28.5 H (10-20) Glucose 177 H (70-99) mg/dl POC Glucose 198 H 163 H (70-99) mg/dl Calcium 9.7 (8.5-10.1) mg/dl Total Bilirubin 0.3 (0.2-1) mg/dl AST 44 H (15-37) U/L ALT 55 (12-78) U/L Alkaline Phosphatase 100 (45-117) U/L Total Protein 7.7 (6.4-8.2) gm/dl Albumin 2.8 L (3.4-5.0) gm/dl Globulin 4.9 H (2.5-4.0) gm/dl Albumin/Globulin Ratio 0.6 L (0.9-2) A. phagocytophilum DNA (Negative) 07/26/21 07/26/21 07/21/21 Range/Units 21:05 17:25 07:29 Sodium (136-145) mmol/L Potassium (3.5-5.1) mmol/L Chloride (98-107) mmol/L Carbon Dioxide (21-32) mmol/L Anion Gap (3-11) BUN (7-18) mg/dl Creatinine (0.6-1.2) mg/dl Est Cr Clr Drug Dosing ml/min Est GFR ( Amer) ml/min Est GFR (Non-Af Amer) ml/min BUN/Creatinine Ratio (10-20) Glucose (70-99) mg/dl POC Glucose 186 H 129 H (70-99) mg/dl Calcium (8.5-10.1) mg/dl Total Bilirubin (0.2-1) mg/dl AST (15-37) U/L ALT (12-78) U/L Alkaline Phosphatase (45-117) U/L Total Protein (6.4-8.2) gm/dl Albumin (3.4-5.0) gm/dl Globulin (2.5-4.0) gm/dl Albumin/Globulin Ratio (0.9-2) A. phagocytophilum DNA Negative (Negative) Medications Administered Current Inpatient Medications Acetaminophen (Acetaminophen 325 Mg Tab) 650 mg PO TID [facility] Stop: 08/25/21 20:59 Last Admin: 07/27/21 14:12 Dose: 650 mg Documented by: Albuterol (Albuterol Hfa 8 Gm Inhaler) 1 puffs INH Q4H PRN PRN Reason: shortness of breath or wheezing Stop: 08/20/21 02:30 Amlodipine Besylate (Amlodipine Besylate 5 Mg Tab) [facility] [place]: 08/20/21 08:59 Last Admin: 07/27/21 08:17 Dose: 5 mg Documented by: Cyanocobalamin (Cyanocobalamin (Vitamin B-12) 100 Mcg Tablet) 100 mcg PO QAM [facility] Stop: 08/21/21 08:59 Last Admin: 07/27/21 08:19 Dose: 100 mcg Documented by: Dextrose (Dextrose 50% 50 Ml Syringe) 25 - 50 ml IV UD PRN; Protocol PRN Reason: Hypoglycemia Protocol Stop: 08/20/21 02:59 Diclofenac Sodium (Diclofenac Sod 1% Gel 100 Gm Tube) 2 gm EXT QID [facility] Stop: 08/25/21 20:59 Last Admin: 07/27/21 14:14 Dose: 2 gm Documented by: Enoxaparin Sodium (Enoxaparin Inj 40 Mg/0.4 Ml Syr) 40 mg SQ [facility] Stop: 08/20/21 08:59 Last Admin: 07/27/21 08:21 Dose: 40 mg Documented by: Folic Acid (Folic Acid 400 Mcg Tab) 400 mcg PO [facility] Stop: 08/21/21 08:59 Last Admin: 07/27/21 08:19 Dose: 400 mcg Documented by: Glucagon (Glucagon For Inj 1 Mg Vial) 1 mg IM UD PRN; Protocol PRN Reason: Hypoglycemia Protocol Stop: 08/20/21 02:59 Glucose (Glucose 40% Gel 15 Gm Tube) 15 - 30 gm PO UD PRN; Protocol PRN Reason: Hypoglycemia Protocol Stop: 08/20/21 02:59 Glucose (Glucose 10 Tabs/Tube) 4 - 8 tabs PO UD PRN; Protocol PRN Reason: Hypoglycemia Protocol Stop: 08/20/21 02:59 Ibuprofen (Ibuprofen 200 Mg Tab) 400 mg PO TID PRN PRN Reason: Pain Stop: 08/20/21 02:30 Last Admin: 07/23/21 21:49 Dose: 400 mg Documented by: Insulin Aspart (Insulin Aspart 100 Units/Ml 3 Ml Pen) 0 units SC ACHS [facility] Stop: 08/20/21 02:59 Last Admin: 07/27/21 13:38 Dose: 14 units Documented by: Lidocaine (Lidocaine 5% 1 Patch) 1 patch TD QAM [facility] Stop: 08/20/21 08:59 Last Admin: 07/27/21 08:22 Dose: Not Given Documented by: Lisinopril (Lisinopril 20 Mg Tab) 20 mg PO QAM [facility] Stop: 08/20/21 08:59 Last Admin: 07/27/21 08:22 Dose: 20 mg Documented by: Magnesium Oxide (Magnesium Oxide 400 Mg Tab) 800 mg PO TID [facility] Stop: 08/20/21 08:59 Last Admin: 07/27/21 14:15 Dose: 800 mg Documented by: Melatonin (Melatonin 3 Mg Tab) 6 mg PO HS PRN PRN Reason: Sleep Stop: 08/20/21 20:29 Last Admin: 07/21/21 22:13 Dose: 6 mg Documented by: Miscellaneous (Carbohydrates For Hypoglycemia ) 15 - 30 gm PO UD PRN PRN Reason: Hypoglycemia Treatment Stop: 08/20/21 02:59 Miscellaneous (Remove Lidoderm Patch) 1 ea N/A DAILY@2100 [facility] Stop: 08/20/21 20:59 Last Admin: 07/26/21 20:43 Dose: Not Given Documented by: Nystatin (Nystatin Oint 15 Gm Tube) 1 appln EXT BID [facility] Stop: 08/21/21 08:59 Last Admin: 07/27/21 08:24 Dose: 1 appln Documented by: Nystatin (Nystatin Powder 15gm Btl) 1 appln EXT BID PRN PRN Reason: Affected Skin Folds Stop: 08/26/21 08:54 Polyethylene Glycol (Polyethylene (Miralax) 17 Gm Pack) 17 gm PO DAILY [facility] Stop: 08/21/21 10:59 Last Admin: 07/27/21 08:24 Dose: Not Given Documented by: Potassium Chloride (Potassium Chloride Crtab 20 Meq Tabcr) 20 meq PO UD [facility] Stop: 08/20/21 02:30 Pregabalin (Pregabalin 75 Mg Cap) 75 mg PO BID [facility] Stop: 08/21/21 08:59 Last Admin: 07/27/21 08:54 Dose: 75 mg Documented by: Sertraline HCl (Sertraline Hcl 100 Mg Tablet) 100 mg PO QAM [facility] Stop: 08/20/21 08:59 Last Admin: 07/27/21 08:28 Dose: 100 mg Documented by: Spironolactone (Spironolactone 25 Mg Tab) 25 mg PO DAILY [facility] Stop: 08/20/21 08:59 Last Admin: 07/27/21 08:29 Dose: 25 mg Documented by: Thiamine HCl (Thiamine Hcl 100 Mg Tab) 100 mg PO QAM [facility] Stop: 08/20/21 08:59 Last Admin: 07/27/21 08:29 Dose: 100 mg Documented by: Tizanidine HCl (Tizanidine Hcl 4 Mg Tablet) 4 mg PO DAILY PRN PRN Reason: muscle spasm Stop: 08/21/21 11:24 Last Admin: 07/25/21 08:48 Dose: 4 mg Documented by: Tramadol HCl (Tramadol Hcl 50 Mg Tablet) 25 mg PO Q6H PRN PRN Reason: Severe Pain Stop: 08/20/21 09:29 Last Admin: 07/27/21 14:13 Dose: 25 mg Documented by: Vitamin D (Cholecalciferol 400 Units 10 Mcg Tab) 400 units PO QAM [facility] Stop: 08/25/21 08:59 Last Admin: 07/27/21 08:18 Dose: 400 units Documented by: Resident Activity Tracking Resident Involvement: Resident Care Provided Care Provided: Adult Hospital Medicine (1) UTI (urinary tract infection) Hematuria presence: without hematuria Urinary tract infection type: site unspecified Qualified Code(s): N39.0 - Urinary tract infection, site not specified (2) Low back pain Back pain laterality: bilateral Chronicity: acute Sciatica presence: unspecified whether sciatica present Qualified Code(s): M54.5 - Low back pain (3) COPD (chronic obstructive pulmonary disease) COPD type: emphysema Emphysema type: unspecified Qualified Code(s): J43.9 - Emphysema, unspecified (4) HTN (hypertension) Hypertension type: essential hypertension Qualified Code(s): I10 - Essential (primary) hypertension
--- NOTE | 2021-07-27 19:33 | Billing Data ---
Date of Service July 27, 2021 Coding Level of Care Code 20282 Subseq Hosp Care Lvl 1
[2021-07-27] MEDS: MELATONIN 3 MG TAB PO PRN (20:51)
[2021-07-28] MEDS: traMADol HCL 50 MG TABLET PO PRN ×2 (04:37→10:34)
[2021-07-28] MEDS: IBUPROFEN 200 MG TAB PO PRN (07:21)
--- NOTE | 2021-07-28 09:25 | Hospitalist Progress Note ---
Date of Service July 28, 2021 Assessment & Plan (1) Myopathy: Plan: (1) Myopathy: 60 y/o F w/ chronic low back pain 2/2 DJD and complex PMHx who presents w/ weakness/pain of all 4 extremities, worse on lower. Her presentation is most consistent w/ myopathy and she has elevated CK of 5749. Leg weakness with pain - considered recent fall/relative immobilization 3 days ago, alcoholic myopathy, medications. Electrolytes acceptable and TSH wnl. - NSS 200/hr in ER, stopped 07/21, previous echo w/ normal EF - B12 and folate levels normal, lyme negative - h/o ERIC pos in past - done for liver pathology. had no f/u with rheumatology. will follow. -likely etiology lumbar radiculopathy. see below. -ortho consulted - no surgical intervention indicated. -pain management - recommends increasing tizanidine to 4mg - pain control w/ TID tylenol and QID voltaren gel for back, hip and ankle pain, PRN ibuprofen, tramadol - PT/OT ordered, recommend inpt rehab. Patient condition improving with exercise, myopathy resolved 07/23 -patient educated on rollator v. wheelchair, patient agreed rollator more appropriate to preserve her mobility, CM notified -per case management currently awaiting placement, patient prefers [facility] (3) Transaminitis: AST elevated from 89->410 in 8 days. --> 43 downtrending In past, has had diagnosis of etoh hepatitis likely contributing to persistent elevation. (4) UTI (urinary tract infection): Acute UTI given possible contribution to generalized weakness - started Rocephin in ED, dc'd 07/22 started cephalexin - d/eric 07/25 - culture demonstrates ecoli (5) Alcoholism: Denies use in 2 months. AST/ALT ratio noted as well as mild tremor on exam. Will not be ordering AWSS. (6) Low back pain: Chronic. Imaging consistent w/ multilevel DJD. Clinically, does not present w/ cord compression or saddle anesthesia. - pain control as above -ortho consulted nothing to intervene (7) Type 2 diabetes mellitus: Pharmacy consult placed. Held home PO meds especially w/ AST elevation. On Novolog (8) COPD (chronic obstructive pulmonary disease): - albuterol PRN (9) HTN (hypertension): - continue home regimen (10) Anxiety: - continue home sertraline (11) Tobacco use: - will provide smoking cessation FEN/GI: DM2 diet ppx: SQ Lovenox code: full PT/OT: following, recommend inpt rehab dispo: med/surg covid neg, not immunized (2) Weakness: (3) Transaminitis: (4) UTI (urinary tract infection): (5) Alcoholism: (6) Low back pain: (7) Type 2 diabetes mellitus: (8) COPD (chronic obstructive pulmonary disease): (9) HTN (hypertension): (10) Anxiety: (11) Tobacco use: Admission and Anticipated Discharge Date Admission Date: July 21, 2021 Subjective 60yo Female with PMH chronic low back pain, anxiety/depression, gout, COPD, hirsutism, alcohol use disorder here for 6 month back pain UE/LE weakness that worsened over the last 2 wks. Patient seen at bedside, comfortable, states the [employer] gel is working for her back, ankle, and hip. Patient states she has been trying to call insurance, understands that inpt rehab is in her best interest to get home with improved strength. Patient states her brother should be by this afternoon with toiletries, change of clothing. Review of Systems Review of Systems: Negative fever chills Negative headache dizziness Negative chest pain palpitations SOB Negative nausea vomitting diarrhea constipation Negative numbness tingling swelling Physical Exam Physical Exam: General: Well appearing, age appropriate Heart: RRR, +S1 S2, no murmurs/gallops/rubs Lungs: cta b/l, no wheezes/rales/rhonchi Abd: soft, NT/ND, +BS, rash erythema resolved in groin crease and under breast Extremities: 5/5 strength LE, no pain on palpation. mild swelling of ankles. Compression stockings and SCDs in place Musculoskeletal: -07/21 PE demonstrates 5/5 strength UE, 3/5 in LE may be secondary to pain -07/22 pain reduced, increased range of motion UE, increased mobility LE able to sit up and walk with assistance to comode -07/23 PE only hip weakness remains, pain on active movement -07/24 patient doing physical therapy exercises, can stand and walk few steps with some difficulty -07/25 patient doing physical therapy exercises and incentive spirometry, is comfortable walking to use commode -07/26 PE demonstrates 5/5 strength in LE, is comfortable walking unassisted to commode and chair Results & Data Results & Data ([facility]) Vital Signs (Past 12 Hours) Vital Signs Temp Pulse Resp BP BP Pulse Ox 07/28/21 07:02 36.6 C 64 16 105/66 94 07/27/21 22:00 36.6 C 70 20 99/66 L 94 Diagnostic Findings Current Inpatient Medications Acetaminophen (Acetaminophen 325 Mg Tab) 650 mg PO TID [facility] Stop: 08/25/21 20:59 Last Admin: 07/28/21 09:28 Dose: 650 mg Documented by: Albuterol (Albuterol Hfa 8 Gm Inhaler) 1 puffs INH Q4H PRN PRN Reason: shortness of breath or wheezing Stop: 08/20/21 02:30 Amlodipine Besylate (Amlodipine Besylate 5 Mg Tab) 5 mg PO QAM [facility] Stop: 08/20/21 08:59 Last Admin: 07/28/21 09:28 Dose: 5 mg Documented by: Cyanocobalamin (Cyanocobalamin (Vitamin B-12) 100 Mcg Tablet) 100 mcg PO QAM [facility] Stop: 08/21/21 08:59 Last Admin: 07/28/21 09:29 Dose: 100 mcg Documented by: Dextrose (Dextrose 50% 50 Ml Syringe) 25 - 50 ml IV UD PRN; Protocol PRN Reason: Hypoglycemia Protocol Stop: 08/20/21 02:59 Diclofenac Sodium (Diclofenac Sod 1% Gel 100 Gm Tube) 2 gm EXT QID [facility] Stop: 08/25/21 20:59 Last Admin: 07/28/21 09:29 Dose: 2 gm Documented by: Enoxaparin Sodium (Enoxaparin Inj 40 Mg/0.4 Ml Syr) 40 mg SQ QAM [facility] Stop: 08/20/21 08:59 Last Admin: 07/28/21 09:30 Dose: 40 mg Documented by: Folic Acid (Folic Acid 400 Mcg Tab) 400 mcg PO QAM [facility] Stop: 08/21/21 08:59 Last Admin: 07/28/21 09:30 Dose: 400 mcg Documented by: Glucagon (Glucagon For Inj 1 Mg Vial) 1 mg IM UD PRN; Protocol PRN Reason: Hypoglycemia Protocol Stop: 08/20/21 02:59 Glucose (Glucose 40% Gel 15 Gm Tube) 15 - 30 gm PO UD PRN; Protocol PRN Reason: Hypoglycemia Protocol Stop: 08/20/21 02:59 Glucose (Glucose 10 Tabs/Tube) 4 - 8 tabs PO UD PRN; Protocol PRN Reason: Hypoglycemia Protocol Stop: 08/20/21 02:59 Ibuprofen (Ibuprofen 200 Mg Tab) 400 mg PO TID PRN PRN Reason: Pain Stop: 08/20/21 02:30 Last Admin: 07/28/21 07:21 Dose: 400 mg Documented by: Insulin Aspart (Insulin Aspart 100 Units/Ml 3 Ml Pen) 0 units SC ACHS [facility] Stop: 08/20/21 02:59 Last Admin: 07/28/21 09:34 Dose: 10 units Documented by: Lidocaine (Lidocaine 5% 1 Patch) 1 patch TD QAM [facility] Stop: 08/20/21 08:59 Last Admin: 07/28/21 09:31 Dose: Not Given Documented by: Lisinopril (Lisinopril 20 Mg Tab) 20 mg PO QAM [facility] Stop: 08/20/21 08:59 Last Admin: 07/28/21 09:31 Dose: 20 mg Documented by: Magnesium Oxide (Magnesium Oxide 400 Mg Tab) 800 mg PO TID [facility] Stop: 08/20/21 08:59 Last Admin: 07/28/21 09:31 Dose: 800 mg Documented by: Melatonin (Melatonin 3 Mg Tab) 6 mg PO HS PRN PRN Reason: Sleep Stop: 08/20/21 20:29 Last Admin: 07/27/21 20:51 Dose: 6 mg Documented by: Miscellaneous (Carbohydrates For Hypoglycemia ) 15 - 30 gm PO UD PRN PRN Reason: Hypoglycemia Treatment Stop: 08/20/21 02:59 Miscellaneous (Remove Lidoderm Patch) 1 ea N/A DAILY@2100 [facility] Stop: 08/20/21 20:59 Last Admin: 07/27/21 20:31 Dose: Not Given Documented by: Nystatin (Nystatin Oint 15 Gm Tube) 1 appln EXT BID [facility] Stop: 08/21/21 08:59 Last Admin: 07/28/21 09:32 Dose: 1 appln Documented by: Nystatin (Nystatin Powder 15gm Btl) 1 appln EXT BID PRN PRN Reason: Affected Skin Folds Stop: 08/26/21 08:54 Last Admin: 07/27/21 20:21 Dose: 1 appln Documented by: Polyethylene Glycol (Polyethylene (Miralax) 17 Gm Pack) 17 gm PO DAILY [facility] Stop: 08/21/21 10:59 Last Admin: 07/28/21 09:32 Dose: Not Given Documented by: Potassium Chloride (Potassium Chloride Crtab 20 Meq Tabcr) 20 meq PO UD [facility] Stop: 08/20/21 02:30 Pregabalin (Pregabalin 75 Mg Cap) 75 mg PO BID [facility] Stop: 08/21/21 08:59 Last Admin: 07/28/21 09:39 Dose: 75 mg Documented by: Sertraline HCl (Sertraline Hcl 100 Mg Tablet) 100 mg PO QAM [facility] Stop: 08/20/21 08:59 Last Admin: 07/28/21 09:33 Dose: 100 mg Documented by: Spironolactone (Spironolactone 25 Mg Tab) 25 mg PO DAILY [facility] Stop: 08/20/21 08:59 Last Admin: 07/28/21 09:33 Dose: 25 mg Documented by: Thiamine HCl (Thiamine Hcl 100 Mg Tab) 100 mg PO QAM [facility] Stop: 08/20/21 08:59 Last Admin: 07/28/21 09:33 Dose: 100 mg Documented by: Tizanidine HCl (Tizanidine Hcl 4 Mg Tablet) 4 mg PO DAILY PRN PRN Reason: muscle spasm Stop: 08/21/21 11:24 Last Admin: 07/25/21 08:48 Dose: 4 mg Documented by: Tramadol HCl (Tramadol Hcl 50 Mg Tablet) 25 mg PO Q6H PRN PRN Reason: Severe Pain Stop: 08/20/21 09:29 Last Admin: 07/28/21 04:37 Dose: 25 mg Documented by: Vitamin D (Cholecalciferol 400 Units 10 Mcg Tab) 400 units PO QAM [facility] Stop: 08/25/21 08:59 Last Admin: 07/28/21 09:29 Dose: 400 units Documented by: Resident Activity Tracking Resident Involvement: Resident Care Provided Care Provided: Adult Hospital Medicine (1) UTI (urinary tract infection) Hematuria presence: without hematuria Urinary tract infection type: site un specified Qualified Code(s): N39.0 - Urinary tract infection, site not specified (2) Low back pain Back pain laterality: bilateral Chronicity: acute Sciatica presence: unspe cified whether sciatica present Qualified Code(s): M54.5 - Low back pain (3) COPD (chronic obstructive pulmonary disease) COPD type: emphysema Emphysema type: unspecified Qualified Code(s): J43.9 - Emphysema, unspecified (4) HTN (hypertension) Hypertension type: essential hypertension Qualified Code(s): I10 - Essential (primary) hypertension
[2021-07-28] MEDS: amLODIPine BESYLATE 5 MG TAB PO SCH (09:28)
[2021-07-28] MEDS: ACETAMINOPHEN 325 MG TAB PO SCH ×2 (09:28→13:57)
[2021-07-28] MEDS: DICLOFENAC SOD 1% GEL 100 GM TUBE EXT SCH ×2 (09:29→13:57)
[2021-07-28] MEDS: CHOLECALCIFEROL 400 UNITS 10 MCG TAB PO SCH (09:29)
[2021-07-28] MEDS: CYANOCOBALAMIN (VITAMIN B-12) 100 MCG TABLET PO SCH (09:29)
[2021-07-28] MEDS: FOLIC ACID 400 MCG TAB PO SCH (09:30)
[2021-07-28] MEDS: ENOXAPARIN INJ 40 MG/0.4 ML SYR SQ SCH (09:30)
[2021-07-28] MEDS: MAGNESIUM OXIDE 400 MG TAB PO SCH ×2 (09:31→13:57)
[2021-07-28] MEDS: lisinopril 20 MG TAB PO SCH (09:31)
[2021-07-28] MEDS: LIDOCAINE 5% 1 PATCH TD SCH (09:31)
[2021-07-28] MEDS: POLYETHYLENE (MIRALAX) 17 GM PACK PO SCH (09:32)
[2021-07-28] MEDS: NYSTATIN OINT 15 GM TUBE EXT SCH (09:32)
[2021-07-28] MEDS: THIAMINE HCL 100 MG TAB PO SCH (09:33)
[2021-07-28] MEDS: SPIRONOLACTONE 25 MG TAB PO SCH (09:33)
[2021-07-28] MEDS: SERTRALINE HCL 100 MG TABLET PO SCH (09:33)
[2021-07-28] MEDS: INSULIN ASPART 100 UNITS/ML 3 ML PEN SC SCH ×2 (09:34→13:56)
[2021-07-28] MEDS: PREGABALIN 75 MG CAP PO SCH (09:39)
--- NOTE | 2021-07-28 17:10 | Discharge Summary ---
Date of Service July 28, 2021 Admission HPI Per Admitting Provider Evelin Arthur is a 60 y/o F w/ complex PMHx of anxiety/depression, COPD, gout, hirsutism, HTN, and DM2 w/ neuropathy who presents from home w/ 6 months of low back pain and bilat UE and LE pain and weakness, worsened x 2 wks. She was seen at [facility] 3 days ago after a fall. Presents today for continued decreased mobility and inability to get up despite walker. She feels she has no strength in her legs. Her upper and lower extremity muscles hurt. Current pain level (s/p fentanyl): 2/10 w/o movement, severe exacerbation w/ movement/lifting legs. Her low back hurts w/ ambulation. No sciatica type pain and no groin numbness. Patient stopped taking home medications x 3 days because she had been unable to walk to the pharmacy. Patient denies etoh use in 2 months. She also presents w/ 2 weeks of dysuria, urgency, frequency, darker urine. ED course: fentanyl 50mcg x2. morphine 4mg x1. 1L NSS. AST 410s. CK 5749. MRIs of spine prelim neg for acute processes. Admission Exam Per Admitting Provider General: Grossly A&O. NAD. Cooperative. Obese habitus. HEENT: Atraumatic, normocephalic. EOMI. PERRL. Pulm: CTAB. -wheezes, -rales, -rhonchi. No respiratory distress. Cardiac: RRR, -mrg. Radial pulses intact and symmetrical. No LE edema. Abdominal: Nontender, nondistended, soft. Musculoskeletal: + mild ttp to palpation at shins. Unable to perform SLR limited by patient's discomfort at inguinal area. No radicular pain w/ legs raised to 10 degrees. Back: TTP at L CVA area. Neuro: 5+/5 strength of upper extremities and bilat ankles/feet. Unable to assess strength of hips and knees limited by patient's pain w/ motion. Gross sensation of lower extremity symmetric/intact. Mild tremors w/ hands stretched out. Principal Diagnosis Myopathy with Deconditioning Discharge Exam General: Well appearing, age appropriate Heart: RRR, +S1 S2, no murmurs/gallops/rubs Lungs: cta b/l, no wheezes/rales/rhonchi Abd: soft, NT/ND, +BS, rash erythema resolved in groin crease and under breast Extremities: 5/5 strength LE, no pain on palpation. mild swelling of ankles. Compression stockings and SCDs in place Musculoskeletal: -07/21 PE demonstrates 5/5 strength UE, 3/5 in LE may be secondary to pain -07/22 pain reduced, increased range of motion UE, increased mobility LE able to sit up and walk with assistance to comode -07/23 PE only hip weakness remains, pain on active movement -07/24 patient doing physical therapy exercises, can stand and walk few steps with some difficulty -07/25 patient doing physical therapy exercises and incentive spirometry, is comfortable walking to use commode -07/26 PE demonstrates 5/5 strength in LE, is comfortable walking unassisted to commode and chair Discharge Data Allergies Allergy/AdvReac Type Severity Reaction Status Date / Time morphine Allergy Hives Verified 07/21/21 03:51 Consultations 07/22/21 14:56 Consult Pain Management Routine 07/22/21 15:00 Consult Orthopedic Surgery Routine Ordered Studies 07/20/21 15:19 MR cervical spine wo con Stat MR lumbar spine wo con Stat MR thoracic spine wo con Stat 07/21/21 10:46 US liver Routine Hospital Course (1) Myopathy: (2) Weakness: (3) Low back pain: (4) UTI (urinary tract infection): (5) Transaminitis: (6) Alcoholism: 60 y/o F w/ chronic low back pain 2/2 DJD and complex PMHx who presents w/ weakness/pain of all 4 extremities, worse on lower. Her presentation is most consistent w/ myopathy with elevated CK of 5749. Leg weakness with pain - Patient with recent fall/relative immobilization 3 days prior to admission. Initial ? secondary to alcoholic myopathy, medications. Electrolytes acceptable and TSH wnl. - Received IVF while in the ED, since stopped on 07/21/21 - B12 and folate levels normal, lyme negative - h/o ERIC pos in past - Ortho consulted - no surgical intervention indicated at this time for lumbar radiculopathy - pain management - recommend increased tizanidine to 4mg - pain control w/ TID tylenol and QID voltaren gel for back, hip and ankle pain, PRN ibuprofen, tramadol while inpatient - Will DC tramadol on discharge, can resume PRN based on PCP follow up - PT/OT ordered, recommend inpt rehab. Patient condition improving with exercise, myopathy resolved 07/23 - patient educated on rollator v. wheelchair, patient agreed rollator more appropriate to preserve her mobility, CM notified Transaminitis AST elevated from 89->410 in 8 days. -->downtrended to 44 prior to discharge UTI (urinary tract infection) Acute UTI given possible contribution to generalized weakness - started Rocephin in ED, dc'd 07/22 started cephalexin - completed on 07/25 - culture demonstrated pansensitive ecoli Alcoholism Denies use in 2 months. Low back pain Chronic. Imaging consistent w/ multilevel DJD. Clinically, does not present w/ cord compression or saddle anesthesia. - pain control as above -ortho consulted nothing to intervene COPD (chronic obstructive pulmonary disease) - albuterol PRN HTN (hypertension) - continue home regimen Anxiety - continue home sertraline Total Time Total Time Spent Total Time Spent (In Minutes): <30 Discharge Plan Discharge Items Patient Disposition: Transfer Inpatient Rehab Fac Reason For Visit: MYOPATHY, EXTREMITY PAIN / WEAKNESS Discharge Diagnosis: Myopathy with Deconditioning Condition on Discharge: Good Activity: Resume your previous activity Non-emergency contact: Primary Care Provider Call non-emergency contact if: your symptoms worsen, your pain is worsening and you have a fever Follow-up/Referrals: Gay Sanchez DO [Primary Care Provider] - Diet: Carb Consistent or DM2 Addtl Attending Provider Instructions: 60 y/o F w/ chronic low back pain 2/2 DJD and complex PMHx who presents w/ weakness/pain of all 4 extremities, worse on lower. Her presentation is most consistent w/ myopathy with elevated CK of 5749. Leg weakness with pain - Patient with recent fall/relative immobilization 3 days prior to admission. Initial ? secondary to alcoholic myopathy, medications. Electrolytes acceptable and TSH wnl. - Received IVF while in the ED, since stopped on 07/21/21 - B12 and folate levels normal, lyme negative - h/o ERIC pos in past - Ortho consulted - no surgical intervention indicated at this time for lumbar radiculopathy - pain management - recommend increased tizanidine to 4mg - pain control w/ TID tylenol and QID voltaren gel for back, hip and ankle pain, PRN ibuprofen, tramadol while inpatient - Will DC tramadol on discharge, can resume PRN based on PCP follow up - PT/OT ordered, recommend inpt rehab. Patient condition improving with exercise, myopathy resolved 07/23 - patient educated on rollator v. wheelchair, patient agreed rollator more appropriate to preserve her mobility, CM notified Transaminitis AST elevated from 89->410 in 8 days. -->downtrended to 44 prior to discharge UTI (urinary tract infection) Acute UTI given possible contribution to generalized weakness - started Rocephin in ED, dc'd 07/22 started cephalexin - completed on 07/25 - culture demonstrated pansensitive ecoli Alcoholism Denies use in 2 months. Low back pain Chronic. Imaging consistent w/ multilevel DJD. Clinically, does not present w/ cord compression or saddle anesthesia. - pain control as above -ortho consulted nothing to intervene COPD (chronic obstructive pulmonary disease) - albuterol PRN HTN (hypertension) - continue home regimen Anxiety - continue home sertraline Pending Studies at Discharge: No Stand-Alone Forms: My [facility] Skilled Items Patient informed of condition?: Yes DNR: No Discharge Level of Care: Acute rehab Communicable Disease: No Discharge Prognosis: Stable Lines: None Urinary Catheter: No Medications and DC Order Prescriptions: New tizanidine 4 mg Tablet 4 mg PO DAILY PRN (Reason: pain) Qty: 1 RF: 0 Continued amlodipine 5 mg tablet 5 mg PO QAM Qty: 90 RF: 1 glimepiride 2 mg tablet 4 mg PO HS Qty: 180 RF: 1 magnesium oxide 400 mg magnesium capsule 800 mg PO TID Qty: 540 RF: 1 spironolactone 25 mg tablet 25 mg PO DAILY Qty: 90 RF: 1 loperamide [Imodium A-D] 2 mg tablet 2 mg PO Q6H PRN (Reason: loose stool) Qty: 120 RF: 1 cholecalciferol (vitamin D3) 1,250 mcg (50,000 unit) capsule 50,000 unit PO .weekly Qty: 8 RF: 0 pregabalin 75 mg capsule 75 mg PO BID Qty: 60 RF: 0 (DME) Wheelchair (Manual) Device See Rx Instructions .Route Qty: 1 RF: 0 albuterol sulfate [Ventolin HFA] 90 mcg/actuation HFA aerosol inhaler See Rx Instructions inhalation .COMPLEX PRN (Reason: shortness of breath or wheezing) Qty: 18 RF: 0 cholecalciferol (vitamin D3) 100 mcg (4,000 unit) tablet 4,000 unit PO QAM Qty: 30 RF: 0 diclofenac sodium [Voltaren Arthritis Pain] 1 % gel 2 g topical QID Qty: 100 RF: 2 albuterol sulfate 2.5 mg /3 mL (0.083 %) solution for nebulization 2.5 mg inhalation Q6H PRN (Reason: shortness of breath or wheezing) Qty: 90 RF: 1 (DME) nebulizers Misc See Rx Instructions .ROUTE .MEDSUPPLY Qty: 1 RF: 0 metformin 500 mg tablet extended release 24 hr 1,000 mg PO BID RF: 0 nystatin [Nystop] 100,000 unit/gram Powder 1 applic EXT BID Qty: 30 RF: 0 thiamine HCl (vitamin B1) [Vitamin B-1] 100 mg Tablet 100 mg PO QAM Qty: 30 RF: 0 oxycodone-acetaminophen 5-325 mg tablet 1 tab PO Q6 PRN (Reason: Pain) RF: 0 potassium chloride 20 mEq tablet,ER particles/crystals 20 meq PO UD RF: 0 lisinopril 20 mg tablet 20 mg PO QAM RF: 0 sertraline 100 mg tablet 100 mg PO QAM RF: 0 Discontinued ibuprofen 600 mg tablet 600 mg PO UD PRN (Reason: Pain) RF: 0 Discharge Orders: Discharge Order (Routine); Ordered 07/28/21 Ordered By: Jorje Mcghee Admission Data Admit Date/Time: 07/21/21 01:03 Attending Provider: Royal Bejarano Admit Provider: Juan Christiansen Primary Care Provider: Gay aSnchez. Other Providers: Pollo Alonzo ; Olivia Anderson ; Lei Ruiz ; [facility] Other Interventions: Discharge Summary Assessment (RN) Last Done: 07/28/21 16:08 Supervising Physician Co-Signing Physician Notes I personally examined the patient and verified all paris points of history and exam, discussed case, and agree with decision making with Dr Alvarado finally approved for rehab. no new issues otherwise Vitals noted, in general she is awake and alert pleasant no distress. HEENT normocephalic atraumatic mucous membranes are moist. Breathing unlabored no accessory muscle use good effort. Skin shows no rashes no pallor or icterus. Neuro without focal deficits. Generalized weaknesslikely multifactorial due to spinal stenosis, arthritis, overall weakness/deconditioning. for rehab today. CPK elevation might have been mild rhabdomyolysis, but seems more consistent with just muscle effort, as well as falls present on admission. Stable for rehab. Otherwise as above. Resident Activity Tracking Resident Involvement: Resident Care Provided Care Provided: Adult [facility]
--- NOTE | 2021-07-28 18:51 | Billing Data ---
Date of Service July 28, 2021 Coding Level of Care Code D/C DAY MANAGEMENT <30 MINS
== END 2021-07-28 16:27 | DRG 92 ==
LOC: ED 13:59 → SUATTDRO 07-21 01:03 → 3N 07-21 01:03

== ENCOUNTER 2021-11-19 14:09 | Inpatient (IN) ==
[2021-11-19 16:47] LABS: Basophils # (auto) 0.04 K/uL (0-0.2); Basophils % (auto) 0.6 %; Eosinophils % (auto) 1.4 %; Hematocrit (blood only) 41.8 % (37-47); Hemoglobin 13.4 g/dL (12.0-16.0); Immature Granulocytes # (auto) 0.02 K/uL (0.00-0.02); Immature Granulocytes % (auto) 0.3 %; Lymphocytes # (auto) 1.96 K/uL (1.2-3.4); Lymphocytes % (auto) 27.5 %; Mean Corpuscular Hemoglobin 30.7 pg (25-34); Mean Corpuscular Hgb Conc 32.1 g/dL (32-36); Mean Corpuscular Volume 95.7 fL (80-100); Mean Platelet Volume 10.1 fL (7.4-10.4); Monocytes # (auto) 0.41 K/uL (0.11-0.59); Monocytes % (auto) 5.7 %; Neutrophils # (auto) 4.61 K/uL (1.4-6.5); Neutrophils % (auto) 64.5 %; Platelet Count 350 K/uL (130-400); RDW Coefficient of Variation 14.9 % (11.5-14.5); RDW Standard Deviation 51.9 fL (36.4-46.3); Red Blood Count 4.37 M/uL (4.2-5.4); White Blood Count 7.14 K/uL (4.8-10.8)
[2021-11-19 17:21] LABS: Alanine Aminotransferase 13 U/L (7-52); Albumin Level 4.3 gm/dl (3.4-5.0); Alkaline Phosphatase 82 U/L (34-104); Anion Gap 6 (3-11); BUN Creatinine Ratio 24.3 (10-20); Bilirubin,Total 0.5 mg/dl (0.2-1.0); Blood Urea Nitrogen 42 mg/dl (6-23); Calcium 9.9 mg/dl (8.5-10.1); Carbon Dioxide 18 mmol/L (21-32); Chloride 106 mmol/L (98-107); Creatinine Clr Calc Pharmacy 42.2 ml/min; Est GFR (African American) 36.6 ml/min; Est GFR (Non-African American) 31.5 ml/min; Globulin 4.3 gm/dl (2.5-4.0); Glucose 145 mg/dl (70-99(Fasting)); Magnesium 1.5 mg/dl (1.7-2.4); Sodium 130 mmol/L (136-145); Total Protein 8.6 gm/dl (6.0-8.3)
--- NOTE | 2021-11-19 19:00 | Emergency Department Note ---
Impression & Plan BUTCH (acute kidney injury), Acute hyperkalemia ED Provider Note INFORMANT: Patient ED PROVIDER(S): Anastacio Asencio MD CHIEF COMPLAINT: Abnormal labs PLAN: Disposition: Admitted Condition: Good Outpatient prescription management: none Referral: None MEDICAL DECISION MAKING: Patient presented because of abnormal labs. She was evaluated. The right second toe ulceration appears to be healing. There is no significant surrounding cellulitis. Protocol labs were done due to significant ED volume. Her CBC was unremarkable. White count was improved from prior. Chemistry panel did reveal BUTCH was still present. Her potassium faltered but was rechecked. It revealed persistent hyperkalemia. She does note feeling weak. Given the significant elevation of potassium ECG was performed and did not reveal any acute findings. Patient's hyperkalemia was treated with IV calcium, bicarb, glucose, and insulin. The patient was hydrated as well. Further management in the hospital will be necessary. Patient was in agreement. Consultation was made with Dr. Henry Han of the [facility] service. Patient was evaluated in the ER for further management. Triage Nursing notes reviewed and agree them. Vital Signs: reviewed and remarkable for no significant abnormalities Differential diagnosis: Infection, dehydration, metabolic abnormality, hypo/hyperglycemia, electrolyte disturbance, anemia, hypoxia, cardiac sources, intracerebral event, toxicologic, neurologic, as well as other pathologies. Diagnostics interpreted by me: EC Lead ECG performed and revealed Normal sinus rhythym at 95, normal [place], QRS normal. No elevation or depression. No PACs or PVCs Imaging studies: Deferred HPI: The patient is a 61 year old who presents to the Emergency Room with complaints of abnormal labs. This started from a PCP visit on 11/16 and is a problem with high potassium and creatinine. The patient also notes the following associated symptoms, right 2nd toe ulcer, occasional nausea, shakiness, weakness, and chronic back pain. The patient has been prescribed bactrim for relieving factors. Current pain is rated as 8/10. Pt denies LOC, headache, fevers, chills, diaphoresis, visual changes, neck pain, chest pain, breathing difficulties, vomiting, abdominal pain, new back pain, melena, hematochezia, urinary symptoms, numbness, lymphadenopathy, rash, or other com plaints. ROS: See above HPI for pertinent positives & negatives. A total of 10 systems reviewed and were otherwise negative. PAST MEDICAL HISTORY:See Below , DM PAST SURGICAL HISTORY:See Below, FAMILY HISTORY:See Below SOCIAL HISTORY:See Below, smoker HOME MEDICATIONS:See Below ALLERGIES:See Below VITALS:See Below PHYSICAL EXAMINATION: GENERAL: Awake, alert, tired-appearing, in no distress HENT: Normocephalic, atraumatic. Oropharynx unremarkable. EYES: Normal conjunctiva. Sclera non-icteric. NECK: Inspection normal. Non-tender. Supple. No nuchal rigidity. FROM. No masses. RESPIRATORY: Clear to auscultation. No wheezes. No rales. Normal respiratory effort. CARDIAC: Normal rate. Normal rhythm. No murmurs. No rubs. Extremities warm and well perfused. Pulses equal. No JVD. GI: Soft, non-distended. No tenderness to palpation. No rebound or guarding. No masses. RECTAL: Deferred. MUSCULOSKELETAL: Atraumatic. Chest examination reveals no tenderness. The back is symmetrical on inspection without obvious abnormality. There is no CVA tender ness to palpation. No joint edema. LOWER EXTREMITIES: Healing ulcer right 2nd toe. Calves are equal size bilaterally and non-tender. No edema. No discoloration. NEURO: Normal sensorium. No sensory or motor deficits noted. SKIN: No rash or jaundice noted. Anastacio Asencio MD Past Med/Surg History Medical History Alcoholic hepatitis Alcoholism ERIC positive Anxiety B12 deficiency C. difficile diarrhea COPD (chronic obstructive pulmonary disease) Depression Elevated ferritin Fatty liver Gout Hirsutism HTN (hypertension) Lumbar disc disease Lumbar stenosis Non-sustained ventricular tachycardia Peripheral neuropathy Rhabdomyolysis Tobacco use Type 2 diabetes mellitus Type 2 diabetes mellitus with diabetic polyneuropathy UTI (urinary tract infection) Vitamin D deficiency Surgical History History of ankle surgery History of blepharoplasty History of bunionectomy History of laparoscopy History of umbilical hernia repair Family History Mother Diabetes Myocardial infarction Father MVA (motor vehicle accident) Grandmother (Maternal) Alzheimer disease Brother Diabetes Aunt Breast cancer Uncle Myocardial infarction History of throat cancer Other No significant family history Denies family history of Colon cancer Ovarian cancer Prostate cancer Social History Smoking Status: Current every day smoker Tobacco Type: Cigarettes Age Started Using Tobacco: 16; packs per day: 0.5; Cigarettes Per Day: half a pack; Second Hand Exposure: No; Do You Dip or Chew Tobacco: No; Hx Alcohol Use: No Hx Substance Use: No Preferred Language: Bengali Communication Ability: Effective Visual Impairment: No Limitations Hearing Ability: Normal Division Order Analyst Required: No Beliefs That Will Affect Care: None marital status: Single Current Living Situation: Alone Current Living Situation Comment: home alone, brother checks on her current occupational status: employed 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[employer]; 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 Feels Safe at Home: Yes Safety Concerns: Feels Safe At This Time Dental Care, Regularly: No Physical Activity Frequency: Does not Exercise Seatbelt Use: always Assistive Devices: Cane Allergies Allergies Allergy/AdvReac Type Severity Reaction Status Date / Time morphine Allergy Hives Verified 11/16/21 15:27 Home Meds Home Medications Medication Instructions Recorded Confirmed metformin 500 mg tablet,extended 1,000 mg PO BID tab 01/22/21 11/19/21 release 24 hr glimepiride 2 mg tablet 2 mg PO BID tab 09/13/21 11/19/21 Previous Rx's Medication Instructions Recorded nystatin 100,000 unit/gram topical 1 applic EXT BID #30 g 01/24/21 powder (Nystop) thiamine HCl (vitamin B1) 100 mg 100 mg PO QAM #30 tab 01/24/21 tablet (Vitamin B-1) albuterol sulfate 2.5 mg INHALATION Q6H PRN #90 ml 03/09/21 magnesium oxide 800 mg PO TID #540 cap 03/09/21 nebulizers #1 ea 03/09/21 loperamide 2 mg tablet (Imodium 2 mg PO Q6H PRN #120 tab 03/15/21 A-D) diclofenac sodium 1 % topical gel 2 g TOPICAL QID #100 g 07/12/21 (Voltaren Arthritis Pain) Wheelchair (Manual) #1 ea 07/26/21 albuterol sulfate 90 mcg/actuation See Rx Instructions INHALATION 07/26/21 aerosol inhaler (Ventolin HFA) .COMPLEX PRN #18 g ibuprofen 800 mg tablet 800 mg PO DAILY PRN #30 tab 09/13/21 atorvastatin 40 mg tablet 40 mg PO DAILY #240 tab 09/15/21 ergocalciferol (vitamin D2) 1,250 50,000 unit PO .weekly #12 cap 10/01/21 mcg (50,000 unit) capsule sulfamethoxazole 800 1 tab PO BID 10 Days #20 tab 11/09/21 mg-trimethoprim 160 mg tablet (Bactrim DS) tizanidine 4 mg tablet 4 mg PO BID PRN #30 tab 11/09/21 tramadol 50 mg tablet See Rx Instructions PO Q6H PRN 11/09/21 #120 tab amlodipine 5 mg tablet 5 mg PO QAM #90 tab 11/11/21 pregabalin 150 mg capsule 150 mg PO BID #60 cap 11/12/21 sertraline 100 mg tablet 150 mg PO QAM #90 tab 11/16/21 spironolactone 50 mg tablet 25 mg PO DAILY #90 tab 11/16/21 Results & Data (ED) Vital Signs Vital Signs - 24 hr 11/19/21 14:11 11/19/21 20:50 Temperature 36.5 C Temperature Source Temporal Artery Scan Pulse Rate 102 H Pulse Rate [Apical] 103 H Respiratory Rate 20 18 Respiratory Effort / Characteristics Non-Labored Respiratory Depth Normal Blood Pressure 170/82 H Blood Pressure [Left Arm] 135/72 Blood Pressure Mean 111 Blood Pressure Mean [Left Arm] 93 Blood Pressure Position Sitting Pulse Oximetry 96 97 Oxygen Delivery Method Room Air Room Air Sepsis Recent Fever Within 48 Hours No Sepsis New/Unexplained Change in Mental Status No Sepsis Action Taken by Nursing No Action Required Laboratory Data Result diagrams: 11/19/21 16:30 11/19/21 19:31 Lab Results 11/19/21 11/19/21 11/19/21 Range/Units 16:30 16:30 16:34 WBC 7.14 (4.8-10.8) K/uL RBC 4.37 (4.2-5.4) M/uL Hgb 13.4 (12.0-16.0) g/dL Hct 41.8 (37-47) % MCV 95.7 (80-100) fL MCH 30.7 (25-34) pg MCHC 32.1 (32-36) g/dL RDW Std Deviation 51.9 H (36.4-46.3) fL RDW Coeff of Eduardo 14.9 H (11.5-14.5) % Plt Count 350 (130-400) K/uL MPV 10.1 (7.4-10.4) fL Immature Gran % (Auto) 0.3 % Neut % (Auto) 64.5 % Lymph % (Auto) 27.5 % [place] % (Auto) 5.7 % Eos % (Auto) 1.4 % Baso % (Auto) 0.6 % Neut # (Auto) 4.61 (1.4-6.5) K/uL Lymph # (Auto) 1.96 (1.2-3.4) K/uL [place] # (Auto) 0.41 (0.11-0.59) K/uL Eos # (Auto) 0.10 (0-0.5) K/uL Baso # (Auto) 0.04 (0-0.2) K/uL Immature Gran # (Auto) 0.02 (0.00-0.02) K/uL Sodium 130 L (136-145) mmol/L Potassium (3.5-5.1) mmol/L Chloride 106 (98-107) mmol/L Carbon Dioxide 18 L (21-32) mmol/L Anion Gap 6 (3-11) BUN 42 H (6-23) mg/dl Creatinine 1.73 H (0.6-1.2) mg/dl Est Cr Clr Drug Dosing 42.2 ml/min Est GFR ( Amer) 36.6 ml/min Est GFR (Non-Af Amer) 31.5 ml/min BUN/Creatinine Ratio 24.3 H (10-20) Glucose 145 H (70-99(Fasting)) mg/dl POC Glucose 148 H (70-99) mg/dl Calcium 9.9 (8.5-10.1) mg/dl Magnesium 1.5 L (1.7-2.4) mg/dl Total Bilirubin 0.5 (0.2-1.0) mg/dl AST (13-39) U/L ALT 13 (7-52) U/L Alkaline Phosphatase 82 (34-104) U/L Total Protein 8.6 H (6.0-8.3) gm/dl Albumin 4.3 (3.4-5.0) gm/dl Globulin 4.3 H (2.5-4.0) gm/dl Albumin/Globulin Ratio 1.0 (0.9-2) SARS-CoV-2, RNA, NAAT (NEGATIVE) 11/19/21 11/19/21 11/19/21 Range/Units 19:31 20:56 21:23 WBC (4.8-10.8) K/uL RBC (4.2-5.4) M/uL Hgb (12.0-16.0) g/dL Hct (37-47) % MCV (80-100) fL MCH (25-34) pg MCHC (32-36) g/dL RDW Std Deviation (36.4-46.3) fL RDW Coeff of Eduardo (11.5-14.5) % Plt Count (130-400) K/uL MPV (7.4-10.4) fL Immature Gran % (Auto) % Neut % (Auto) % Lymph % (Auto) % [place] % (Auto) % Eos % (Auto) % Baso % (Auto) % Neut # (Auto) (1.4-6.5) K/uL Lymph # (Auto) (1.2-3.4) K/uL [place] # (Auto) (0.11-0.59) K/uL Eos # (Auto) (0-0.5) K/uL Baso # (Auto) (0-0.2) K/uL Immature Gran # (Auto) (0.00-0.02) K/uL Sodium (136-145) mmol/L Potassium 6.4 H* (3.5-5.1) mmol/L Chloride (98-107) mmol/L Carbon Dioxide (21-32) mmol/L Anion Gap (3-11) BUN (6-23) mg/dl Creatinine (0.6-1.2) mg/dl Est Cr Clr Drug Dosing ml/min Est GFR ( Amer) ml/min Est GFR (Non-Af Amer) ml/min BUN/Creatinine Ratio (10-20) Glucose (70-99(Fasting)) mg/dl POC Glucose 121 H (70-99) mg/dl Calcium (8.5-10.1) mg/dl Magnesium (1.7-2.4) mg/dl Total Bilirubin (0.2-1.0) mg/dl AST 14 (13-39) U/L ALT (7-52) U/L Alkaline Phosphatase (34-104) U/L Total Protein (6.0-8.3) gm/dl Albumin (3.4-5.0) gm/dl Globulin (2.5-4.0) gm/dl Albumin/Globulin Ratio (0.9-2) SARS-CoV-2, RNA, NAAT NEGATIVE (NEGATIVE) Administered Medications Magnesium Oxide (Magnesium Oxide 400 Mg Tab) 400 mg PO BID GRAYSON Stop: 12/19/21 23:29 Last Admin: 11/20/21 00:35 Dose: 400 mg Documented by: [id number] Pregabalin (Pregabalin 150 Mg Cap) 150 mg PO BID GRAYSON Stop: 12/19/21 23:29 Last Admin: 11/19/21 23:55 Dose: 150 mg Documented by: [id number] Tizanidine HCl (Tizanidine Hcl 4 Mg Tablet) 4 mg PO BID PRN PRN Reason: muscle spasm Stop: 12/19/21 23:01 Last Admin: 11/20/21 00:36 Dose: 4 mg Documented by: [id number] Tramadol HCl (Tramadol Hcl 50 Mg Tablet) 50 mg PO Q6H PRN PRN Reason: Moderate Pain Stop: 12/19/21 23:01 Last Admin: 11/19/21 23:55 Dose: 50 mg Documented by: [id number] Discontinued Medications Dextrose (Dextrose 50% 50 Ml Syringe) 50 ml IV NOW ONE Stop: 11/19/21 20:23 Last Admin: 11/19/21 20:57 Dose: 50 ml Documented by: [id number] Sodium Chloride (Nss 1000ml) 1,000 mls @ 999 mls/hr IV .Q1H1M ONE Stop: 11/19/21 20:38 Last Infusion: 11/19/21 21:58 Dose: 0 mls/hr Documented by: [id number] Admin: 11/19/21 20:57 Dose: 999 mls/hr Documented by: [id number] Calcium Gluconate () 1,000 mg in 60 mls @ 240 mls/hr IV NOW STA Stop: 11/19/21 20:36 Last Infusion: 11/19/21 21:12 Dose: 0 mls/hr Documented by: [id number] Admin: 11/19/21 20:57 Dose: 240 mls/hr Documented by: [id number] Magnesium Sulfate/Dextrose (Magnesium Sulfate / D5w) 1 gm in 100 mls @ 50 mls/hr IV Q2H GRAYSON Stop: 11/20/21 01:29 Last Admin: 11/20/21 01:06 Dose: 50 mls/hr Documented by: [id number] Infusion: 11/20/21 01:03 Dose: 50 mls/hr Documented by: [id number] Admin: 11/19/21 23:03 Dose: 50 mls/hr Documented by: [id number] Insulin Human Regular (Novolin-R Insulin Per Unit Charge) 10 units IV NOW STA Stop: 11/19/21 20:23 Last Admin: 11/19/21 20:57 Dose: 10 units Documented by: [id number] Cosigned by: [id number] Sodium Bicarbonate (Sodium Bicarb 8.4% Inj 50 Meq/50 Ml Syr) 50 meq IV NOW STA Stop: 11/19/21 20:23 Last Admin: 11/19/21 20:57 Dose: 50 meq Documented by: [id number] Discharge Plan Visit Data Chief Complaint: Abnormal Labs/Diagnostic Testing Stated Complaint: ABNORMAL BLOOD WORK,REF BY DOC ED Provider: Anastacio Asencio Discharge Problem: BUTCH (acute kidney injury), Acute hyperkalemia Patient Disposition: Admitted As Inpatient Discharge Instructions Interventions: ED Discharge Assessment Last Done: 11/19/21 22:13
[2021-11-19] MEDS ORDERED: SODIUM CHLORIDE 0.9% 1000ML 1,000 ML IV ONE (19:38)
[2021-11-19 20:10] LABS: Potassium 6.4 mmol/L (3.5-5.1)
[2021-11-19] MEDS ORDERED: CALCIUM GLUCONATE 1,000 MG/60 ML BAG IV STA (20:22)
[2021-11-19] MEDS ORDERED: NovoLIN-R INSULIN PER UNIT CHARGE IV STA (20:22)
[2021-11-19] MEDS ORDERED: DEXTROSE 50% 50 ML SYRINGE IV ONE (20:22)
[2021-11-19] MEDS ORDERED: SODIUM BICARB 8.4% INJ 50 MEQ/50 ML SYR IV STA (20:22)
--- NOTE | 2021-11-19 21:27 | History & Physical Report ---
Date of Service November 19, 2021 Assessment & Plan (1) BUTCH (acute kidney injury): Plan: Creatinine 1.73 upon admission, with base of 0.95 Received 1 L normal saline in ED Continue normal saline 125 mils per hour Repeat laboratories this evening and in the a.m. (2) Acute hyperkalemia: Plan: Potassium 6.4 upon admission. Received from the ED: Amp of D50 followed by 10 of regular insulin IV, calcium gluconate 1 g IV, and 1 L normal saline Repeat BMP and magnesium level in about 2 hours Hold spironolactone and Bactrim (3) Type 2 diabetes mellitus: Plan: Hold glimepiride and metformin Place on Accu-Cheks before meals and at bedtime with NovoLog coverage per scale (4) Hypomagnesemia: Plan: Magnesium 1.5 upon admission Care 2 g magnesium sulfate IV, and recheck in a.m. (5) Peripheral neuropathy: Plan: Continue gabapentin (6) HTN (hypertension): Plan: Continue amlodipine Hold spironolactone (7) Hyperlipidemia LDL goal <70: Plan: Continue atorvastatin 40 mg daily (8) Tobacco use: Plan: Cessation counseling (9) Depression: Plan: Continue sertraline 50 mg every morning (10) Gout: Plan: Not active at this time, and on no active treatment (11) Alcoholism: Plan: Denies recent use Continue thiamine History of Present Illness Chief Complaint: The patient presents to the emergency department with complaint of generalized achiness and abnormal outpatient labs with high potassium Primary Care Provider: Gay Sanchez DO The patient is a 61-year-old female with a past medical history including lumbar spinal stenosis, lumbar disc disease, diarrhea, diabetes mellitus type 2, diabetic polyneuropathy, alcoholic hepatitis, tobacco use, hirsutism, depression, B12 deficiency, alcoholism, COPD, hypertension, ERIC positive, gout and fatty liver. She was referred to the emergency department due to outpatient laboratory showing elevated potassium. She has been on Bactrim the outpatient setting for a right second toe ulcer, which she reports is healing Laboratories in the ED tonight confirmed elevated potassium of 6.4, low magnesi um of 1.5, and creatinine was noted to be increased at 1.73. Allergies Allergy/AdvReac Type Severity Reaction Status Date / Time morphine Allergy Hives Verified 11/16/21 15:27 Home Medications Medication Instructions Recorded Confirmed Type metformin 500 mg tablet,extended 1,000 mg PO BID tab 01/22/21 11/19/21 History release 24 hr nystatin 100,000 unit/gram topical 1 applic EXT BID #30 g 01/24/21 11/19/21 Rx powder (Nystop) thiamine HCl (vitamin B1) 100 mg 100 mg PO QAM #30 tab 01/24/21 11/19/21 Rx tablet (Vitamin B-1) albuterol sulfate 2.5 mg INHALATION Q6H PRN #90 ml 03/09/21 11/19/21 Rx magnesium oxide 800 mg PO TID #540 cap 03/09/21 11/19/21 Rx nebulizers #1 ea 03/09/21 11/16/21 Rx loperamide 2 mg tablet (Imodium 2 mg PO Q6H PRN #120 tab 03/15/21 11/19/21 Rx A-D) diclofenac sodium 1 % topical gel 2 g TOPICAL QID #100 g 07/12/21 11/19/21 Rx (Voltaren Arthritis Pain) Wheelchair (Manual) #1 ea 07/26/21 11/16/21 Rx albuterol sulfate 90 mcg/actuation See Rx Instructions INHALATION 07/26/21 11/19/21 Rx aerosol inhaler (Ventolin HFA) .COMPLEX PRN #18 g glimepiride 2 mg tablet 2 mg PO BID tab 09/13/21 11/19/21 History ibuprofen 800 mg tablet 800 mg PO DAILY PRN #30 tab 09/13/21 11/19/21 Rx atorvastatin 40 mg tablet 40 mg PO DAILY #240 tab 09/15/21 11/19/21 Rx ergocalciferol (vitamin D2) 1,250 50,000 unit PO .weekly #12 cap 10/01/21 11/19/21 Rx mcg (50,000 unit) capsule sulfamethoxazole 800 1 tab PO BID 10 Days #20 tab 11/09/21 11/19/21 Rx mg-trimethoprim 160 mg tablet (Bactrim DS) tizanidine 4 mg tablet 4 mg PO BID PRN #30 tab 11/09/21 11/19/21 Rx tramadol 50 mg tablet See Rx Instructions PO Q6H PRN 11/09/21 11/19/21 Rx #120 tab amlodipine 5 mg tablet 5 mg PO QAM #90 tab 11/11/21 11/19/21 Rx pregabalin 150 mg capsule 150 mg PO BID #60 cap 11/12/21 11/19/21 Rx sertraline 100 mg tablet 150 mg PO QAM #90 tab 11/16/21 11/19/21 Rx spironolactone 50 mg tablet 25 mg PO DAILY #90 tab 11/16/21 11/19/21 Rx Past Med/Surg History Medical History Alcoholic hepatitis Alcoholism ERIC positive Anxiety B12 deficiency C. difficile diarrhea COPD (chronic obstructive pulmonary disease) Depression Elevated ferritin Fatty liver Gout Hirsutism HTN (hypertension) Lumbar disc disease Lumbar stenosis Non-sustained ventricular tachycardia Peripheral neuropathy Rhabdomyolysis Tobacco use Type 2 diabetes mellitus Type 2 diabetes mellitus with diabetic polyneuropathy UTI (urinary tract infection) Vitamin D deficiency Surgical History History of ankle surgery History of blepharoplasty History of bunionectomy History of laparoscopy History of umbilical hernia repair Family History Mother Diabetes Myocardial infarction Father MVA (motor vehicle accident) Grandmother (Maternal) Alzheimer disease Brother Diabetes Aunt Breast cancer Uncle Myocardial infarction History of throat cancer Other No significant family history Denies family history of Colon cancer Ovarian cancer Prostate cancer Social History Smoking Status: Current every day smoker Tobacco Type: Cigarettes Age Started Using Tobacco: 16; packs per day: 0.5; Cigarettes Per Day: half a pack; Second Hand Exposure: No; Do You Dip or Chew Tobacco: No; Hx Alcohol Use: No Hx Substance Use: No Preferred Language: Italian Communication Ability: Effective Visual Impairment: No Limitations Hearing Ability: Normal Notching Press Operator Required: No Beliefs That Will Affect Care: None marital status: Single Current Living Situation: Alone Current Living Situation Comment: home alone, brother checks on her current occupational status: employed 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; 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 Feels Safe at Home: Yes Safety Concerns: Feels Safe At This Time Dental Care, Regularly: No Physical Activity Frequency: Does not Exercise Seatbelt Use: always Assistive Devices: Cane Review of Systems Review of Systems: The patient denies chest pain, palpitations, shortness of breath, dyspnea on exertion, cough, sore throat, fevers, chills, sweats, nausea, vomiting, diarrhea , constipation, abdominal pain, pelvic pain, blood in urine or stool, dysuria, urinary frequency or urgency, lightheadedness, dizziness, headache, memory loss, loss of consciousness, rash, abnormal bruising or bleeding, imbalance, focal or generalized weakness, numbness or tingling in arms, neck pain, or night sweats. The review of systems is otherwise negative other than for that already noted ab ove, and at least 10 systems have been reviewed. Physical Exam Physical Exam: The patient is awake, alert and oriented 3, well developed and well nourished, normocephalic and atraumatic, lying in bed and in no acute distress. HEENT--PERRL, EOMI, mucous membranes and oropharynx moist Neck--supple. No JVD. No bruits. Thyroid normal, trachea midline, no adenopathy. Heart--normal S1 and S2. No murmurs, rubs or gallops. Lungs--clear bilaterally, no respiratory distress, no accessory muscle use. Abdomen--normal bowel sounds and soft. Nontender. Nondistended. Obese. Extremities--right second toe with healing ulcer. There are good distal pulses b/l. Dermatologic--mild erythema dorsum of right foot Neurologic--cranial nerves II through XII grossly intact. Rheumatologic--normal range of motion. Psychiatric--normal affect. Results & Data Results & Data ([facility]) Vital Signs (Past 12 Hours) Vital Signs Temp Pulse Resp BP Pulse Ox 11/19/21 14:11 36.5 C 102 H 20 170/82 H 96 Laboratory Results Laboratory Results WBC 7.14 K/uL (4.8-10.8) 11/19/21 16:30 RBC 4.37 M/uL (4.2-5.4) 11/19/21 16:30 Hgb 13.4 g/dL (12.0-16.0) 11/19/21 16:30 Hct 41.8 % (37-47) 11/19/21 16:30 MCV 95.7 fL (80-100) 11/19/21 16:30 MCH 30.7 pg (25-34) 11/19/21 16:30 MCHC 32.1 g/dL (32-36) 11/19/21 16:30 RDW Std Deviation 51.9 fL (36.4-46.3) H 11/19/21 16:30 RDW Coeff of Eduardo 14.9 % (11.5-14.5) H 11/19/21 16:30 Plt Count 350 K/uL (130-400) 11/19/21 16:30 MPV 10.1 fL (7.4-10.4) 11/19/21 16:30 Immature Gran % (Auto) 0.3 % 11/19/21 16:30 Neut % (Auto) 64.5 % 11/19/21 16:30 Lymph % (Auto) 27.5 % 11/19/21 16:30 [place] % (Auto) 5.7 % 11/19/21 16:30 Eos % (Auto) 1.4 % 11/19/21 16:30 Baso % (Auto) 0.6 % 11/19/21 16:30 Neut # (Auto) 4.61 K/uL (1.4-6.5) 11/19/21 16:30 Lymph # (Auto) 1.96 K/uL (1.2-3.4) 11/19/21 16:30 [place] # (Auto) 0.41 K/uL (0.11-0.59) 11/19/21 16:30 Eos # (Auto) 0.10 K/uL (0-0.5) 11/19/21 16:30 Baso # (Auto) 0.04 K/uL (0-0.2) 11/19/21 16:30 Immature Gran # (Auto) 0.02 K/uL (0.00-0.02) 11/19/21 16:30 Sodium 130 mmol/L (136-145) L 11/19/21 16:30 Potassium 6.4 mmol/L (3.5-5.1) H* 11/19/21 19:31 Chloride 106 mmol/L (98-107) 11/19/21 16:30 Carbon Dioxide 18 mmol/L (21-32) L 11/19/21 16:30 Anion Gap 6 (3-11) 11/19/21 16:30 BUN 42 mg/dl (6-23) H 11/19/21 16:30 Creatinine 1.73 mg/dl (0.6-1.2) H 11/19/21 16:30 Est Cr Clr Drug Dosing 42.2 ml/min 11/19/21 16:30 Est GFR ( Amer) 36.6 ml/min 11/19/21 16:30 Est GFR (Non-Af Amer) 31.5 ml/min 11/19/21 16:30 BUN/Creatinine Ratio 24.3 (10-20) H 11/19/21 16:30 Glucose 145 mg/dl (70-99(Fasting)) H 11/19/21 16:30 POC Glucose 159 mg/dl (70-99) H 11/19/21 23:47 Calcium 9.9 mg/dl (8.5-10.1) 11/19/21 16:30 Magnesium 1.5 mg/dl (1.7-2.4) L 11/19/21 16:30 Total Bilirubin 0.5 mg/dl (0.2-1.0) 11/19/21 16:30 AST 14 U/L (13-39) 11/19/21 19:31 ALT 13 U/L (7-52) 11/19/21 16:30 Alkaline Phosphatase 82 U/L (34-104) 11/19/21 16:30 Total Protein 8.6 gm/dl (6.0-8.3) H 11/19/21 16:30 Albumin 4.3 gm/dl (3.4-5.0) 11/19/21 16:30 Globulin 4.3 gm/dl (2.5-4.0) H 11/19/21 16:30 Albumin/Globulin Ratio 1.0 (0.9-2) 11/19/21 16:30 Urine Color Yellow 11/19/21 22:30 Urine Appearance Clear (Clear) 11/19/21 22:30 Urine pH 5.0 (4.5-7.5) 11/19/21 22:30 Ur Specific [place] 1.018 (1.000-1.030) 11/19/21 22:30 Urine Protein Negative (Negative) 11/19/21 22:30 Urine Glucose (UA) Trace (Negative) H 11/19/21 22:30 Urine Ketones Negative (Negative) 11/19/21 22:30 Urine Blood Negative (Negative) 11/19/21 22:30 Urine Nitrite Negative (Negative) 11/19/21 22:30 Urine Bilirubin Negative (Negative) 11/19/21 22:30 Urine Urobilinogen Negative (Negative) 11/19/21 22:30 Ur Leukocyte Esterase Negative (Negative) 11/19/21 22:30 SARS-CoV-2, RNA, NAAT NEGATIVE (NEGATIVE) 11/19/21 21:23 Code Status & VTE Plan Code Status Full code VTE Prophylaxis Plan VTE Prophylaxis will be ordered: Yes PG Care Time/CCT Total # of Minutes Spent Total Time Spent with Patient: Total time spent is greater than 50% in coordination of care (as documented) at patient's floor/unit and/or counseling patient: Coding Level of Care Code 46798 Initial Inpt Care Lvl 3 Diagnoses BUTCH (acute kidney injury) N17.9 Alcoholism F10.20 Acute hyperkalemia E87.5 Type 2 diabetes mellitus E11.9 Peripheral neuropathy G62.9 HTN (hypertension) I10 Hypertension type: essential hypertension Gout M10.9 Gout site: ankle Encounter type: initial encounter Chronicity: acute Tobacco use Z72.0 Hyperlipidemia LDL goal <70 E78.5 Hypomagnesemia E83.42 Depression F32.9 (1) HTN (hypertension) Hypertension type: essential hypertension Qualified Code(s): I10 - Essential (primary) hypertension (2) Gout Gout site: ankle Encounter type: initial encounter Chronicity: acute
[2021-11-19 22:42] LABS: Appearance Urine Clear (Clear); Bilirubin Urine Negative (Negative); Blood Urine Negative (Negative); Color Urine Yellow; Glucose Urine UA Trace (Negative); Ketones Urine Negative (Negative); Leukocyte Esterase Urine Negative (Negative); Nitrite Urine Negative (Negative); Protein Urine Negative (Negative); Specific Gravity Urine 1.018 (1.000-1.030); Urobilinogen Urine Negative (Negative)
[2021-11-19] MEDS ORDERED: CARBOHYDRATES FOR HYPOGLYCEMIA PO PRN (23:02)
[2021-11-19] MEDS ORDERED: ALBUTEROL HFA 8 GM INHALER INH PRN (23:02)
[2021-11-19] MEDS ORDERED: ONDANSETRON INJ 2 MG/ML 2 ML VIAL IV PRN (23:02)
[2021-11-19] MEDS ORDERED: GLUCAGON FOR INJ 1 MG VIAL SQ PRN (23:02)
[2021-11-19] MEDS ORDERED: DEXTROSE 50% 50 ML SYRINGE IV PRN (23:02)
[2021-11-19] MEDS ORDERED: GLUCOSE 40% GEL 15 GM TUBE PO PRN (23:02)
[2021-11-19] MEDS ORDERED: GLUCOSE 10 TABS/TUBE PO PRN (23:02)
[2021-11-19] MEDS ORDERED: ACETAMINOPHEN 325 MG TAB PO PRN (23:02)
[2021-11-19] MEDS: MAGNESIUM SULFATE / D5W 1 GM/100 ML BAG IV SCH (23:03)
[2021-11-19] MEDS: traMADol HCL 50 MG TABLET PO PRN (23:55)
[2021-11-19] MEDS: PREGABALIN 150 MG CAP PO SCH (23:55)
[2021-11-20] MEDS: MAGNESIUM OXIDE 400 MG TAB PO SCH ×2 (00:35→08:09)
[2021-11-20] MEDS: tiZANidine HCL 4 MG TABLET PO PRN ×3 (00:36→21:59)
[2021-11-20] MEDS: MAGNESIUM SULFATE / D5W 1 GM/100 ML BAG IV SCH (01:06)
--- NOTE | 2021-11-20 07:39 | Electrocardiogram Report ---
Test Reason : Blood Pressure : / mmHG Vent. Rate : 095 BPM Atrial Rate : 095 BPM P-R Int : 142 ms QRS Dur : 090 ms QT Int : 360 ms P-R-T Axes : 056 032 043 degrees QTc Int : 452 ms Normal sinus rhythm Normal ECG When compared with ECG of 20-JUL-2021 15:33, Questionable change in QRS duration Confirmed by Frandy Carrizales ([id number]) on 11/20/2021 7:38:55 AM Referred By: Gay Sanchez Confirmed By:Manuel Carrizales
[2021-11-20] MEDS: SERTRALINE HCL 50 MG TABLET PO SCH (08:09)
[2021-11-20] MEDS: THIAMINE HCL 100 MG TAB PO SCH (08:09)
[2021-11-20] MEDS: ATORVASTATIN 40 MG TAB PO SCH (08:09)
[2021-11-20] MEDS: PREGABALIN 150 MG CAP PO SCH ×2 (08:09→21:05)
[2021-11-20] MEDS: amLODIPine BESYLATE 5 MG TAB PO SCH (08:10)
[2021-11-20] MEDS: INSULIN ASPART PER UNIT SC SCH ×4 (08:14→21:01)
[2021-11-20] MEDS: traMADol HCL 50 MG TABLET PO PRN ×3 (08:18→21:00)
[2021-11-20 09:07] LABS: Estimated Average Glucose 203 mg/dl; Hemoglobin A1C 8.7 % (4.5-5.6)
[2021-11-20 11:01] LABS: BUN Creatinine Ratio 24.2 (10-20); Calcium 9.6 mg/dl (8.5-10.1); Creatinine Clr Calc Pharmacy 49.1 ml/min; Est GFR (African American) 43.8 ml/min; Est GFR (Non-African American) 37.8 ml/min; Magnesium 2.2 mg/dl (1.7-2.4)
[2021-11-20] MEDS ORDERED: STAT IV STA (11:45)
[2021-11-20] MEDS ORDERED: PATIROMER CALCIUM SORBITEX 8.4 GM PACK PO STA ×2 (12:04→19:00)
[2021-11-20] MEDS ORDERED: CALCIUM GLUCONATE 10% 1,000 MG in DEXTROSE 5% 50 ML IV ONE (12:15)
--- NOTE | 2021-11-20 12:39 | Hospitalist Progress Note ---
Date of Service November 20, 2021 Assessment & Plan (1) BUTCH (acute kidney injury): Plan: Creatinine 1.73 upon admission, with base of 0.95 2nd to bactrim in the setting of aldactone use and recent R 2nd toe infection slowly improving BMPs q4h change IV fluids to IV Bicarbonate drip (2) Acute hyperkalemia: Plan: Potassium 6.4 upon admission. Then 6 this am Started bicarbonate drip (100meq in 1 L of sterile water) -- 75cc/hr Calcium gluconate 1gm IV x 1 Veltassa x 1 repeated the K at 1800 this evening -- K went UP to 6.6 gave 2nd dose of Veltassa insulin/D50 albuterol 5gm x 1 defer on more calcium (total calcium level now 10.2) increase bicarb drip to 100cc/hr obtain BMPs q4h briefly discussed case with Dr Hager, on-call nephrology no indication for HD unless the K continues to trend up and is refractory but risk of such is low --- BUTCH is improving aldactone is on hold (3) Type 2 diabetes mellitus: Plan: Holding glimepiride and metformin adjust novolog likely will need basal (4) Hypomagnesemia: Plan: repleted resolved (5) Peripheral neuropathy: Plan: Continue gabapentin needs to be fitted for diabetic shoes to prevent callus formation, ulcers, etc refer after discharge (6) HTN (hypertension): Plan: Continue amlodipine Hold spironolactone (7) Hyperlipidemia LDL goal <70: Plan: Continue atorvastatin 40 mg daily (8) Tobacco use: Plan: Cessation counseling (9) Depression: Plan: Continue sertraline 50 mg every morning (10) Gout: Plan: b/l ankles L elbow prednisone 10mg daily defer on NSAIDs due to BUTCH uncertain why she is not on preventive Rx (allopurinol) consider such in 4-6 weeks (11) Alcoholism: Plan: noted cont thiamine (12) Diabetic neuropathy: Plan: as above gabapentin (13) Toe ulcer, right: Plan: healing no infection present today --- s/p bactrim course as outpatient blood cultures negative from 11/18/[address] place optifoam on the region wound care consult on Monday Plan: briefly updated pt's brother by phone this evening Admission and Anticipated Discharge Date Admission Date: November 19, 2021 Subjective patient c/o b/l ankle pain starting a few days ago ("I think it is my gout") along with L elbow pain she also c/o chronic low back pain and wants to be sure she can continue her usual tramadol, etc. asks about recent blood cultures along with cbc asks if she thinks she needs additional antibiotics for right 2nd toe infection she had been having body aches and these are improved still w/ fatigue Review of Systems Review of Systems: gen- no fevers or chills cv - no chest pain pulm - no dyspnea GI - no vomiting or diarrhea Physical Exam Physical Exam: gen - NAD mouth - MMM heart - RRR, s1 s2 lungs - CTA b/l abd - soft NT ND BS+ ext - no edema, pulses 2+ b/l musculo - minimal swelling L elbow; mild synovitis b/l ankles (warmth, swelling, tender) skin - multiple calluses b/l feet; R 2nd toe - medial aspect - healed ulceration with scab on top; no cellulitis or drainage Results & Data Results & Data ([facility]) Vital Signs (Past 12 Hours) Vital Signs Temp Pulse Resp BP BP Pulse Ox 11/20/21 11:12 36.7 C 78 20 140/83 96 11/20/21 07:22 36.9 C 75 21 127/82 95 11/20/21 03:28 36.7 C 74 18 148/71 H 97 Laboratory Results Laboratory Results - last 24 hr 11/20/21 11/20/21 11/20/21 06:36 06:36 07:42 Sodium 133 L Potassium 6.0 H Chloride 105 Carbon Dioxide 20 L Anion Gap 8 BUN 36 H Creatinine 1.49 H Est Cr Clr Drug Dosing 49.1 Est GFR ( Amer) 43.8 Est GFR (Non-Af Amer) 37.8 BUN/Creatinine Ratio 24.2 H Glucose 126 H POC Glucose 148 H Estimat Average Glucose 203 Hemoglobin A1c 8.7 H Calcium 9.6 Magnesium 2.2 11/20/21 11/20/21 11/20/21 11:47 16:32 18:04 Sodium 130 L Potassium 6.6 H* Chloride 101 Carbon Dioxide 21 Anion Gap 8 BUN 36 H Creatinine 1.42 H Est Cr Clr Drug Dosing 51.5 Est GFR ( Amer) 46.4 Est GFR (Non-Af Amer) 40.0 BUN/Creatinine Ratio 25.4 H Glucose 216 H POC Glucose 138 H 118 H Estimat Average Glucose Hemoglobin A1c Calcium 10.2 H Magnesium 11/20/21 11/20/21 11/20/21 20:08 20:38 23:00 Sodium 127 L Potassium 6.2 H* Chloride 105 Carbon Dioxide 19 L Anion Gap 3 BUN 38 H Creatinine 1.37 H Est Cr Clr Drug Dosing 53.4 Est GFR ( Amer) 48.5 Est GFR (Non-Af Amer) 41.8 BUN/Creatinine Ratio 27.7 H Glucose 193 H POC Glucose 298 H 275 H Estimat Average Glucose Hemoglobin A1c Calcium 9.9 Magnesium 11/21/21 01:54 Sodium Potassium Chloride Carbon Dioxide Anion Gap BUN Creatinine Est Cr Clr Drug Dosing Est GFR ( Amer) Est GFR (Non-Af Amer) BUN/Creatinine Ratio Glucose POC Glucose 159 H Estimat Average Glucose Hemoglobin A1c Calcium Magnesium PG Care Time/CCT Total # of Minutes Spent Total Time Spent with Patient: Total time spent is greater than 50% in coordination of care (as documented) at patient's floor/unit and/or counseling patient: Coding Level of Care Code 84060 Subseq Hosp Care Lvl 3 Diagnoses BUTCH (acute kidney injury) N17.9 Acute hyperkalemia E87.5 Type 2 diabetes mellitus E11.9 Hypomagnesemia E83.42 Peripheral neuropathy G62.9 HTN (hypertension) I10 Hypertension type: essential hypertension Hyperlipidemia LDL goal <70 E78.5 Tobacco use Z72.0 Depression F32.9 Gout M10.9 Chronicity: acute Encounter type: initial encounter Gout site: ankle Alcoholism F10.20 Diabetic neuropathy E11.40 Toe ulcer, right L97.519 (1) Gout Chronicity: acute Encounter type: initial encounter Gout site: ankle (2) HTN (hypertension) Hypertension type: essential hypertension Qualified Code(s): I10 - Essential (primary) hypertension
[2021-11-20] MEDS: SODIUM BICARBONATE 8.4% 100 MEQ in WATER, STERILE 1,000 ML IV SCH (13:00)
[2021-11-20] MEDS: predniSONE 10 MG TABLET PO SCH (14:47)
[2021-11-20 18:42] LABS: BUN Creatinine Ratio 25.4 (10-20); Calcium 10.2 mg/dl (8.5-10.1); Creatinine Clr Calc Pharmacy 51.5 ml/min; Est GFR (African American) 46.4 ml/min; Potassium 6.6 mmol/L (3.5-5.1)
[2021-11-20] MEDS ORDERED: INSULIN HUMAN REGULAR PER UNIT 10 UNITS in SYRINGE 9.9 ML IV STA (19:00)
[2021-11-20] MEDS ORDERED: DEXTROSE 50% 50 ML SYRINGE IV ONE (19:00)
[2021-11-20] MEDS ORDERED: ALBUTEROL 0.083% NEBU SOLN 3 ML VIAL NEB STA (19:03)
[2021-11-20] MEDS ORDERED: DICLOFENAC SOD 1% GEL 100 GM TUBE EXT PRN (20:50)
[2021-11-21 01:06] LABS: BUN Creatinine Ratio 27.7 (10-20); Calcium 9.9 mg/dl (8.5-10.1); Creatinine Clr Calc Pharmacy 53.4 ml/min; Est GFR (African American) 48.5 ml/min; Est GFR (Non-African American) 41.8 ml/min; Potassium 6.2 mmol/L (3.5-5.1)
[2021-11-21] MEDS: SODIUM BICARBONATE 8.4% 100 MEQ in WATER, STERILE 1,000 ML IV SCH (01:59)
[2021-11-21] MEDS: traMADol HCL 50 MG TABLET PO PRN ×4 (04:38→22:33)
--- NOTE | 2021-11-21 07:35 | Electrocardiogram Report ---
Test Reason : Blood Pressure : / mmHG Vent. Rate : 096 BPM Atrial Rate : 096 BPM P-R Int : 132 ms QRS Dur : 090 ms QT Int : 360 ms P-R-T Axes : 057 030 045 degrees QTc Int : 454 ms Normal sinus rhythm Normal ECG When compared with ECG of 19-NOV-2021 20:35, No significant change was found Confirmed by Frandy Carrizales ([id number]) on 11/21/2021 7:35:13 AM Referred By: Gay Sanchez Confirmed By:Manuel Carrizales
[2021-11-21] MEDS: INSULIN ASPART PER UNIT SC SCH ×4 (08:24→20:10)
[2021-11-21] MEDS: tiZANidine HCL 4 MG TABLET PO PRN ×2 (08:24→20:09)
[2021-11-21] MEDS: PREGABALIN 150 MG CAP PO SCH ×2 (08:25→20:09)
[2021-11-21] MEDS: SERTRALINE HCL 50 MG TABLET PO SCH (08:25)
[2021-11-21] MEDS: predniSONE 10 MG TABLET PO SCH (08:25)
[2021-11-21] MEDS: THIAMINE HCL 100 MG TAB PO SCH (08:25)
[2021-11-21] MEDS: amLODIPine BESYLATE 5 MG TAB PO SCH (08:25)
[2021-11-21] MEDS: ATORVASTATIN 40 MG TAB PO SCH (08:25)
[2021-11-21] MEDS: TRIAMCINOLONE ACET 0.1% OINT 15 GM TUBE EXT PRN (08:31)
[2021-11-21 10:01] LABS: Calcium 9.4 mg/dl (8.5-10.1); Creatinine Clr Calc Pharmacy 59.4 ml/min; Est GFR (African American) 55.2 ml/min; Est GFR (Non-African American) 47.6 ml/min; Potassium 4.7 mmol/L (3.5-5.1)
[2021-11-21 10:35] LABS: BUN Creatinine Ratio 28.5 (10-20)
--- NOTE | 2021-11-21 13:35 | Hospitalist Progress Note ---
Date of Service November 21, 2021 Assessment & Plan (1) BUTCH (acute kidney injury): Plan: Creatinine 1.73 upon admission, with base of 0.95 2nd to bactrim in the setting of aldactone use and recent R 2nd toe infection slowly improving/resolving - creatinine now 1.2 can stop IV fluids repeat BMP am cont to hold aldactone (2) Acute hyperkalemia: Plan: after bicarb drip, veltassa x 2, calcium gluconate, albuterol, etc -- finally <5 this am 2nd to recent bactrim use/BUTCH can d/c bicarb drip bmp in am hold aldactone (3) Type 2 diabetes mellitus: Plan: Holding glimepiride and metformin adjust novolog added lantus daily a1c 8.7% 11/20/21 (4) Hypomagnesemia: Plan: repleted resolved (5) Peripheral neuropathy: Plan: Continue gabapentin needs to be fitted for diabetic shoes to prevent callus formation, ulcers, etc refer to podiatry after discharge (6) HTN (hypertension): Plan: Continue amlodipine Hold spironolactone (7) Hyperlipidemia LDL goal <70: Plan: Continue atorvastatin 40 mg daily (8) Tobacco use: Plan: Cessation counseling (9) Depression: Plan: Continue sertraline 50 mg every morning (10) Gout: Plan: b/l ankles L elbow prednisone 10mg daily IMPROVED recent uric acid level - 9.5 defer on NSAIDs due to BUTCH uncertain why she is not on preventive Rx (allopurinol) consider such in 4-6 weeks she requested x-rays of both ankles - obtain at her request; don't suspect we will see any pathology (unless it is pseudogout - could see CPPD crystals) (11) Alcoholism: Plan: noted cont thiamine likely cause of gout (12) Diabetic neuropathy: Plan: as above gabapentin (13) Toe ulcer, right: Plan: healing no infection present today --- s/p bactrim course as outpatient blood cultures negative from 11/18/21 place optifoam on the region wound care consult on Monday x-ray to exclude any bony involvement but unlikely as it appears very superficial Plan: hopefully home tomorrow on 11/22/21 Admission and Anticipated Discharge Date Admission Date: November 19, 2021 Subjective feels much better tele overnight wnl ankle pain b/l, and L elbow pain - improved she has no new complaints does ask if her tramadol can be increased for her chronic lumbar back pain ; she does indeed take 50mg x 2 at times at home is going to have pain injections in back by pain management sometime in the next month Review of Systems Review of Systems: gen - better energy, better appetite, no fevers cv - no cp, no orthopnea pulm - no dyspnea GI - no N/V/D Physical Exam Physical Exam: gen - NAD, looks great mouth - MMM heart - RRR, s1 s2 lungs - CTA b/l abd - soft NT ND BS+ ext - no edema, pulses 2+ b/l musculo - resolved swelling L elbow; mild synovitis b/l ankles (warmth, swelling, tenderness) - all improved today skin - multiple calluses b/l feet; R 2nd toe - medial aspect - healed ulceration with scab on top; no cellulitis or drainage Results & Data Results & Data ([facility]) Vital Signs (Past 12 Hours) Vital Signs Temp Pulse Pulse Resp BP Pulse Ox 11/21/21 11:43 36.9 C 91 H 18 109/72 94 11/21/21 08:09 36.6 C 80 18 131/82 95 11/21/21 07:17 88 11/21/21 01:42 36.8 C 65 18 130/80 96 Laboratory Results Laboratory Results - last 24 hr 11/21/21 11/21/21 11/21/21 07:15 09:16 11:04 Sodium 129 L Potassium 4.7 D Chloride 100 Carbon Dioxide 23 Anion Gap 6 BUN 35 H Creatinine 1.23 H Est Cr Clr Drug Dosing 59.4 Est GFR ( Amer) 55.2 Est GFR (Non-Af Amer) 47.6 BUN/Creatinine Ratio 28.5 H Glucose 284 H POC Glucose 165 H 218 H Calcium 9.4 11/21/21 11/21/21 16:28 20:05 Sodium Potassium Chloride Carbon Dioxide Anion Gap BUN Creatinine Est Cr Clr Drug Dosing Est GFR ( Amer) Est GFR (Non-Af Amer) BUN/Creatinine Ratio Glucose POC Glucose 196 H 150 H Calcium Diagnostic Findings blood cultures 11/18/21 - negative PG Care Time/CCT Total # of Minutes Spent Total Time Spent with Patient: Total time spent is greater than 50% in coordination of care (as documented) at patient's floor/unit and/or counseling patient: Coding Level of Care Code 14756 Subseq Hosp Care Lvl 3 Diagnoses BUTCH (acute kidney injury) N17.9 Acute hyperkalemia E87.5 Type 2 diabetes mellitus E11.9 Hypomagnesemia E83.42 Peripheral neuropathy G62.9 HTN (hypertension) I10 Hypertension type: essential hypertension Hyperlipidemia LDL goal <70 E78.5 Tobacco use Z72.0 Depression F32.9 Gout M10.9 Chronicity: acute Encounter type: initial encounter Gout site: ankle Alcoholism F10.20 Diabetic neuropathy E11.40 Toe ulcer, right L97.519 (1) Gout Chronicity: acute Encounter type: initial encounter Gout site: ankle (2) HTN (hypertension) Hypertension type: essential hypertension Qualified Code(s): I10 - Essential (primary) hypertension
--- NOTE | 2021-11-21 14:57 | XRay Report ---
XR ankle RT 2V, XR toe(s) RT min 2V CLINICAL HISTORY: ankle pain, eval CPPD changes, fracture TECHNIQUE: 2 views of the right ankle were obtained. 3 views of the right second digit were obtained. Comparison: None available at the time of this dictation. FINDINGS: No acute fractures are present. Degenerative changes are seen in the ankle. There is suggestion of pe s planus deformity. Plantar and Achilles enthesophytes are seen. Bony mineralization is within normal limits. The ankle mortise is intact. The talar dome is smooth. There is no ankle effusion. Soft tiss ue swelling is seen about the ankle. The right second digit is unremarkable. Partial visualization of orthopedic fixation hardware spanning the first metatarsophalangeal joint. IMPRESSION: Degenerative changes without evidence of acute abnormality. There is mild soft tissue swelling about the ankle joint. ACT 112: Negative or not required by law. Electronically signed by: Jon Saleh M.D. 11/21/2021 2:55 PM
[2021-11-21] MEDS: INSULIN GLARGINE SOLOSTAR 100 UNITS/ML 3 ML PEN SC SCH (15:06)
--- NOTE | 2021-11-21 15:38 | XRay Report ---
XR ankle LT 2V CLINICAL HISTORY: ankle pain; eval CPPD changes, fracture, etc TECHNIQUE: 2 views of the left ankle were obtained. Comparison: None available at the time of this dictation. FINDINGS: No acute fractures are present. The alignment is anatomic. Degenerative changes are seen in the ankle . Plantar and Achilles enthesophytes are seen. The ankle mortise is intact. The talar dome is smooth. There is no ankle effusion. No soft tissue abnormality is seen. IMPRESSION: No evidence of acute osseous injury. ACT 112: Negative or not required by law. Electronically signed by: Jon Saleh M.D. 11/21/2021 3:36 PM
[2021-11-22] MEDS: tiZANidine HCL 4 MG TABLET PO PRN ×2 (02:13→14:06)
[2021-11-22] MEDS: traMADol HCL 50 MG TABLET PO PRN (06:05)
[2021-11-22 07:34] LABS: BUN Creatinine Ratio 30.5 (10-20); Calcium 8.7 mg/dl (8.5-10.1); Creatinine Clr Calc Pharmacy 51.7 ml/min; Est GFR (African American) 46.8 ml/min; Est GFR (Non-African American) 40.4 ml/min; Potassium 4.6 mmol/L (3.5-5.1)
[2021-11-22] MEDS: INSULIN ASPART PER UNIT SC SCH ×2 (08:35→12:23)
[2021-11-22] MEDS: INSULIN GLARGINE SOLOSTAR 100 UNITS/ML 3 ML PEN SC SCH (08:36)
[2021-11-22] MEDS: SERTRALINE HCL 50 MG TABLET PO SCH (08:52)
[2021-11-22] MEDS: PREGABALIN 150 MG CAP PO SCH (08:52)
[2021-11-22] MEDS: ATORVASTATIN 40 MG TAB PO SCH (08:52)
[2021-11-22] MEDS: amLODIPine BESYLATE 5 MG TAB PO SCH (08:52)
[2021-11-22] MEDS: predniSONE 10 MG TABLET PO SCH (08:52)
[2021-11-22] MEDS: THIAMINE HCL 100 MG TAB PO SCH (08:53)
--- NOTE | 2021-11-22 11:12 | Ultrasound Report ---
ULTRASOUND KIDNEYS AND BLADDER CLINICAL HISTORY: Acute renal insufficiency. COMPARISON STUDY: Abdominal CT dated 01/04/2021 TECHNIQUE: Real-time, grayscale, and color flow sonography of the kidneys and bladder is performed. I mages are reviewed in the transverse and longitudinal planes. FINDINGS: Kidneys: The kidneys demonstrate mild cortical atrophy. Echotexture is normal. The right kidney measu res 12.4 cm in length and the left kidney measures 12.4 cm in length. There is no hydronephrosis. No shadowing renal calculi are identified. There is no sonographic evidence of contour deforming renal m ass lesion. There is trace nonspecific left-sided perinephric fluid. Bladder: The bladder is decompressed and grossly unremarkable. Bilateral ureteral jets were seen. IMPRESSION: 1. The kidneys demonstrate mild cortical atrophy and are without hydronephrosis. 2. The bladder was decompressed and grossly unremarkable. ACT 112: Negative or not required by law. Electronically signed by: Asim Bertrand M.D. 11/22/2021 11:11 AM
[2021-11-22] MEDS: TRIAMCINOLONE ACET 0.1% OINT 15 GM TUBE EXT PRN (14:06)
[2021-11-22] MEDS ORDERED: FLUCONAZOLE 50 MG TAB PO ONE (15:15)
--- NOTE | 2021-11-22 16:41 | Discharge Summary ---
Date of Service date of admission - November 19, 2021 date of discharge - November 22, 2021 Admission HPI Per Admitting Provider The patient is a 61-year-old female with a past medical history including lumbar spinal stenosis, lumbar disc disease, diarrhea, diabetes mellitus type 2, diabe tic polyneuropathy, alcoholic hepatitis, tobacco use, hirsutism, depression, B12 deficiency, alcoholism, COPD, hypertension, ERIC positive, gout and fatty liver. She was referred to the emergency department due to outpatient laboratory showing elevated potassium. She has been on Bactrim the outpatient setting for a right second toe ulcer, which she reports is healing Laboratories in the ED tonight confirmed elevated potassium of 6.4, low magnesium of 1.5, and creatinine was noted to be increased at 1.73. Principal Diagnosis 1. acute kidney injury 2. hyperkalemia Discharge Exam gen - NAD, looks great, a/o x 3 mouth - MMM heart - RRR, s1 s2 lungs - CTA b/l abd - soft NT ND BS+ ext - no edema, pulses 2+ b/l musculo - resolved swelling L elbow; mild synovitis b/l ankles (warmth, swelling, tenderness) - resolved; neuropathic changes of b/l feet skin - multiple calluses b/l feet; R 2nd toe - medial aspect - healed ulceration; no cellulitis or drainage Discharge Data Allergies Allergy/AdvReac Type Severity Reaction Status Date / Time sulfamethoxazole Allergy Severe Rash Verified 11/22/21 16:30 [From Bactrim] trimethoprim [From Bactrim] Allergy Severe Rash Verified 11/22/21 16:30 morphine Allergy Hives Verified 11/16/21 15:27 Consultations Wound Care Diabetes Education Ordered Studies Ankle X-Ray 11/21/21 13:33 XR ankle LT 2V CLINICAL HISTORY: ankle pain; eval CPPD changes, fracture, etc TECHNIQUE: 2 views of the left ankle were obtained. Comparison: None available at the time of this dictation. FINDINGS: No acute fractures are present. The alignment is anatomic. Degenerative changes are seen in the ankle. Plantar and Achilles enthesophytes are seen. The ankle mortise is intact. The talar dome is smooth. There is no ankle effusion. No soft tissue abnormality is seen. IMPRESSION: No evidence of acute osseous injury. ACT 112: Negative or not required by law. Electronically signed by: Jon Saleh M.D. 11/21/2021 3:36 PM Ankle X-Ray 11/21/21 13:33 XR ankle RT 2V, XR toe(s) RT min 2V CLINICAL HISTORY: ankle pain, eval CPPD changes, fracture TECHNIQUE: 2 views of the right ankle were obtained. 3 views of the right second digit were obtained. Comparison: None available at the time of this dictation. FINDINGS: No acute fractures are present. Degenerative changes are seen in the ankle. There is suggestion of pes planus deformity. Plantar and Achilles enthesophytes are seen. Bony mineralization is within normal limits. The ankle mortise is intact. The talar dome is smooth. There is no ankle effusion. Soft tissue swelling is seen about the ankle. The right second digit is unremarkable. Partial visualization of orthopedic fixation hardware spanning the first metatarsophalangeal joint. IMPRESSION: Degenerative changes without evidence of acute abnormality. There is mild soft tissue swelling about the ankle joint. ACT 112: Negative or not required by law. Electronically signed by: Jon Saleh M.D. 11/21/2021 2:55 PM Toe X-Ray 11/21/21 13:33 XR ankle RT 2V, XR toe(s) RT min 2V CLINICAL HISTORY: ankle pain, eval CPPD changes, fracture TECHNIQUE: 2 views of the right ankle were obtained. 3 views of the right second digit were obtained. Comparison: None available at the time of this dictation. FINDINGS: No acute fractures are present. Degenerative changes are seen in the ankle. There is suggestion of pes planus deformity. Plantar and Achilles enthesophytes are seen. Bony mineralization is within normal limits. The ankle mortise is intact. The talar dome is smooth. There is no ankle effusion. Soft tissue swelling is seen about the ankle. The right second digit is unremarkable. Partial visualization of orthopedic fixation hardware spanning the first metatarsophalangeal joint. IMPRESSION: Degenerative changes without evidence of acute abnormality. There is mild soft tissue swelling about the ankle joint. ACT 112: Negative or not required by law. Electronically signed by: Jon Saleh M.D. 11/21/2021 2:55 PM Renal Ultrasound 11/22/21 10:30 ULTRASOUND KIDNEYS AND BLADDER CLINICAL HISTORY: Acute renal insufficiency. COMPARISON STUDY: Abdominal CT dated 01/04/2021 TECHNIQUE: Real-time, grayscale, and color flow sonography of the kidneys and bladder is performed. Images are reviewed in the transverse and longitudinal planes. FINDINGS: Kidneys: The kidneys demonstrate mild cortical atrophy. Echotexture is normal. The right kidney measures 12.4 cm in length and the left kidney measures 12.4 cm in length. There is no hydronephrosis. No shadowing renal calculi are identified. There is no sonographic evidence of contour deforming renal mass lesion. There is trace nonspecific left-sided perinephric fluid. Bladder: The bladder is decompressed and grossly unremarkable. Bilateral ureteral jets were seen. IMPRESSION: 1. The kidneys demonstrate mild cortical atrophy and are without hydronephrosis. 2. The bladder was decompressed and grossly unremarkable. ACT 112: Negative or not required by law. Electronically signed by: Asim Bertrand M.D. 11/22/2021 11:11 AM Hospital Course (1) BUTCH (acute kidney injury): Creatinine 1.73 upon admission, with baseline of 0.95. Discharge creatinine 1.4. 2nd to bactrim in the setting of aldactone use and recent R 2nd toe infection. Bactrim was stopped, aldactone was stopped, and patient was given IV fluids. Renal u/s showed no evidence of obstruction. She will need a repeat BMP within 1 week of discharge to ensure stability. She was instructed to HOLD her aldactone at time of discharge. (2) Acute hyperkalemia: 2nd to bactrim and aldactone use in the setting of acute kidney injury. Needed a multi-modality approach to resolve the issue including a bicarbonate infusion, veltassa, calcium gluconate, albuterol, IV insulin/D50, etc. Peak K level 6.6. Levels prior to discharge - 4.7, 4.6 - both within 24 hours of discharge. Again bactrim has been discontinued and aldactone will be held after discharge. Recommend repeat BMP within 1 week of discharge. (3) Type 2 diabetes mellitus: Required basal-bolus insulin while here. At discharge was transitioned back to glimepiride and metformin. Hba1c 8.7% 11/20/21. (4) Hypomagnesemia: repleted and resolved while here. She had been taking mag supplements at home TID. In light of her creatinine being 1.4 at discharge I recommended she lower her supplementation to BID dosing until her mag level can be repeated as outpatient. (5) Peripheral neuropathy: Continue gabapentin. Ideally needs to be fitted for diabetic shoes to prevent callus formation, ulcers, etc. Refer to podiatry after discharge - Dr Nannette Wagoner, [facility] in [place]. (6) HTN (hypertension): Continue amlodipine. Hold spironolactone at discharge. Despite holding the latter her BPs were controlled while here. (7) Hyperlipidemia LDL goal <70: Continue atorvastatin 40 mg daily. (8) Tobacco use: Cessation counseling provided. (9) Depression: Continue sertraline 50mg daily. (10) Gout: b/l ankles and L elbow. prednisone 10mg daily given while hospitalized with resolution of symptoms/si gns. recent uric acid level - 9.5. NSAIDs were NOT used due to BUTCH. Consider allopurinol prophylaxis initiation in 4-6 weeks as she reports frequent flares. We discussed that alcohol use will contribute to gout flares and to restrict such if at all possible. She requested x-rays of both ankles - obtained at her request - no fractures, no CPPD crystals seen, no other abnormalities. At discharge she will complete a brief, low-dose prednisone taper for residual gout symptoms/flare. (11) Alcoholism: Counseled to restrict etoh use or quit if possible. Continue thiamine. Likely causing her gout attacks. Pt had no alcohol withdrawal symptoms/signs while here. (12) Diabetic neuropathy: as above gabapentin (13) Toe ulcer, right: Seen by wound care team. Aquacel ag advised with optifoam dressing or similar. She had no evidence of ongoing infection during the hospitalization; she did not require antibiotics. Blood cultures negative from 11/18/21 ([facility] x-rays did not show any bony involvement/obvious osteomyelitis. Advised f/u with the [facility] in [place], and also a visit with Dr Nannette Wagoner with [facility] for ongoing foot care. Total Time Total Time Spent Total Time Spent (In Minutes): 50 Discharge Plan Discharge Items Patient Disposition: Home - Self-Care Reason For Visit: High Potassium Discharge Diagnosis: 1. high potassium -- resolved. Due to "kidney injury" and recent bactrim use. 2. acute kidney injury -- improving. Creatinine (kidney function number) was 1.7 on admission; now 1.4 on 11/22/21. 3. gout of ankles, Left elbow. 4. right 2nd toe infection -- improved/resolved. 5. right 2nd toe ulceration -- due to diabetic neuropathy. 6. chronic low back pain. Activity: Resume your previous activity Non-emergency contact: Primary Care Provider and Specialist Call non-emergency contact if: you have any medication questions, your symptoms worsen, your pain is not controlled, your pain is worsening, you have a fever, your wound has increased redness and your wound has increased drainage Follow-up/Referrals: Gay Sanchez DO [Primary Care Provider] - 12/01/21 8:20 am Maggi Michele DO, FACEP [Physician] - (see the [facility] within 1 week if possible; right 2nd toe infection/ulcer.) Nannette Wagoner DPM [Physician] - (first available; get established; diabetic foot care, needs diabetic shoes, R 2nd toe ulceration. ) Diet: Carb Consistent or DM2 and Heart Healthy Addtl Attending Provider Instructions: Mrs Arthur, You were treated for high potassium in your blood. Normal potassium levels are 3.5 to 5. Yours was greater than 6 upon admission. The potassium had buildtup in the system due to acute kidney injury (the kidneys got temporarily "sick") and recent bactrim/sulfa use for your right 2nd toe infection. Your potassium levels went back to normal while here with various IV and oral medications. Your kidney function has improved while here. You also have a rash on your legs, torso, and other locations - this may be resolving hives from the bactrim. During your stay you also likely had a gout attack in your ankles and left elbow. This improved with prednisone. The wound care nurse saw you for your 2nd toe on the right foot. She is recommending Aquacel Ag, then covering it with a protection dressing. Do this dressing every other day until you see the wound care clinic provider or the java spring developer. The infection in the toe has resolved. Recommendations - 1. Please STOP the following medications - * bactrim (trimethoprim-sulfa) antibiotic * spironolactone * ibuprofen/motrin (and other forms of anti-inflammatory pills such as alleve or naprosyn) 2. Please CHANGE the following medication - * magnesium - take TWICE A DAY ONLY (previously you were taking 3 times a day) 3. For your rash and the gout take prednisone as follows - * 11/23 and 11/24 - 3 tabs each day * 11/25 and 11/26 - 2 tabs each day * 11/27 - 1 tab on that day then stop * know that the prednisone will RAISE YOUR BLOOD SUGARS; please watch your diet carefully; check your sugars at least twice daily over the next week to ensure your sugars are staying in range 4. Please discontinue flip-flop use; wear a good set of tennis sneakers as much as possible to protect your feet and toes. 5. Please speak to Dr Sanchez about starting allopurinol - a medication for prevention of gout. Please limit alcohol consumption as this will make your gout WORSE. 6. Follow-up -- see separate section Return to [facility] if -- * you have fevers over 100 degrees * you have worsening redness, drainage, swelling of the right 2nd toe * you have uncontrolled pain in any location * any other concerns Continue to feel better! Dr Moss Pending Studies at Discharge: No Stand-Alone Forms: My [facility], Smoking Cessation Medications and DC Order Prescriptions: New prednisone 10 mg Tablet 10 mg PO UD Qty: 11 RF: 0 Continued loperamide [Imodium A-D] 2 mg tablet 2 mg PO Q6H PRN (Reason: loose stool) Qty: 120 RF: 1 (DME) Wheelchair (Manual) Device See Rx Instructions .Route Qty: 1 RF: 0 albuterol sulfate [Ventolin HFA] 90 mcg/actuation HFA aerosol inhaler See Rx Instructions inhalation .COMPLEX PRN (Reason: shortness of breath or wheezing) Qty: 18 RF: 0 atorvastatin 40 mg tablet 40 mg PO DAILY Qty: 240 RF: 1 ergocalciferol (vitamin D2) 1,250 mcg (50,000 unit) capsule 50,000 unit PO .weekly Qty: 12 RF: 1 amlodipine 5 mg tablet 5 mg PO QAM Qty: 90 RF: 1 diclofenac sodium [Voltaren Arthritis Pain] 1 % gel 2 g topical QID Qty: 100 RF: 2 glimepiride 2 mg tablet 2 mg PO BID RF: 0 Hold Instructions: Home Medication placed on hold at Doctor's office albuterol sulfate 2.5 mg /3 mL (0.083 %) solution for nebulization 2.5 mg inhalation Q6H PRN (Reason: shortness of breath or wheezing) Qty: 90 RF: 1 (DME) nebulizers Misc See Rx Instructions .ROUTE .MEDSUPPLY Qty: 1 RF: 0 tramadol 50 mg tablet See Rx Instructions PO Q6H PRN (Reason: pain) Qty: 120 RF: 0 sertraline 100 mg tablet 150 mg PO QAM Qty: 90 RF: 1 metformin 500 mg tablet extended release 24 hr 1,000 mg PO BID RF: 0 nystatin [Nystop] 100,000 unit/gram Powder 1 applic EXT BID Qty: 30 RF: 0 thiamine HCl (vitamin B1) [Vitamin B-1] 100 mg Tablet 100 mg PO QAM Qty: 30 RF: 0 Changed magnesium oxide 400 mg magnesium capsule 800 mg PO BID Qty: 540 RF: 1 Discontinued ibuprofen 800 mg tablet 800 mg PO DAILY PRN (Reason: pain) Qty: 30 RF: 0 sulfamethoxazole-trimethoprim [Bactrim DS] 800-160 mg tablet 1 tab PO BID 10 Days Qty: 20 RF: 0 spironolactone 50 mg tablet 25 mg PO DAILY Qty: 90 RF: 1 No Action tizanidine 4 mg tablet 4 mg PO BID PRN (Reason: muscle spasm) Qty: 30 RF: 1 pregabalin 150 mg capsule 150 mg PO BID Qty: 60 RF: 3 Discharge Orders: Discharge Order (Routine); Ordered 11/22/21 Ordered By: Flaco Knight/Other Patient Handouts: Managing Type 2 Diabetes, Special Foot Care for Diabetes Admission Data Admit Date/Time: 11/19/21 21:27 Attending Provider: Flaco Moss Admit Provider: Henry Han Primary Care Provider: Gay Sanchez Other Providers: Henry Han Other Interventions: Discharge Summary Assessment (RN) Last Done: 11/22/21 16:59 Coding Level of Care Code D/C DAY MANAGEMENT >30 MINS Diagnoses BUTCH (acute kidney injury) N17.9 Acute hyperkalemia E87.5 Type 2 diabetes mellitus E11.9 Hypomagnesemia E83.42 Peripheral neuropathy G62.9 HTN (hypertension) I10 Hypertension type: essential hypertension Hyperlipidemia LDL goal <70 E78.5 Tobacco use Z72.0 Depression F32.9 Gout M10.9 Chronicity: acute Encounter type: initial encounter Gout site: ankle Alcoholism F10.20 Diabetic neuropathy E11.40 Toe ulcer, right L97.519
== END 2021-11-22 17:41 | disposition home or self-care (01) | DRG 641 ==
LOC: ED 14:09 → SUATTDRO 21:27 → 2N 21:27
DX: I10 Essential (primary) hypertension; N17.9 Acute kidney failure, unspecified; Z79.899 Other long term (current) drug therapy; Z88.2 Allergy status to sulfonamides; Z79.84 Long term (current) use of oral hypoglycemic drugs; F32.A Depression, unspecified; L97.519 Non-pressure chronic ulcer of other part of right foot with unspecified severity; Z82.49 Family history of ischemic heart disease and other diseases of the circulatory system; F17.210 Nicotine dependence, cigarettes, uncomplicated; J44.9 Chronic obstructive pulmonary disease, unspecified; Z83.3 Family history of diabetes mellitus; T37.0X5A Adverse effect of sulfonamides, initial encounter; Z88.5 Allergy status to narcotic agent; M54.59 Other low back pain; E83.42 Hypomagnesemia; E87.5 Hyperkalemia; T50.0X5A Adverse effect of mineralocorticoids and their antagonists, initial encounter; F10.20 Alcohol dependence, uncomplicated; G89.29 Other chronic pain; E78.5 Hyperlipidemia, unspecified; L50.0 Allergic urticaria; Z88.1 Allergy status to other antibiotic agents; E11.621 Type 2 diabetes mellitus with foot ulcer; E11.42 Type 2 diabetes mellitus with diabetic polyneuropathy; M10.9 Gout, unspecified; E55.9 Vitamin D deficiency, unspecified; F41.9 Anxiety disorder, unspecified

== ENCOUNTER 2023-06-18 19:25 | Inpatient (IN) ==
[2023-06-18] MEDS ORDERED: SODIUM CHLORIDE 0.9% 1000ML 1,000 ML IV ONE (19:36)
[2023-06-18] MEDS ORDERED: GLUCOSE 10 TAB/TUBE PO PRN (19:36)
--- NOTE | 2023-06-18 20:01 | Emergency Department Note ---
Impression & Plan Hyperglycemia, BUTCH (acute kidney injury), Acute hyponatremia, Hypomagnesemia, Elevated lactic acid level, UTI (urinary tract infection) ED Provider Note HISTORY OF PRESENT ILLNESS: Patient is a 62-year-old female presenting with hyperglycemia and shakiness. Patient reports that earlier today she woke up and her blood sugar was over 400. She reports she takes 50 units of insulin twice daily and took it earlier today. She is not sure if it is short acting or long-acting. She is also on metformin. She states that her sugar has been over 400 multiple times a day and she has felt very weak and shaky. She reports she feels too weak to get up and get around. She reports last time this happened her electrolytes were abnormal. Denies any chest pain or shortness of breath. Reports yesterday she had some nausea and last night had vomiting. Denies any chest pain or shortness of breath. Denies any abdominal pain. Denies any diarrhea. Denies any recent fevers. ROS: as above PHYSICAL EXAM: Constitutional: Patient appears in no acute distress. HENT: Head: Normocephalic and atraumatic. Eyes: EOMI, PERRL Mouth/Throat: Mucous membranes dry Neck: Trachea midline. Neck supple. Cardiovascular: Tachycardic with regular rhythm. No murmurs, rubs or gallops. Intact distal pulses. Pulmonary/Chest: No respiratory distress. Breath sounds clear and equal bilaterally. No wheezes or rales. Abdominal: Abdomen soft, no tenderness, rebound or guarding. Musculoskeletal: No edema, tenderness or deformity noted. Skin: Warm and dry. No rash, erythema, pallor or cyanosis Psychiatric: Appropriate mood and affect for situation. Neurological: Alert and keenly responsive. CN II-XII grossly intact, moving all extremities equally and fully. MDM: - Vitals signs showed tachycardia. - History obtained via patient. Patient presents with hyperglycemia and shakiness. Patient reports her blood sugars have remained over 400 throughout today despite multiple doses of insulin. She reports feeling shaky and very weak and is unable to get up and get around on her own today. Reports nausea and with episodes of vomiting last night. Denies any fevers. Denies any abdominal pain - Chronic conditions affecting care: COPD; DM-2; HTN - Differential diagnoses include, but are not limited to: DKA; HHS; electrolyte abnormality; UTI; pneumonia - Order placed for continuous cardiac monitoring. At this time, monitor showed rate of 120 bpm with normal sinus rhythm, per my interpretation. - External medical records reviewed. - Laboratory workup interpreted by myself showed leukocytosis (WBC 13.47); hyponatremia (Na 129); elevated anion gap (13); BUTCH (Cr 2.19); hyperglycemia (glucose 408); elevated lactate (4.1); hypomagnesemia (Mg 1.4) - ABG negative for acidosis. - Patient given 3L NS in ER. Given 10 units of IV insulin. Given 1g IV magnesium for electrolyte replacement. - Elevated lactate may be confounded by patient's metformin use. - Patient does not appear to be in diabetic ketoacidosis, but she does have a notable elevated anion gap, which is likely secondary to her elevated glucose levels and her elevated lactate levels. - UA shows evidence of infection. - Considered CT abdomen/pelvis, given patient's nausea and vomiting, but she has a benign abdomen on physical examination and has no complaints of abdominal pain at this time. - Discussion was had with social service worker about patient's case and need for admission - Hospitalist, Dr. Han, consulted for admission - [facility] I provided 36 minutes of critical care time to this patient's care outside of billable procedures. ASSESSMENT AND PLAN: Diagnosis: hyperglycemia; hypomagnesemia; acute kidney injury; elevated lactate; hyponatremia; UTI Plan: admit Past Med/Surg History Medical History (Updated 06/18/23 @ 22:27 by Marisol Junior MD) Alcoholic hepatitis Alcoholism ERIC positive Anxiety B12 deficiency C. difficile diarrhea hx ~2-3 years ago, dx mn, abx tx. COPD (chronic obstructive pulmonary disease) inh prn Depression with anxiety Diabetes mellitus type 2 with complications Diabetic neuropathy Fatty liver Gout Hirsutism HTN (hypertension) Lumbar disc disease Lumbar stenosis Non-sustained ventricular tachycardia pt unsure about this Restless leg syndrome Rhabdomyolysis Tobacco use Toe ulcer, right Transaminitis Venous insufficiency (chronic) (peripheral) Vitamin D deficiency Surgical History History of ankle surgery History of blepharoplasty UPPER LID WITH EXCESSIVE SKIN ONSET: [id number] DESCRIPTION: B/l eyes History of bunionectomy History of laparoscopy History of umbilical hernia repair Hx of colonoscopy Family History Mother Diabetes Myocardial infarction Father MVA (motor vehicle accident) Grandmother (Maternal) Alzheimer disease Brother Diabetes Colonic polyp Colorectal cancer Aunt Breast cancer Uncle Myocardial infarction History of throat cancer Other No significant family history Denies family history of Ovarian cancer Prostate cancer Social History (Updated 05/16/23 @ 15:16 by Adilia Suero LPN) Smoking Status: Current every day smoker Tobacco Type: Cigarettes Age Started Using Tobacco: 16; packs per day: 0.5; Cigarettes Per Day: 10; Second Hand Exposure: Yes (father smoked when she was a child); Do You Dip or Chew Tobacco: No; Hx Alcohol Use: No (h- quit 3 years ago as of ) Hx Substance Use: No Preferred Language: Congolese Communication Ability: Effective Visual Impairment: No Limitations Hearing Ability: Normal Clothing Man Required: No Beliefs That Will Affect Care: None marital status: Single Current Living Situation: Alone Current Living Situation Comment: home alone, brother checks on her current occupational status: retired 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[employer]; 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 Feels Safe at Home: Yes Diet: regular Diet Comment: regular caffeine: No during the past year weight has: remained stable Dental Care, Regularly: No Physical Activity Frequency: Does not Exercise Seatbelt Use: always Sunscreen Use: Yes Assistive Devices: Denture - Upper, Denture - Lower, Glasses, Walker and Other Allergies Allergies Allergy/AdvReac Type Severity Reaction Status Date / Time sulfamethoxazole Allergy Severe Rash Verified 06/18/23 20:49 [From Bactrim] trimethoprim [From Bactrim] Allergy Severe Rash Verified 06/18/23 20:49 morphine Allergy Intermediate Hives Verified 06/18/23 20:49 Home Meds Home Medications Medication Instructions Recorded Confirmed atorvastatin 80 mg tablet 80 mg PO QAM 10/17/22 06/18/23 nystatin 100,000 unit/gram topical 1 applic topical BID PRN Skin 10/17/22 06/18/23 cream Irritation blood sugar diagnostic (Prodigy No 01/23/23 05/16/23 Coding strips) ergocalciferol (vitamin D2) 1,250 50,000 unit PO WK 06/18/23 06/18/23 mcg (50,000 unit) capsule Previous Rx's Medication Instructions Recorded albuterol sulfate 2.5 mg/3 mL 2.5 mg (3 mL) inhalation Q6H PRN 03/09/21 (0.083 %) solution for nebulization shortness of breath or wheezing #90 mL nebulizers #1 ea 03/09/21 loperamide 2 mg tablet (Imodium 2 mg PO Q6H PRN loose stool #120 03/15/21 A-D) tabs Wheelchair (Manual) #1 ea 07/26/21 magnesium oxide 800 mg PO BID #360 caps 02/24/22 pen needle, diabetic 32 gauge x #100 ea 10/26/22" (BD Ultra-Fine Sweta Pen Needle) tizanidine 4 mg tablet 4 mg PO BID PRN muscle spasm 90 11/15/22 days #180 tabs gabapentin 300 mg capsule 600 mg PO BID #360 caps 12/01/22 ipratropium 20 mcg-albuterol 100 1 puff inhalation QID #4 grams 12/15/22 mcg/actuation mist for inhalation (Combivent Respimat) insulin glargine U-300 conc 300 50 unit (0.1667 mL) subcut BID 01/23/23 unit/mL (1.5 mL) subcutaneous pen #28.5 mL (Toujeo SoloStar U-300 Insulin) diclofenac sodium 1 % topical gel 2 g topical QID PRN Pain #100 grams 04/21/23 (Voltaren Arthritis Pain) amlodipine 5 mg tablet 5 mg PO QAM #90 tabs 04/24/23 furosemide 20 mg tablet (Lasix) 40 mg PO UD PRN edema #180 tabs 04/24/23 metformin 1,000 mg tablet,extended 1,000 mg PO BID #180 tabs 04/24/23 release 24hr sertraline 100 mg tablet 200 mg PO QAM #180 tabs 04/24/23 nystatin 100,000 unit/gram topical 1 applic topical QID PRN Skin 04/27/23 powder Irritation #60 grams vortioxetine 10 mg tablet 10 mg PO DAILY #30 tabs 05/16/23 (Trintellix) ezetimibe 10 mg tablet (Zetia) 10 mg PO DAILY #90 tabs 06/13/23 Results & Data (ED) Vital Signs Vital Signs - 24 hr 06/18/23 19:29 06/18/23 20:12 06/18/23 20:20 Temperature 36.5 C Temperature Source Temporal Artery Scan Pulse Rate 135 H 125 H 124 H Pulse Rate from SpO2 Sensor 124 H 124 H Respiratory Rate 16 17 23 Respiratory Effort / Characteristics Non-Labored Spontaneous Respiratory Depth Normal Blood Pressure 119/79 Blood Pressure Mean 92 Pulse Oximetry 99 93 96 Oxygen Delivery Method Room Air Sepsis Recent Fever Within 48 Hours No Sepsis New/Unexplained Change in Mental Status No Sepsis Action Taken by Nursing No Action Required 06/18/23 20:30 06/18/23 20:40 06/18/23 20:46 Temperature Temperature Source Pulse Rate 123 H 121 H 121 H Pulse Rate from SpO2 Sensor 123 H 122 H 122 H Respiratory Rate 22 17 20 Respiratory Effort / Characteristics Respiratory Depth Blood Pressure Blood Pressure Mean Pulse Oximetry 96 96 94 Oxygen Delivery Method Sepsis Recent Fever Within 48 Hours Sepsis New/Unexplained Change in Mental Status Sepsis Action Taken by Nursing 06/18/23 20:46 06/18/23 20:50 06/18/23 21:00 Temperature Temperature Source Pulse Rate 122 H Pulse Rate from SpO2 Sensor 120 H Respiratory Rate 23 Respiratory Effort / Characteristics Respiratory Depth Blood Pressure 119/70 136/94 Blood Pressure Mean 104 103 Pulse Oximetry 96 Oxygen Delivery Method Sepsis Recent Fever Within 48 Hours Sepsis New/Unexplained Change in Mental Status Sepsis Action Taken by Nursing 06/18/23 21:00 06/18/23 21:10 06/18/23 21:20 Temperature Temperature Source Pulse Rate 122 H 123 H 122 H Pulse Rate from SpO2 Sensor 123 H 123 H 123 H Respiratory Rate 23 26 H 18 Respiratory Effort / Characteristics Respiratory Depth Blood Pressure Blood Pressure Mean Pulse Oximetry 96 96 96 Oxygen Delivery Method Sepsis Recent Fever Within 48 Hours Sepsis New/Unexplained Change in Mental Status Sepsis Action Taken by Nursing 06/18/23 21:30 06/18/23 21:44 06/18/23 21:50 Temperature Temperature Source Pulse Rate 123 H 128 H 124 H Pulse Rate from SpO2 Sensor 123 H 124 H Respiratory Rate 25 H 15 27 H Respiratory Effort / Characteristics Respiratory Depth Blood Pressure Blood Pressure Mean Pulse Oximetry 98 96 Oxygen Delivery Method Sepsis Recent Fever Within 48 Hours Sepsis New/Unexplained Change in Mental Status Sepsis Action Taken by Nursing 06/18/23 22:00 06/18/23 22:00 06/18/23 20:11 Temperature Temperature Source Pulse Rate 123 H 125 H Pulse Rate from SpO2 Sensor 119 H Respiratory Rate 18 Respiratory Effort / Characteristics Respiratory Depth Blood Pressure 122/85 Blood Pressure Mean 98 Pulse Oximetry 90 Oxygen Delivery Method Sepsis Recent Fever Within 48 Hours Sepsis New/Unexplained Change in Mental Status Sepsis Action Taken by Nursing Laboratory Data 06/18/23 19:50 06/18/23 19:50 Lab Results 06/18/23 06/18/23 06/18/23 Range/Units 19:32 19:50 19:50 WBC 13.47 H (4.8-10.8) K/ul RBC 4.10 L (4.20-5.40) M/uL Hgb 12.0 (12.0-16.0) g/dl Hct 37.3 (37.0-47.0) % MCV 91.0 (80.0-100.0) fL MCH 29.3 (25.0-34.0) pg MCHC 32.2 (32.0-36.0) g/dL RDW Std Deviation 53.1 H (36.4-46.3) fL RDW Coeff of Eduardo 15.9 H (11.5-14.5) % Plt Count 231 (130-400) K/uL MPV 10.3 (9.4-12.4) fL Immature Gran % (Auto) 0.8 % Neut % (Auto) 87.0 % Lymph % (Auto) 7.1 % [place] % (Auto) 4.4 % Eos % (Auto) 0.4 % Baso % (Auto) 0.3 % Neut # (Auto) 11.72 H (1.40-6.50) K/uL Lymph # (Auto) 0.95 L (1.2-3.4) K/uL [place] # (Auto) 0.59 (0.11-0.59) K/uL Eos # (Auto) 0.06 (0-0.50) K/uL Baso # (Auto) 0.04 (0-0.2) K/uL Immature Gran # (Auto) 0.11 (0.01-0.20) K/uL ABG pH (7.35-7.45) ABG pCO2 (35-46) mmHg ABG pO2 (80-95) mmHg ABG HCO3 (19-24) mmol/L ABG O2 Saturation (90-95) % ABG Base Excess (-9-1.8) mEq/L Antonio Test (Pos) Oxygen Given Sodium (136-145) mmol/L Potassium (3.5-5.1) mmol/L Chloride (98-107) mmol/L Carbon Dioxide (21-32) mmol/L Anion Gap (3-11) BUN (6-23) mg/dl Creatinine (0.6-1.2) mg/dl Est Cr Clr Drug Dosing Est GFR ( Amer) ml/min Est GFR (Non-Af Amer) ml/min BUN/Creatinine Ratio (10-20) Glucose (70-99(Fasting)) mg/dl POC Glucose 446 H* (70-99) mg/dl Lactate 4.1 H* (0.4-2.0) mmol/L Calcium (8.6-10.3) mg/dl Phosphorus (2.5-4.9) mg/dl Magnesium (1.7-2.4) mg/dl Total Bilirubin (0.2-1.0) mg/dl AST (13-39) U/L ALT (7-52) U/L Alkaline Phosphatase (34-104) U/L Total Protein (6.0-8.3) gm/dl Albumin (3.4-5.0) gm/dl Globulin (2.5-4.0) gm/dl Albumin/Globulin Ratio (0.9-2) Urine Color Urine Appearance (Clear) Urine pH (4.5-7.5) Ur Specific [place] (1.000-1.030) Urine Protein (Negative) Urine Glucose (UA) (Negative) Urine Ketones (Negative) Urine Blood (Negative) Urine Nitrite (Negative) Urine Bilirubin (Negative) Urine Urobilinogen (Negative) Ur Leukocyte Esterase (Negative) Urine WBC (Auto) (0-5) /hpf Urine RBC (Auto) (0-4) /hpf U Hyaline Cast (Auto) (0-5) /lpf U Epithel Cells (Auto) (0-5) /lpf Urine Bacteria (Auto) (Negative) Urine Yeast (None Prsent) 06/18/23 06/18/23 06/18/23 Range/Units 19:50 20:01 20:27 WBC (4.8-10.8) K/ul RBC (4.20-5.40) M/uL Hgb (12.0-16.0) g/dl Hct (37.0-47.0) % MCV (80.0-100.0) fL MCH (25.0-34.0) pg MCHC (32.0-36.0) g/dL RDW Std Deviation (36.4-46.3) fL RDW Coeff of Eduardo (11.5-14.5) % Plt Count (130-400) K/uL MPV (9.4-12.4) fL Immature Gran % (Auto) % Neut % (Auto) % Lymph % (Auto) % [place] % (Auto) % Eos % (Auto) % Baso % (Auto) % Neut # (Auto) (1.40-6.50) K/uL Lymph # (Auto) (1.2-3.4) K/uL [place] # (Auto) (0.11-0.59) K/uL Eos # (Auto) (0-0.50) K/uL Baso # (Auto) (0-0.2) K/uL Immature Gran # (Auto) (0.01-0.20) K/uL ABG pH 7.45 (7.35-7.45) ABG pCO2 29 L (35-46) mmHg ABG pO2 77 L (80-95) mmHg ABG HCO3 20 (19-24) mmol/L ABG O2 Saturation 97.0 H (90-95) % ABG Base Excess -2.6 (-9-1.8) mEq/L Antonio Test Pos (Pos) Oxygen Given ROOM AIR Sodium 129 L (136-145) mmol/L Potassium 4.9 (3.5-5.1) mmol/L Chloride 94 L (98-107) mmol/L Carbon Dioxide 22 (21-32) mmol/L Anion Gap 13 H (3-11) BUN 37 H (6-23) mg/dl Creatinine 2.19 H (0.6-1.2) mg/dl Est Cr Clr Drug Dosing Not Reportable Est GFR ( Amer) 27.3 ml/min Est GFR (Non-Af Amer) 23.6 ml/min BUN/Creatinine Ratio 16.9 (10-20) Glucose 408 H* (70-99(Fasting)) mg/dl POC Glucose 445 H* (70-99) mg/dl Lactate (0.4-2.0) mmol/L Calcium 9.1 (8.6-10.3) mg/dl Phosphorus 4.3 (2.5-4.9) mg/dl Magnesium 1.4 L (1.7-2.4) mg/dl Total Bilirubin 1.1 H (0.2-1.0) mg/dl AST 15 (13-39) U/L ALT 18 (7-52) U/L Alkaline Phosphatase 116 H (34-104) U/L Total Protein 8.2 (6.0-8.3) gm/dl Albumin 3.8 (3.4-5.0) gm/dl Globulin 4.4 H (2.5-4.0) gm/dl Albumin/Globulin Ratio 0.9 (0.9-2) Urine Color Urine Appearance (Clear) Urine pH (4.5-7.5) Ur Specific [place] (1.000-1.030) Urine Protein (Negative) Urine Glucose (UA) (Negative) Urine Ketones (Negative) Urine Blood (Negative) Urine Nitrite (Negative) Urine Bilirubin (Negative) Urine Urobilinogen (Negative) Ur Leukocyte Esterase (Negative) Urine WBC (Auto) (0-5) /hpf Urine RBC (Auto) (0-4) /hpf U Hyaline Cast (Auto) (0-5) /lpf U Epithel Cells (Auto) (0-5) /lpf Urine Bacteria (Auto) (Negative) Urine Yeast (None Prsent) 06/18/23 06/18/23 06/18/23 Range/Units 21:28 21:45 22:32 WBC (4.8-10.8) K/ul RBC (4.20-5.40) M/uL Hgb (12.0-16.0) g/dl Hct (37.0-47.0) % MCV (80.0-100.0) fL MCH (25.0-34.0) pg MCHC (32.0-36.0) g/dL RDW Std Deviation (36.4-46.3) fL RDW Coeff of Eduardo (11.5-14.5) % Plt Count (130-400) K/uL MPV (9.4-12.4) fL Immature Gran % (Auto) % Neut % (Auto) % Lymph % (Auto) % [place] % (Auto) % Eos % (Auto) % Baso % (Auto) % Neut # (Auto) (1.40-6.50) K/uL Lymph # (Auto) (1.2-3.4) K/uL [place] # (Auto) (0.11-0.59) K/uL Eos # (Auto) (0-0.50) K/uL Baso # (Auto) (0-0.2) K/uL Immature Gran # (Auto) (0.01-0.20) K/uL ABG pH (7.35-7.45) ABG pCO2 (35-46) mmHg ABG pO2 (80-95) mmHg ABG HCO3 (19-24) mmol/L ABG O2 Saturation (90-95) % ABG Base Excess (-9-1.8) mEq/L Antonio Test (Pos) Oxygen Given Sodium (136-145) mmol/L Potassium (3.5-5.1) mmol/L Chloride (98-107) mmol/L Carbon Dioxide (21-32) mmol/L Anion Gap (3-11) BUN (6-23) mg/dl Creatinine (0.6-1.2) mg/dl Est Cr Clr Drug Dosing Est GFR ( Amer) ml/min Est GFR (Non-Af Amer) ml/min BUN/Creatinine Ratio (10-20) Glucose (70-99(Fasting)) mg/dl POC Glucose 398 H* 366 H* (70-99) mg/dl Lactate (0.4-2.0) mmol/L Calcium (8.6-10.3) mg/dl Phosphorus (2.5-4.9) mg/dl Magnesium (1.7-2.4) mg/dl Total Bilirubin (0.2-1.0) mg/dl AST (13-39) U/L ALT (7-52) U/L Alkaline Phosphatase (34-104) U/L Total Protein (6.0-8.3) gm/dl Albumin (3.4-5.0) gm/dl Globulin (2.5-4.0) gm/dl Albumin/Globulin Ratio (0.9-2) Urine Color Dark Yellow Urine Appearance Turbid A (Clear) Urine pH 5.0 (4.5-7.5) Ur Specific [place] 1.021 (1.000-1.030) Urine Protein 2+ H (Negative) Urine Glucose (UA) Negative (Negative) Urine Ketones Trace H (Negative) Urine Blood 2+ H (Negative) Urine Nitrite Positive A (Negative) Urine Bilirubin 1+ H (Negative) Urine Urobilinogen Negative (Negative) Ur Leukocyte Esterase 2+ H (Negative) Urine WBC (Auto) >30 H (0-5) /hpf Urine RBC (Auto) 0-4 (0-4) /hpf U Hyaline Cast (Auto) 10-30 H (0-5) /lpf U Epithel Cells (Auto) >30 H (0-5) /lpf Urine Bacteria (Auto) 4+ H (Negative) Urine Yeast Present A (None Prsent) Administered Medications Sodium Chloride (Nss 1000ml) 2,000 mls @ 999 mls/hr IV .Q2H1M ONE Stop: 06/18/23 23:43 Last Admin: 06/18/23 22:20 Dose: 999 mls/hr Documented By: ACC Discontinued Medications Sodium Chloride (Nss 1000ml) 1,000 mls @ 999 mls/hr IV .Q1H1M ONE Stop: 06/18/23 20:36 Last Admin: 06/18/23 19:53 Dose: 999 mls/hr Documented By: ACC Magnesium Sulfate/Dextrose (Magnesium Sulfate / D5w) 1 gm in 100 mls @ 100 mls/hr IV NOW STA Stop: 06/18/23 22:42 Last Admin: 06/18/23 22:16 Dose: 100 mls/hr Documented By: ACC Insulin Human Regular (Novolin-R Insulin Per Unit Charge) 10 units IV NOW STA Stop: 06/18/23 21:16 Last Admin: 06/18/23 21:29 Dose: 10 units Documented By: ACC Co-signed By: BLESSING Discharge Plan Visit Data Chief Complaint: Hyperglycemia Stated Complaint: HYPERGLYCEMIA, SHAKY, DIZZINESS ED Provider: Marisol Junior Discharge Problem: Hyperglycemia, BUTCH (acute kidney injury), Acute hyponatremia, Hypomagnesemia, Elevated lactic acid level, UTI (urinary tract infection) Forms Stand Alone Forms: [id number] Prescriptions Prescriptions: No Action loperamide [Imodium A-D] 2 mg tablet 2 mg PO Q6H PRN (Reason: loose stool) Qty: 120 1RF Patient Comments: hardly uses (DME) Wheelchair (Manual) Device See Rx Instructions .Route Qty: 1 0RF Rx Instructions: As directed magnesium oxide 400 mg magnesium capsule 800 mg PO BID Qty: 360 1RF Patient Comments: hasn't used this in awhile. (DME) pen needle, diabetic [BD Ultra-Fine Sweta Pen Needle] 32 gauge x 5/32" needle See Rx Instructions .Route Qty: 100 3RF Rx Instructions: INJECT INSULIN ONCE DAILY; DX CODE- E11.8 gabapentin 300 mg capsule 600 mg PO BID Qty: 360 1RF Combivent Respimat 20-100 mcg/actuation mist 1 puff inhalation QID Qty: 4 3RF Rx Instructions: space evenly during waking hours diclofenac sodium [Voltaren Arthritis Pain] 1 % gel 2 g topical QID PRN (Reason: Pain) Qty: 100 3RF furosemide [Lasix] 20 mg tablet 40 mg PO UD PRN (Reason: edema) Qty: 180 1RF amlodipine 5 mg tablet 5 mg PO QAM Qty: 90 1RF sertraline 100 mg tablet 200 mg PO QAM Qty: 180 1RF metformin 1,000 mg tablet extended release 24 hr 1,000 mg PO BID Qty: 180 1RF nystatin 100,000 unit/gram powder 1 applic topical QID PRN (Reason: Skin Irritation) Qty: 60 2RF ezetimibe [Zetia] 10 mg tablet 10 mg PO DAILY Qty: 90 1RF (DME) Prodigy No Coding Strip See Rx Instructions .Route Rx Instructions: test 4 times daily Tokelly SolZeeshanar U-300 Insulin 300 unit/mL (1.5 mL) insulin pen 50 unit subcut BID Qty: 28.5 8RF Rx Instructions: PER PT "TOOK 50 UNITS THIS AM, CHECKED BSG WAS STILL IN THE 400'S, TOOK ANOTHER 10 UNITS, RECHECKED BSG, WAS STILL IN THE 300'S, TOOK ANOTHER 10 UNITS AT 1400". Inject 50 units into the abdomen twice daily; injections should be 10-12 hours apart. albuterol sulfate 2.5 mg /3 mL (0.083 %) solution for nebulization 2.5 mg inhalation Q6H PRN (Reason: shortness of breath or wheezing) Qty: 90 1RF Patient Comments: "doesn't have this anymore" (DME) nebulizers Misc See Rx Instructions .ROUTE .MEDSUPPLY Qty: 1 0RF Rx Instructions: As directed tizanidine 4 mg tablet 4 mg PO BID PRN (Reason: muscle spasm) 90 Days Qty: 180 1RF Trintellix 10 mg tablet 10 mg PO DAILY Qty: 30 2RF atorvastatin 80 mg tablet 80 mg PO QAM nystatin 100,000 unit/gram cream 1 applic topical BID PRN (Reason: Skin Irritation) Rx Instructions: apply to b/l groin ergocalciferol (vitamin D2) 1,250 mcg (50,000 unit) capsule 50,000 unit PO WK Rx Instructions: SUNDAYS Referrals Referrals: Gay Sanchez DO [Primary Care Provider] -
[2023-06-18 20:13] LABS: Base Excess ABG -2.6 mEq/L (-9-1.8); HCO3 ABG 20 mmol/L (19-24); PCO2 ABG 29 mmHg (35-46); PO2 ABG 77 mmHg (80-95); pH ABG 7.45 (7.35-7.45)
[2023-06-18 20:16] LABS: Allen Test Pos (Pos)
[2023-06-18 20:28] LABS: Basophils # (auto) 0.04 K/uL (0-0.2); Basophils % (auto) 0.3 %; Eosinophils # (auto) 0.06 K/uL (0-0.50); Eosinophils % (auto) 0.4 %; Hematocrit (blood only) 37.3 % (37.0-47.0); Immature Granulocytes # (auto) 0.11 K/uL (0.01-0.20); Immature Granulocytes % (auto) 0.8 %; Lymphocytes # (auto) 0.95 K/uL (1.2-3.4); Lymphocytes % (auto) 7.1 %; Mean Corpuscular Hemoglobin 29.3 pg (25.0-34.0); Mean Corpuscular Hgb Conc 32.2 g/dL (32.0-36.0); Mean Platelet Volume 10.3 fL (9.4-12.4); Monocytes # (auto) 0.59 K/uL (0.11-0.59); Monocytes % (auto) 4.4 %; Neutrophils # (auto) 11.72 K/uL (1.40-6.50); Platelet Count 231 K/uL (130-400); RDW Coefficient of Variation 15.9 % (11.5-14.5); RDW Standard Deviation 53.1 fL (36.4-46.3); White Blood Count 13.47 K/ul (4.8-10.8)
[2023-06-18] MEDS ORDERED: Patient's HEIGHT &/or WEIGHT Needed SCH (21:00)
[2023-06-18 21:01] LABS: Alanine Aminotransferase 18 U/L (7-52); Albumin Globulin Ratio 0.9 (0.9-2); Albumin Level 3.8 gm/dl (3.4-5.0); Alkaline Phosphatase 116 U/L (34-104); Anion Gap 13 (3-11); Aspartate Aminotransferase 15 U/L (13-39); BUN Creatinine Ratio 16.9 (10-20); Bilirubin,Total 1.1 mg/dl (0.2-1.0); Blood Urea Nitrogen 37 mg/dl (6-23); Calcium 9.1 mg/dl (8.6-10.3); Carbon Dioxide 22 mmol/L (21-32); Chloride 94 mmol/L (98-107); Est GFR (African American) 27.3 ml/min; Est GFR (Non-African American) 23.6 ml/min; Globulin 4.4 gm/dl (2.5-4.0); Glucose 408 mg/dl (70-99(Fasting)); Magnesium 1.4 mg/dl (1.7-2.4); Phosphorus 4.3 mg/dl (2.5-4.9); Potassium 4.9 mmol/L (3.5-5.1); Sodium 129 mmol/L (136-145); Total Protein 8.2 gm/dl (6.0-8.3)
[2023-06-18] MEDS ORDERED: NovoLIN-R INSULIN PER UNIT CHARGE IV STA (21:15)
[2023-06-18] MEDS ORDERED: SODIUM CHLORIDE 0.9% 1000ML 2,000 ML IV ONE (21:43)
[2023-06-18] MEDS ORDERED: MAGNESIUM SULFATE / D5W 1 GM/100 ML BAG IV STA (21:43)
[2023-06-18 22:18] LABS: Appearance Urine Turbid (Clear); Bacteria Urine Automated 4+ (Negative); Blood Urine 2+ (Negative); Color Urine Dark Yellow; Epithelial Cell Urine Auto >30 /lpf (0-5); Glucose Urine UA Negative (Negative); Ketones Urine Trace (Negative); Leukocyte Esterase Urine 2+ (Negative); Nitrite Urine Positive (Negative); Protein Urine 2+ (Negative); RBC Urine Automated 0-4 /hpf (0-4); Specific Gravity Urine 1.021 (1.000-1.030); Urobilinogen Urine Negative (Negative); WBC Urine Automated >30 /hpf (0-5)
[2023-06-18 22:23] LABS: Bilirubin Urine 1+ (Negative)
--- NOTE | 2023-06-18 22:57 | History & Physical Report ---
Date of Service June 18, 2023 Assessment & Plan (1) Hyperglycemia: Plan: 62 F with PMH DM 2, hypertension with neuropathy, COPD, and depression/anxiety, who presented with shakiness and hyperglycemia at home. Admitted for acute management of hyperglycemia, metabolic acidosis. Hyperglycemia -Tachycardia, leukocytosis, mild hyponatremia, BUTCH, presenting BSG >400, AG metabolic acidosis on initial work-up labs. Ketonuria, leuk esterase, nitrites, 4+ bacteremia on UA. Procalcitonin 27.14 -History of poorly controlled diabetes since 2018hemoglobin A1c 10.4 in April 2023. Home regimen: 50 units of Lantus twice daily, metformin 1000 mg twice daily. -S/p 3 L IV bolus NS, 10 units Novolin bolus in the ED. * Admit to PCU. N.p.o. * IV insulin drip started infused per protocol, then transition to SQ insulin per protocol. * IVF Normosol@200mL/h * Trend BMP, VBG, magnesium, phosphorus every 4 hours per protocol * Trend lactate to ensure downtrending; trend BSG every hour. Hypomagnesemia -1.4 on admission. S/p repletion with IV magnesium sulfate x4 g * Trend magnesium as above BUTCH -Serum creatinine 2.19 on admission. Baseline around 1.1-1.17. * Aggressive IVF hydration as above * Trend creatinine Elevated lactate -4.1 on initial labs. Patient takes metformin 1000 mg twice daily. -Likely secondary to primary process, though metformin lactic acidosis cannot be excluded. * Aggressive IVF hydration as above, trend lactate every 6 hours until downtrending. * Consider stopping metformin, switching to different class of antihyperglycemic (SGLT2 inhibitor, GLP-1 agonist etc.) UTI -UA positive for leukocyte esterase, nitrites, ketonuria, proteinuria, 4+ bacteremia. Procalcitonin 27.14. -Patient denies dysuriaunclear if urinary frequency, lethargy 2/2 DKA or UTI. However, given solidly elevated procalcitonin, inclined to treat. * Aggressive IVF as above. * IV ceftriaxone 2 g every 24 hours All other chronic conditions: Holding all oral meds. Code: Full code Dispo: Med-Surg PCU FEN/GI: NPO. DVT Prophylaxis: Lovenox 40 mg q24h PT/OT: No Consults: None Case Management: No (2) BUTCH (acute kidney injury): (3) Acute hyponatremia: (4) Hypomagnesemia: (5) Elevated lactic acid level: (6) UTI (urinary tract infection): History of Present Illness Primary Care Provider: Gay Sanchez DO Waters is a 62-year-old woman with history of DM2, hypertension, polyneuropathy, COPD, and depression/anxiety, who presented to the emergency room with shakiness and an elevated blood sugar. Patient checked her blood sugar upon waking and discovered it was >400. She had taken her insulin today (takes insulin 50 units twice daily). She reports feeling weak and shaky over the past couple days. She also reports nausea with vomiting last night, which she denies on admission, as well as a headache which is still present. She denies chest pain, shortness of breath, abdominal pain, recent illness, or dysuria. In the ED vitals were notable for sinus tachycardia. Labs showed blood sugar level of 408. WBC-13.47, sodium-129, creatinine-2.19, magnesium-1.4, alkaline phosphatase-116. Lactate was also elevated at 4.1. She received a 1 L bolus of normal saline, 1 g of magnesium sulfate, and a 10 unit IV bolus of Novolin. Hospitalist service was then consulted for admission. Allergies Allergy/AdvReac Type Severity Reaction Status Date / Time sulfamethoxazole Allergy Severe Rash Verified 06/26/23 13:47 [From Bactrim] trimethoprim [From Bactrim] Allergy Severe Rash Verified 06/26/23 13:47 morphine Allergy Intermediate Hives Verified 06/26/23 13:47 Home Medications Medication Instructions Recorded Confirmed Type albuterol sulfate 2.5 mg/3 mL 2.5 mg (3 mL) inhalation Q6H PRN 03/09/21 06/26/23 Rx (0.083 %) solution for nebulization shortness of breath or wheezing #90 mL nebulizers #1 ea 03/09/21 06/26/23 Rx loperamide 2 mg tablet (Imodium 2 mg PO Q6H PRN loose stool #120 03/15/21 06/26/23 Rx A-D) tabs Wheelchair (Manual) #1 ea 07/26/21 06/26/23 Rx magnesium oxide 800 mg PO BID #360 caps 02/24/22 06/26/23 Rx atorvastatin 80 mg tablet 80 mg PO QAM 10/17/22 06/26/23 History nystatin 100,000 unit/gram topical 1 applic topical BID PRN Skin 10/17/22 06/26/23 History cream Irritation pen needle, diabetic 32 gauge x #100 ea 10/26/22 06/26/23 Rx 5/32" (BD Ultra-Fine Sweta Pen Needle) tizanidine 4 mg tablet 4 mg PO BID PRN muscle spasm 90 11/15/22 06/26/23 Rx days #180 tabs gabapentin 300 mg capsule 600 mg PO BID #360 caps 12/01/22 06/26/23 Rx ipratropium 20 mcg-albuterol 100 1 puff inhalation QID #4 grams 12/15/22 06/26/23 Rx mcg/actuation mist for inhalation (Combivent Respimat) blood sugar diagnostic (Prodigy No 01/23/23 06/26/23 History Coding strips) insulin glargine U-300 conc 300 50 unit (0.1667 mL) subcut BID 01/23/23 06/26/23 Rx unit/mL (1.5 mL) subcutaneous pen #28.5 mL (Toujeo SoloStar U-300 Insulin) diclofenac sodium 1 % topical gel 2 g topical QID PRN Pain #100 grams 04/21/23 06/26/23 Rx (Voltaren Arthritis Pain) amlodipine 5 mg tablet 5 mg PO QAM #90 tabs 04/24/23 06/26/23 Rx furosemide 20 mg tablet (Lasix) 40 mg PO UD PRN edema #180 tabs 04/24/23 06/26/23 Rx metformin 1,000 mg tablet,extended 1,000 mg PO BID #180 tabs 04/24/23 06/26/23 Rx release 24hr nystatin 100,000 unit/gram topical 1 applic topical QID PRN Skin 04/27/23 06/26/23 Rx powder Irritation #60 grams vortioxetine 10 mg tablet 10 mg PO DAILY #30 tabs 05/16/23 06/26/23 Rx (Trintellix) ezetimibe 10 mg tablet (Zetia) 10 mg PO DAILY #90 tabs 06/13/23 06/26/23 Rx ergocalciferol (vitamin D2) 1,250 50,000 unit PO WK 06/18/23 06/26/23 History mcg (50,000 unit) capsule cefpodoxime 200 mg tablet 200 mg PO BID 7 days #14 tabs 06/21/23 06/26/23 Rx Past Med/Surg History Medical History (Updated 06/18/23 @ 22:27 by Marisol Junior MD) Alcoholic hepatitis Alcoholism ERIC positive Anxiety B12 deficiency C. difficile diarrhea hx ~2-3 years ago, dx mn, abx tx. COPD (chronic obstructive pulmonary disease) inh prn Depression with anxiety Diabetes mellitus type 2 with complications Diabetic neuropathy Fatty liver Gout Hirsutism HTN (hypertension) Lumbar disc disease Lumbar stenosis Non-sustained ventricular tachycardia pt unsure about this Restless leg syndrome Rhabdomyolysis Tobacco use Toe ulcer, right Transaminitis Venous insufficiency (chronic) (peripheral) Vitamin D deficiency Surgical History History of ankle surgery History of blepharoplasty History of bunionectomy History of laparoscopy History of umbilical hernia repair Hx of colonoscopy Family History Mother Diabetes Myocardial infarction Father MVA (motor vehicle accident) Grandmother (Maternal) Alzheimer disease Brother Diabetes Colonic polyp Colorectal cancer Aunt Breast cancer Uncle Myocardial infarction History of throat cancer Other No significant family history Denies family history of Ovarian cancer Prostate cancer Social History Smoking Status: Current every day smoker Tobacco Type: Cigarettes Age Started Using Tobacco: 16; packs per day: 0.5; Cigarettes Per Day: 1/2 pack a day; Second Hand Exposure: Yes (father smoked when she was a child); Do You Dip or Chew Tobacco: No; Hx Alcohol Use: Yes Alcohol type: hard liquor Hx Substance Use: No Preferred Language: Turkmen Communication Ability: Effective Visual Impairment: No Limitations Hearing Ability: Normal Licensed Marine Engineer Required: No Beliefs That Will Affect Care: None marital status: Single Current Living Situation: Alone Current Living Situation Comment: home alone, brother checks on her current occupational status: 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 Normal conjunctiva, anicteric sclera. Oropharynx normal. Respiratory: Normal respiratory effort. Bibasilar crackles heard on auscultation. Cardiovascular: RRR without murmurs, gallops, or rubs. No pedal edema. GI: Soft abdomen with normal bowel sounds heard on auscultation. Nontender x4 q uadrants Neuro: Alert and oriented x3. Results & Data Results & Data Vital Signs (Past 12 Hours) Vital Signs Temp Pulse Resp BP Pulse Ox O2 Del Method 06/18/23 22:00 123 H 18 90 06/18/23 22:00 122/85 06/18/23 21:50 124 H 27 H 96 06/18/23 21:44 128 H 15 06/18/23 21:30 123 H 25 H 98 06/18/23 21:20 122 H 18 96 06/18/23 21:10 123 H 26 H 96 06/18/23 21:00 122 H 23 96 06/18/23 21:00 136/94 06/18/23 20:50 122 H 23 96 06/18/23 20:46 119/70 06/18/23 20:46 121 H 20 94 06/18/23 20:40 121 H 17 96 06/18/23 20:30 123 H 22 96 06/18/23 20:20 124 H 23 96 06/18/23 20:12 125 H 17 93 06/18/23 19:29 36.5 C 135 H 16 119/79 99 Room Air Supervising Physician Co-Signing Physician Notes Attending addendum: I have physically seen this patient, have supervised the medical residents activities, and agree with the H&P unless as otherwise noted. Assessment and Plan: Hyperglycemia in diabetes mellitus- Glucose 408 on admission Status post 3 L normal saline IV bolus in ED, along with 10 units of regular insulin IV Insulin drip per protocol Normosol at 100 mils per hour anion gap 13 Changed to D5 and fluids per protocol Hypomagnesemia- Magnesium 1.4 on admission Magnesium sulfate replacement IV, recheck laboratories in a.m. Acute kidney injury- Creatinine 2.19 on admission, with base 1.17 IV fluids as noted, recheck laboratories in a.m. Remaining orders and notations as noted Resident Activity Tracking Resident Involvement: Resident Care Provided Care Provided: Adult [facility] Medicine
[2023-06-18] MEDS ORDERED: INSULIN REGULAR 250 UNITS in SODIUM CHLORIDE 0.9% 247.5 ML IV SCH (23:45)
[2023-06-19] MEDS ORDERED: DKA GOAL RANGE 150-250 mg/dl ONE (00:16)
[2023-06-19] MEDS ORDERED: PENDING 1/2NSS+20mEq KCL IVF SCH (00:16)
[2023-06-19] MEDS ORDERED: ALBUTEROL 0.083% NEBU SOLN 3 ML VIAL INH PRN (00:16)
[2023-06-19] MEDS ORDERED: PLASMA-LYTE A 1,000 ML IV SCH (00:16)
[2023-06-19] MEDS ORDERED: STAT IV Infusion **Titration per Protocol STA (00:16)
[2023-06-19] MEDS ORDERED: DICLOFENAC SOD 1% GEL 100 GM TUBE EXT PRN (00:16)
[2023-06-19] MEDS ORDERED: INSULIN REGULAR 250 UNITS in SODIUM CHLORIDE 0.9% 247.5 ML IV SCH (00:16)
[2023-06-19] MEDS ORDERED: NYSTATIN CR 15 GM TUBE EXT PRN (00:16)
[2023-06-19] MEDS ORDERED: GLUCOSE 40% GEL 15 GM TUBE PO PRN (00:45)
[2023-06-19] MEDS ORDERED: DEXTROSE 50% 50 ML SYRINGE IV PRN (00:45)
[2023-06-19] MEDS ORDERED: SODIUM CHLOR 0.45% + 20MEQ KCL 20 MEQ/1,000 ML BAG IV SCH (00:45)
[2023-06-19] MEDS ORDERED: GLUCOSE 10 TAB/TUBE PO PRN (00:45)
[2023-06-19] MEDS ORDERED: GLUCAGON FOR INJ 1 MG VIAL IM PRN (00:45)
[2023-06-19] MEDS ORDERED: CARBOHYDRATES FOR HYPOGLYCEMIA PO PRN (00:45)
[2023-06-19] MEDS ORDERED: MAGNESIUM SULFATE / D5W 1 GM/100 ML BAG IV ONE (01:15)
[2023-06-19 01:40] LABS: BUN Creatinine Ratio 18.9 (10-20); Creatinine Clr Calc Pharmacy 43.2 ml/min; Est GFR (African American) 34.6 ml/min; Est GFR (Non-African American) 29.9 ml/min; Magnesium 1.7 mg/dl (1.7-2.4); Potassium 4.5 mmol/L (3.5-5.1)
[2023-06-19] MEDS ORDERED: PENDING D5 1/2NS+20mEq KCL IVF SCH (02:00)
[2023-06-19] MEDS ORDERED: ACETAMINOPHEN 1,000 MG/100 ML VIAL IV PRN (02:49)
[2023-06-19] MEDS: D5W AND 1/2NSS + 20MEQ KCL 20 MEQ/1,000 ML BAG IV SCH ×2 (03:33→08:49)
[2023-06-19] MEDS: ENOXAPARIN INJ 40 MG/0.4 ML SYR SQ SCH ×2 (05:43→17:08)
[2023-06-19 05:56] LABS: Hematocrit (blood only) 29.1 % (37.0-47.0); Hemoglobin 9.5 g/dl (12.0-16.0); Mean Corpuscular Hemoglobin 29.1 pg (25.0-34.0); Mean Corpuscular Hgb Conc 32.6 g/dL (32.0-36.0); Mean Corpuscular Volume 89.3 fL (80.0-100.0); Mean Platelet Volume 9.9 fL (9.4-12.4); Platelet Count 186 K/uL (130-400); RDW Coefficient of Variation 15.8 % (11.5-14.5); RDW Standard Deviation 52.4 fL (36.4-46.3); Red Blood Count 3.26 M/uL (4.20-5.40)
[2023-06-19] MEDS: cefTRIAXone SODIUM 2,000 MG in DEXTROSE 5% 50 ML IV SCH (06:08)
[2023-06-19 06:12] LABS: BUN Creatinine Ratio 19.5 (10-20); Calcium 7.9 mg/dl (8.6-10.3); Creatinine Clr Calc Pharmacy 48.9 ml/min; Est GFR (African American) 40.2 ml/min; Est GFR (Non-African American) 34.7 ml/min; Potassium 3.9 mmol/L (3.5-5.1)
--- NOTE | 2023-06-19 06:53 | Hospitalist Progress Note ---
Date of Service June 19, 2023 Assessment & Plan (1) Hyperglycemia: (2) BUTCH (acute kidney injury): (3) Acute hyponatremia: (4) Hypomagnesemia: (5) Elevated lactic acid level: (6) UTI (urinary tract infection): Plan 62 F with PMH DM 2, hypertension with neuropathy, COPD, and depression/anxiety, who presented with shakiness and hyperglycemia at home. Admitted for acute management of hyperglycemia, metabolic acidosis. Hyperglycemia - DKA Diabetes mellitus type 2 -History of poorly controlled diabetes since 2017hemoglobin A1c 10.4 in April 2023. Home regimen: 50 units of Lantus twice daily, metformin 1000 mg twice daily. -Tachycardia, leukocytosis, mild hyponatremia, BUTCH, presenting BSG >400, AG metabolic acidosis on initial work-up labs. Ketonuria, -S/p 3 L IV bolus NS, 10 units Novolin bolus in the ED. -Glucose well controlled at this time, will trend BMP, VBG, magnesium, phosphorus in the a.m. -Hemoglobin A1c of 10.2. -Resume type DM2 and heart healthy diet. Sepsis 2/2 UTI -Patient with leukocytosis, fever, and tachycardia. -UA positive for leukocyte esterase, nitrites, ketonuria, proteinuria, 4+ bacteremia. Procalcitonin 27.14. Urine cultures growing gram-negative bacilli. -Started on ceftriaxone 2 g every 24, no blood cultures were collected prior to admission of antibiotics. -Will order stat blood cultures at this time. -Currently on LR at 125 mL/hr. Hypomagnesemiaresolved -1.4 on admission. S/p repletion with IV magnesium sulfate x4 g -Resolved at this time. Continue monitoring while inpatient. BUTCH -Serum creatinine 2.19 on admission. Baseline around 1.1-1.17. -IV fluids with LR at 125 mL an hour. Continue to monitor with daily labs. -Most likely secondary to dehydration Code: Full code Dispo: Med-Surg PCU FEN/GI: DM2, heart healthy DVT Prophylaxis: Lovenox 40 mg q24h PT/OT: Consult Consults: Glycemic consult Case Management: No Admission and Anticipated Discharge Date Admission Date: June 18, 2023 Supervising Physician Co-Signing Physician Notes Resident Physician Supervision Note: I independently interviewed and examined the patient and verified the [place] history and physical, reviewed labs and image studies and agree with resident findings and care plan. Subjective Patient was seen bedside this morning. With discussing patient's history, patient states that she has been in the 300s over the past year. She also states that over the past 2 days she has been having trouble with urinating and feeling dehydrated. She also states that she cannot walk or stand. Today she is feeling better. She continues to have a fever. States that she is feeling better. Also with reviewing history patient states that she has not started her Trintellix and has not taken her sertraline. Review of Systems Review of Systems: All systems reviewed & are unremarkable except as noted in Subjective Physical Exam Physical Exam: Constitutional: well-appearing, no acute distress, obese HEENT: NCAT, no conjunctival injection CV: regular rhythm, no murmur appreciated, extremities well-perfused, no LE edema Resp: CTABL, no wheezes/rales/rhonchi appreciated, no increased work of breathing GI: soft, nondistended, nontender, BS normoactive MSK: no gross deformities appreciated Skin: warm, dry, no rash appreciated Neuro: alert, oriented, no focal neurologic deficit appreciated Results & Data Results & Data Vital Signs (Past 12 Hours) Vital Signs Temp Pulse Pulse Resp BP BP Pulse Ox 06/19/23 03:05 39.6 C H 126 H 20 105/60 94 06/19/23 00:00 06/19/23 00:35 37.7 C H 128 H 20 128/83 94 06/18/23 23:48 112 H 18 138/98 96 06/18/23 20:11 125 H 06/18/23 22:00 123 H 18 90 06/18/23 22:00 122/85 06/18/23 21:50 124 H 27 H 96 06/18/23 21:44 128 H 15 06/18/23 21:30 123 H 25 H 98 06/18/23 21:20 122 H 18 96 06/18/23 21:10 123 H 26 H 96 06/18/23 21:00 122 H 23 96 06/18/23 21:00 136/94 06/18/23 20:50 122 H 23 96 06/18/23 20:46 119/70 06/18/23 20:46 121 H 20 94 06/18/23 20:40 121 H 17 96 06/18/23 20:30 123 H 22 96 06/18/23 20:20 124 H 23 96 06/18/23 20:12 125 H 17 93 06/18/23 19:29 36.5 C 135 H 16 119/79 99 O2 Del Method 06/19/23 03:05 Room Air 06/19/23 00:00 Room Air 06/19/23 00:35 Room Air 06/18/23 23:48 Room Air 06/18/23 20:11 06/18/23 22:00 06/18/23 22:00 06/18/23 21:50 06/18/23 21:44 06/18/23 21:30 06/18/23 21:20 06/18/23 21:10 06/18/23 21:00 06/18/23 21:00 06/18/23 20:50 06/18/23 20:46 06/18/23 20:46 06/18/23 20:40 06/18/23 20:30 06/18/23 20:20 06/18/23 20:12 06/18/23 19:29 Room Air Resident Activity Tracking Resident Involvement: Resident Care Provided Care Provided: Adult Hospital Medicine
[2023-06-19] MEDS: Ipratropium HFA Inhaler (Combivent Respimat P&T Subs) INH SCH ×4 (07:24→19:47)
[2023-06-19] MEDS: Albuterol HFA 8 GM Inhaler (Combivent Respimat P&T Subs) INH SCH ×4 (07:24→19:47)
[2023-06-19] MEDS ORDERED: INSULIN ASPART PER UNIT CHARGE SC SCH (07:30)
[2023-06-19 07:40] LABS: Estimated Average Glucose 246 mg/dl; Hemoglobin A1C 10.2 % (4.5-5.6)
[2023-06-19] MEDS: MAGNESIUM SULFATE / D5W 1 GM/100 ML BAG IV SCH ×2 (08:07→09:46)
[2023-06-19] MEDS ORDERED: SERTRALINE HCL 100 MG TABLET PO SCH (09:00)
[2023-06-19] MEDS ORDERED: IPRATROPIUM BROMIDE/ALBUTEROL respimat INH INH SCH (09:00)
[2023-06-19 09:01] LABS: Calcium 8.3 mg/dl (8.6-10.3); Magnesium 2.2 mg/dl (1.7-2.4); Potassium 4.1 mmol/L (3.5-5.1)
[2023-06-19 09:07] LABS: BUN Creatinine Ratio 19.2 (10-20); Creatinine Clr Calc Pharmacy 49.8 ml/min; Est GFR (African American) 41.1 ml/min; Est GFR (Non-African American) 35.5 ml/min; Phosphorus 3.4 mg/dl (2.5-4.9)
[2023-06-19] MEDS ORDERED: PHARMACY GLYCEMIC MGMT CONSULT PRN (09:47)
[2023-06-19] MEDS: EZETIMIBE 10 MG TAB PO SCH (09:51)
[2023-06-19] MEDS: GABAPENTIN 600 MG TAB PO SCH ×2 (09:52→22:17)
[2023-06-19] MEDS ORDERED: LANTUS PER UNIT CHARGE SQ SCH ×2 (10:00→21:00)
[2023-06-19] MEDS: LACTATED RINGER'S 1,000 ML IV SCH ×2 (10:04→17:59)
--- NOTE | 2023-06-19 10:07 | Pharmacy Report ---
Pharmacy Glycemic Short Note 2 - Date of Service June 19, 2023 - Glycemic Short BSG Results (Last 24 hours): 06/18/23 06/18/23 06/18/23 19:32 19:50 20:27 Glucose 408 H* POC Glucose 446 H* 445 H* 06/18/23 06/18/23 06/19/23 21:28 22:32 00:51 Glucose POC Glucose 398 H* 366 H* 289 H 06/19/23 06/19/23 06/19/23 01:06 02:08 03:06 Glucose 252 H POC Glucose 246 H 159 H 06/19/23 06/19/23 06/19/23 04:35 05:36 05:40 Glucose 144 H POC Glucose 163 H 152 H 06/19/23 06/19/23 06/19/23 06:38 07:44 08:20 Glucose 84 POC Glucose 145 H 101 H OUTPATIENT ANTIDIABETIC REGIMEN: * Toujeo 50 units SC BID * Metformin 1000 mg PO BID HbA1c: 10.2% (06/19/23) ASSESSMENT: * PS is a 62 year old female who presented to ED last evening with shakiness and elevated blood sugar * AG of 13, but no other indications of DKA (normal serum bicarbonate, ABG pH) * Patient reportedly took 70 units of home Toujeo yesterday prior to admission * Insulin infusion initiated and BSGs trended down nicely overnight, 446 mg/dL - > 101 mg/dL * Insulin infusion was discontinued and pharmacy consulted to convert to SC basal/bolus regimen * Given significant BSG improvement -will be somewhat conservative with initial insulin dosing PLAN FOR INPATIENT GLYCEMIC CONTROL: * Hold outpatient oral diabetes medications * Basal insulin * Lantus 20 units SC X 1 this AM * Lantus 20-30 units SC HS this evening * Reassess in AM * Bolus insulin * NovoLog per scale ACHS or Q6hrs while NPO * Goal Range: Low 110 mg/dL - High 140 mg/dL * Correction Factor: 20 mg/dL/unit * Nutritional / Prandial insulin per carb ratio of 1 unit per 6 grams CHO consumed
[2023-06-19] MEDS: INSULIN ASPART PER UNIT CHARGE SC SCH ×3 (10:28→17:59)
[2023-06-19] MEDS: ATORVASTATIN 40 MG TAB PO SCH (10:29)
[2023-06-19 13:24] LABS: Calcium 8.2 mg/dl (8.6-10.3); Magnesium 2.3 mg/dl (1.7-2.4); Potassium 4.5 mmol/L (3.5-5.1)
[2023-06-19 13:30] LABS: Creatinine Clr Calc Pharmacy 51.8 ml/min; Est GFR (African American) 43.1 ml/min; Est GFR (Non-African American) 37.2 ml/min; Phosphorus 3.1 mg/dl (2.5-4.9)
[2023-06-19 17:05] LABS: BUN Creatinine Ratio 17.1 (10-20); Calcium 8.1 mg/dl (8.6-10.3); Creatinine Clr Calc Pharmacy 47.4 ml/min; Est GFR (African American) 38.7 ml/min; Est GFR (Non-African American) 33.4 ml/min; Magnesium 2.3 mg/dl (1.7-2.4); Phosphorus 3.2 mg/dl (2.5-4.9); Potassium 4.3 mmol/L (3.5-5.1)
[2023-06-19] MEDS ORDERED: MICONAZOLE NITRATE POWDER 85 GM EXT PRN (18:17)
[2023-06-20] MEDS ORDERED: INSULIN ASPART PER UNIT CHARGE SC SCH
[2023-06-20 05:08] LABS: Hemoglobin 9.6 g/dl (12.0-16.0); Mean Corpuscular Hemoglobin 29.3 pg (25.0-34.0); Mean Corpuscular Volume 91.5 fL (80.0-100.0); Mean Platelet Volume 10.2 fL (9.4-12.4); Platelet Count 184 K/uL (130-400); RDW Coefficient of Variation 15.9 % (11.5-14.5); Red Blood Count 3.28 M/uL (4.20-5.40); White Blood Count 6.62 K/ul (4.8-10.8)
[2023-06-20] MEDS: cefTRIAXone SODIUM 2,000 MG in DEXTROSE 5% 50 ML IV SCH (05:47)
[2023-06-20] MEDS: ENOXAPARIN INJ 40 MG/0.4 ML SYR SQ SCH ×2 (06:10→17:39)
[2023-06-20] MEDS: Ipratropium HFA Inhaler (Combivent Respimat P&T Subs) INH SCH ×2 (07:15→13:06)
[2023-06-20] MEDS: Albuterol HFA 8 GM Inhaler (Combivent Respimat P&T Subs) INH SCH ×2 (07:16→11:01)
--- NOTE | 2023-06-20 07:20 | Hospitalist Progress Note ---
Date of Service June 20, 2023 Assessment & Plan (1) Hyperglycemia: (2) BUTCH (acute kidney injury): (3) Acute hyponatremia: (4) Hypomagnesemia: (5) Elevated lactic acid level: (6) UTI (urinary tract infection): Plan 62 F with PMH DM 2, hypertension with neuropathy, COPD, and depression/anxiety, who presented with shakiness and hyperglycemia at home. Admitted for acute management of hyperglycemia, metabolic acidosis. Hyperglycemia - DKA Diabetes mellitus type 2 -History of poorly controlled diabetes since 2017hemoglobin A1c 10.4 in April 2023. Home regimen: 50 units of Lantus twice daily, metformin 1000 mg twice daily. -Tachycardia, leukocytosis, mild hyponatremia, BUTCH, presenting BSG >400, AG metabolic acidosis on initial work-up labs. Ketonuria, -S/p 3 L IV bolus NS, 10 units Novolin bolus in the ED. -Hemoglobin A1c of 10.2. -Resumed type DM2 and heart healthy diet. -Glucose well controlled at this time, she will follow-up outpatient. Sepsis 2/2 UTI -Patient with leukocytosis, fever, and tachycardia. -Procalcitonin 27.14. Urine cultures positive for pansensitive E. coli. -Started on ceftriaxone 2 g every 24, no blood cultures were collected prior to admission of antibiotics, blood cultures pending at this time. -Patient continues to have fever the received second dose this a.m. -We will need patient to be afebrile 24 hours due to not being able to trust blood culture results. BUTCH - prerenal -Serum creatinine 2.19 on admission. Baseline around 1.1-1.17. -creatinine almost at baseline now 1.64 Lower extremity weakness -Patient with lower extremity weakness for years. -Strength intact and sensation overall intact. Though uncontrolled diabetes may play a role in weakness. -PT OT ordered, appreciate recommendations. -Should follow-up outpatient with PCP regarding continued work-up of weakness. Intertrigo -nystatin powder Code: Full code Dispo: Med-Surg PCU FEN/GI: DM2, heart healthy DVT Prophylaxis: Lovenox 40 mg q24h PT/OT: Consult Consults: Glycemic consult Case Management: No Admission and Anticipated Discharge Date Admission Date: June 18, 2023 Supervising Physician Co-Signing Physician Notes Resident Physician Supervision Note: I independently interviewed and examined the patient and verified the [place] history and physical, reviewed labs and image studies and agree with resident findings and care plan. Subjective Patient was seen bedside this morning. She states that she is feeling better. She did have a fever earlier this morning which required Tylenol. She states that she continues to have lower extremity weakness that has been going on for years. States that she has been having trouble moving her legs. She denies any numbness or tingling. Review of Systems Review of Systems: All systems reviewed & are unremarkable except as noted in Subjective Physical Exam Physical Exam: Constitutional: well-appearing, no acute distress, obese HEENT: NCAT, no conjunctival injection CV: regular rhythm, no murmur appreciated, extremities well-perfused, no LE edema Resp: CTABL, no wheezes/rales/rhonchi appreciated, no increased work of breathing GI: soft, nondistended, nontender, BS normoactive MSK: Lower extremity strength 5/5 Skin: warm, dry, no rash appreciated Neuro: alert, oriented, no focal neurologic deficit appreciated. Decreased sensation over the pinky bilateral feet, otherwise sensation intact Results & Data Results & Data Vital Signs (Past 12 Hours) Vital Signs Temp Pulse Pulse Resp BP Pulse Ox O2 Del Method 06/20/23 07:16 102 H 18 95 Room Air 06/20/23 03:26 38.3 C H 119 H 16 136/85 97 Room Air 06/19/23 23:00 109 H 06/19/23 23:51 37.4 C 117 H 18 146/79 H 95 Room Air 06/19/23 19:58 37.1 C 105 H 18 131/83 95 Room Air 06/19/23 19:48 108 H 18 96 Room Air Resident Activity Tracking Resident Involvement: Resident Care Provided Care Provided: Adult Hospital Medicine
[2023-06-20] MEDS: LACTATED RINGER'S 1,000 ML IV SCH (07:30)
[2023-06-20] MEDS: INSULIN ASPART PER UNIT CHARGE SC SCH ×5 (07:32→22:24)
[2023-06-20] MEDS: EZETIMIBE 10 MG TAB PO SCH (08:47)
[2023-06-20] MEDS: GABAPENTIN 600 MG TAB PO SCH ×2 (08:47→22:13)
[2023-06-20] MEDS: ATORVASTATIN 40 MG TAB PO SCH (08:47)
[2023-06-20] MEDS: LANTUS PER UNIT CHARGE SC SCH ×2 (08:54→22:24)
--- NOTE | 2023-06-20 10:55 | Pharmacy Report ---
Pharmacy Glycemic Short Note 2 - Date of Service June 20, 2023 - Glycemic Short BSG Results (Last 24 hours): 06/19/23 06/19/23 06/19/23 08:47 10:12 12:08 Glucose 178 H POC Glucose 116 H 107 H 06/19/23 06/19/23 06/19/23 12:29 16:27 16:33 Glucose 160 H POC Glucose 194 H 180 H 06/19/23 06/20/23 20:20 07:13 Glucose POC Glucose 224 H 176 H OUTPATIENT ANTIDIABETIC REGIMEN: * Toujeo 50 units SC BID * Metformin 1000 mg PO BID HbA1c: 10.2% (06/19/23) ASSESSMENT: 06/20: * BSGs [phone]/dL the last 24h. Received 50 units of basal and 41 units of bolus insulin yesterday. * Tolerating diet, continues on antibiotics. * Will titrate basal today by ~ 20% given elevated fasting. Novolog tightened for improved prandial coverage. 06/19: * PS is a 62 year old female who presented to ED last evening with shakiness and elevated blood sugar * AG of 13, but no other indications of DKA (normal serum bicarbonate, ABG pH) * Patient reportedly took 70 units of home Toujeo yesterday prior to admission * Insulin infusion initiated and BSGs trended down nicely overnight, 446 mg/dL - > 101 mg/dL * Insulin infusion was discontinued and pharmacy consulted to convert to SC basal/bolus regimen * Given significant BSG improvement -will be somewhat conservative with initial insulin dosing PLAN FOR INPATIENT GLYCEMIC CONTROL: * Hold outpatient oral diabetes medications * Basal insulin * Lantus 30 units SC BID * Bolus insulin * NovoLog per scale ACHS or Q6hrs while NPO * Goal Range: Low 110 mg/dL - High 140 mg/dL * Correction Factor: 15 mg/dL/unit * Nutritional / Prandial insulin per carb ratio of 1 unit per 5 grams CHO consumed
[2023-06-20] MEDS ORDERED: ALBUTEROL HFA 8 GM INHALER INH SCH (12:15)
[2023-06-20] MEDS ORDERED: IPRATROPIUM BROMIDE HFA INHALER INH PRN (13:23)
[2023-06-21] MEDS ORDERED: ALBUTEROL HFA 8 GM INHALER INH PRN (01:04)
[2023-06-21] MEDS: cefTRIAXone SODIUM 2,000 MG in DEXTROSE 5% 50 ML IV SCH (05:36)
[2023-06-21] MEDS: ENOXAPARIN INJ 40 MG/0.4 ML SYR SQ SCH (05:38)
[2023-06-21 05:50] LABS: Hematocrit (blood only) 31.3 % (37.0-47.0); Hemoglobin 10.1 g/dl (12.0-16.0); Mean Corpuscular Hemoglobin 29.7 pg (25.0-34.0); Mean Corpuscular Hgb Conc 32.3 g/dL (32.0-36.0); Mean Corpuscular Volume 92.1 fL (80.0-100.0); Platelet Count 204 K/uL (130-400); RDW Standard Deviation 54.5 fL (36.4-46.3); White Blood Count 6.29 K/ul (4.8-10.8)
[2023-06-21 05:59] LABS: BUN Creatinine Ratio 16.6 (10-20); Calcium 8.7 mg/dl (8.6-10.3); Creatinine Clr Calc Pharmacy 51.5 ml/min; Est GFR (African American) 44.9 ml/min; Est GFR (Non-African American) 38.8 ml/min; Phosphorus 4.6 mg/dl (2.5-4.9); Potassium 4.3 mmol/L (3.5-5.1)
[2023-06-21] MEDS: GABAPENTIN 600 MG TAB PO SCH (08:44)
[2023-06-21] MEDS: EZETIMIBE 10 MG TAB PO SCH (08:44)
[2023-06-21] MEDS: ATORVASTATIN 40 MG TAB PO SCH (08:44)
[2023-06-21] MEDS: INSULIN ASPART PER UNIT CHARGE SC SCH (08:50)
[2023-06-21] MEDS: LANTUS PER UNIT CHARGE SC SCH (08:50)
--- NOTE | 2023-06-21 11:41 | Discharge Summary ---
Date of Service June 21, 2023 Admission HPI Per Admitting Provider Evelin is a 62-year-old woman with history of DM2, hypertension, polyneuropathy, COPD, and depression/anxiety, who presented to the emergency room with shakiness and an elevated blood sugar. Patient checked her blood sugar upon waking and discovered it was >400. She had taken her insulin today (takes insulin 50 units twice daily). She reports feeling weak and shaky over the past couple days. She also reports nausea with vomiting last night, which she denies on admission, as well as a headache which is still present. She denies chest pain, shortness of breath, abdominal pain, recent illness, or dysuria. In the ED vitals were notable for sinus tachycardia. Labs showed blood sugar level of 408. WBC-13.47, sodium-129, creatinine-2.19, magnesium-1.4, alkaline phosphatase-116. Lactate was also elevated at 4.1. She received a 1 L bolus of normal saline, 1 g of magnesium sulfate, and a 10 unit IV bolus of Novolin. Hospitalist service was then consulted for admission. Admission Exam Per Admitting Provider General: No acute distress HEENT: PERRLA. Normal conjunctiva, anicteric sclera. Oropharynx normal. Respiratory: Normal respiratory effort. Bibasilar crackles heard on auscultation. Cardiovascular: RRR without murmurs, gallops, or rubs. No pedal edema. GI: Soft abdomen with normal bowel sounds heard on auscultation. Nontender x4 quadrants Neuro: Alert and oriented x3. Principal Diagnosis Complicated urinary tract infection Discharge Exam Constitutional: well-appearing, no acute distress, obese HEENT: NCAT, no conjunctival injection CV: regular rhythm, no murmur appreciated, extremities well-perfused, no LE edema Resp: CTABL, no wheezes/rales/rhonchi appreciated, no increased work of breathing GI: soft, nondistended, nontender, BS normoactive MSK: Lower extremity strength 5/5 Skin: warm, dry, no rash appreciated Neuro: alert, oriented, no focal neurologic deficit appreciated. Decreased sensation over the pinky bilateral feet, otherwise sensation intact Discharge Data Allergies Allergy/AdvReac Type Severity Reaction Status Date / Time sulfamethoxazole Allergy Severe Rash Verified 06/18/23 20:49 [From Bactrim] trimethoprim [From Bactrim] Allergy Severe Rash Verified 06/18/23 20:49 morphine Allergy Intermediate Hives Verified 06/18/23 20:49 Consultations 06/18/23 22:18 ED Decision to Admit Stat Diabetes Follow up Diabetes Follow-up Needed for HgbA1c >9% Hospital Course (1) Hyperglycemia: (2) BUTCH (acute kidney injury): (3) Acute hyponatremia: (4) Hypomagnesemia: (5) Elevated lactic acid level: (6) UTI (urinary tract infection): Plan 62 F with PMH DM 2, hypertension with neuropathy, COPD, and depression/anxiety, who presented with shakiness and hyperglycemia at home. Admitted for acute management of hyperglycemia, metabolic acidosis. Hyperglycemia - DKA Diabetes mellitus type 2 -History of poorly controlled diabetes since 2017hemoglobin A1c 10.4 in April 2023. Home regimen: 50 units of Lantus twice daily, metformin 1000 mg twice daily. -Tachycardia, leukocytosis, mild hyponatremia, BUTCH, presenting BSG >400, AG metabolic acidosis on initial work-up labs. -Resuscitated with IVF and kept on insulin drip until gap closed. Transitioned to SQ insulin. -Hemoglobin A1c of 10.2. -Glucose well controlled by time of discharge. -Patient's nurse was concerned about memory issues with the patient given she struggled with understanding how to treat her diabetes. MMSE was done prior to discharge which was a 29/30. -She will follow-up with PCP regarding continue diabetes management. May need diabetes education again. If issues with remembering diabetes management continue may need further work-up of memory issues. Sepsis 2/2 UTI -Patient with leukocytosis, fever, and tachycardia. -Procalcitonin 27.14. Urine cultures positive for pansensitive E. coli. -Started on ceftriaxone 2 g every 24. No bacteremia. blood cultures negative but obtained after receiving one dose of ceftriaxone. -Patient afebrile x24 hours at time of discharge. -Given allergies to Bactrim, will transition ceftriaxone to cefpodoxime 200 mg twice daily for 7 days. Will receive a total of 10-day course of antibiotics. BUTCH -Serum creatinine 2.19 on admission. Baseline around 1.1-1.17. -Creatinine 1.45 at time of discharge. -Should have a BMP at hospital follow-up. Lower extremity weakness -Patient with lower extremity weakness for years. -Strength intact and sensation overall intact. Though uncontrolled diabetes may play a role in weakness. -PT OT ordered, recommend home physical therapy. Patient sent home set up for home physical therapy -Should follow-up outpatient with PCP regarding continued work-up of weakness, if persist despite home PT Total Time Total Time Spent Total Time Spent (In Minutes): Please refer to attendings attestation. Discharge Plan Discharge Items Patient Disposition: Home - Self-Care Reason For Visit: HYPERGLYCEMIA Discharge Diagnosis: Complicated urinary tract infection Activity: Per Instructions section Non-emergency contact: Primary Care Provider Call non-emergency contact if: you have any medication questions, your pain is unusual for you and your temperature is above 101.5 Follow-up/Referrals: Gay Sanchez DO [Primary Care Provider] - 06/26/23 10:20 am (Will see Irineo Medina PA-C in Dr Sanchez's office) Diet: Carb Consistent or DM2 and Heart Healthy Addtl Attending Provider Instructions: You were admitted to the hospital for complicated urinary tract infection. You were treated with antibiotics and improved. You will be sent home with antibiotics. A discharge summary will be sent to your primary care physician to ensure continuity of care. Please bring this discharge summary with you to your next office appointment so that your provider can review it at that time. Follow-up appointments: * We have requested a follow-up appointment with your primary care physician within one week of discharge. Please call their office if you do not hear from them. Their number is [phone]. * Keep all your follow-up appointments as already scheduled. If you cannot make an appointment, notify your provider. Medications: Your medication list has been reviewed and reconciled upon discharge to ensure accuracy and continuity of care. An updated list of all your medications is included with your hospital discharge paperwork. Please review this list closely, and make note of any changes. * We sent a new medication called Cefpodoxime to your pharmacy. Take cefpodoxime 200mg BID for 7 days. * If you have any issues filling these prescriptions, please call [phone] and ask to leave a message for Dr. Shepard. * Take your medications as instructed; do not skip a dose of your medicines. Make sure all of your doctors know every medicine you are taking (including [id number] medicines, vitamins, and supplements). Call your primary care provider before taking any new medicines (including over- the-counter medicines, vitamins, and supplements), because some of these may interact with your current medications, or may make your symptoms worse. Tell your primary care provider if you cannot afford your medications. CONTACT YOUR PRIMARY CARE PROVIDER if you experience any of the following: * Worsening of symptoms * Fever, chills, or fatigue * Difficulty following your treatment plan, or difficulty taking medications CALL 911 OR GO TO THE EMERGENCY DEPARTMENT if you experience any of the following: * Sudden, severe abdominal pain or nausea/vomiting * Severe chest pain, or chest pain that radiates (moves) to your jaw or arm * Sudden, severe shortness of breath or difficulty breathing Thank you for allowing us to participate in your care. Pending Studies at Discharge: No Stand-Alone Forms: [facility], Smoking Cessation Medications and DC Order Prescriptions: New cefpodoxime 200 mg tablet 200 mg PO BID 7 Days Qty: 14 0RF Rx Instructions: must administer with a meal/food Continued loperamide [Imodium A-D] 2 mg tablet 2 mg PO Q6H PRN (Reason: loose stool) Qty: 120 1RF Patient Comments: hardly uses (DME) Wheelchair (Manual) Device See Rx Instructions .Route Qty: 1 0RF Rx Instructions: As directed magnesium oxide 400 mg magnesium capsule 800 mg PO BID Qty: 360 1RF Patient Comments: hasn't used this in awhile. (DME) pen needle, diabetic [BD Ultra-Fine Sweta Pen Needle] 32 gauge x 5/32" needle See Rx Instructions .Route Qty: 100 3RF Rx Instructions: INJECT INSULIN ONCE DAILY; DX CODE- E11.8 gabapentin 300 mg capsule 600 mg PO BID Qty: 360 1RF Combivent Respimat 20-100 mcg/actuation mist 1 puff inhalation QID Qty: 4 3RF Rx Instructions: space evenly during waking hours diclofenac sodium [Voltaren Arthritis Pain] 1 % gel 2 g topical QID PRN (Reason: Pain) Qty: 100 3RF furosemide [Lasix] 20 mg tablet 40 mg PO UD PRN (Reason: edema) Qty: 180 1RF amlodipine 5 mg tablet 5 mg PO QAM Qty: 90 1RF sertraline 100 mg tablet 200 mg PO QAM Qty: 180 1RF metformin 1,000 mg tablet extended release 24 hr 1,000 mg PO BID Qty: 180 1RF nystatin 100,000 unit/gram powder 1 applic topical QID PRN (Reason: Skin Irritation) Qty: 60 2RF ezetimibe [Zetia] 10 mg tablet 10 mg PO DAILY Qty: 90 1RF (DME) Prodigy No Coding Strip See Rx Instructions .Route Rx Instructions: test 4 times daily Toujeo SoloStar U-300 Insulin 300 unit/mL (1.5 mL) insulin pen 50 unit subcut BID Qty: 28.5 8RF Rx Instructions: PER PT "TOOK 50 UNITS THIS AM, CHECKED BSG WAS STILL IN THE 400'S, TOOK ANOTHER 10 UNITS, RECHECKED BSG, WAS STILL IN THE 300'S, TOOK ANOTHER 10 UNITS AT 1400". Inject 50 units into the abdomen twice daily; injections should be 10-12 hours apart. albuterol sulfate 2.5 mg /3 mL (0.083 %) solution for nebulization 2.5 mg inhalation Q6H PRN (Reason: shortness of breath or wheezing) Qty: 90 1RF Patient Comments: "doesn't have this anymore" (DME) nebulizers Misc See Rx Instructions .ROUTE .MEDSUPPLY Qty: 1 0RF Rx Instructions: As directed tizanidine 4 mg tablet 4 mg PO BID PRN (Reason: muscle spasm) 90 Days Qty: 180 1RF Trintellix 10 mg tablet 10 mg PO DAILY Qty: 30 2RF atorvastatin 80 mg tablet 80 mg PO QAM nystatin 100,000 unit/gram cream 1 applic topical BID PRN (Reason: Skin Irritation) Rx Instructions: apply to b/l groin ergocalciferol (vitamin D2) 1,250 mcg (50,000 unit) capsule 50,000 unit PO WK Rx Instructions: SUNDAYS Discharge Orders: Discharge Order (Routine); Ordered 06/21/23 Ordered By: Asim Knight/Other Patient Handouts: A1C, High Blood Sugar (Hyperglycemia), Managing Type 2 Diabetes Admission Data Admit Date/Time: 06/18/23 22:56 Attending Provider: Tracee Devi Admit Provider: Eun Allen Primary Care Provider: Gay Sanchez Other Providers: Henry Han ; [facility] Other Interventions: Discharge Summary Assessment (RN) Last Done: 06/21/23 10:33 Supervising Physician Co-Signing Physician Notes Resident Physician Supervision Note: I independently interviewed and examined the patient and verified the [place] history and physical, reviewed labs and image studies and agree with resident findings and care plan. Resident Activity Tracking Resident Involvement: Resident Care Provided Care Provided: Adult Hospital Medicine
[2023-06-25] MEDS ORDERED: ERGOCALCIFEROL 50,000 UNITS 1250 MCG CAP PO SCH (09:00)
--- NOTE | 2023-06-26 23:54 | Billing Data ---
Date of Service June 26, 2023 Coding Level of Care Code 42885 INT INP/OBS CARE
== END 2023-06-21 13:54 | disposition home or self-care (01) | DRG 871 ==
LOC: ED 19:25 → 4W 22:56 → SUATTDRO 22:56 → 4W 23:48
DX: Z79.4 Long term (current) use of insulin; Z83.3 Family history of diabetes mellitus; F17.210 Nicotine dependence, cigarettes, uncomplicated; N39.0 Urinary tract infection, site not specified; Z79.84 Long term (current) use of oral hypoglycemic drugs; A41.9 Sepsis, unspecified organism; J44.9 Chronic obstructive pulmonary disease, unspecified; N17.9 Acute kidney failure, unspecified; Z88.2 Allergy status to sulfonamides; Z79.899 Other long term (current) drug therapy; B96.20 Unspecified Escherichia coli [E. coli] as the cause of diseases classified elsewhere; E83.42 Hypomagnesemia; Z88.6 Allergy status to analgesic agent; Z88.1 Allergy status to other antibiotic agents; I10 Essential (primary) hypertension; E11.10 Type 2 diabetes mellitus with ketoacidosis without coma; E11.40 Type 2 diabetes mellitus with diabetic neuropathy, unspecified; E11.65 Type 2 diabetes mellitus with hyperglycemia